=== PATIENT | male | born 1955 | race Caucasian/White ===

== ENCOUNTER 2017-09-19 22:15 | Inpatient (IN) | payer OTHER, MEDICARE ==
[~2017-09-19] VITALS: Ht 170.2 cm; Wt 76.4 kg
[2017-09-19 23:45] LABS: Source, Urine Clean Catch
[2017-09-19 23:50] LABS: Bilirubin, Urine Neg (Neg); Blood, Urine 1+ (Neg); Glucose Qualitative, Urine Neg (Neg); Ketones, Urine Neg (Neg); Leukocyte Esterase, Urine 3+ (Neg); Nitrite, Urine Neg (Neg); Protein, Urine 3+ (Neg); Specific Gravity, Urine 1.015 (1.003-1.022); Urobilinogen, Urine NORM (Normal)
[2017-09-19 23:58] LABS: Appearance, Urine Cloudy (Clear); Color, Urine Yellow (P-Yellow)
[2017-09-20 00:05] LABS: International Normalized Ratio 1.01; Prothrombin Time Results 10.5 Sec (9.7-11.5)
[2017-09-20 00:11] LABS: BASOPHILS ABSOLUTE AUTO 0.02 K/mm3 (0.00-0.23); BASOPHILS PERCENT AUTO 0 % (0-2); EOSINOPHILS ABSOLUTE AUTO 0.19 K/mm3 (0.00-0.68); EOSINOPHILS PERCENT AUTO 3 % (0-6); Hematocrit 29.4 % (37.0-53.0); Hemoglobin 9.8 g/dL (13.5-17.5); IMMATURE GRAN ABSOLUTE AUTO 0.02 K/mm3 (0.00-0.10); IMMATURE GRAN PERCENT AUTO 0 % (0-1); LYMPHOCYTES ABSOLUTE AUTO 1.79 K/mm3 (0.84-5.20); LYMPHOCYTES PERCENT AUTO 30 % (21-46); MONOCYTES ABSOLUTE AUTO 0.52 K/mm3 (0.16-1.47); MONOCYTES PERCENT AUTO 9 % (4-13); Mean Corpuscular HGB 30.1 pg (26.0-34.0); Mean Corpuscular HGB Conc 33.3 g/dL (31.5-36.5); Mean Corpuscular Volume 90 fL (80-100); Mean Platelet Volume 9.3 fL (9.1-12.4); NEUTROPHILS ABSOLUTE AUTO 3.48 K/mm3 (1.96-9.15); NEUTROPHILS PERCENT AUTO 58 % (41-73); Platelet Count 136 K/mm3 (150-400); RDW Coefficient Variation 14.3 % (11.7-14.2); RDW Standard Deviation 47.5 fL (35.1-46.3); Red Blood Cell Count 3.26 M/mm3 (4.30-5.90); White Blood Cell Count 6.02 K/mm3 (4.00-11.30)
[2017-09-20 00:12] LABS: Bacteria Many /hpf; Red Blood Cells, Urine 0-2 /hpf (0-2); Squamous Epithelial Cells Not Seen /hpf (Few); White Blood Cells, Urine 25-50 /hpf (0-5)
[2017-09-20 00:19] LABS: Alanine Aminotransfer (ALT/SGP 52 U/L (12-78); Albumin, Blood 3.4 g/dL (3.4-5.0); Alk Phos 76 U/L (50-136); Anion Gap 7 mmol/L (6-16); Aspartate Aminotrans (AST/SGOT 29 U/L (12-37); Bilirubin, Total 0.2 mg/dL (0.1-1.0); Blood Urea Nitrogen 33 mg/dL (8-24); CO2, Blood 25 mmol/L (21-32); Calcium, Blood 8.4 mg/dL (8.5-10.1); Chloride, Blood 108 mmol/L (98-108); Creatinine, Blood 2.06 mg/dL (0.60-1.20); Globulin, Blood 3.5 g/dL (2.2-4.0); Glomerular Filtration Rate 35 (60-); Glucose, Blood 155 mg/dL (70-99); Potassium, Blood 4.1 mmol/L (3.5-5.5); Sodium, Blood 140 mmol/L (136-145); Total Protein, Blood 6.9 g/dL (6.4-8.2)
[2017-09-20 01:06] LABS: CPK Creatine Kinase 45 U/L (39-308)
[2017-09-20] MEDS ORDERED: AMLO10 PO (01:32)
[2017-09-20] MEDS ORDERED: ELIQUIS5 MG PO (01:32)
[2017-09-20] MEDS ORDERED: ALBU90OI INH (01:32)
[2017-09-20] MEDS ORDERED: ATOR40TA PO (01:33)
[2017-09-20] MEDS ORDERED: CLOP75 PO (01:33)
[2017-09-20] MEDS ORDERED: CARV25 PO (01:33)
[2017-09-20] MEDS ORDERED: LEVE500 PO (01:34)
[2017-09-20] MEDS ORDERED: Lisinopril2.5 MG PO (01:34)
[2017-09-20] MEDS ORDERED: Novolog100 UNIT/1 SQ (01:34)
[2017-09-20] MEDS ORDERED: ISOD40ER PO (01:34)
[2017-09-20] MEDS ORDERED: RANO500T PO (01:35)
[2017-09-20] MEDS ORDERED: PANT40 PO (01:35)
[2017-09-20] MEDS ORDERED: SERT100 PO (01:35)
[2017-09-20] MEDS ORDERED: TAMS.4ER PO (01:35)
[2017-09-20 01:36] LABS: Creatine Kinase MB 0.7 ng/mL (0.0-3.6); Troponin I <0.015 ng/mL (0.000-0.040)
[2017-09-20 01:37] LABS: Creatine Kinase MB Index 1.6 (0.0-4.0)
[2017-09-20 02:40] LABS: U Amphetamine Screen Not Detected; U Barbituate Screen Not Detected; U Benzodiazapine Screen Not Detected; U Buprenorphine Screen Not Detected; U Cannabinoids Screen Not Detected; U Cocaine Screen Not Detected; U Methadone Screen Not Detected; U Methamphetamine Screen Not Detected; U Opiates Screen Not Detected; U Oxycodone Screen Not Detected; U Phencyclidine Screen Not Detected; U Propoxyphene Screen Not Detected
[2017-09-20 07:04] LABS: BASOPHILS ABSOLUTE AUTO 0.01 K/mm3 (0.00-0.23); BASOPHILS PERCENT AUTO 0 % (0-2); EOSINOPHILS ABSOLUTE AUTO 0.24 K/mm3 (0.00-0.68); EOSINOPHILS PERCENT AUTO 4 % (0-6); Hemoglobin 9.9 g/dL (13.5-17.5); IMMATURE GRAN ABSOLUTE AUTO 0.01 K/mm3 (0.00-0.10); IMMATURE GRAN PERCENT AUTO 0 % (0-1); LYMPHOCYTES ABSOLUTE AUTO 1.72 K/mm3 (0.84-5.20); LYMPHOCYTES PERCENT AUTO 30 % (21-46); MONOCYTES ABSOLUTE AUTO 0.63 K/mm3 (0.16-1.47); MONOCYTES PERCENT AUTO 11 % (4-13); Mean Corpuscular Volume 91 fL (80-100); NEUTROPHILS ABSOLUTE AUTO 3.04 K/mm3 (1.96-9.15); NEUTROPHILS PERCENT AUTO 54 % (41-73); Platelet Count 133 K/mm3 (150-400); RDW Coefficient Variation 14.2 % (11.7-14.2); RDW Standard Deviation 47.4 fL (35.1-46.3); White Blood Cell Count 5.65 K/mm3 (4.00-11.30)
[2017-09-20 07:06] LABS: International Normalized Ratio 1.01; Prothrombin Time Results 10.5 Sec (9.7-11.5)
[2017-09-20 07:39] LABS: CPK Creatine Kinase 43 U/L (39-308); Creatine Kinase MB 0.7 ng/mL (0.0-3.6); Creatine Kinase MB Index 1.6 (0.0-4.0); Troponin I <0.015 ng/mL (0.000-0.040)
[2017-09-20 08:07] LABS: CHOL/HDL RATIO 3.4; Cholesterol 94 mg/dL (50-200); HDL Cholesterol 28 mg/dL (>39); Low Density Lipoprotein Chol 27 mg/dL (0-110); Triglycerides 194 mg/dL (30-160); Very Low Density Lipoprot Chol 38 mg/dL (6-32)
[2017-09-20 08:45] LABS: Albumin, Blood 3.3 g/dL (3.4-5.0); Bilirubin, Total 0.3 mg/dL (0.1-1.0); Bun/Creatinine Ratio 15.3 (12.0-20.0); Calcium, Blood 8.5 mg/dL (8.5-10.1); Creatinine, Blood 1.89 mg/dL (0.60-1.20); Globulin, Blood 3.2 g/dL (2.2-4.0); Potassium, Blood 4.3 mmol/L (3.5-5.5); Total Protein, Blood 6.5 g/dL (6.4-8.2)
[2017-09-21 05:32] LABS: BASOPHILS ABSOLUTE AUTO 0.01 K/mm3 (0.00-0.23); BASOPHILS PERCENT AUTO 0 % (0-2); EOSINOPHILS PERCENT AUTO 3 % (0-6); Hematocrit 31.7 % (37.0-53.0); Hemoglobin 10.5 g/dL (13.5-17.5); IMMATURE GRAN ABSOLUTE AUTO 0.01 K/mm3 (0.00-0.10); IMMATURE GRAN PERCENT AUTO 0 % (0-1); LYMPHOCYTES ABSOLUTE AUTO 1.04 K/mm3 (0.84-5.20); LYMPHOCYTES PERCENT AUTO 10 % (21-46); MONOCYTES ABSOLUTE AUTO 0.86 K/mm3 (0.16-1.47); MONOCYTES PERCENT AUTO 8 % (4-13); Mean Corpuscular HGB 29.7 pg (26.0-34.0); Mean Corpuscular HGB Conc 33.1 g/dL (31.5-36.5); Mean Corpuscular Volume 90 fL (80-100); Mean Platelet Volume 9.3 fL (9.1-12.4); NEUTROPHILS ABSOLUTE AUTO 8.47 K/mm3 (1.96-9.15); NEUTROPHILS PERCENT AUTO 79 % (41-73); Platelet Count 153 K/mm3 (150-400); RDW Coefficient Variation 13.9 % (11.7-14.2); RDW Standard Deviation 45.8 fL (35.1-46.3); Red Blood Cell Count 3.53 M/mm3 (4.30-5.90); White Blood Cell Count 10.69 K/mm3 (4.00-11.30)
[2017-09-21 05:59] LABS: Albumin, Blood 3.4 g/dL (3.4-5.0); Anion Gap 9 mmol/L (6-16); Blood Urea Nitrogen 29 mg/dL (8-24); Bun/Creatinine Ratio 16.9 (12.0-20.0); CO2, Blood 23 mmol/L (21-32); Calcium, Blood 8.7 mg/dL (8.5-10.1); Chloride, Blood 105 mmol/L (98-108); Creatinine, Blood 1.72 mg/dL (0.60-1.20); Glomerular Filtration Rate 43 (60-); Glucose, Blood 146 mg/dL (70-99); Phosphorus, Blood 3.9 mg/dL (2.5-4.9); Potassium, Blood 4.5 mmol/L (3.5-5.5); Sodium, Blood 137 mmol/L (136-145)
[2017-09-22 05:27] LABS: BASOPHILS ABSOLUTE AUTO 0.01 K/mm3 (0.00-0.23); BASOPHILS PERCENT AUTO 0 % (0-2); EOSINOPHILS ABSOLUTE AUTO 0.37 K/mm3 (0.00-0.68); EOSINOPHILS PERCENT AUTO 4 % (0-6); Hematocrit 30.1 % (37.0-53.0); Hemoglobin 9.9 g/dL (13.5-17.5); IMMATURE GRAN ABSOLUTE AUTO 0.01 K/mm3 (0.00-0.10); IMMATURE GRAN PERCENT AUTO 0 % (0-1); LYMPHOCYTES ABSOLUTE AUTO 1.21 K/mm3 (0.84-5.20); LYMPHOCYTES PERCENT AUTO 15 % (21-46); MONOCYTES ABSOLUTE AUTO 0.76 K/mm3 (0.16-1.47); MONOCYTES PERCENT AUTO 9 % (4-13); Mean Corpuscular HGB 29.7 pg (26.0-34.0); Mean Corpuscular HGB Conc 32.9 g/dL (31.5-36.5); Mean Corpuscular Volume 90 fL (80-100); Mean Platelet Volume 9.6 fL (9.1-12.4); NEUTROPHILS PERCENT AUTO 72 % (41-73); Platelet Count 136 K/mm3 (150-400); RDW Coefficient Variation 13.8 % (11.7-14.2); RDW Standard Deviation 45.4 fL (35.1-46.3); Red Blood Cell Count 3.33 M/mm3 (4.30-5.90); White Blood Cell Count 8.36 K/mm3 (4.00-11.30)
[2017-09-22 05:47] LABS: Albumin, Blood 3.1 g/dL (3.4-5.0); Anion Gap 6 mmol/L (6-16); Blood Urea Nitrogen 28 mg/dL (8-24); Bun/Creatinine Ratio 16.8 (12.0-20.0); CO2, Blood 25 mmol/L (21-32); Calcium, Blood 8.4 mg/dL (8.5-10.1); Chloride, Blood 107 mmol/L (98-108); Creatinine, Blood 1.67 mg/dL (0.60-1.20); Glomerular Filtration Rate 44 (60-); Glucose, Blood 89 mg/dL (70-99); Phosphorus, Blood 4.7 mg/dL (2.5-4.9); Potassium, Blood 4.5 mmol/L (3.5-5.5); Sodium, Blood 138 mmol/L (136-145)
[2017-09-23 04:39] LABS: BASOPHILS ABSOLUTE AUTO 0.01 K/mm3 (0.00-0.23); BASOPHILS PERCENT AUTO 0 % (0-2); EOSINOPHILS ABSOLUTE AUTO 0.41 K/mm3 (0.00-0.68); EOSINOPHILS PERCENT AUTO 7 % (0-6); Hematocrit 29.7 % (37.0-53.0); Hemoglobin 9.8 g/dL (13.5-17.5); IMMATURE GRAN ABSOLUTE AUTO 0.01 K/mm3 (0.00-0.10); IMMATURE GRAN PERCENT AUTO 0 % (0-1); LYMPHOCYTES ABSOLUTE AUTO 1.45 K/mm3 (0.84-5.20); LYMPHOCYTES PERCENT AUTO 23 % (21-46); MONOCYTES ABSOLUTE AUTO 0.51 K/mm3 (0.16-1.47); MONOCYTES PERCENT AUTO 8 % (4-13); Mean Corpuscular HGB 30.2 pg (26.0-34.0); Mean Corpuscular Volume 91 fL (80-100); Mean Platelet Volume 8.9 fL (9.1-12.4); NEUTROPHILS PERCENT AUTO 61 % (41-73); Platelet Count 138 K/mm3 (150-400); RDW Coefficient Variation 13.8 % (11.7-14.2); RDW Standard Deviation 46.4 fL (35.1-46.3); Red Blood Cell Count 3.25 M/mm3 (4.30-5.90); White Blood Cell Count 6.19 K/mm3 (4.00-11.30)
[2017-09-23 04:54] LABS: Albumin, Blood 3.2 g/dL (3.4-5.0); Anion Gap 7 mmol/L (6-16); Blood Urea Nitrogen 28 mg/dL (8-24); CO2, Blood 24 mmol/L (21-32); Calcium, Blood 8.5 mg/dL (8.5-10.1); Chloride, Blood 106 mmol/L (98-108); Creatinine, Blood 1.87 mg/dL (0.60-1.20); Glomerular Filtration Rate 39 (60-); Glucose, Blood 145 mg/dL (70-99); Phosphorus, Blood 3.9 mg/dL (2.5-4.9); Potassium, Blood 4.5 mmol/L (3.5-5.5); Sodium, Blood 137 mmol/L (136-145)
[2017-09-26 19:14] LABS: Albumin, Blood 3.2 g/dL (3.4-5.0); Albumin/Globulin Ratio 0.8 (0.8-1.8); Bilirubin, Total 0.3 mg/dL (0.1-1.0); Bun/Creatinine Ratio 20.9 (12.0-20.0); Calcium, Blood 8.4 mg/dL (8.5-10.1); Creatinine, Blood 2.06 mg/dL (0.60-1.20); Globulin, Blood 4.1 g/dL (2.2-4.0); Potassium, Blood 4.9 mmol/L (3.5-5.5); Total Protein, Blood 7.3 g/dL (6.4-8.2)
[2017-09-26 19:18] LABS: BASOPHILS ABSOLUTE AUTO 0.01 K/mm3 (0.00-0.23); BASOPHILS PERCENT AUTO 0 % (0-2); EOSINOPHILS ABSOLUTE AUTO 0.11 K/mm3 (0.00-0.68); EOSINOPHILS PERCENT AUTO 1 % (0-6); Hematocrit 30.1 % (37.0-53.0); IMMATURE GRAN ABSOLUTE AUTO 0.01 K/mm3 (0.00-0.10); IMMATURE GRAN PERCENT AUTO 0 % (0-1); LYMPHOCYTES PERCENT AUTO 9 % (21-46); MONOCYTES ABSOLUTE AUTO 0.53 K/mm3 (0.16-1.47); MONOCYTES PERCENT AUTO 7 % (4-13); Mean Corpuscular HGB 29.7 pg (26.0-34.0); Mean Corpuscular HGB Conc 33.2 g/dL (31.5-36.5); Mean Corpuscular Volume 89 fL (80-100); Mean Platelet Volume 9.3 fL (9.1-12.4); NEUTROPHILS ABSOLUTE AUTO 6.57 K/mm3 (1.96-9.15); NEUTROPHILS PERCENT AUTO 83 % (41-73); Platelet Count 157 K/mm3 (150-400); RDW Coefficient Variation 13.5 % (11.7-14.2); RDW Standard Deviation 44.4 fL (35.1-46.3); Red Blood Cell Count 3.37 M/mm3 (4.30-5.90); White Blood Cell Count 7.93 K/mm3 (4.00-11.30)
[2017-09-26 19:18] LABS: Source, Urine Clean Catch
[2017-09-26 19:21] LABS: Percent Saturation 5.8 % (20.0-50.0)
[2017-09-26 19:36] LABS: Appearance, Urine Clear (Clear); Bilirubin, Urine Neg (Neg); Blood, Urine Neg (Neg); Color, Urine Yellow (P-Yellow); Glucose Qualitative, Urine Neg (Neg); Ketones, Urine Neg (Neg); Leukocyte Esterase, Urine 1+ (Neg); Nitrite, Urine Neg (Neg); Protein, Urine 3+ (Neg); Urobilinogen, Urine NORM (Normal)
[2017-09-26 20:06] LABS: Bacteria Few /hpf; Squamous Epithelial Cells Not Seen /hpf (Few)
[2017-09-27 04:36] LABS: BASOPHILS ABSOLUTE AUTO 0.01 K/mm3 (0.00-0.23); BASOPHILS PERCENT AUTO 0 % (0-2); EOSINOPHILS ABSOLUTE AUTO 0.13 K/mm3 (0.00-0.68); EOSINOPHILS PERCENT AUTO 2 % (0-6); Hematocrit 29.1 % (37.0-53.0); Hemoglobin 9.6 g/dL (13.5-17.5); IMMATURE GRAN ABSOLUTE AUTO 0.02 K/mm3 (0.00-0.10); IMMATURE GRAN PERCENT AUTO 0 % (0-1); LYMPHOCYTES ABSOLUTE AUTO 0.87 K/mm3 (0.84-5.20); LYMPHOCYTES PERCENT AUTO 11 % (21-46); MONOCYTES ABSOLUTE AUTO 0.69 K/mm3 (0.16-1.47); MONOCYTES PERCENT AUTO 9 % (4-13); Mean Corpuscular Volume 91 fL (80-100); Mean Platelet Volume 9.1 fL (9.1-12.4); NEUTROPHILS ABSOLUTE AUTO 5.93 K/mm3 (1.96-9.15); NEUTROPHILS PERCENT AUTO 78 % (41-73); Platelet Count 170 K/mm3 (150-400); RDW Coefficient Variation 13.5 % (11.7-14.2); RDW Standard Deviation 44.9 fL (35.1-46.3); White Blood Cell Count 7.65 K/mm3 (4.00-11.30)
[2017-09-27 04:58] LABS: Albumin, Blood 3.2 g/dL (3.4-5.0); Albumin/Globulin Ratio 0.8 (0.8-1.8); Bilirubin, Total 0.2 mg/dL (0.1-1.0); Bun/Creatinine Ratio 21.7 (12.0-20.0); Calcium, Blood 8.6 mg/dL (8.5-10.1); Creatinine, Blood 2.03 mg/dL (0.60-1.20); Globulin, Blood 3.8 g/dL (2.2-4.0); Potassium, Blood 4.3 mmol/L (3.5-5.5)
[2017-09-27 05:02] LABS: Thyroid Stimulating Hormone 0.347 uIU/mL (0.360-4.800)
[2018-01-01] MEDS ORDERED: Vitamin D2000 UNIT PO (16:10)
[2018-01-01] MEDS ORDERED: ACET500 PO (16:11)
[2018-02-15] MEDS ORDERED: MELA3 PO (00:15)
[2018-02-15] MEDS ORDERED: MIRT15 PO (00:15)
[2018-02-15] MEDS ORDERED: DULO60 PO (05:04)
[2018-02-15] MEDS ORDERED: HUMULIN 70100 UNIT/2 SC (05:06)
[2018-02-15] MEDS ORDERED: SALONPAS PATCH1 EACH TOP (05:16)
[2018-07-14] MEDS ORDERED: LOSA25 PO (19:10)
[2018-07-17] MEDS ORDERED: HYDR1TAB94 PO (11:00)
[2018-07-28] MEDS ORDERED: ELIQUIS2.5 MG PO (16:44)
[2018-07-28] MEDS ORDERED: ATOR80 PO (16:45)
[2018-07-28] MEDS ORDERED: CLOP75 PO (16:45)
[2018-07-28] MEDS ORDERED: DULO60 PO (16:46)
[2018-07-28] MEDS ORDERED: HYDR1TAB94 PO (16:46)
[2018-07-28] MEDS ORDERED: HUMULIN 70100 UNIT/2 SC (16:47)
[2018-07-28] MEDS ORDERED: Novolin R100 UNIT/M (16:47)
[2018-07-28] MEDS ORDERED: LEVE500 PO (16:48)
[2018-07-28] MEDS ORDERED: METO50ER PO (16:49)
[2018-07-28] MEDS ORDERED: MIRT15 PO (16:50)
[2018-07-28] MEDS ORDERED: PANT40 PO (16:50)
[2018-07-28] MEDS ORDERED: RANO500T PO (16:50)
[2018-07-28] MEDS ORDERED: TAMS.4ER PO (16:51)
[2018-07-29] MEDS ORDERED: Isosorbide Mono30 MG PO (01:03)
[2018-07-29] MEDS ORDERED: CHOL10002 PO (01:04)
[2018-07-29] MEDS ORDERED: LIDO5TO TOP (01:06)
[2018-07-29] MEDS ORDERED: MELA3 PO (01:12)
[2018-07-29] MEDS ORDERED: SALONPAS PATCH1 EACH TP (06:25)
[2018-07-29] MEDS ORDERED: LIDO700A20 TOP (06:33)
== END 2017-09-27 17:19 | disposition home health service (06) | DRG 65 ==
LOC: ER 22:15 → MEDS 22:16
PROVIDERS: Emergency Medicine; Family Medicine; Internal Medicine
DX: I63.9 Cerebral infarction, unspecified (principal); G81.94 Hemiplegia, unspecified affecting left nondominant side; N17.9 Acute kidney failure, unspecified; E11.22 Type 2 diabetes mellitus with diabetic chronic kidney disease; N39.0 Urinary tract infection, site not specified; D64.9 Anemia, unspecified; G89.29 Other chronic pain; I12.9 Hypertensive chronic kidney disease with stage 1 through stage 4 chronic kidney disease, or unspecified chronic kidney disease; I25.10 Atherosclerotic heart disease of native coronary artery without angina pectoris; R07.9 Chest pain, unspecified; K21.9 Gastro-esophageal reflux disease without esophagitis; R53.81 Other malaise; N18.9 Chronic kidney disease, unspecified; Z79.01 Long term (current) use of anticoagulants; Z79.02 Long term (current) use of antithrombotics/antiplatelets; Z95.0 Presence of cardiac pacemaker; Z87.891 Personal history of nicotine dependence; Z79.899 Other long term (current) drug therapy; Z95.5 Presence of coronary angioplasty implant and graft; Z88.8 Allergy status to other drugs, medicaments and biological substances; I25.2 Old myocardial infarction
CPT/HCPCS: 36415; 70450; 71020; 71046; 80053; 80061; 80069; 81001; 82550; 82553; 82728; 82947; 83036; 83540; 83550; 84443; 84484; 85025; 85610; 85651; 85730; 86038; 86147; 87040; 87077; 87086; 87186; 92610; 93005; 93010; 93880; 97110; 97116; 97161; 97166; 97530; 97535; 99285; G8978; G8979; G8987; G8988; G8996; G8997; G8998; J0696; J1170; J1815; J2270; J2405; J3010; J7030

== ENCOUNTER 2017-12-13 13:22 | Emergency (ER) | payer OTHER, MEDICARE ==
[~2017-12-13] VITALS: Ht 170.2 cm; Wt 77.1 kg
[~2017-12-13 13:22] MED LIST: ALBU90OI INH; AMLO10 PO; ATOR40TA PO; CARV25 PO; CLOP75 PO; ELIQUIS5 MG PO; ISOD40ER PO; LEVE500 PO; Lisinopril2.5 MG PO; Novolog100 UNIT/1 SQ; PANT40 PO; RANO500T PO; SERT100 PO; TAMS.4ER PO
[2017-12-13 13:59] LABS: BASOPHILS ABSOLUTE AUTO 0.03 K/mm3 (0.00-0.23); BASOPHILS PERCENT AUTO 1 % (0-2); EOSINOPHILS ABSOLUTE AUTO 0.25 K/mm3 (0.00-0.68); EOSINOPHILS PERCENT AUTO 4 % (0-6); Hematocrit 31.8 % (37.0-53.0); Hemoglobin 10.3 g/dL (13.5-17.5); IMMATURE GRAN ABSOLUTE AUTO 0.04 K/mm3 (0.00-0.10); IMMATURE GRAN PERCENT AUTO 1 % (0-1); LYMPHOCYTES ABSOLUTE AUTO 1.28 K/mm3 (0.84-5.20); LYMPHOCYTES PERCENT AUTO 20 % (21-46); MONOCYTES ABSOLUTE AUTO 0.55 K/mm3 (0.16-1.47); MONOCYTES PERCENT AUTO 9 % (4-13); Mean Corpuscular HGB 29.3 pg (26.0-34.0); Mean Corpuscular HGB Conc 32.4 g/dL (31.5-36.5); Mean Corpuscular Volume 91 fL (80-100); Mean Platelet Volume 9.4 fL (9.1-12.4); NEUTROPHILS ABSOLUTE AUTO 4.24 K/mm3 (1.96-9.15); NEUTROPHILS PERCENT AUTO 66 % (41-73); Platelet Count 164 K/mm3 (150-400); RDW Coefficient Variation 13.5 % (11.7-14.2); RDW Standard Deviation 44.9 fL (35.1-46.3); Red Blood Cell Count 3.51 M/mm3 (4.30-5.90); White Blood Cell Count 6.39 K/mm3 (4.00-11.30)
[2017-12-13 14:25] LABS: Alanine Aminotransfer (ALT/SGP 40 U/L (12-78); Albumin/Globulin Ratio 0.8 (0.8-1.8); Alk Phos 77 U/L (50-136); Anion Gap 5 mmol/L (6-16); Aspartate Aminotrans (AST/SGOT 24 U/L (12-37); Bilirubin, Total 0.2 mg/dL (0.1-1.0); Blood Urea Nitrogen 24 mg/dL (8-24); Bun/Creatinine Ratio 14.2 (12.0-20.0); CO2, Blood 24 mmol/L (21-32); Calcium, Blood 8.2 mg/dL (8.5-10.1); Chloride, Blood 109 mmol/L (98-108); Creatinine, Blood 1.69 mg/dL (0.60-1.20); Glomerular Filtration Rate 44 (60-); Glucose, Blood 163 mg/dL (70-99); Potassium, Blood 4.5 mmol/L (3.5-5.5); Sodium, Blood 138 mmol/L (136-145); Troponin I <0.015 ng/mL (0.000-0.040)
[2018-01-01] MEDS ORDERED: Vitamin D2000 UNIT PO (16:10)
[2018-01-01] MEDS ORDERED: ACET500 PO (16:11)
[2018-02-15] MEDS ORDERED: MELA3 PO (00:15)
[2018-02-15] MEDS ORDERED: MIRT15 PO (00:15)
[2018-02-15] MEDS ORDERED: DULO60 PO (05:04)
[2018-02-15] MEDS ORDERED: HUMULIN 70100 UNIT/2 SC (05:06)
[2018-02-15] MEDS ORDERED: SALONPAS PATCH1 EACH TOP (05:16)
[2018-07-14] MEDS ORDERED: LOSA25 PO (19:10)
[2018-07-17] MEDS ORDERED: HYDR1TAB94 PO (11:00)
[2018-07-28] MEDS ORDERED: ELIQUIS2.5 MG PO (16:44)
[2018-07-28] MEDS ORDERED: ATOR80 PO (16:45)
[2018-07-28] MEDS ORDERED: CLOP75 PO (16:45)
[2018-07-28] MEDS ORDERED: HYDR1TAB94 PO (16:46)
[2018-07-28] MEDS ORDERED: DULO60 PO (16:46)
[2018-07-28] MEDS ORDERED: Novolin R100 UNIT/M (16:47)
[2018-07-28] MEDS ORDERED: HUMULIN 70100 UNIT/2 SC (16:47)
[2018-07-28] MEDS ORDERED: LEVE500 PO (16:48)
[2018-07-28] MEDS ORDERED: METO50ER PO (16:49)
[2018-07-28] MEDS ORDERED: MIRT15 PO (16:50)
[2018-07-28] MEDS ORDERED: PANT40 PO (16:50)
[2018-07-28] MEDS ORDERED: RANO500T PO (16:50)
[2018-07-28] MEDS ORDERED: TAMS.4ER PO (16:51)
[2018-07-29] MEDS ORDERED: Isosorbide Mono30 MG PO (01:03)
[2018-07-29] MEDS ORDERED: CHOL10002 PO (01:04)
[2018-07-29] MEDS ORDERED: LIDO5TO TOP (01:06)
[2018-07-29] MEDS ORDERED: MELA3 PO (01:12)
[2018-07-29] MEDS ORDERED: SALONPAS PATCH1 EACH TP (06:25)
[2018-07-29] MEDS ORDERED: LIDO700A20 TOP (06:33)
== END 2017-12-13 15:50 | disposition home or self-care (01) ==
LOC: ER 13:22
PROVIDERS: Emergency Medicine
DX: R07.81 Pleurodynia (principal); I25.2 Old myocardial infarction; I25.10 Atherosclerotic heart disease of native coronary artery without angina pectoris; I48.0 Paroxysmal atrial fibrillation; E78.5 Hyperlipidemia, unspecified; J44.9 Chronic obstructive pulmonary disease, unspecified; G40.909 Epilepsy, unspecified, not intractable, without status epilepticus; I11.9 Hypertensive heart disease without heart failure; Z79.4 Long term (current) use of insulin; Z79.899 Other long term (current) drug therapy; Z86.73 Personal history of transient ischemic attack (TIA), and cerebral infarction without residual deficits; Z95.0 Presence of cardiac pacemaker; Z95.5 Presence of coronary angioplasty implant and graft; Z87.891 Personal history of nicotine dependence
CPT/HCPCS: 36415; 71046; 80053; 83690; 84484; 85025; 93005; 93010; 99283

== ENCOUNTER 2018-01-02 05:29 | Day surgery (SDC) | payer OTHER ==
[~2018-01-02] VITALS: Ht 172.7 cm; Wt 79.0 kg
[~2018-01-02 05:29] MED LIST changes: +ACET500 PO; +Vitamin D2000 UNIT PO
[2018-01-02] MEDS ORDERED: Isosorbide Mono60 MG PO (08:00)
== END 2018-01-02 11:00 | disposition home or self-care (01) ==
LOC: MHTC 05:29
PROC: 4A023N7 Measurement of Cardiac Sampling and Pressure, Left Heart, Percutaneous Approach (ICD-10-PCS; principal; 2018-01-02)
PROC: B211YZZ Fluoroscopy of Multiple Coronary Arteries using Other Contrast (ICD-10-PCS; principal; 2018-01-02)
DX: I25.118 Atherosclerotic heart disease of native coronary artery with other forms of angina pectoris (principal); I25.5 Ischemic cardiomyopathy; Z87.891 Personal history of nicotine dependence; E78.00 Pure hypercholesterolemia, unspecified; I10 Essential (primary) hypertension; E11.9 Type 2 diabetes mellitus without complications; Z79.4 Long term (current) use of insulin; E78.5 Hyperlipidemia, unspecified; Z95.5 Presence of coronary angioplasty implant and graft; Z95.0 Presence of cardiac pacemaker; I48.0 Paroxysmal atrial fibrillation
CPT/HCPCS: 93458; 99152; C1769; C1894; J1644; J2250; J3010; J7030; Q9967

== ENCOUNTER 2018-03-14 15:47 | Observation (INO) | payer MEDICARE ==
[~2018-03-14] VITALS: Ht 172.7 cm; Wt 77.2 kg
[~2018-03-14 15:47] MED LIST changes: +DULO60 PO; +HUMULIN 70100 UNIT/2 SC; +Isosorbide Mono60 MG PO; +MELA3 PO; +MIRT15 PO; +SALONPAS PATCH1 EACH TOP
[2018-03-14 16:31] LABS: BASOPHILS ABSOLUTE AUTO 0.02 K/mm3 (0.00-0.23); BASOPHILS PERCENT AUTO 0 % (0-2); EOSINOPHILS ABSOLUTE AUTO 0.24 K/mm3 (0.00-0.68); EOSINOPHILS PERCENT AUTO 4 % (0-6); Hematocrit 30.4 % (37.0-53.0); Hemoglobin 9.9 g/dL (13.5-17.5); IMMATURE GRAN ABSOLUTE AUTO 0.07 K/mm3 (0.00-0.10); IMMATURE GRAN PERCENT AUTO 1 % (0-1); LYMPHOCYTES ABSOLUTE AUTO 1.48 K/mm3 (0.84-5.20); LYMPHOCYTES PERCENT AUTO 25 % (21-46); MONOCYTES ABSOLUTE AUTO 0.57 K/mm3 (0.16-1.47); MONOCYTES PERCENT AUTO 10 % (4-13); Mean Corpuscular HGB 28.6 pg (26.0-34.0); Mean Corpuscular HGB Conc 32.6 g/dL (31.5-36.5); Mean Corpuscular Volume 88 fL (80-100); Mean Platelet Volume 9.6 fL (9.1-12.4); NEUTROPHILS ABSOLUTE AUTO 3.64 K/mm3 (1.96-9.15); NEUTROPHILS PERCENT AUTO 60 % (41-73); Platelet Count 188 K/mm3 (150-400); RDW Coefficient Variation 13.4 % (11.7-14.2); RDW Standard Deviation 42.7 fL (35.1-46.3); Red Blood Cell Count 3.46 M/mm3 (4.30-5.90); White Blood Cell Count 6.02 K/mm3 (4.00-11.30)
[2018-03-14 16:45] LABS: Alanine Aminotransfer (ALT/SGP 27 U/L (12-78); Albumin, Blood 2.7 g/dL (3.4-5.0); Albumin/Globulin Ratio 0.7 (0.8-1.8); Alk Phos 77 U/L (50-136); Anion Gap 8 mmol/L (6-16); Aspartate Aminotrans (AST/SGOT 13 U/L (12-37); Bilirubin, Total 0.2 mg/dL (0.1-1.0); Blood Urea Nitrogen 33 mg/dL (8-24); Bun/Creatinine Ratio 16.7 (12.0-20.0); CO2, Blood 20 mmol/L (21-32); Calcium, Blood 8.2 mg/dL (8.5-10.1); Chloride, Blood 108 mmol/L (98-108); Creatinine, Blood 1.98 mg/dL (0.60-1.20); Globulin, Blood 3.7 g/dL (2.2-4.0); Glomerular Filtration Rate 36 (60-); Glucose, Blood 329 mg/dL (70-99); Potassium, Blood 4.8 mmol/L (3.5-5.5); Sodium, Blood 136 mmol/L (136-145); Total Protein, Blood 6.4 g/dL (6.4-8.2); Troponin I <0.015 ng/mL (0.000-0.040)
[2018-03-15 05:22] LABS: Hematocrit 30.8 % (37.0-53.0); Hemoglobin 9.9 g/dL (13.5-17.5); Mean Corpuscular HGB Conc 32.1 g/dL (31.5-36.5); Mean Corpuscular Volume 87 fL (80-100); Platelet Count 181 K/mm3 (150-400); RDW Coefficient Variation 13.6 % (11.7-14.2); RDW Standard Deviation 42.8 fL (35.1-46.3); Red Blood Cell Count 3.53 M/mm3 (4.30-5.90); White Blood Cell Count 6.03 K/mm3 (4.00-11.30)
[2018-03-15 05:52] LABS: Bun/Creatinine Ratio 17.5 (12.0-20.0); Calcium, Blood 8.1 mg/dL (8.5-10.1); Creatinine, Blood 1.77 mg/dL (0.60-1.20); Potassium, Blood 4.4 mmol/L (3.5-5.5)
== END 2018-03-15 16:47 | disposition home or self-care (01) ==
LOC: ER 15:47 → PCU 15:48
PROVIDERS: Emergency Medicine; Nurse Practitioner Acute Care
DX: R07.9 Chest pain, unspecified (principal); E11.22 Type 2 diabetes mellitus with diabetic chronic kidney disease; I12.9 Hypertensive chronic kidney disease with stage 1 through stage 4 chronic kidney disease, or unspecified chronic kidney disease; N18.3 Chronic kidney disease, stage 3 (moderate); D63.1 Anemia in chronic kidney disease; G40.909 Epilepsy, unspecified, not intractable, without status epilepticus; I25.2 Old myocardial infarction; E78.5 Hyperlipidemia, unspecified; N40.0 Benign prostatic hyperplasia without lower urinary tract symptoms; I25.10 Atherosclerotic heart disease of native coronary artery without angina pectoris; I48.91 Unspecified atrial fibrillation; Z95.5 Presence of coronary angioplasty implant and graft; Z79.899 Other long term (current) drug therapy; Z87.891 Personal history of nicotine dependence; Z88.8 Allergy status to other drugs, medicaments and biological substances; Z79.01 Long term (current) use of anticoagulants; Z86.73 Personal history of transient ischemic attack (TIA), and cerebral infarction without residual deficits; Z95.810 Presence of automatic (implantable) cardiac defibrillator; Z79.4 Long term (current) use of insulin
CPT/HCPCS: 36415; 71046; 80048; 80053; 82947; 83540; 83550; 83880; 84484; 85025; 85027; 93005; 93010; 96360; 96361; 96374; 96376; 99285; G0378; J3010; J7030

== ENCOUNTER 2018-04-19 19:26 | Inpatient (IN) | payer MEDICARE ==
[~2018-04-19] VITALS: Ht 170.2 cm; Wt 83.1 kg
[2018-04-19 20:07] LABS: BASOPHILS ABSOLUTE AUTO 0.02 K/mm3 (0.00-0.23); BASOPHILS PERCENT AUTO 0 % (0-2); EOSINOPHILS ABSOLUTE AUTO 0.24 K/mm3 (0.00-0.68); EOSINOPHILS PERCENT AUTO 3 % (0-6); Hematocrit 33.3 % (37.0-53.0); Hemoglobin 10.7 g/dL (13.5-17.5); IMMATURE GRAN ABSOLUTE AUTO 0.03 K/mm3 (0.00-0.10); IMMATURE GRAN PERCENT AUTO 0 % (0-1); LYMPHOCYTES ABSOLUTE AUTO 1.83 K/mm3 (0.84-5.20); LYMPHOCYTES PERCENT AUTO 26 % (21-46); MONOCYTES ABSOLUTE AUTO 0.55 K/mm3 (0.16-1.47); MONOCYTES PERCENT AUTO 8 % (4-13); Mean Corpuscular HGB 27.7 pg (26.0-34.0); Mean Corpuscular HGB Conc 32.1 g/dL (31.5-36.5); Mean Corpuscular Volume 86 fL (80-100); Mean Platelet Volume 9.6 fL (9.1-12.4); NEUTROPHILS ABSOLUTE AUTO 4.37 K/mm3 (1.96-9.15); NEUTROPHILS PERCENT AUTO 62 % (41-73); Platelet Count 198 K/mm3 (150-400); RDW Coefficient Variation 13.3 % (11.7-14.2); RDW Standard Deviation 41.6 fL (35.1-46.3); Red Blood Cell Count 3.86 M/mm3 (4.30-5.90); White Blood Cell Count 7.04 K/mm3 (4.00-11.30)
[2018-04-19 20:25] LABS: Albumin, Blood 3.2 g/dL (3.4-5.0); Albumin/Globulin Ratio 0.8 (0.8-1.8); Bilirubin, Total 0.3 mg/dL (0.1-1.0); Bun/Creatinine Ratio 12.5 (12.0-20.0); Calcium, Blood 8.2 mg/dL (8.5-10.1); Creatinine, Blood 2.32 mg/dL (0.60-1.20); Total Protein, Blood 7.2 g/dL (6.4-8.2)
[2018-04-19] MEDS ORDERED: HYDR1TAB94 PO (22:21)
[2018-04-20 00:06] LABS: Source, Urine Clean Catch
[2018-04-20 00:14] LABS: Appearance, Urine Clear (Clear); Bilirubin, Urine Neg (Neg); Blood, Urine Neg (Neg); Color, Urine Yellow (P-Yellow); Glucose Qualitative, Urine 4+ (Neg); Ketones, Urine Neg (Neg); Leukocyte Esterase, Urine Neg (Neg); Nitrite, Urine Neg (Neg); Protein, Urine 4+ (Neg); Specific Gravity, Urine 1.015 (1.003-1.022); Urobilinogen, Urine NORM (Normal)
[2018-04-20 01:18] LABS: Bacteria Rare /hpf; Hyaline Casts 0-2 /lpf (0-2); Red Blood Cells, Urine 0-2 /hpf (0-2); Squamous Epithelial Cells Rare /hpf (Few); White Blood Cells, Urine 0-2 /hpf (0-5)
[2018-04-20 05:16] LABS: Hematocrit 31.3 % (37.0-53.0); Hemoglobin 9.9 g/dL (13.5-17.5); Mean Corpuscular HGB 27.4 pg (26.0-34.0); Mean Corpuscular HGB Conc 31.6 g/dL (31.5-36.5); Mean Corpuscular Volume 87 fL (80-100); Mean Platelet Volume 10.3 fL (9.1-12.4); Platelet Count 186 K/mm3 (150-400); RDW Coefficient Variation 13.2 % (11.7-14.2); RDW Standard Deviation 41.4 fL (35.1-46.3); Red Blood Cell Count 3.61 M/mm3 (4.30-5.90); White Blood Cell Count 5.77 K/mm3 (4.00-11.30)
[2018-04-20 05:56] LABS: Albumin, Blood 2.9 g/dL (3.4-5.0); Albumin/Globulin Ratio 0.8 (0.8-1.8); Bilirubin, Total 0.4 mg/dL (0.1-1.0); Bun/Creatinine Ratio 12.6 (12.0-20.0); Calcium, Blood 7.9 mg/dL (8.5-10.1); Creatinine, Blood 2.06 mg/dL (0.60-1.20); Globulin, Blood 3.6 g/dL (2.2-4.0); Potassium, Blood 4.2 mmol/L (3.5-5.5); Total Protein, Blood 6.5 g/dL (6.4-8.2)
[2018-04-21 08:25] LABS: BASOPHILS ABSOLUTE AUTO 0.03 K/mm3 (0.00-0.23); BASOPHILS PERCENT AUTO 1 % (0-2); EOSINOPHILS ABSOLUTE AUTO 0.26 K/mm3 (0.00-0.68); EOSINOPHILS PERCENT AUTO 5 % (0-6); Hematocrit 33.9 % (37.0-53.0); Hemoglobin 10.7 g/dL (13.5-17.5); IMMATURE GRAN ABSOLUTE AUTO 0.02 K/mm3 (0.00-0.10); IMMATURE GRAN PERCENT AUTO 0 % (0-1); LYMPHOCYTES ABSOLUTE AUTO 1.44 K/mm3 (0.84-5.20); LYMPHOCYTES PERCENT AUTO 25 % (21-46); MONOCYTES ABSOLUTE AUTO 0.44 K/mm3 (0.16-1.47); MONOCYTES PERCENT AUTO 8 % (4-13); Mean Corpuscular HGB 27.3 pg (26.0-34.0); Mean Corpuscular HGB Conc 31.6 g/dL (31.5-36.5); Mean Corpuscular Volume 87 fL (80-100); Mean Platelet Volume 9.9 fL (9.1-12.4); NEUTROPHILS ABSOLUTE AUTO 3.49 K/mm3 (1.96-9.15); NEUTROPHILS PERCENT AUTO 61 % (41-73); Platelet Count 180 K/mm3 (150-400); RDW Coefficient Variation 13.1 % (11.7-14.2); Red Blood Cell Count 3.92 M/mm3 (4.30-5.90); White Blood Cell Count 5.68 K/mm3 (4.00-11.30)
[2018-04-21 08:37] LABS: Albumin/Globulin Ratio 0.8 (0.8-1.8); Bilirubin, Total 0.3 mg/dL (0.1-1.0); Bun/Creatinine Ratio 12.9 (12.0-20.0); Calcium, Blood 8.3 mg/dL (8.5-10.1); Creatinine, Blood 2.1 mg/dL (0.60-1.20); Globulin, Blood 3.8 g/dL (2.2-4.0); Potassium, Blood 4.7 mmol/L (3.5-5.5); Total Protein, Blood 6.8 g/dL (6.4-8.2)
[2018-04-22 18:33] LABS: PCO2 Arterial 41.6 mmHg (35-45); PO2 Arterial 157 mmHg (80-100); pH Blood Arterial 7.32 (7.35-7.45)
[2018-04-22 19:19] LABS: Anion Gap 10 mmol/L (6-16); Blood Urea Nitrogen 32 mg/dL (8-24); Bun/Creatinine Ratio 13.7 (12.0-20.0); CO2, Blood 23 mmol/L (21-32); CPK Creatine Kinase 151 U/L (39-308); Calcium, Blood 9.2 mg/dL (8.5-10.1); Chloride, Blood 102 mmol/L (98-108); Creatinine, Blood 2.33 mg/dL (0.60-1.20); Glomerular Filtration Rate 30 (60-); Glucose, Blood 161 mg/dL (70-99); Magnesium, Blood 2.2 mg/dL (1.6-2.4); Potassium, Blood 4.9 mmol/L (3.5-5.5); Sodium, Blood 135 mmol/L (136-145); Troponin I <0.015 ng/mL (0.000-0.040)
[2018-04-23 03:48] LABS: BASOPHILS ABSOLUTE AUTO 0.02 K/mm3 (0.00-0.23); BASOPHILS PERCENT AUTO 0 % (0-2); EOSINOPHILS ABSOLUTE AUTO 0.24 K/mm3 (0.00-0.68); EOSINOPHILS PERCENT AUTO 4 % (0-6); Hematocrit 33.7 % (37.0-53.0); Hemoglobin 10.5 g/dL (13.5-17.5); IMMATURE GRAN ABSOLUTE AUTO 0.01 K/mm3 (0.00-0.10); IMMATURE GRAN PERCENT AUTO 0 % (0-1); LYMPHOCYTES ABSOLUTE AUTO 1.31 K/mm3 (0.84-5.20); LYMPHOCYTES PERCENT AUTO 23 % (21-46); MONOCYTES ABSOLUTE AUTO 0.59 K/mm3 (0.16-1.47); MONOCYTES PERCENT AUTO 11 % (4-13); Mean Corpuscular HGB 27.1 pg (26.0-34.0); Mean Corpuscular HGB Conc 31.2 g/dL (31.5-36.5); Mean Corpuscular Volume 87 fL (80-100); Mean Platelet Volume 9.3 fL (9.1-12.4); NEUTROPHILS ABSOLUTE AUTO 3.42 K/mm3 (1.96-9.15); NEUTROPHILS PERCENT AUTO 61 % (41-73); Platelet Count 168 K/mm3 (150-400); RDW Coefficient Variation 13.1 % (11.7-14.2); RDW Standard Deviation 41.3 fL (35.1-46.3); Red Blood Cell Count 3.87 M/mm3 (4.30-5.90); White Blood Cell Count 5.59 K/mm3 (4.00-11.30)
[2018-04-23 04:06] LABS: Albumin, Blood 3.1 g/dL (3.4-5.0); Albumin/Globulin Ratio 0.8 (0.8-1.8); Bilirubin, Total 0.2 mg/dL (0.1-1.0); Bun/Creatinine Ratio 14.5 (12.0-20.0); Calcium, Blood 8.2 mg/dL (8.5-10.1); Creatinine, Blood 2.28 mg/dL (0.60-1.20); Globulin, Blood 3.9 g/dL (2.2-4.0)
[2018-04-24] MEDS ORDERED: Stool Softener100 MG PO (09:38)
[2018-04-24] MEDS ORDERED: LIDOCAINE1 EACH TOP (09:42)
== END 2018-04-24 10:25 | disposition home health service (06) | DRG 65 ==
LOC: ER 19:26 → ICUE 21:06 → MEDS 21:06 → ICUE 04-22 19:38
PROVIDERS: Emergency Medicine; Hospitalist; Internal Medicine
DX: I63.9 Cerebral infarction, unspecified (principal); G81.94 Hemiplegia, unspecified affecting left nondominant side; I69.354 Hemiplegia and hemiparesis following cerebral infarction affecting left non-dominant side; I12.9 Hypertensive chronic kidney disease with stage 1 through stage 4 chronic kidney disease, or unspecified chronic kidney disease; E11.22 Type 2 diabetes mellitus with diabetic chronic kidney disease; N18.3 Chronic kidney disease, stage 3 (moderate); I48.91 Unspecified atrial fibrillation; I25.10 Atherosclerotic heart disease of native coronary artery without angina pectoris; M62.838 Other muscle spasm; E78.5 Hyperlipidemia, unspecified; R40.2362 Coma scale, best motor response, obeys commands, at arrival to emergency department; R40.2142 Coma scale, eyes open, spontaneous, at arrival to emergency department; R40.2252 Coma scale, best verbal response, oriented, at arrival to emergency department; R40.2412 Glasgow coma scale score 13-15, at arrival to emergency department; Z46.89 Encounter for fitting and adjustment of other specified devices; Z95.810 Presence of automatic (implantable) cardiac defibrillator; Z95.5 Presence of coronary angioplasty implant and graft; Z79.01 Long term (current) use of anticoagulants; Z79.02 Long term (current) use of antithrombotics/antiplatelets; Z79.4 Long term (current) use of insulin; Z79.899 Other long term (current) drug therapy
CPT/HCPCS: 36415; 36600; 70450; 71045; 80048; 80053; 81001; 82550; 82803; 82947; 83605; 83735; 84484; 85025; 85027; 93005; 93010; 93880; 94640; 97110; 97162; 97166; 97530; 99285-25; G8978; G8979; G8987; G8988; J1650; J1815; J2060; J2310; J2405; J3010; J7030

== ENCOUNTER 2018-06-09 18:50 | Inpatient (IN) | payer OTHER, MEDICARE ==
[~2018-06-09] VITALS: Ht 172.7 cm; Wt 88.2 kg
[~2018-06-09 18:50] MED LIST changes: +HYDR1TAB94 PO; +LIDOCAINE1 EACH TOP; +Stool Softener100 MG PO
[2018-06-09] MEDS ORDERED: [UNRECOGNIZED DRUG - CODE] PO (20:06)
[2018-06-09] MEDS ORDERED: [UNRECOGNIZED DRUG - CODE] PO (20:08)
[2018-06-09] MEDS ORDERED: [UNRECOGNIZED DRUG - CODE] PO (20:10)
[2018-06-09] MEDS ORDERED: [UNRECOGNIZED DRUG - CODE] SC (20:12)
[2018-06-09] MEDS ORDERED: [UNRECOGNIZED DRUG - CODE] PO (20:16)
[2018-06-09] MEDS ORDERED: RANO500T PO (20:32)
[2018-06-09 22:08] LABS: CPK Creatine Kinase 94 U/L (39-308); Creatine Kinase MB 1.8 ng/mL (0.0-3.6); Creatine Kinase MB Index 1.9 (0.0-4.0); Troponin I <0.015 ng/mL (0.000-0.040)
[2018-06-09] MEDS ORDERED: KAPSPARGO SPRIN50 MG PO (22:32)
[2018-06-10 04:26] LABS: BASOPHILS ABSOLUTE AUTO 0.01 K/mm3 (0.00-0.23); BASOPHILS PERCENT AUTO 0 % (0-2); EOSINOPHILS ABSOLUTE AUTO 0.17 K/mm3 (0.00-0.68); EOSINOPHILS PERCENT AUTO 3 % (0-6); Hematocrit 34.2 % (37.0-53.0); Hemoglobin 10.6 g/dL (13.5-17.5); IMMATURE GRAN ABSOLUTE AUTO 0.02 K/mm3 (0.00-0.10); IMMATURE GRAN PERCENT AUTO 0 % (0-1); LYMPHOCYTES ABSOLUTE AUTO 0.99 K/mm3 (0.84-5.20); LYMPHOCYTES PERCENT AUTO 17 % (21-46); MONOCYTES ABSOLUTE AUTO 0.54 K/mm3 (0.16-1.47); MONOCYTES PERCENT AUTO 9 % (4-13); Mean Corpuscular HGB 26.1 pg (26.0-34.0); Mean Corpuscular Volume 84 fL (80-100); Mean Platelet Volume 10.2 fL (9.1-12.4); NEUTROPHILS ABSOLUTE AUTO 4.06 K/mm3 (1.96-9.15); NEUTROPHILS PERCENT AUTO 70 % (41-73); Platelet Count 175 K/mm3 (150-400); RDW Coefficient Variation 13.5 % (11.7-14.2); RDW Standard Deviation 41.3 fL (35.1-46.3); Red Blood Cell Count 4.06 M/mm3 (4.30-5.90); White Blood Cell Count 5.79 K/mm3 (4.00-11.30)
[2018-06-10 04:44] LABS: Creatine Kinase MB 2.3 ng/mL (0.0-3.6); Creatine Kinase MB Index 1.1 (0.0-4.0); Troponin I 0.015 ng/mL (0.000-0.040)
[2018-06-10 04:51] LABS: Alanine Aminotransfer (ALT/SGP 25 U/L (12-78); Albumin, Blood 2.8 g/dL (3.4-5.0); Albumin/Globulin Ratio 0.7 (0.8-1.8); Alk Phos 79 U/L (50-136); Anion Gap 7 mmol/L (6-16); Aspartate Aminotrans (AST/SGOT 23 U/L (12-37); Bilirubin, Total 0.4 mg/dL (0.1-1.0); Blood Urea Nitrogen 27 mg/dL (8-24); Bun/Creatinine Ratio 11.6 (12.0-20.0); CO2, Blood 26 mmol/L (21-32); Calcium, Blood 7.8 mg/dL (8.5-10.1); Chloride, Blood 103 mmol/L (98-108); Cholesterol 120 mg/dL (50-200); Creatinine, Blood 2.33 mg/dL (0.60-1.20); Globulin, Blood 4.1 g/dL (2.2-4.0); Glomerular Filtration Rate 30 (60-); Glucose, Blood 103 mg/dL (70-99); Potassium, Blood 4.3 mmol/L (3.5-5.5); Sodium, Blood 136 mmol/L (136-145); Total Protein, Blood 6.9 g/dL (6.4-8.2); Triglycerides 304 mg/dL (30-160)
[2018-06-10 10:00] LABS: PCO2 Arterial 37.8 mmHg (35-45); PO2 Arterial 106 mmHg (80-100); pH Blood Arterial 7.36 (7.35-7.45)
[2018-06-11 05:48] LABS: Creatinine, Blood 2.67 mg/dL (0.60-1.20); Potassium, Blood 4.6 mmol/L (3.5-5.5)
[2018-06-12 05:14] LABS: Bun/Creatinine Ratio 18.9 (12.0-20.0); Calcium, Blood 8.2 mg/dL (8.5-10.1); Creatinine, Blood 2.65 mg/dL (0.60-1.20); Potassium, Blood 5.1 mmol/L (3.5-5.5)
[2018-06-12] MEDS ORDERED: LIDO5TO TOP (10:24)
[2018-06-12] MEDS ORDERED: Lopressor 50 mg50 MG PO (10:27)
[2018-06-12] MEDS ORDERED: LOSA25 PO (10:31)
[2018-06-12] MEDS ORDERED: ELIQUIS2.5 MG PO (10:33)
[2018-06-12] MEDS ORDERED: CEPACOL SORE T1 EACH MM (10:34)
[2018-06-12] MEDS ORDERED: ACET325 PO (10:35)
[2018-06-12] MEDS ORDERED: Q-Tussin100 MG/5 M PO (10:37)
[2018-06-12] MEDS ORDERED: DELTASONE20 MG PO (10:38)
[2018-06-12] MEDS ORDERED: ALBU90OI6 INH (10:40)
[2018-06-12] MEDS ORDERED: AZIT500 PO (10:41)
[2018-06-12] MEDS ORDERED: DULERA 100 MCG/13 GM INH (10:41)
== END 2018-06-12 11:18 | disposition home or self-care (01) | DRG 293 ==
LOC: ER 18:50 → PCU 18:51 → MEDS 18:51 → PCU 18:51 → MEDS 06-11 23:15 → ENPENDDIS 06-12 09:47 → MEDS 06-12 11:18
PROVIDERS: Family Medicine; Internal Medicine
DX: I13.0 Hypertensive heart and chronic kidney disease with heart failure and stage 1 through stage 4 chronic kidney disease, or unspecified chronic kidney disease (principal); I25.2 Old myocardial infarction; I25.10 Atherosclerotic heart disease of native coronary artery without angina pectoris; E78.5 Hyperlipidemia, unspecified; I50.9 Heart failure, unspecified; N40.0 Benign prostatic hyperplasia without lower urinary tract symptoms; F32.9 Major depressive disorder, single episode, unspecified; Z86.711 Personal history of pulmonary embolism; Z87.891 Personal history of nicotine dependence; N18.3 Chronic kidney disease, stage 3 (moderate); I25.5 Ischemic cardiomyopathy; Z79.4 Long term (current) use of insulin; E11.22 Type 2 diabetes mellitus with diabetic chronic kidney disease; Z79.01 Long term (current) use of anticoagulants; Z95.5 Presence of coronary angioplasty implant and graft; G89.29 Other chronic pain; Z99.81 Dependence on supplemental oxygen; R06.03 Acute respiratory distress
CPT/HCPCS: 36415; 36600; 71045; 71046; 80048; 80053; 82465; 82550; 82553; 82565; 82803; 82947; 83036; 83880; 84443; 84478; 84484; 85025; 93005; 93010; 94640; 94760; 94762; 96361; 96365; 96366; 96374; 96375; 96376; 99285-25; G0378; J0456; J1815; J2405; J2930; J3010; J7030; J7050

== ENCOUNTER 2018-10-17 08:50 | Inpatient (IN) | payer MEDICARE ==
[~2018-10-17] VITALS: Ht 172.7 cm; Wt 81.7 kg
[~2018-10-17 08:50] MED LIST changes: +ACET325 PO; +ALBU90OI6 INH; +ATOR20 PO; +AZIT500 PO; +CEPACOL SORE T1 EACH MM; +DELTASONE20 MG PO; +DULERA 100 MCG/13 GM INH; +ELIQUIS2.5 MG PO; +KAPSPARGO SPRIN50 MG PO; +LIDO5TO TOP; +LIDO700A20 TOP; +LOSA25 PO; +Lopressor 50 mg50 MG PO; +Novolin R100 UNIT/M; +Q-Tussin100 MG/5 M PO; +SALONPAS PATCH1 EACH TP; +TOPROL XL200 MG PO; +VITAMIN D32000 UNIT PO; +[UNRECOGNIZED DRUG - CODE] PO; +[UNRECOGNIZED DRUG - CODE] PO; +[UNRECOGNIZED DRUG - CODE] PO; +[UNRECOGNIZED DRUG - CODE] PO; +[UNRECOGNIZED DRUG - CODE] SC
[2018-10-17 09:22] LABS: BASOPHILS ABSOLUTE AUTO 0.03 K/mm3 (0.00-0.23); BASOPHILS PERCENT AUTO 0 % (0-2); EOSINOPHILS ABSOLUTE AUTO 0.23 K/mm3 (0.00-0.68); EOSINOPHILS PERCENT AUTO 3 % (0-6); Hematocrit 35.7 % (37.0-53.0); Hemoglobin 11.7 g/dL (13.5-17.5); IMMATURE GRAN ABSOLUTE AUTO 0.02 K/mm3 (0.00-0.10); IMMATURE GRAN PERCENT AUTO 0 % (0-1); LYMPHOCYTES PERCENT AUTO 24 % (21-46); MONOCYTES ABSOLUTE AUTO 0.62 K/mm3 (0.16-1.47); MONOCYTES PERCENT AUTO 8 % (4-13); Mean Corpuscular HGB 29.8 pg (26.0-34.0); Mean Corpuscular HGB Conc 32.8 g/dL (31.5-36.5); Mean Corpuscular Volume 91 fL (80-100); Mean Platelet Volume 9.8 fL (9.1-12.4); NEUTROPHILS ABSOLUTE AUTO 4.79 K/mm3 (1.96-9.15); NEUTROPHILS PERCENT AUTO 64 % (41-73); Platelet Count 201 K/mm3 (150-400); RDW Coefficient Variation 13.8 % (11.7-14.2); RDW Standard Deviation 46.7 fL (35.1-46.3); Red Blood Cell Count 3.92 M/mm3 (4.30-5.90); White Blood Cell Count 7.49 K/mm3 (4.00-11.30)
[2018-10-17 09:41] LABS: Albumin, Blood 3.2 g/dL (3.4-5.0); Albumin/Globulin Ratio 0.9 (0.8-1.8); Bilirubin, Total 0.3 mg/dL (0.1-1.0); Bun/Creatinine Ratio 20.7 (12.0-20.0); Calcium, Blood 8.2 mg/dL (8.5-10.1); Creatinine, Blood 2.41 mg/dL (0.60-1.20); Globulin, Blood 3.7 g/dL (2.2-4.0); Potassium, Blood 4.4 mmol/L (3.5-5.5); Total Protein, Blood 6.9 g/dL (6.4-8.2)
[2018-10-17 09:42] LABS: International Normalized Ratio 0.93; Prothrombin Time Results 9.9 Sec (9.7-11.5)
[2018-10-17 10:12] LABS: Influenza A Negative (NEGATIVE); Influenza B Negative (NEGATIVE)
[2018-10-17 14:41] LABS: Source, Urine Clean Catch
[2018-10-17 14:50] LABS: Bilirubin, Urine Neg (Neg); Blood, Urine 1+ (Neg); Glucose Qualitative, Urine 1+ (Neg); Ketones, Urine Neg (Neg); Leukocyte Esterase, Urine Neg (Neg); Nitrite, Urine Neg (Neg); Protein, Urine 4+ (Neg); Specific Gravity, Urine 1.015 (1.003-1.022); Urobilinogen, Urine NORM (Normal)
[2018-10-17 15:01] LABS: Appearance, Urine Clear (Clear); Color, Urine Yellow (P-Yellow)
[2018-10-17 15:03] LABS: Bacteria Not Seen /hpf; Red Blood Cells, Urine 0-2 /hpf (0-2); Squamous Epithelial Cells Not Seen /hpf (Few); White Blood Cells, Urine Rare /hpf (0-5)
[2018-10-17 15:15] LABS: U Amphetamine Screen Not Detected; U Barbituate Screen Not Detected; U Benzodiazapine Screen Not Detected; U Buprenorphine Screen Not Detected; U Cannabinoids Screen Not Detected; U Cocaine Screen Not Detected; U Methadone Screen Not Detected; U Methamphetamine Screen Not Detected; U Opiates Screen Not Detected; U Oxycodone Screen DETECTED; U Phencyclidine Screen Not Detected; U Propoxyphene Screen Not Detected
--- NOTE | 2018-10-17 16:53 | NUR ---
SHIFT SUMMARY PT WAS NEW ER ADMIT THIS SHIFT, MEDICATED 1X FOR PAIN, NO OTHER COMPLAINTS OF ANY KIND. PT APPEARS TO BE SLEEPING AT THIS TIME, WILL CONT TO MONITOR UNTIL REPORT GIVEN TO FOUZIA GOMEZ.
[2018-10-17] MEDS ORDERED: BENMENLOZ PO (18:24)
[2018-10-17] MEDS ORDERED: Calcitonin-Sal3.7 ML (18:26)
[2018-10-17] MEDS ORDERED: DOCU100 PO (18:27)
[2018-10-17] MEDS ORDERED: ADULT TUSS100 MG/5 M PO (18:28)
[2018-10-17] MEDS ORDERED: [UNRECOGNIZED DRUG - OTHER] IM (18:30)
[2018-10-17] MEDS ORDERED: Hair, Skin & N1 EACH PO (18:31)
[2018-10-17] MEDS ORDERED: Lisinopril2.5 MG PO (18:31)
[2018-10-17] MEDS ORDERED: NITR.4SL SL (18:32)
[2018-10-17] MEDS ORDERED: OXYC5 PO (18:33)
[2018-10-17] MEDS ORDERED: GAVILAX17 GM PO (18:34)
[2018-10-17] MEDS ORDERED: SENN187 PO (18:36)
[2018-10-17] MEDS ORDERED: SERT25 PO (18:36)
[2018-10-17] MEDS ORDERED: Saline Nose Spr45 ML (18:38)
[2018-10-17 19:46] LABS: Adenovirus Not Detected (NOT DETECT); Bordetella pertussis Not Detected (NOT DETECT); Chlamydophila pneumoniae Not Detected (NOT DETECT); Coronavirus 229E Not Detected (NOT DETECT); Coronavirus HKU1 Not Detected (NOT DETECT); Coronavirus NL63 Not Detected (NOT DETECT); Coronavirus OC43 Not Detected (NOT DETECT); Human Metapneumovirus Not Detected (NOT DETECT); Human Rhinovirus/Enterovirus Not Detected (NOT DETECT); Influenza A Not Detected (NOT DETECT); Influenza A/2009-H1 Not Detected (NOT DETECT); Influenza A/H1 Not Detected (NOT DETECT); Influenza A/H3 Not Detected (NOT DETECT); Influenza B Not Detected (NOT DETECT); Mycoplasma pneumoniae Not Detected (NOT DETECT); Parainfluenza Virus 1 Not Detected (NOT DETECT); Parainfluenza Virus 2 Not Detected (NOT DETECT); Parainfluenza Virus 3 Not Detected (NOT DETECT); Parainfluenza Virus 4 Not Detected (NOT DETECT); Respiratory Syncytial Virus Not Detected (NOT DETECT)
--- NOTE | 2018-10-18 04:42 | NUR ---
SHIFT SUMMARY PT PLEASANT. PAINFUL. REPORTS CHRONIC BACK PAIN AND INCREASED PAIN SINCE ALL OF HIS NEW SYMPTOMS CAUSING HIS ADMISSION. PT REPORTING MUSCLE SPASMS AND CRAMPING AND PAINFUL JOINTS. NEW ORDER TO INCREASE ROXICODONE 5 MG TO Q 4 HRS INSTEAD OF Q 6 HOURS. MEDICATED X 2 THIS SHIFT. PT SLEPT WELL THROUGH THE MAJORITY OF THE NIGHT. NEARLY FLACCID ON L SIDE OF BODY, ONLY ABLE TO LIGHTLY SQUEEZE HAND. PT ALSO REPORTS SOME N/T TO LEFT FACE, CHRONICALLY TO BILATERAL UPPER EXTREMETIES AND LEFT LOWER LEG. USED URINAL INDEPENDENTLY WHILE IN THE BED. VSS. OTHERWISE NO ACUTE CHANGES. WILL CONTINUE TO MONITOR AND REPORT TO DAY RN.
[2018-10-18 05:29] LABS: CHOL/HDL RATIO 4.2; Cholesterol 109 mg/dL (50-200); HDL Cholesterol 26 mg/dL (>39); LDL/HDL RATIO 1.5; Low Density Lipoprotein Chol 39 mg/dL (0-110); Triglycerides 222 mg/dL (30-160); Very Low Density Lipoprot Chol 44 mg/dL (6-32)
--- NOTE | 2018-10-18 18:26 | NUR ---
SHIFT SUMMARY PT HAS AHD NO ACUTE CHANGES THIS SHIFT, CONTINUES TO COMPLAIN OF PAIN 10/10, SPOKE TO DR ALICEA 2X THIS SHIFT, NEW ORDERS REC 2X, PT CONTINUES TO REPORT PAIN IS 10/10. PT APPEARS TO BE RESTING COMFORTABLY AT THIS TIME, WILL CONT TO MONITOR UNTIL REPORT GIVEN TO NOC RN.
[2018-10-19 05:37] LABS: BASOPHILS ABSOLUTE AUTO 0.04 K/mm3 (0.00-0.23); BASOPHILS PERCENT AUTO 1 % (0-2); EOSINOPHILS ABSOLUTE AUTO 0.25 K/mm3 (0.00-0.68); EOSINOPHILS PERCENT AUTO 4 % (0-6); Hematocrit 32.3 % (37.0-53.0); Hemoglobin 10.3 g/dL (13.5-17.5); IMMATURE GRAN ABSOLUTE AUTO 0.01 K/mm3 (0.00-0.10); IMMATURE GRAN PERCENT AUTO 0 % (0-1); LYMPHOCYTES ABSOLUTE AUTO 1.83 K/mm3 (0.84-5.20); LYMPHOCYTES PERCENT AUTO 32 % (21-46); MONOCYTES ABSOLUTE AUTO 0.54 K/mm3 (0.16-1.47); MONOCYTES PERCENT AUTO 10 % (4-13); Mean Corpuscular HGB 29.1 pg (26.0-34.0); Mean Corpuscular HGB Conc 31.9 g/dL (31.5-36.5); Mean Corpuscular Volume 91 fL (80-100); Mean Platelet Volume 10.1 fL (9.1-12.4); NEUTROPHILS ABSOLUTE AUTO 3.03 K/mm3 (1.96-9.15); NEUTROPHILS PERCENT AUTO 53 % (41-73); Platelet Count 170 K/mm3 (150-400); RDW Coefficient Variation 13.8 % (11.7-14.2); RDW Standard Deviation 46.4 fL (35.1-46.3); Red Blood Cell Count 3.54 M/mm3 (4.30-5.90)
[2018-10-19 06:07] LABS: Albumin, Blood 2.8 g/dL (3.4-5.0); Anion Gap 8 mmol/L (6-16); Blood Urea Nitrogen 40 mg/dL (8-24); Bun/Creatinine Ratio 18.7 (12.0-20.0); CO2, Blood 21 mmol/L (21-32); Calcium, Blood 7.9 mg/dL (8.5-10.1); Chloride, Blood 112 mmol/L (98-108); Creatinine, Blood 2.14 mg/dL (0.60-1.20); Glomerular Filtration Rate 33 (60-); Glucose, Blood 92 mg/dL (70-99); Phosphorus, Blood 3.7 mg/dL (2.5-4.9); Potassium, Blood 4.6 mmol/L (3.5-5.5); Sodium, Blood 141 mmol/L (136-145)
--- NOTE | 2018-10-19 07:42 | NUR ---
SHIFT SUMMARY NO ACUTE CHANGES TO PRESENT THIS SHIFT. PT PLEASANT AND TALKATIVE. RESTED QUIETLY IN BED WATCHING TV OFF AND ON THRU OUT THE NIGHT. MEDICATED FOR C/O PAIN TO BACK AND NECK PER EMAR. PT REPORTED L SIDED WEAKNESS R/T "TIA'S OR VASCULAR DEMENTIA". PT REPORTED USING FWW NOW "LEGS DON'T WORK TOO WELL". UP FOR BM YESTERDAY. USED URINAL AT BS THRU THE NIGHT. IVF'S INFUSING PER EMAR. NONCOMPLIANT DIABETIC. LUNGS T/O COARSE/CRACKLES X4. CALL LT IN REACH. ABLE TO MAKE NEEDS KNOWN.
[2018-10-19] MEDS ORDERED: CLOP75 PO (13:52)
--- NOTE | 2018-10-19 14:35 | NUR ---
DISCHARGE NOTE PT DISCHARGED WITH VIA WHEELCHAIR. DC PAPERWORK GONE OVER AND CHF EDUCATIONA ND STROKE EDUCATION GIVEN TO HIM. HE DECLINED TO HAVE THE RX FOR PLAVIX SENT ANYWHERE, HIS [facility] TOLD HIM NOT TO TAKE IT. [facility] WITH [facility] ON SUNDAY. HE ALSO DECLINED SNF WHICH WAS PT'S RECOMMENDATION. IS CARING FOR HIM AT HOME WITH HH.PT COMPLAINED OF SOME BACK AND NECK PAIN, RECIEVED ONE DOSE OXY, NOT CONTINUED AT DISCHARGE. L SIDE OF BODY WEAKER AND TINGLING, BUT HE SAYS IT IS BETTER THAN YESTERDAY.
[2018-10-21 14:07] LABS: ANTITHROMBIN ACTIVITY 111 % (75-135); FACTOR V ACTIVITY 125 % (70-150); PROTEIN C-FUNCTIONAL 125 % (73-180); PROTEIN S-FUNCTIONAL 58 % (63-140)
[2018-10-22 03:10] LABS: DRVVT 50.4 sec (0.0-47.0); DRVVT MIX 43.9 sec (0.0-47.0); LUPUS REFLEX INTERPRETATION Comment: (.); PT 10.5 sec (9.6-11.5); PT 1:1NP 10.4 sec (9.6-11.5); PTT-LA 30.4 sec (0.0-51.9)
== END 2018-10-19 14:31 | disposition home health service (06) | DRG 57 ==
LOC: ER 08:50 → MEDS 12:19
PROVIDERS: Emergency Medicine; ADMIT Family Medicine
DX: I69.354 Hemiplegia and hemiparesis following cerebral infarction affecting left non-dominant side (principal); I48.2 Chronic atrial fibrillation; E11.22 Type 2 diabetes mellitus with diabetic chronic kidney disease; N18.3 Chronic kidney disease, stage 3 (moderate); G43.909 Migraine, unspecified, not intractable, without status migrainosus; B34.9 Viral infection, unspecified; I12.9 Hypertensive chronic kidney disease with stage 1 through stage 4 chronic kidney disease, or unspecified chronic kidney disease; G89.29 Other chronic pain; D63.1 Anemia in chronic kidney disease; N40.0 Benign prostatic hyperplasia without lower urinary tract symptoms; G47.00 Insomnia, unspecified; F32.9 Major depressive disorder, single episode, unspecified; F41.9 Anxiety disorder, unspecified; I16.0 Hypertensive urgency; R04.0 Epistaxis; G40.909 Epilepsy, unspecified, not intractable, without status epilepticus; E78.5 Hyperlipidemia, unspecified; I25.10 Atherosclerotic heart disease of native coronary artery without angina pectoris; Z79.4 Long term (current) use of insulin; Z79.899 Other long term (current) drug therapy; Z79.01 Long term (current) use of anticoagulants; Z79.82 Long term (current) use of aspirin; Z79.02 Long term (current) use of antithrombotics/antiplatelets; I25.2 Old myocardial infarction; Z95.0 Presence of cardiac pacemaker; Z86.19 Personal history of other infectious and parasitic diseases; Z95.5 Presence of coronary angioplasty implant and graft; Z87.891 Personal history of nicotine dependence; Z88.8 Allergy status to other drugs, medicaments and biological substances
CPT/HCPCS: 36415; 70450; 71046; 80053; 80061; 80069; 81001; 81240; 82947; 83090; 84145; 84443; 85025; 85220; 85300; 85303; 85306; 85379; 85610; 85611; 85613; 85651; 85670; 85730; 85732; 86038; 86147; 87486; 87581; 87633; 87798; 87804; 92610; 93005; 93010; 93306; 93880; 96360; 96361; 97116; 97162; 97530; 99285-25; J1815; J2550; J7030

== ENCOUNTER 2018-11-02 20:53 | Observation (INO) | payer MEDICARE ==
[~2018-11-02] VITALS: Ht 175.3 cm; Wt 80.1 kg
[~2018-11-02 20:53] MED LIST changes: +ADULT TUSS100 MG/5 M PO; +BENMENLOZ PO; +Calcitonin-Sal3.7 ML; +DOCU100 PO; +GAVILAX17 GM PO; +Hair, Skin & N1 EACH PO; +NITR.4SL SL; +OXYC5 PO; +SENN187 PO; +SERT25 PO; +Saline Nose Spr45 ML; +[UNRECOGNIZED DRUG - OTHER] IM
[2018-11-02 21:11] LABS: BASOPHILS ABSOLUTE AUTO 0.03 K/mm3 (0.00-0.23); BASOPHILS PERCENT AUTO 1 % (0-2); EOSINOPHILS ABSOLUTE AUTO 0.21 K/mm3 (0.00-0.68); EOSINOPHILS PERCENT AUTO 3 % (0-6); Hemoglobin 12.8 g/dL (13.5-17.5); IMMATURE GRAN ABSOLUTE AUTO 0.02 K/mm3 (0.00-0.10); IMMATURE GRAN PERCENT AUTO 0 % (0-1); LYMPHOCYTES ABSOLUTE AUTO 2.15 K/mm3 (0.84-5.20); LYMPHOCYTES PERCENT AUTO 34 % (21-46); MONOCYTES ABSOLUTE AUTO 0.58 K/mm3 (0.16-1.47); MONOCYTES PERCENT AUTO 9 % (4-13); Mean Corpuscular HGB Conc 32.8 g/dL (31.5-36.5); Mean Corpuscular Volume 91 fL (80-100); Mean Platelet Volume 9.5 fL (9.1-12.4); NEUTROPHILS ABSOLUTE AUTO 3.33 K/mm3 (1.96-9.15); NEUTROPHILS PERCENT AUTO 53 % (41-73); Platelet Count 186 K/mm3 (150-400); RDW Coefficient Variation 13.6 % (11.7-14.2); RDW Standard Deviation 46.1 fL (35.1-46.3); Red Blood Cell Count 4.27 M/mm3 (4.30-5.90); White Blood Cell Count 6.32 K/mm3 (4.00-11.30)
[2018-11-02 21:32] LABS: Alanine Aminotransfer (ALT/SGP 29 U/L (12-78); Albumin, Blood 3.1 g/dL (3.4-5.0); Albumin/Globulin Ratio 0.8 (0.8-1.8); Alk Phos 78 U/L (50-136); Anion Gap 8 mmol/L (6-16); Aspartate Aminotrans (AST/SGOT 18 U/L (12-37); Bilirubin, Total 0.2 mg/dL (0.1-1.0); Blood Urea Nitrogen 39 mg/dL (8-24); Bun/Creatinine Ratio 16.2 (12.0-20.0); CO2, Blood 23 mmol/L (21-32); Calcium, Blood 8.3 mg/dL (8.5-10.1); Chloride, Blood 110 mmol/L (98-108); Creatinine, Blood 2.41 mg/dL (0.60-1.20); Globulin, Blood 3.9 g/dL (2.2-4.0); Glomerular Filtration Rate 29 (60-); Glucose, Blood 73 mg/dL (70-99); Potassium, Blood 4.4 mmol/L (3.5-5.5); Sodium, Blood 141 mmol/L (136-145); Troponin I <0.015 ng/mL (0.000-0.040)
--- NOTE | 2018-11-03 01:15 | NUR ---
PATIENT IS A NEW ADMIT FROM THE ED. THREE PERSON TRANSFER FROM [facility] TO BED. PATIENT AXO X 4. BEDFAST PER ORDERS. DENIES CHEST PAIN, SOB, AND N/V. NPO. ROOM AIR. REPORTS HEADACHE AND TYLENOL GIVEN PER EMAR. ORIENTED TO ROOM AND CALL LIGHT SYSTEM. ASSESSMENT COMLETE. CALL LIGHT IN REACH. BED IN LOWEST POSITION. WILL CONTINUE TO MONITOR.
--- NOTE | 2018-11-03 05:04 | NUR ---
PATIENT REPORTS N/V. HOSPITALIST DR DENNEY NOTIFIED AND ORDERED ZOFRAN 4 MG PO TIMES ONE. ZOFRAN GIVEN PER EMAR. CALL LIGHT IN REACH.
--- NOTE | 2018-11-03 05:13 | NUR ---
SHIFT SUMMARY PATIENT REPORTS N/V AND HOSPITALIST DR DENNEY NOTIFIED AND ORDERED ZOFRAN 4 MG PO X ONE. PATIENT HAD SHORT SPELL OF COUGHING AND REPORTED STERNUM PAIN. PAIN RESOLVED WHEN COUGHING STOPPED. BOTH TROPONIN LABS NEGATIVE. AC/HS START IN MORNING. PIV REMAINS INTACT. PACER/DEFIB RU CHEST PLACED 2016. PATIENT NPO AND BEDREST ORDERED. HEADACHE X ONE AND TYLENOL GIVEN PER EMAR. VSS/AFEBRILE. LS WEAKNESS REPORTED FROM HX CVA. TAKES MED WHOLE WITH WATER. USES URINAL AT BEDSIDE. SBA TO BSC. NO PAIN OR N/V MEDICATION IN EMAR. CALL LIGHT IN REACH. BED IN LOWEST POSITION. WILL CONTINUE TO MONITOR UNTIL DAY SHIFT NURSE ASSUMES CARE.
--- NOTE | 2018-11-03 16:58 | NUR ---
PATIENT DISCHARGE: PATIENT DISCHARGED TO HOME THIS SHIFT. MEDICATION RECONCILIATION COMPLETED; NO NEW MEDS TO REPORT; MED LIST FAXED TO [facility]. DISCHARGE EDUCATION COMPLETED WITH PATIENT AND FAMILY. PATIENT TRANSPORTED TO EXIT BY [facility] STAFF WITH WHEELCHAIR AT 1650. PATIENT DEPARTED [facility] VIA PRIVATE AUTO.
== END 2018-11-03 16:49 | disposition home or self-care (01) ==
LOC: ER 20:53 → MEDS 20:54
PROVIDERS: Emergency Medicine; ADMIT Hospitalist
DX: R07.89 Other chest pain (principal); I12.9 Hypertensive chronic kidney disease with stage 1 through stage 4 chronic kidney disease, or unspecified chronic kidney disease; E11.22 Type 2 diabetes mellitus with diabetic chronic kidney disease; N18.3 Chronic kidney disease, stage 3 (moderate); I48.91 Unspecified atrial fibrillation; F41.8 Other specified anxiety disorders; I25.10 Atherosclerotic heart disease of native coronary artery without angina pectoris; G40.909 Epilepsy, unspecified, not intractable, without status epilepticus; E78.5 Hyperlipidemia, unspecified; D63.1 Anemia in chronic kidney disease; Z86.73 Personal history of transient ischemic attack (TIA), and cerebral infarction without residual deficits; Z88.8 Allergy status to other drugs, medicaments and biological substances; Z79.4 Long term (current) use of insulin; Z79.02 Long term (current) use of antithrombotics/antiplatelets; Z79.899 Other long term (current) drug therapy; Z87.891 Personal history of nicotine dependence
CPT/HCPCS: 36415; 71045; 80053; 82947; 84484; 85025; 93005; 93010; 94644; 96374; 99285-25; G0378; J1815; J2930

== ENCOUNTER 2018-12-02 06:09 | Observation (INO) | payer MEDICARE ==
[~2018-12-02] VITALS: Ht 172.7 cm; Wt 81.7 kg
[2018-12-02 06:22] LABS: BASOPHILS ABSOLUTE AUTO 0.03 K/mm3 (0.00-0.23); BASOPHILS PERCENT AUTO 0 % (0-2); EOSINOPHILS ABSOLUTE AUTO 0.26 K/mm3 (0.00-0.68); EOSINOPHILS PERCENT AUTO 4 % (0-6); Hematocrit 39.5 % (37.0-53.0); Hemoglobin 13.2 g/dL (13.5-17.5); IMMATURE GRAN ABSOLUTE AUTO 0.03 K/mm3 (0.00-0.10); IMMATURE GRAN PERCENT AUTO 0 % (0-1); LYMPHOCYTES ABSOLUTE AUTO 1.72 K/mm3 (0.84-5.20); LYMPHOCYTES PERCENT AUTO 25 % (21-46); MONOCYTES ABSOLUTE AUTO 0.65 K/mm3 (0.16-1.47); MONOCYTES PERCENT AUTO 9 % (4-13); Mean Corpuscular HGB 30.1 pg (26.0-34.0); Mean Corpuscular HGB Conc 33.4 g/dL (31.5-36.5); Mean Corpuscular Volume 90 fL (80-100); Mean Platelet Volume 9.9 fL (9.1-12.4); NEUTROPHILS ABSOLUTE AUTO 4.26 K/mm3 (1.96-9.15); NEUTROPHILS PERCENT AUTO 61 % (41-73); Platelet Count 159 K/mm3 (150-400); RDW Coefficient Variation 12.6 % (11.7-14.2); RDW Standard Deviation 41.9 fL (35.1-46.3); Red Blood Cell Count 4.39 M/mm3 (4.30-5.90); White Blood Cell Count 6.95 K/mm3 (4.00-11.30)
[2018-12-02 06:36] LABS: International Normalized Ratio 0.95; Prothrombin Time Results 10.1 Sec (9.7-11.5)
[2018-12-02 06:42] LABS: Albumin, Blood 3.1 g/dL (3.4-5.0); Albumin/Globulin Ratio 0.8 (0.8-1.8); Bilirubin, Total 0.6 mg/dL (0.1-1.0); Bun/Creatinine Ratio 12.4 (12.0-20.0); Calcium, Blood 8.4 mg/dL (8.5-10.1); Creatinine, Blood 2.18 mg/dL (0.60-1.20); Globulin, Blood 3.8 g/dL (2.2-4.0); Potassium, Blood 4.7 mmol/L (3.5-5.5); Total Protein, Blood 6.9 g/dL (6.4-8.2)
[2018-12-02] MEDS ORDERED: LAMO25 PO (13:23)
--- NOTE | 2018-12-02 19:30 | NUR ---
Assumed care of pt after recieving report from off going nurse.
--- NOTE | 2018-12-02 20:05 | NUR ---
ADMITTED TO ROOM 355 FROM ED 1645- SLIDE FROM STRETCHER TO BED, PT UNABLE TO AMBULATE. L SIDED WEAKNESS. ORIENTED TO ROOM SET UP AND CALL LIGHT. PERFORMED PT ADMIT ASSESSMENT. ONCOMING RN TO COMPLETE ADMIT.
--- NOTE | 2018-12-03 02:28 | NUR ---
Pt c/o severe headache and lower back pain. Percocet given early did not provide much relief. Dr Persaud called. Pt given an aditional dose of percocet per .
--- NOTE | 2018-12-03 06:02 | NUR ---
Shift summary. Pt got some relief from headache with second dose of percocet. Left side remains flaccid and pt states his left side of face is numb and tingling. Pt did not sleep well last pm. Back and head pain kept him awake. Md called x 2 for pain meds during the night.
--- NOTE | 2018-12-03 15:30 | NUR ---
CHEST PAIN PT STARTED COMPLAINING OF CHEST PAIN AROUND 1340 WHILE THIS RN WAS ON LUNCH. NITRO WAS GIVEN AT 1343 BY SHELVING SUPERVISOR AND THIS RN WAS CALLED ABOUT PT. PT WAS HAVING DIFFICULTY BREATHING AND C/O CHEST PAIN ON RIGHT SIDE. OXYGEN WAS PLACED AND PT'S SATS 100% ON 2L. PT'S VITALS WNL. EKG WAS DONE SEVERAL TIMES, TRYING TO GET A GOOD READING DUE TO PT UNABLE TO HOLD STILL DUE TO PAIN. DR. GREEN WAS CONSULTED AND SAW PT AFTER ANOTHER NITRO WAS GIVEN AT 1422. AFTER READING EKG AND TALKING WITH PT AND READING ABOUT LAMICTAL, WHICH PT WAS JUST STARTED ON TODAY, AND THAT TROPONIN WAS WNL, DR. ORLANDO STACK CAME THE CONCLUSION THAT THE PT WAS NOT HAVING A CARDIAC EVENT AND THAT THE PAIN WAS FROM THE LAMICTAL. PT RECEIVED ZOFRAN FOR NAUSEA AT 1523 AND CHEST PAIN HAS RESOLVED. PT REPORTS FEELING SORE ALL OVER. NO DISTRESS AT THIS TIME. CALL LIGHT IN REACH. WILL CONTINUE TO MONITOR. PATRICE
--- NOTE | 2018-12-03 19:30 | NUR ---
Assumed care of pt at 1930 after recieving report from off-going nurse.
--- NOTE | 2018-12-03 20:06 | NUR ---
SHIFT SUMMARY PT HAD AN EPISODE OF CHEST PAIN THIS AFTERNOON, WHICH DR. GREEN DID NOT THINK WAS CARDIAC RELATED. PT RECEIVED NITRO AND ZOFRAN AND HAS HAD NO COMPLAINTS OF CHEST PAIN OR NAUSEA SINCE. MEDICATED FOR HEADACH AND BACK PAIN X2 THIS SHIFT. PT ABLE TO LIFT LEFT ARM SLIGHTLY NOW AND IS ABLE TO HOLD THINGS WITH LEFT HAND. PT ABLE TO MOVE TOES ON LEFT FOOT. NO OTHER CHANGES THIS SHIFT. REPORT GIVEN TO FOUZIA GOMEZ.
--- NOTE | 2018-12-04 00:36 | NUR ---
Pt c/o feeling shaky and sweaty. Blood sugar was checked and it was 63. Pt given sandwich, juice and popsicle. blood sugar checked in one hour and it was 62. Pt given more food. Will continue to monitor and check in one hour. Pt states he's feeling better.
--- NOTE | 2018-12-04 03:38 | NUR ---
Shift summary: pt woke up x 3 times during the night with symptoms of low blood sugar. Blood sugar the first time was 72- pt given food and blood sugar was rechecked 1n an hour and it was still sitting at 73. Pt given orange juice and sandwich. Pt rechecked in an hour and it was 85. two hours later pt wakes up saying he's shaky and diahoretic. Blood sugar back down to 75. Pt given ensure and applesauce. Pt states he's feeling better now and appears to be resting comfortably. No c/o chest pain during the night.
--- NOTE | 2018-12-04 15:29 | NUR ---
Mr. Aguilar is a delightfully personale man. He appeared to enjoy telling me jokes and talking about his rather wild life. He admits that his body "has been through hell" but he remains optimistic he will be alright, "I always am." He is not church but reponded well to conversation and companionship. He is being discharged this afternoon.
--- NOTE | 2018-12-04 15:38 | NUR ---
DISCHARGE SUMMARY: PT IS A&OX4. REPORTS HEADACHE HAS RESOLVED AND ONLY DISCOMFORT IS HIS CHRONIC BACK PAIN. NO NEW MEDICATIONS FOR DISCHARGE HOME. PT IS AWARE HE NEEDS TO CALL NEURO AT THE [facility] ABOUT HIS RECENT MEDICATION CHANGE FOR LAMICTAL. LAMICTAL WAS HELD THIS MORNING. HE IS EATING, DRINKING AND VOIDING WELL. HE AMBULATES SLOWLY WITH FWW/GB. HE AND HIS VERBILIZED UNDERSTANING OF D/C INSTRUCTIONS. PT WAS ESCORTED TO FACILITY ENTRANCE WITH WALLCOVERING TEXTURER VIA W/C.
== END 2018-12-04 15:28 | disposition home or self-care (01) ==
LOC: ER 06:09 → ERHOLD 06:10 → MEDS 06:10 → ERHOLD 06:10 → MEDS 17:41 → ENPENDDIS 12-04 13:21 → MEDS 12-04 15:28
PROVIDERS: Emergency Medicine; ADMIT Hospitalist
DX: G43.409 Hemiplegic migraine, not intractable, without status migrainosus (principal); E11.9 Type 2 diabetes mellitus without complications; I25.10 Atherosclerotic heart disease of native coronary artery without angina pectoris; G40.909 Epilepsy, unspecified, not intractable, without status epilepticus; F32.9 Major depressive disorder, single episode, unspecified; I48.91 Unspecified atrial fibrillation; F41.9 Anxiety disorder, unspecified; Z79.02 Long term (current) use of antithrombotics/antiplatelets; Z79.899 Other long term (current) drug therapy; Z88.8 Allergy status to other drugs, medicaments and biological substances; Z79.4 Long term (current) use of insulin
CPT/HCPCS: 36415; 70450; 80053; 82947; 84484; 85025; 85610; 85730; 93005; 93010; 94640; 94760; 96374-59; 96375-59; 96376; 97116; 97162; 97530; 99285-25; G0378; J1815; J2405; J2765

== ENCOUNTER 2019-02-12 20:20 | Inpatient (IN) | payer MEDICARE ==
[~2019-02-12] VITALS: Ht 172.7 cm; Wt 84.8 kg
[~2019-02-12 20:20] MED LIST changes: +LAMO25 PO
[2019-02-12] MEDS ORDERED: ASPI81CH PO (20:38)
[2019-02-12] MEDS ORDERED: Norco 5-325 Ta1 EACH PO (20:39)
[2019-02-12] MEDS ORDERED: Isosorbide Mono30 MG PO (20:40)
[2019-02-12] MEDS ORDERED: THERA1 EACH PO (20:41)
[2019-02-12] MEDS ORDERED: ROSU10TA PO (20:42)
[2019-02-12] MEDS ORDERED: Percocet 5-3251 EACH PO (23:33)
[2019-02-12 23:57] LABS: Albumin, Blood 3.2 g/dL (3.4-5.0); Albumin/Globulin Ratio 0.8 (0.8-1.8); Bilirubin, Total 0.4 mg/dL (0.1-1.0); Bun/Creatinine Ratio 16.3 (12.0-20.0); Calcium, Blood 8.7 mg/dL (8.5-10.1); Creatinine, Blood 2.39 mg/dL (0.60-1.20); Globulin, Blood 3.9 g/dL (2.2-4.0); Magnesium, Blood 2.1 mg/dL (1.6-2.4); Potassium, Blood 4.8 mmol/L (3.5-5.5); Total Protein, Blood 7.1 g/dL (6.4-8.2)
[2019-02-13 00:02] LABS: Thyroid Stimulating Hormone 3.43 uIU/mL (0.360-4.800)
[2019-02-13 05:19] LABS: BASOPHILS ABSOLUTE AUTO 0.03 K/mm3 (0.00-0.23); BASOPHILS PERCENT AUTO 1 % (0-2); EOSINOPHILS ABSOLUTE AUTO 0.34 K/mm3 (0.00-0.68); EOSINOPHILS PERCENT AUTO 5 % (0-6); Hematocrit 34.9 % (37.0-53.0); Hemoglobin 12.1 g/dL (13.5-17.5); IMMATURE GRAN ABSOLUTE AUTO 0.03 K/mm3 (0.00-0.10); IMMATURE GRAN PERCENT AUTO 1 % (0-1); LYMPHOCYTES ABSOLUTE AUTO 1.71 K/mm3 (0.84-5.20); LYMPHOCYTES PERCENT AUTO 27 % (21-46); MONOCYTES ABSOLUTE AUTO 0.65 K/mm3 (0.16-1.47); MONOCYTES PERCENT AUTO 10 % (4-13); Mean Corpuscular HGB 31.6 pg (26.0-34.0); Mean Corpuscular HGB Conc 34.7 g/dL (31.5-36.5); Mean Corpuscular Volume 91 fL (80-100); Mean Platelet Volume 9.2 fL (9.1-12.4); NEUTROPHILS ABSOLUTE AUTO 3.66 K/mm3 (1.96-9.15); NEUTROPHILS PERCENT AUTO 57 % (41-73); Platelet Count 156 K/mm3 (150-400); RDW Coefficient Variation 12.2 % (11.7-14.2); RDW Standard Deviation 40.4 fL (35.1-46.3); Red Blood Cell Count 3.83 M/mm3 (4.30-5.90); White Blood Cell Count 6.42 K/mm3 (4.00-11.30)
[2019-02-13 05:52] LABS: Bun/Creatinine Ratio 16.7 (12.0-20.0); Calcium, Blood 8.5 mg/dL (8.5-10.1); Creatinine, Blood 2.4 mg/dL (0.60-1.20); Potassium, Blood 4.7 mmol/L (3.5-5.5)
--- NOTE | 2019-02-13 06:37 | NUR ---
SHIFT SUMMARY PT ARRIVED TO ROOM APPROX 0030. C/O PAIN IN HEAD, BACK AND L LEG AND MEDICATED PER EMAR. SAID HE DID STILL HAVE SOME TIGHTNESS/PRESSURE IN HIS CHEST LIKE 6/10 BUT TOLERABLE AND NOT BAD IT WAS BEFORE. HE SAID HIS HEAD WAS HURTING MORE. GOT BLOODY NOSE SO HE STUFFED TISSUE UP HIS NARES TO PLUG IT. HE SAID HE GOT ABOUT 30 MIN T/O NIGHT. TELE SHOWED NSR @ 66 C PACER SPIKES C HR <60. SBA TO BA C CANE BUT WILL USE URINAL WELL. CALL LIGHT IN REACH.
--- NOTE | 2019-02-13 08:08 | NUR ---
ASSUMED CARE OF PT- BEDSIDE REPORT COMPLETE WITH NIGHT PATRICIA POLANCO. PT HAS A LONG LIST OF CARDIAC Hx PER REPORT, CVA'S, MO'S, DVT'S, BYPASS, STENTS, AND PACER. PT STATED 2/10 PAIN AT THE TIME OF ASSESSMENT, CHEST PRESSURE, NO PAIN MEDICATION NEEDED AT THIS TIME (PER PT). PT ALERT AND ORIENTED AND USES THE URIANL INDEPENDENTLY AT THE BEDSIDE. ONLY GROSS MOTOR MOVEMENT OF THE LLE (SINCE CVA PER PT). PT HAS A BRACE IN THE LEFT SHOE FOR THIS. CALL LIGHT IN REACH WILL CTM.
--- NOTE | 2019-02-13 08:16 | NUR ---
PAGED DR CHIANG TO DO PROVIDER CONSULT.
--- NOTE | 2019-02-13 10:33 | NUR ---
CALLED DR GLEASON- PT C/O EXTREME NAUSEA AND RIGHT ARM PAIN, NEW ORDER FOR IV ZOFRAN AND TYLENOL.
--- NOTE | 2019-02-13 10:59 | NUR ---
PT CHEST PAIN- PT CALLED WITH ACTIVE CHEST PAIN, 06/03. TOOK FRESH VITALS, PT SITTING AT EOB, BECAME DIAPHORETIC AND WAS C/O SEVERE NAUSEA. MEDICATED WITH ZOFRAN. CALLED DR DIEHL, NEW ORDER FOR STAT EKG, HEPRIN DRIP, CARDIOLOGY CALLBACK, AND NITRO. WILL START BOTH WHEN MEDS ARE VERIFIED. PARA MACHINE OPERATOR PRESENT NOW, PAGED SKIN FORMER WAITING FOR CALL BACK.
[2019-02-13 12:34] LABS: International Normalized Ratio 0.93; Prothrombin Time Results 9.6 Sec (9.7-11.5)
--- NOTE | 2019-02-13 15:55 | NUR ---
ALVARADO NOTE- CALLED NIMA IN ICU TO GIVE TELEPHONE REPORT FOR PT, FULL REPORT GIVEN NO FURTHER QUESTIONS AT THE TIME OF REPORT. PT STILL IN THE PROPOSAL WRITER, SHE CAN CALL WITH QUESTIONS. PT TRANSFER TO ICU2 POST CARDIAC CATH.
--- NOTE | 2019-02-13 16:18 | NUR ---
PT ARRIVED TO ICU 2 PCU STATUS VIA BED. PT ALERT AND FULLY ORIENTED, TR BAND TO R WRIST. R WRIST SITE IS C/D/I, SOFT, NO HEMATOMA. PT RATES CP 3/10 CURRENTLY. LUNGS ARE CLEAR. ON RA PT DESATURATED TO 86% WHEN HE STARTED TO DOZE OFF SO 2L/NC PLACED ON PT AND SPO2 UP TO 97%. SR, BP STABLE. PT EDUCATED ON ACTIVITY RESTRICTIONS REGARDING TR BAND ARM AND PT VERBALIZES BACK INSTRUCTIONS. DR. CHIANG CAME BY AND GAVE OK FOR PT TO BE PCU STATUS FOR TR BAND RECOVERY THEN OKAY FOR PT TO GO BACK TO MED TELE. ALSO GAVE ORDER TO STOP PLAVIX.
--- NOTE | 2019-02-13 17:34 | NUR ---
ATTEMPTED TO TAKE AIR OUT OF TR BAND BUT WITH JUST 2ML OUT SITE STARTED TO BLEED SO AIR REPLACED, SITE STABLE. WILL CONTINUE TO MONITOR.
--- NOTE | 2019-02-14 00:15 | NUR ---
TR BAND REMOVED TEGADERM DRESSING APPLIED. NO S/SXO F BLEEDING NOTED. ARM BOARD IN PLACE - PATIENT EDUCATED.
--- NOTE | 2019-02-14 01:02 | NUR ---
PCU TRANSFER TO MEDICAL STATUS W/ TELE PATIENT ALERT AND ORIENTED X4. RESP E/U ON 3 LPM NC. PATIENT RIGHT RADIAL HAS PCI SITE THAT IS RECOVERED WITH TEGADERM AND ARM BOARD IN PLACE - NO S/SX OF BLEEDING NOTED. PATIENT HAS HISTORY OF [address] AND HAS CHRONIC ANGINA. PATIENT ALSO HAS CHRONIC BACK PAIN AND BLE NEUROPATHY - PATIENT MEDICATED PER EMAR. PATIENT IS TYPE 2 DM - MEDICATED PER EMAR AND CBG. REPORTED OFF TO SENIOR QUALITY MANAGER ZAHRA. PATIENT DENIES ANY NEEDS, IN NO ACUTE DISTRESS. LEAVING UNIT.
--- NOTE | 2019-02-14 05:18 | NUR ---
SHIFT SUMMARY LYING IN SEMI FOWLERS WITH EYES CLOSED. DENIES PAIN, DISCOMFORT, OR FURTHER NEEDS AT THIS TIME. NO FURTHER CHANGES SINCE TRANSFER TO UNIT. SAFETY MEASURES IN PLACE. WILL GIVE HAND OFF TO ONCOMING SHIFT USING SBAR.
--- NOTE | 2019-02-14 17:23 | NUR ---
SHIFT SUMMARY NO ACUTE CHANGES THIS SHIFT. PT HAS DENIED CP/PRESSURE. VSS. PT HAS BEEN INTERMITTENTLY NAUSEATED. ZOFRAN EFFECTIVE. R RADIAL SITE WNL AND CDI. INDEP IN ROOM. IV IS SL. WEST PO INTAKE. USING URINAL TO VOID. POSSIBLE DC HOME TOMORROW. USES CALL LIGHT APPROPRIATELY.
--- NOTE | 2019-02-15 05:01 | NUR ---
SHIFT SUMMARY: PT A&OX4 T/O SHIFT. VS WNL. USING O2 PER NC PRN WHICH IS BASELINE FOR THIS PT. REPORTS FEELING MILD CHEST PAIN AND SOB UPON EXERTION. DENIES AT REST. NSR RYTHM ON TELE. DENIES N/V. PUNCTURE SITE TO RIGHT RADIAL WNL; NO SIGNS OF BLEEDING. PT C/O BACK AND LEFT LEG PAIN. GIVEN PERCOCET 10MG. PT SBA TO BATHROOM. USING CANE AND LEG BRACE FOR LEFT SIDED WEAKNESS. USING URINAL. VOIDING WELL. REDNESS/ITCHINESS TO RIGHT EYE HAS IMPROVED WITH SCHED EYEDROPS. PLAN FOR POSSIBLE DISCHARGE TODAY.
[2019-02-15 05:25] LABS: BASOPHILS ABSOLUTE AUTO 0.03 K/mm3 (0.00-0.23); BASOPHILS PERCENT AUTO 1 % (0-2); EOSINOPHILS ABSOLUTE AUTO 0.31 K/mm3 (0.00-0.68); EOSINOPHILS PERCENT AUTO 5 % (0-6); Hematocrit 32.8 % (37.0-53.0); Hemoglobin 10.9 g/dL (13.5-17.5); IMMATURE GRAN ABSOLUTE AUTO 0.02 K/mm3 (0.00-0.10); IMMATURE GRAN PERCENT AUTO 0 % (0-1); LYMPHOCYTES ABSOLUTE AUTO 1.52 K/mm3 (0.84-5.20); LYMPHOCYTES PERCENT AUTO 26 % (21-46); MONOCYTES ABSOLUTE AUTO 0.69 K/mm3 (0.16-1.47); MONOCYTES PERCENT AUTO 12 % (4-13); Mean Corpuscular HGB 30.9 pg (26.0-34.0); Mean Corpuscular HGB Conc 33.2 g/dL (31.5-36.5); Mean Corpuscular Volume 93 fL (80-100); Mean Platelet Volume 9.6 fL (9.1-12.4); NEUTROPHILS PERCENT AUTO 56 % (41-73); Platelet Count 167 K/mm3 (150-400); RDW Coefficient Variation 11.9 % (11.7-14.2); Red Blood Cell Count 3.53 M/mm3 (4.30-5.90); White Blood Cell Count 5.87 K/mm3 (4.00-11.30)
[2019-02-15 05:56] LABS: Albumin, Blood 2.8 g/dL (3.4-5.0); Anion Gap 6 mmol/L (6-16); Blood Urea Nitrogen 50 mg/dL (8-24); Bun/Creatinine Ratio 16.5 (12.0-20.0); CO2, Blood 24 mmol/L (21-32); Calcium, Blood 8.8 mg/dL (8.5-10.1); Chloride, Blood 108 mmol/L (98-108); Creatinine, Blood 3.03 mg/dL (0.60-1.20); Glomerular Filtration Rate 22 (60-); Glucose, Blood 93 mg/dL (70-99); Potassium, Blood 4.9 mmol/L (3.5-5.5); Sodium, Blood 138 mmol/L (136-145)
--- NOTE | 2019-02-15 18:40 | NUR ---
SHIFT SUMMARY PT A/O. TOLERATING FOOD AND FLUIDS. PT MEDICATED FOR PAIN PRN PER ORDERS TODAY. PT REPORTED NO C/P OR SOB TODAY. PT IS VOIDING. BEEN ASSISTED WITH ADL'S PRN.
--- NOTE | 2019-02-16 05:09 | NUR ---
SHIFT SUMMARY: NO ACUTE CHANGES OVER NIGHT. A&OX4 T/O SHIFT. VSS. SATS ABOVE 90 ON RA. PT DENIES CP AND SOB. RESTING MOST OF SHIFT. PT DID NOT REQUEST ANY PAIN MEDICATION. FLUIDS INFUSING. VOIDING.
[2019-02-16 05:20] LABS: Bun/Creatinine Ratio 16.7 (12.0-20.0); Calcium, Blood 8.8 mg/dL (8.5-10.1); Creatinine, Blood 2.88 mg/dL (0.60-1.20); Potassium, Blood 4.8 mmol/L (3.5-5.5)
--- NOTE | 2019-02-16 08:29 | NUR ---
DR DENNEY HERE TO SEE PT. REPORTS PT TO GO HOME TODAY.
[2019-02-16] MEDS ORDERED: Norvasc10 MG PO (11:36)
--- NOTE | 2019-02-16 13:30 | NUR ---
DISCHARGE: PT/FAMILY REPORTS UNDERSTANDING OF DISCHARGE INSTRUCTIONS. PT UP IND WITH STEADY GAIT WITH BRACE. [facility], DISCUSSED WITH NURSING PATTERN DRAFTER. PT DENIES CP/SOB. PT REPORTS WEARING O2 OFF AND ON AT HOME. PT EATING AND DRINKING, VOIDING. PT/FAMILY REPORTS WILL FOLLOW UP WITH REGARDING LABWORK AND MEDICATIONS. PT/FAMILY INFORMED OF MEDICATIONS GIVEN TODAY.
== END 2019-02-16 13:45 | disposition home or self-care (01) | DRG 287 ==
LOC: ER 20:20 → MEDS 20:21 → ICUE 02-13 15:54 → SURS 02-13 16:12 → ICUE 02-13 17:17 → SURS 02-14 01:17
PROVIDERS: Internal Medicine; Nurse Practitioner Acute Care; ADMIT Hospitalist
PROC: B2111ZZ Fluoroscopy of Multiple Coronary Arteries using Low Osmolar Contrast (ICD-10-PCS; principal; 2019-02-13)
DX: I25.110 Atherosclerotic heart disease of native coronary artery with unstable angina pectoris (principal); N18.4 Chronic kidney disease, stage 4 (severe); Z95.810 Presence of automatic (implantable) cardiac defibrillator; G40.909 Epilepsy, unspecified, not intractable, without status epilepticus; E78.5 Hyperlipidemia, unspecified; N40.0 Benign prostatic hyperplasia without lower urinary tract symptoms; F32.9 Major depressive disorder, single episode, unspecified; F41.0 Panic disorder [episodic paroxysmal anxiety]; I48.2 Chronic atrial fibrillation; Z79.4 Long term (current) use of insulin; E11.22 Type 2 diabetes mellitus with diabetic chronic kidney disease; Z79.82 Long term (current) use of aspirin; I12.9 Hypertensive chronic kidney disease with stage 1 through stage 4 chronic kidney disease, or unspecified chronic kidney disease; R04.0 Epistaxis; J00 Acute nasopharyngitis [common cold]; F41.9 Anxiety disorder, unspecified
CPT/HCPCS: 36415; 71046; 80048; 80053; 80069; 82947; 83735; 83880; 84443; 84484; 85025; 85610; 85730; 93005; 93010; 93454; 96374; 99152; 99153; 99285-25; C1769; C1894; G0378; J1644; J1815; J2250; J2405; J3010; J7030; J7040; Q9967

== ENCOUNTER 2019-05-06 21:39 | Inpatient (IN) | payer MEDICARE ==
[~2019-05-06 21:39] MED LIST changes: +ASPI81CH PO; +Isosorbide Mono30 MG PO; +Norco 5-325 Ta1 EACH PO; +Norvasc10 MG PO; +Percocet 5-3251 EACH PO; +ROSU10TA PO; +THERA1 EACH PO
[2019-05-06 22:26] LABS: BASOPHILS ABSOLUTE AUTO 0.02 K/mm3 (0.00-0.23); BASOPHILS PERCENT AUTO 0 % (0-2); EOSINOPHILS PERCENT AUTO 4 % (0-6); Hematocrit 32.3 % (37.0-53.0); IMMATURE GRAN ABSOLUTE AUTO 0.04 K/mm3 (0.00-0.10); IMMATURE GRAN PERCENT AUTO 1 % (0-1); LYMPHOCYTES ABSOLUTE AUTO 1.66 K/mm3 (0.84-5.20); LYMPHOCYTES PERCENT AUTO 25 % (21-46); MONOCYTES ABSOLUTE AUTO 0.72 K/mm3 (0.16-1.47); MONOCYTES PERCENT AUTO 11 % (4-13); Mean Corpuscular HGB 31.9 pg (26.0-34.0); Mean Corpuscular HGB Conc 34.1 g/dL (31.5-36.5); Mean Corpuscular Volume 94 fL (80-100); Mean Platelet Volume 9.4 fL (9.1-12.4); NEUTROPHILS ABSOLUTE AUTO 4.03 K/mm3 (1.96-9.15); NEUTROPHILS PERCENT AUTO 60 % (41-73); Platelet Count 188 K/mm3 (150-400); RDW Coefficient Variation 11.5 % (11.7-14.2); RDW Standard Deviation 39.3 fL (35.1-46.3); Red Blood Cell Count 3.45 M/mm3 (4.30-5.90); White Blood Cell Count 6.77 K/mm3 (4.00-11.30)
[2019-05-06] MEDS ORDERED: LAMO25 PO (22:27)
[2019-05-06 22:40] LABS: International Normalized Ratio 0.88; Prothrombin Time Results 9.4 Sec (9.7-11.5)
[2019-05-06 22:45] LABS: Alanine Aminotransfer (ALT/SGP 19 U/L (12-78); Albumin/Globulin Ratio 0.8 (0.8-1.8); Alk Phos 75 U/L (50-136); Anion Gap 7 mmol/L (6-16); Aspartate Aminotrans (AST/SGOT 14 U/L (12-37); Bilirubin, Total 0.2 mg/dL (0.1-1.0); Blood Urea Nitrogen 48 mg/dL (8-24); Bun/Creatinine Ratio 14.9 (12.0-20.0); CO2, Blood 22 mmol/L (21-32); Calcium, Blood 7.9 mg/dL (8.5-10.1); Chloride, Blood 110 mmol/L (98-108); Creatinine, Blood 3.23 mg/dL (0.60-1.20); Ethanol (Alcohol), Blood, Med <3 mg/dL; Globulin, Blood 3.7 g/dL (2.2-4.0); Glomerular Filtration Rate 21 (60-); Glucose, Blood 238 mg/dL (70-99); Potassium, Blood 5.3 mmol/L (3.5-5.5); Sodium, Blood 139 mmol/L (136-145); Total Protein, Blood 6.7 g/dL (6.4-8.2)
[2019-05-07 00:44] LABS: Source, Urine Clean Catch
[2019-05-07 00:46] LABS: Bilirubin, Urine Neg (Neg); Blood, Urine 1+ (Neg); Glucose Qualitative, Urine 2+ (Neg); Ketones, Urine Neg (Neg); Leukocyte Esterase, Urine Neg (Neg); Nitrite, Urine Neg (Neg); Protein, Urine 4+ (Neg); Urobilinogen, Urine NORM (Normal)
[2019-05-07 00:48] LABS: Appearance, Urine Clear (Clear); Color, Urine Yellow (P-Yellow)
[2019-05-07 00:52] LABS: Bacteria Not Seen /hpf; Red Blood Cells, Urine 0-2 /hpf (0-2); Squamous Epithelial Cells Rare /hpf (Few); White Blood Cells, Urine Not Seen /hpf (0-5)
[2019-05-07 00:56] LABS: U Amphetamine Screen Not Detected; U Barbituate Screen Not Detected; U Benzodiazapine Screen Not Detected; U Buprenorphine Screen Not Detected; U Cannabinoids Screen Not Detected; U Cocaine Screen Not Detected; U Methadone Screen Not Detected; U Methamphetamine Screen Not Detected; U Opiates Screen Not Detected; U Oxycodone Screen Not Detected; U Phencyclidine Screen Not Detected; U Propoxyphene Screen Not Detected
[2019-05-07] MEDS ORDERED: Oxycodone-Apap1 EAC3 PO (04:04)
--- NOTE | 2019-05-07 04:22 | NUR ---
ASSUMED CARE OF PATIENT AT APPROXIMATELY COMMERCIAL SEWING INSTRUCTOR CHELSI WHO RECIEVED REPORT FROM ESTRELLA Garcia RN. PATIENT ARRIVED TO UNIT AND TRANSFER VIA SLIDE SHEET AND TWO STAFF FROM ED TO PCU STRETCHER. PATIENT REPORTS LEFT SIDE EXTREMITIES ARE NUMB AND ARE PAINFUL; PATIENT REPORTS HIS IS UNABLE TO LIFT OR MOVE HIS LEFT ARM OR LEG. PATIENT DENIES TINGLING. PATIENT REPORTS CHRONIC PAIN IN HIS BACK AND NECK 06/03; NO PAIN MEDICATION ORDERED; PATIENT REPORTS SHOT IN ER HELPED; DR. CLIFTON IN UNIT; VERBAL ORDERS RECIEVED FOR ONE TIME DOSE OF FENTANYL AND RESUME HOME MEDICATION; PATIENT REPORTS TAKING OXYCODONE AT HOME. PATIENT ALERT AND ORINENTED X4; NO FACIAL DROOP; PUPILS EQUAL. NSR ON TELE; OXYGEN SATURATION ABOVE 90% ON ROOM AIR. PILLOWS PLACED FOR COMFORT; NS INFUSING PER ORDER. PATIENT CURRENTLY RESTING IN BED; CALL LIGHT IN REACH; BED IN LOWEST POSISTION; BED ALARM ON; WILL CONTINUE TO MONITOR AND ASSESS UNTIL END OF SHIFT.
--- NOTE | 2019-05-07 05:07 | NUR ---
PATIENT WAS MOVING HIS LEFT ARM UP TO BY HIS FACE AND POINTING TOWARDS IV PUMP AFTER THIS RN GAVE HIM ONE TIME DOSE OF FENTANYL. PATIENT NOW NOT USING LEFT ARM. PATIENT'S PAIR OF SOCKS HAD BEEN REMOVED AND PLACED ON BEDSIDE TABLE.
--- NOTE | 2019-05-07 06:34 | NUR ---
NO OTHER ACUTE CHANGES TO REPORT. PATIENT SLEPT ABOUT TWO HOURS. WILL CONTINUE TO MONITOR AND ASSESS UNTIL END OF SHIFT.
--- NOTE | 2019-05-07 09:56 | NUR ---
Upon assessment this morning, the pt is alert, awake, and cooperative. PERRLA noted. Ocular movements intact. Facial expressions are symmetrical bilaterally. No facial droop, sensation on his face is intact. Denies any loss of vision. States halfway hearing loss. No lateral tongue deviation. Uvula vibrates and soft palate rises symmetrically. He states that he is having numbness of the left and right legs. States that he has no movement of neither the left arm, nor the left leg. Upon assessment, noted that he is lifting his left arm for blood pressure cuff application, but able to hold the arm up independently. Some slight movement of the left arm is detected when the pt is distracted with other activity or conversation. Assessment of the left and right legs show active motion of the right leg, intact sensation; some muscular resistance noted on the left leg and intact sensation. States this morning that he just wants to sleep. He did talk to his on the phone (ring awakened him), and has also seen Dr. Pardo and Yancy, physical therapist this morning as well. He declined his breakfast and for this reason his scheduled insulin was held. States he just does not want to eat yet. Has been taking his pills whole with water, without any difficulty he states, and no observable difficulty noted either.
--- NOTE | 2019-05-07 10:51 | NUR ---
C/O pain in his neck, shooting down to his legs. STates that it suddenly came on when the physical therapist was working with him. When I enter the room, he is laughing and talking about the show he is watching on TV. Throughout the 10 or so minutes I am in the room, he is watching TV and relating to me everything that he is seeing. Declined getting OOB to the recliner for relief of back pain at this time. States he doesn't want to try at this time. Denies feeling hungry at this time, either. Denies feeling like his blood sugar is low at this time, either.
[2019-05-07 11:12] LABS: Hematocrit 33.8 % (37.0-53.0); Hemoglobin 11.6 g/dL (13.5-17.5); Mean Corpuscular HGB 31.2 pg (26.0-34.0); Mean Corpuscular HGB Conc 34.3 g/dL (31.5-36.5); Mean Platelet Volume 8.8 fL (9.1-12.4); Platelet Count 166 K/mm3 (150-400); RDW Coefficient Variation 11.3 % (11.7-14.2); RDW Standard Deviation 37.5 fL (35.1-46.3); Red Blood Cell Count 3.72 M/mm3 (4.30-5.90); White Blood Cell Count 5.74 K/mm3 (4.00-11.30)
[2019-05-07 11:15] LABS: Mean Corpuscular Volume 91 fL (80-100)
[2019-05-07 11:34] LABS: Albumin, Blood 2.9 g/dL (3.4-5.0); Albumin/Globulin Ratio 0.8 (0.8-1.8); Bilirubin, Total 0.2 mg/dL (0.1-1.0); Bun/Creatinine Ratio 13.6 (12.0-20.0); Calcium, Blood 8.5 mg/dL (8.5-10.1); Creatinine, Blood 3.01 mg/dL (0.60-1.20); Globulin, Blood 3.6 g/dL (2.2-4.0); Potassium, Blood 4.7 mmol/L (3.5-5.5); Total Protein, Blood 6.5 g/dL (6.4-8.2)
--- NOTE | 2019-05-07 12:22 | NUR ---
The pt was able to cut his chicken independently, stand easily with 1 person minimal assistance to move from the bed to the chair, and back to the bed again with the LPN RN HOSPICE giving stand by assistance. The pt seems to have difficulty remembering activities which have happened during the morning today. he could not recall if he had received a pain medication given 30 minutes earlier, and could not recall who had helped him from the bed to the chair.
--- NOTE | 2019-05-07 13:23 | NUR ---
The pt appears to be sleeping at this time.
--- NOTE | 2019-05-07 16:08 | NUR ---
The patient is very cheerful, conversant, and I told him that he was going to be moving to room 331 on the medical floor. Telephone report was given to Ирина Oglesby at this time.
--- NOTE | 2019-05-07 16:36 | NUR ---
PT TRANSFERED PT TRANSFERED AT 1630. PT IN STABLE CONDTION WITH VSS. PT ORIENTED TO ROOM. CALL [facility] IN REACH. DENIES NEEDS AT THIS TIME.
--- NOTE | 2019-05-07 17:48 | NUR ---
SHIFT SUMMARY NO CHANGES IN ASSESSMENT PRIOR TO TRANSFER. PT RESTING IN BED COMFORTABLY. VSS. PT CONTINUES TO C/O N/T IN HIS BLE. WORSE IN THE L SIDE. PT STATESHE L ARM IS FLACCID. WILL CONTINUE TO MONITOR UNTIL TURNOVER IS COMPLETE.
--- NOTE | 2019-05-08 03:16 | NUR ---
SHIFT SUMMARY PATIENT HAD NO ACUTE CHANGES OBSERVED THIS SHIFT. AXOX 3 AND ONE ASSIST TO BSC. USES URINAL AT BEDSIDE. PIV REMAINS INTACT. CBG 158. DEPARTMENT CHAIR REPORTS NSR PAC AT 64. REPORTED BACK/LEG PAIN AND PERCOCET GIVEN PER EMAR. N/T BLE. LEFT ARM WEAKNESS PER PATIENT. VSS/FEBRILE. DENIES SOB AND N/V. CALL LIGHT IN REACH. BED IN LOWEST POSITION. WILL CONTINUE TO MONITOR UNTIL DAY SHIFT NURSE ASSUMES CARE.
[2019-05-08 05:18] LABS: BASOPHILS ABSOLUTE AUTO 0.02 K/mm3 (0.00-0.23); BASOPHILS PERCENT AUTO 0 % (0-2); EOSINOPHILS ABSOLUTE AUTO 0.42 K/mm3 (0.00-0.68); EOSINOPHILS PERCENT AUTO 7 % (0-6); Hematocrit 33.1 % (37.0-53.0); Hemoglobin 11.2 g/dL (13.5-17.5); IMMATURE GRAN ABSOLUTE AUTO 0.05 K/mm3 (0.00-0.10); IMMATURE GRAN PERCENT AUTO 1 % (0-1); LYMPHOCYTES PERCENT AUTO 25 % (21-46); MONOCYTES PERCENT AUTO 11 % (4-13); Mean Corpuscular HGB Conc 33.8 g/dL (31.5-36.5); Mean Corpuscular Volume 92 fL (80-100); Mean Platelet Volume 9.2 fL (9.1-12.4); NEUTROPHILS ABSOLUTE AUTO 3.69 K/mm3 (1.96-9.15); NEUTROPHILS PERCENT AUTO 57 % (41-73); Platelet Count 174 K/mm3 (150-400); RDW Coefficient Variation 11.1 % (11.7-14.2); RDW Standard Deviation 37.5 fL (35.1-46.3); Red Blood Cell Count 3.61 M/mm3 (4.30-5.90); White Blood Cell Count 6.48 K/mm3 (4.00-11.30)
[2019-05-08 05:43] LABS: Albumin, Blood 2.7 g/dL (3.4-5.0); Albumin/Globulin Ratio 0.8 (0.8-1.8); Bilirubin, Total 0.2 mg/dL (0.1-1.0); Bun/Creatinine Ratio 14.4 (12.0-20.0); Calcium, Blood 8.3 mg/dL (8.5-10.1); Creatinine, Blood 2.99 mg/dL (0.60-1.20); Globulin, Blood 3.6 g/dL (2.2-4.0); Potassium, Blood 4.9 mmol/L (3.5-5.5); Total Protein, Blood 6.3 g/dL (6.4-8.2)
--- NOTE | 2019-05-08 10:29 | NUR ---
1015 PATIENT HAD COMPLAINED OF CHEST PAIN. VITALS NORMAL, PHOTOGRAPHER'S MODEL CALLED AND READING WNL. DOCTOR CALLED PATIENT STATED HE WAS IN 10/10 CHEST PAIN. NITRO GIVEN AT 1023,1028. NURSE IN ROOM WITH PATIENT . BP AT FIRST DOSE OF NITRO WAS 146/83, PULSE 62.SECOND DOSE GIVEN AND VITALS AT 121/77 ,PULSE 61. PATIENT COMPLAINS OF NAUSEA. THIRD DOSE GIVEN AT 1034 , VITALS AT THIS TIME ARE BP 121/80 , PULSE 60. PT STATED PAIN WAS DOWN TO 8/10.
--- NOTE | 2019-05-08 18:08 | NUR ---
PATIENT HAS HAS NO ISSUES SINCE RESOLVING HIS CHEST PAIN EARLIER THIS SHIFT. HE HAS WORKED WITH PT AND OT . PAIN MED INCREASED PER PATIENT REQUEST. NO ACUTE CHANGES. CALL LIGHT WITHIN REACH.
--- NOTE | 2019-05-09 03:50 | NUR ---
SHIFT SUMMARY PATIENT HAD NO ACUTE CHANGES OBSERVED. DENIES CHEST PAIN, SOB, AND N/V. AXOX 3 AND INDEPENDENT IN ROOM IMPROVED FROM ONE ASSIST LAST NOC SHIFT. USES URINAL AT BS. N/T BLE. VSS/AFEBRILE. REPORTED BACK/LEG PAIN AND RECEIVED PERCOCET X 2 TABS PER EMAR. CALLS APPROPRIATELY. CBG 110. PACEMAKER RU CHEST, NO TELE. CALL LIGHT IN REACH. BED IN LOWEST POSITION. WILL CONTINUE TO MONITOR UNTIL DAY SHIFT NURSE ASSUMES CARE.
[2019-05-09] MEDS ORDERED: ASPI325 PO (13:18)
[2019-05-09] MEDS ORDERED: ATOR40TA PO (13:19)
--- NOTE | 2019-05-09 13:44 | NUR ---
PATIENT D/C'D TO HOME WITH SPOUSE. [facility]. D/C INSTRUCTIONS AND EDUCATION DISCUSSED WITH PATIENT AND COPY PROVIDED. TC OPERATOR DISCUSSED HOME HEALTH WITH PATIENT. DENIES ANY FURTHER QUESTIONS OR CONCERNS. ALREADY ESTABLISHED AN APPT WITH PCP FOR 05/21.
== END 2019-05-09 13:38 | disposition home health service (06) | DRG 57 ==
LOC: ER 21:39 → PCU 21:40 → MEDS 05-07 16:28 → PCU 05-07 16:28 → MEDS 05-08 15:32
PROVIDERS: Emergency Medicine; Internal Medicine; Physician Assistant; ADMIT Internal Medicine
DX: G81.94 Hemiplegia, unspecified affecting left nondominant side (principal); N18.4 Chronic kidney disease, stage 4 (severe); M48.02 Spinal stenosis, cervical region; Z86.73 Personal history of transient ischemic attack (TIA), and cerebral infarction without residual deficits; I12.9 Hypertensive chronic kidney disease with stage 1 through stage 4 chronic kidney disease, or unspecified chronic kidney disease; E11.22 Type 2 diabetes mellitus with diabetic chronic kidney disease; E78.5 Hyperlipidemia, unspecified; G40.909 Epilepsy, unspecified, not intractable, without status epilepticus; Z79.01 Long term (current) use of anticoagulants; Z95.810 Presence of automatic (implantable) cardiac defibrillator; Z95.0 Presence of cardiac pacemaker; I48.2 Chronic atrial fibrillation; F32.9 Major depressive disorder, single episode, unspecified; N40.0 Benign prostatic hyperplasia without lower urinary tract symptoms; E11.65 Type 2 diabetes mellitus with hyperglycemia; Z95.5 Presence of coronary angioplasty implant and graft; Z79.4 Long term (current) use of insulin; G43.909 Migraine, unspecified, not intractable, without status migrainosus
CPT/HCPCS: 36415; 70450; 70496; 72125; 72128; 72131; 80053; 81001; 82947; 83880; 85025; 85027; 85610; 85651; 93005; 93010; 96374; 97110; 97116; 97162; 97166; 97530; 97535; 99285-25; G0480; J1815; J3010; J7030; Q9967

== ENCOUNTER 2019-06-06 13:39 | Inpatient (IN) | payer OTHER, MEDICARE ==
[~2019-06-06] VITALS: Ht 172.7 cm; Wt 80.5 kg
[~2019-06-06 13:39] MED LIST changes: +ASPI325 PO; +Oxycodone-Apap1 EAC3 PO
[2019-06-06 14:47] LABS: BASOPHILS ABSOLUTE AUTO 0.03 K/mm3 (0.00-0.23); BASOPHILS PERCENT AUTO 1 % (0-2); EOSINOPHILS ABSOLUTE AUTO 0.25 K/mm3 (0.00-0.68); EOSINOPHILS PERCENT AUTO 4 % (0-6); Hematocrit 34.5 % (37.0-53.0); Hemoglobin 11.5 g/dL (13.5-17.5); IMMATURE GRAN ABSOLUTE AUTO 0.02 K/mm3 (0.00-0.10); IMMATURE GRAN PERCENT AUTO 0 % (0-1); LYMPHOCYTES ABSOLUTE AUTO 1.34 K/mm3 (0.84-5.20); LYMPHOCYTES PERCENT AUTO 21 % (21-46); MONOCYTES ABSOLUTE AUTO 0.63 K/mm3 (0.16-1.47); MONOCYTES PERCENT AUTO 10 % (4-13); Mean Corpuscular HGB 30.7 pg (26.0-34.0); Mean Corpuscular HGB Conc 33.3 g/dL (31.5-36.5); Mean Corpuscular Volume 92 fL (80-100); Mean Platelet Volume 9.5 fL (9.1-12.4); NEUTROPHILS ABSOLUTE AUTO 4.18 K/mm3 (1.96-9.15); NEUTROPHILS PERCENT AUTO 65 % (41-73); Platelet Count 195 K/mm3 (150-400); RDW Coefficient Variation 11.7 % (11.7-14.2); RDW Standard Deviation 39.2 fL (35.1-46.3); Red Blood Cell Count 3.75 M/mm3 (4.30-5.90); White Blood Cell Count 6.45 K/mm3 (4.00-11.30)
[2019-06-06 15:13] LABS: Troponin I <0.015 ng/mL (0.000-0.040)
[2019-06-06 15:23] LABS: Alanine Aminotransfer (ALT/SGP 14 U/L (12-78); Albumin, Blood 3.1 g/dL (3.4-5.0); Albumin/Globulin Ratio 0.9 (0.8-1.8); Alk Phos 71 U/L (50-136); Anion Gap 5 mmol/L (6-16); Aspartate Aminotrans (AST/SGOT 16 U/L (12-37); Bilirubin, Total 0.3 mg/dL (0.1-1.0); Blood Urea Nitrogen 31 mg/dL (8-24); Bun/Creatinine Ratio 11.1 (12.0-20.0); CO2, Blood 22 mmol/L (21-32); Calcium, Blood 8.4 mg/dL (8.5-10.1); Chloride, Blood 112 mmol/L (98-108); Globulin, Blood 3.6 g/dL (2.2-4.0); Glomerular Filtration Rate 24 (60-); Glucose, Blood 134 mg/dL (70-99); Potassium, Blood 6.3 mmol/L (3.5-5.5); Sodium, Blood 139 mmol/L (136-145); Total Protein, Blood 6.7 g/dL (6.4-8.2)
[2019-06-06] MEDS ORDERED: CYCL10 PO (15:59)
[2019-06-06] MEDS ORDERED: Tussin Dm Clea118 ML PO (16:05)
[2019-06-06] MEDS ORDERED: Isosorbide Mono60 MG PO (16:07)
[2019-06-06] MEDS ORDERED: LIDO700A20 TOP (16:08)
[2019-06-06] MEDS ORDERED: Crestor20 MG PO (16:09)
[2019-06-06 17:20] LABS: Calcium, Ionized (POC) 1.17 mmol/L (1.10-1.46); Chloride (POC) 110 mmol/L (98-108); Creatinine (POC) 3.1 mg/dL (0.8-1.3); Glucose (ISTAT POC) 120 mg/dL (70-99); Hemoglobin (POC) 10.2 g/dL (13.5-17.5); Potassium (POC) 5.3 mmol/L (3.5-5.5); Sodium (POC) 139 mmol/L (135-148); Total CO2 (POC) 23 mmol/L (21-32)
--- NOTE | 2019-06-07 05:18 | NUR ---
SHIFT SUMMARY PT NEW ED ADMIT THIS EVENING. PT REMAINED IN BED THROUGHOUT THE NIGHT. USING THE URINAL WHILE IN BED. PT CAN AMBULATE AT BASELINE BUT REPORTS THAT HE IS UNABLE TO AT THIS TIME AND WHEN ATTEMPTED IN THE ED HE WAS DIZZY AND UNSTEADY ON HIS FEET. PT REPORTS VERY MINIMAL FEELING IN HIS R LEG AND NONE IN HIS L LEG. CAN WIGGLE HIS TOES ON HIS R FOOT BUT CAN DO NO FURTHER MOVEMENT WITH HIS LOWER EXTREMETIES. PT PAINFUL. PT HAS CHRONIC BACK PAIN EXACERBATED BY HIS SYNCOPAL EPISODE AND PT REPORTS THAT HE HIT HIS HEAD AND HIS R RIBS WHEN HE FELL. MEDICATED X 2 WITH 2 TABS PERCOCET. PT ALSO HAD NAUSEA X 1. MEDICATED W/ 4 MG ZOFRAN. PT HAS PACEMAKER. PT PLACED ON TELEMETRY SINUS BERNARDO W/ PAC'S AT 59. BLOOD PRESSURE ELEVATED WITH SYSTOLIC IN THE LOW 100'S. OTHERWISE VITAL SIGNS STABLE. WILL CONTINUE TO MONITOR AND REPORT TO DAY RN.
[2019-06-07 05:37] LABS: Bun/Creatinine Ratio 11.2 (12.0-20.0); Calcium, Blood 8.4 mg/dL (8.5-10.1); Creatinine, Blood 2.68 mg/dL (0.60-1.20); Potassium, Blood 4.8 mmol/L (3.5-5.5)
--- NOTE | 2019-06-07 12:05 | NUR ---
BLOOD SUGAR DROPPED TO 62 BEFORE LUNCH. PATIENT GIVEN A SNACK AND SOME ORANGE JUICE. DR. CONROY NOTIFIED AND NPH CHANGED TO 10 UNITS BID INSTEAD OF 20 UNITS. WILL RECHECK BLOOD SUGAR IN AN HOUR.
--- NOTE | 2019-06-07 16:54 | NUR ---
PATIENT A/OX4 THIS SHIFT. STARTED THE DAY REPORTING NUMBNESS TO BLE AND INABILITY TO MOVE HIS LEGS. WORKED WITH PT AND WAS THEN ABLE TO MOVE LEGS AND AMBULATE WITH ASSIST. VSS, ON RA. BLOOD SUGARS IN THE 60'S, NPH DECREASED TO 10 UNITS BID AND PM DOSE HELD. ZOFRAN GIVEN X1 THIS SHIFT FOR NAUSEA. REPORTS SEVERE PAIN TO BACK AND NECK, PERCOCET AND FLEXERIL GIVEN TO TREAT WITH VERY LITTLE RELIEF. FALL PRECAUTIONS IN PLACE, PATIENT IS CALLING APPROPRIATELY FOR ASSISTANCE.
--- NOTE | 2019-06-08 03:31 | NUR ---
CALLED [facility] AND REQUESTED MEDICATION LIST TO BE FAXED TO VERIFY PT'S MEDICATIONS. MED REC COMPLETED. TWO MEDICATIONS WERE ON MED REC BUT NOT [facility] LIST FROM [facility]. THESE MEDICATIONS WERE PERCOCET AND FLOMAX. WILL PASS ON TO DAY SHIFT RN TO SPEAK WITH DAY HOSPITALIST.
[2019-06-08 04:38] LABS: BASOPHILS ABSOLUTE AUTO 0.03 K/mm3 (0.00-0.23); BASOPHILS PERCENT AUTO 0 % (0-2); EOSINOPHILS ABSOLUTE AUTO 0.35 K/mm3 (0.00-0.68); EOSINOPHILS PERCENT AUTO 5 % (0-6); Hematocrit 33.4 % (37.0-53.0); Hemoglobin 11.1 g/dL (13.5-17.5); IMMATURE GRAN ABSOLUTE AUTO 0.03 K/mm3 (0.00-0.10); IMMATURE GRAN PERCENT AUTO 0 % (0-1); LYMPHOCYTES ABSOLUTE AUTO 1.52 K/mm3 (0.84-5.20); LYMPHOCYTES PERCENT AUTO 22 % (21-46); MONOCYTES ABSOLUTE AUTO 0.74 K/mm3 (0.16-1.47); MONOCYTES PERCENT AUTO 11 % (4-13); Mean Corpuscular HGB 31.4 pg (26.0-34.0); Mean Corpuscular HGB Conc 33.2 g/dL (31.5-36.5); Mean Corpuscular Volume 94 fL (80-100); Mean Platelet Volume 9.3 fL (9.1-12.4); NEUTROPHILS ABSOLUTE AUTO 4.29 K/mm3 (1.96-9.15); NEUTROPHILS PERCENT AUTO 62 % (41-73); Platelet Count 178 K/mm3 (150-400); RDW Coefficient Variation 11.8 % (11.7-14.2); RDW Standard Deviation 41.1 fL (35.1-46.3); Red Blood Cell Count 3.54 M/mm3 (4.30-5.90); White Blood Cell Count 6.96 K/mm3 (4.00-11.30)
[2019-06-08 04:58] LABS: Albumin/Globulin Ratio 0.9 (0.8-1.8); Bilirubin, Total 0.2 mg/dL (0.1-1.0); Bun/Creatinine Ratio 11.3 (12.0-20.0); Calcium, Blood 8.3 mg/dL (8.5-10.1); Creatinine, Blood 3.8 mg/dL (0.60-1.20); Globulin, Blood 3.4 g/dL (2.2-4.0); Potassium, Blood 5.2 mmol/L (3.5-5.5); Total Protein, Blood 6.4 g/dL (6.4-8.2)
--- NOTE | 2019-06-08 05:35 | NUR ---
SHIFT SUMMARY PT CONTINUED TO COMPLAIN OF PAIN IN HIS R RIB AND CLAVICLE AREA ALONG WITH HIS CHRONIC BACK PAIN. PT MEDICATED BEFORE SHIFT CHANGE WITH HIS PERCOCET AND IT WAS NOT AVAILABLE UNTIL 0000. SCHEDULED FLEXERIL GIVEN. PT FELL ASLEEP SHORTLY AFTER AND SLEPT THROUGHOUT THE NIGHT. PT REPORTS THAT HE CAN FEEL AND MOVE HIS LEGS THIS EVENING HOWEVER HE CONTINUES TO FEEL WEAK. DID NOT GET OUT OF BED THIS SHIFT. PT USED HEATING PAD FOR COMFORT AND TO HELP MANAGE HIS PAIN. VSS. MEDICATION LIST RECIEVED FROM ME AND MED REC DONE. OTHERWISE NO ACUTE CHANGES. WILL CONTINUE TO MONITOR AND REPORT TO DAY RN.
--- NOTE | 2019-06-08 17:53 | NUR ---
PATIENT A/OX4, UP TO CHAIR AND RESTROOM TODAY WITH FWW AND SBA. REPORTS N/T TO BLE MAKING IT DIFFICULT FOR HIM TO AMBULATE. REPORTS SEVERE PAIN TO BACK/NECK, PERCOCET AND SCHEUDLED FLEXERIL TO TREAT. SKIN INTACT. VSS, ON RA. 18G IV TO L FA WNL AND SL. BLOOD SUGARS BEFORE MEALS, WELL CONTROLLED WITH NPH BID. PATIENT CONTINUES TO NEED ENCOURAGEMENT TO GET OOB, SLEPT MOST OF THE SHIFT. USES URINAL TO VOID, HAD A BM THIS AM. USES CALL LIGHT APPROPRIATELY FOR ASSISTANCE.
[2019-06-09 04:38] LABS: BASOPHILS ABSOLUTE AUTO 0.04 K/mm3 (0.00-0.23); BASOPHILS PERCENT AUTO 1 % (0-2); EOSINOPHILS PERCENT AUTO 5 % (0-6); Hematocrit 32.2 % (37.0-53.0); Hemoglobin 10.5 g/dL (13.5-17.5); IMMATURE GRAN ABSOLUTE AUTO 0.02 K/mm3 (0.00-0.10); IMMATURE GRAN PERCENT AUTO 0 % (0-1); LYMPHOCYTES ABSOLUTE AUTO 1.68 K/mm3 (0.84-5.20); LYMPHOCYTES PERCENT AUTO 25 % (21-46); MONOCYTES ABSOLUTE AUTO 0.74 K/mm3 (0.16-1.47); MONOCYTES PERCENT AUTO 11 % (4-13); Mean Corpuscular HGB 30.1 pg (26.0-34.0); Mean Corpuscular HGB Conc 32.6 g/dL (31.5-36.5); Mean Corpuscular Volume 92 fL (80-100); NEUTROPHILS ABSOLUTE AUTO 3.95 K/mm3 (1.96-9.15); NEUTROPHILS PERCENT AUTO 59 % (41-73); Platelet Count 162 K/mm3 (150-400); RDW Coefficient Variation 11.7 % (11.7-14.2); RDW Standard Deviation 39.5 fL (35.1-46.3); Red Blood Cell Count 3.49 M/mm3 (4.30-5.90); White Blood Cell Count 6.73 K/mm3 (4.00-11.30)
[2019-06-09 05:09] LABS: Albumin, Blood 2.9 g/dL (3.4-5.0); Albumin/Globulin Ratio 0.9 (0.8-1.8); Bilirubin, Total 0.3 mg/dL (0.1-1.0); Bun/Creatinine Ratio 12.6 (12.0-20.0); Calcium, Blood 8.2 mg/dL (8.5-10.1); Creatinine, Blood 3.97 mg/dL (0.60-1.20); Globulin, Blood 3.4 g/dL (2.2-4.0); Potassium, Blood 4.8 mmol/L (3.5-5.5); Total Protein, Blood 6.3 g/dL (6.4-8.2)
--- NOTE | 2019-06-09 05:30 | NUR ---
SHIFT SUMMARY PT SLEPT MUCH OF THE EVENING. CONTINUED TO REPORT PAIN IN R CLAVICLE, R RIBS, AND BACK. MEDICATED NEEDED. PT STILL HAVING N/T TO BLE'S WHICH IS CHRONIC. REPORTS FEELING IN BOTH LEGS. AMBULATING TO THE RESTROOM WITH SBA AND A FWW. NO DIZZINESS OR LIGHT HEADEDNESS WITH STANDING. VITAL SIGNS STABLE. NO ACUTE CHANGES THIS SHIFT. WILL CONTINUE TO MONITOR AND REPORT TO DAY RN.
--- NOTE | 2019-06-09 07:25 | NUR ---
ASSUMED CARE OF PT- BEDSIDE REPORT COMPLETED WITH NIGHT RN KAMRON. PER REPORT PT HAS EXTENSIVE CARDIAC Hx WITH A PACER AND DEFIBRILATOR. PT IS CURRENTLY IN BED SLEEPING CALL LIGHT IS IN REACH. PT IS A SBA WITH ALL TRANSFERS. PAIN MEDS AVAILABLE Q6 1-2 TABS PER REPORT PT IS READY TO REDUCE TO 1 TAB. HE WAS MEDICATED ONCE AT THE START OF THE NIGHT AND SLEPT ALL NIGHT. POSSIBLE DC HOME IN A COUPLE OF DAYS PER REPORT.
[2019-06-09 09:08] LABS: CPK Creatine Kinase 47 U/L (39-308)
--- NOTE | 2019-06-09 10:16 | NUR ---
PT HAD A RENAL US WITH BLADDER AND CALLED AFTER IT WAS COMPLETE. PT BLADDER VOLUME WAS 628ML PT STATES UNABLE TO VOID. BLADDER SCAN 704ML. SPOKE TO DR TAFOYA. NEW ORDER FOR CAZARES PLACEMENT.
--- NOTE | 2019-06-09 10:30 | NUR ---
CAZARES PLACED- PT ALERT AND ORIENTED, BLADDER SCAN SHOWED 704ML IN, PT STATED HE DOES NOT NEED TO URINATE AND WAS UNWILLING TO TRY TO VOID. PLACED CAZARES PER DR MICHELET MACDONALD. PT STATED HE HAD A CAZARES FOR SIX MONTHS AFTER AN ACCIDENT INJURING HIS BACK. PT ALSO STATED HE HAS HAD MULTIPLE TURPS. SLIGHT DIFFICULTY PLACING THE CAZARES SO COUDE TIP WAS USED URINE FLASH WAS VISUALIZED AND CATHETER WAS ADVANCED BEYOND BALOON INFLATED WITH 10ML. CAZARES IN PLACE PATENT AND DRAINING BRIGHT YELLOW URINE. PT TOLLERATED WELL. STERILE TECHNIQUE MAINTAINED, ASSISTED BY YIFAN LUX.
[2019-06-09 11:10] LABS: Source, Urine Catheter
[2019-06-09 11:22] LABS: Appearance, Urine Clear (Clear); Bilirubin, Urine Neg (Neg); Blood, Urine 2+ (Neg); Color, Urine Yellow (P-Yellow); Glucose Qualitative, Urine Neg (Neg); Ketones, Urine Neg (Neg); Leukocyte Esterase, Urine Neg (Neg); Nitrite, Urine Neg (Neg); Protein, Urine 4+ (Neg); Urobilinogen, Urine NORM (Normal)
[2019-06-09 12:06] LABS: Bacteria Not Seen /hpf; Red Blood Cells, Urine 0-2 /hpf (0-2); Squamous Epithelial Cells Not Seen /hpf (Few); White Blood Cells, Urine Not Seen /hpf (0-5)
--- NOTE | 2019-06-09 15:14 | NUR ---
CALLED DR CONROY- PT HAS NO VOIDED SINCE THE CAZARES WAS PLACED PT ATTEMPTED TO URINATE AND WAS NOT ABLE TO; STATES HE DOES NOT HAVE THE URGE EITHER. CALLED DR CONROY PER DR ELIAS ONE HOUR AT 1600 BLADDER SCAN POST VOID (POST VOID ATTEMPT) THEN CALL BACK.
--- NOTE | 2019-06-09 19:46 | NUR ---
SHIFT SUMMARY- BEDSIDE REPORT GIVEN TO NIGHT RN ANNA. PT ALERT AND ORIENTED 1P SBA TO THE BATHROOM, CAZARES IN PLACE PATENT AND DRAINING. PT MEDICATED FOR PAIN JUST PRIOR TO SHIFT CHANGE. DR TAFOYA ORDERED IVF FOR THE PT PRIOR TO SHIFT CHANGE, ORDER PLACED NIGHT RN WILL START THE FLUIDS, PASSED ON IN REPORT.
[2019-06-10 04:41] LABS: Hematocrit 31.1 % (37.0-53.0); Hemoglobin 10.6 g/dL (13.5-17.5)
[2019-06-10 05:02] LABS: Anion Gap 6 mmol/L (6-16); Blood Urea Nitrogen 50 mg/dL (8-24); Bun/Creatinine Ratio 12.8 (12.0-20.0); CO2, Blood 22 mmol/L (21-32); Calcium, Blood 8.5 mg/dL (8.5-10.1); Chloride, Blood 109 mmol/L (98-108); Glomerular Filtration Rate 17 (60-); Glucose, Blood 140 mg/dL (70-99); Phosphorus, Blood 3.2 mg/dL (2.5-4.9); Potassium, Blood 4.7 mmol/L (3.5-5.5); Sodium, Blood 137 mmol/L (136-145)
--- NOTE | 2019-06-10 07:40 | NUR ---
06/10/19 0600 SLEPT ON AND OFF LAST NIGHT. VITALS STABLE.NO BM IN 3 DAYS AND RN GAVE LAXATIVE PER ORDER. MEDICATED TWICE FOR CHRONIC NECK,BACK AND HEAD PAIN. UNEVENTFUL NIGHT.
--- NOTE | 2019-06-10 08:10 | NUR ---
PT PLEASANT COOP A/O. SOME PAIN RT THIGH AND BACK. 03/03. LIKE TO GET TO 5. MED PER EMAR. H/R REG, NO MKURMER NOTED. NO TELE. PACER LUCW. LUNGS CLEAR, RESP EASY, UNLABORED. ON R.A. BT X4 LAST BM TODAY. VERY SMALL. NO GOOD BM 3 DAYS. MED PER EMAR. ALSO "BROWN COW" GIVEN. VOIDS FOLEYCATH. YELLOW FLUID DRAINING. SBA TO BATHROOM. BED IN LOW POSITION, CALL LITE IN REACH, CALLS APPROP.
--- NOTE | 2019-06-10 17:47 | NUR ---
PT QUITE PLEASANT TODAY, PAIN MANAGED WITH AVAIL MEDS TO PT SATISFACTION. IN TODAY. PT ABLE TO AMBULATE SBA TO BATHROOM TWICE AT MY ASSISTANCE. NO SYNCOPY NOTED. NO OTHER CONCERNS AT THIS TIME. BED IN LOW POSITIOIN, CALL LITE IN REACH, CALLS APPROP
--- NOTE | 2019-06-11 02:54 | NUR ---
06/11/19 0250 PT UP WALKING IN HALLS. NO COMPLAINTS JUST BORED AND UNABLE TO SLEEP.
[2019-06-11 06:01] LABS: Albumin, Blood 2.8 g/dL (3.4-5.0); Anion Gap 6 mmol/L (6-16); Blood Urea Nitrogen 48 mg/dL (8-24); CO2, Blood 22 mmol/L (21-32); Calcium, Blood 8.4 mg/dL (8.5-10.1); Chloride, Blood 110 mmol/L (98-108); Creatinine, Blood 3.42 mg/dL (0.60-1.20); Glomerular Filtration Rate 19 (60-); Glucose, Blood 141 mg/dL (70-99); Magnesium, Blood 1.9 mg/dL (1.6-2.4); Phosphorus, Blood 3.3 mg/dL (2.5-4.9); Potassium, Blood 4.7 mmol/L (3.5-5.5); Sodium, Blood 138 mmol/L (136-145)
--- NOTE | 2019-06-11 06:11 | NUR ---
06/11/19 0545 C/O PAIN TO BACK,NECK. SEE MAR FOR MEDS GIVEN. VITALS REMAINS STABLE.CAZARES WITH ONLY 180 ML OF URINE THIS SHIFT.
--- NOTE | 2019-06-11 15:40 | NUR ---
[facility]. provided pt with advance directive information
--- NOTE | 2019-06-11 18:19 | NUR ---
PATIENT A/OX4, UP INDEPENDENTLY IN ROOM. VSS THIS SHIFT, ON RA. 20G IV TO L FA WNL, NS @ 50ML/HR INFUSING. PERCOCET GIVEN Q6 HOURS TO TREAT CHRONIC BACK PAIN, AND FLEXERIL SCHEDULED. CAZARES TO GRAVITY, ADEQUATE U/O. ACHS BLOOD SUGARS, NO COVERAGE NEEDED THIS SHIFT. NO ACUTE CHANGES THIS SHIFT. PATIENT CALLS APPROPRIATELY FOR ASSISTANCE.
--- NOTE | 2019-06-12 04:37 | NUR ---
SHIFT SUMMARY: PT IS ALERT AND ORIENTED WITH MINOR, INTERMITTENT CONFUSION. PT IS CALM AND COOPERATIVE WITH CARE. PT IS INDEPENDENT, UP WALKING IN THE MANRIQUE ON SEVERAL OCCASIONS. CALLS APPROPRIATELY. PT REPORTS CHRONIC BACK PAIN, MEDICATING PER EMAR. CAZARES PATENT AND DRAINING YELLOW URINE. FLUIDS DC'D PER DR. TAFOYA. PT DENIES NAUSEA, VOMITING, AND SOB. NO ACUTE CHANGES OR COMPLICATIONS OVERNIGHT. WILL CONTINUE TO MONITOR.
[2019-06-12 04:39] LABS: Hematocrit 31.9 % (37.0-53.0); Hemoglobin 10.6 g/dL (13.5-17.5)
[2019-06-12 04:59] LABS: Albumin, Blood 3.1 g/dL (3.4-5.0); Anion Gap 6 mmol/L (6-16); Blood Urea Nitrogen 45 mg/dL (8-24); Bun/Creatinine Ratio 12.9 (12.0-20.0); CO2, Blood 23 mmol/L (21-32); Calcium, Blood 8.6 mg/dL (8.5-10.1); Chloride, Blood 109 mmol/L (98-108); Creatinine, Blood 3.48 mg/dL (0.60-1.20); Glomerular Filtration Rate 19 (60-); Glucose, Blood 144 mg/dL (70-99); Phosphorus, Blood 3.8 mg/dL (2.5-4.9); Potassium, Blood 4.4 mmol/L (3.5-5.5); Sodium, Blood 138 mmol/L (136-145)
--- NOTE | 2019-06-13 04:50 | NUR ---
SHIFT SUMMARY: PT IS ALERT AND ORIENTED WITH INTERMITTENT CONFUSION, WAS LOOKING FOR AN ANIMAL IN HIS ROOM EARLY IN THE NIGHT. PT IS CALM AND COOPERATIVE WITH CARE. PT IS INDEPENDENT IN THE ROOM. CAZARES REMOVED DURING THE DAY YESTERDAY, PT WAS ABLE TO VOID SINCE REMOVAL. PT DENIES PAIN, NAUSEA, VOMITING, AND SOB. POSSIBLE DISCHARGE TODAY. BED IN LOW POSITION, CALL LIGHT WITHIN REACH. WILL REPORT TO DAY NURSE.
[2019-06-13 05:03] LABS: Hematocrit 30.2 % (37.0-53.0); Hemoglobin 10.1 g/dL (13.5-17.5)
[2019-06-13 05:25] LABS: Albumin, Blood 2.9 g/dL (3.4-5.0); Anion Gap 7 mmol/L (6-16); Blood Urea Nitrogen 51 mg/dL (8-24); Bun/Creatinine Ratio 14.8 (12.0-20.0); CO2, Blood 20 mmol/L (21-32); Calcium, Blood 8.4 mg/dL (8.5-10.1); Chloride, Blood 110 mmol/L (98-108); Creatinine, Blood 3.45 mg/dL (0.60-1.20); Glomerular Filtration Rate 19 (60-); Glucose, Blood 142 mg/dL (70-99); Magnesium, Blood 1.8 mg/dL (1.6-2.4); Phosphorus, Blood 3.8 mg/dL (2.5-4.9); Potassium, Blood 4.3 mmol/L (3.5-5.5); Sodium, Blood 137 mmol/L (136-145)
[2019-06-13] MEDS ORDERED: TAMS.4ER PO (10:22)
[2019-06-13] MEDS ORDERED: OXYC5 (10:24)
--- NOTE | 2019-06-13 11:54 | NUR ---
PT DCD HOME WITH AND HOME HEALTH. ALL MEDS AND INSTRUCTIONS REVIEWED WITH PT WELL FOLLOW UP APPTS. PT VERBALIZED AN UNDERSTANDING. RX FAXED TO [facility] PER PT REQUEST. PT IS TRANSPORTING HIM HOME. IV REMOVED WITH NO ISSUES. ALL PERSONAL BELONGINGS SENT WITH PT.
== END 2019-06-13 11:58 | disposition home health service (06) | DRG 684 ==
LOC: ER 13:39 → MEDS 13:40 → ENPENDDIS 06-13 10:35 → MEDS 06-13 11:58
PROVIDERS: Emergency Medicine; Internal Medicine; Internal Medicine Nephrology; ADMIT Hospitalist
DX: N17.9 Acute kidney failure, unspecified (principal); I48.91 Unspecified atrial fibrillation; I12.9 Hypertensive chronic kidney disease with stage 1 through stage 4 chronic kidney disease, or unspecified chronic kidney disease; E11.22 Type 2 diabetes mellitus with diabetic chronic kidney disease; N18.4 Chronic kidney disease, stage 4 (severe); G40.909 Epilepsy, unspecified, not intractable, without status epilepticus; Z79.4 Long term (current) use of insulin; I25.10 Atherosclerotic heart disease of native coronary artery without angina pectoris; E87.5 Hyperkalemia; F32.9 Major depressive disorder, single episode, unspecified; R26.89 Other abnormalities of gait and mobility; Z95.5 Presence of coronary angioplasty implant and graft; D63.1 Anemia in chronic kidney disease; E78.5 Hyperlipidemia, unspecified; N25.81 Secondary hyperparathyroidism of renal origin; Z95.810 Presence of automatic (implantable) cardiac defibrillator; E86.9 Volume depletion, unspecified; Z87.891 Personal history of nicotine dependence; F41.8 Other specified anxiety disorders
CPT/HCPCS: 36415; 51702; 70450; 71046; 72125; 76770; 80047; 80048; 80053; 80069; 81001; 82550; 82652; 82947; 83735; 83880; 84484; 85014; 85018; 85025; 93005; 93010; 96361; 96374; 96376; 97110; 97116; 97162; 97530; 99285-25; G0103; G0378; J1815; J2405; J7030

== ENCOUNTER 2019-07-12 19:21 | Inpatient (IN) | payer OTHER ==
[~2019-07-12] VITALS: Ht 172.7 cm; Wt 81.1 kg
[~2019-07-12 19:21] MED LIST changes: +CYCL10 PO; +Crestor20 MG PO; +OXYC5; +Tussin Dm Clea118 ML PO
[2019-07-12 19:57] LABS: BASOPHILS ABSOLUTE AUTO 0.03 K/mm3 (0.00-0.23); BASOPHILS PERCENT AUTO 1 % (0-2); EOSINOPHILS ABSOLUTE AUTO 0.29 K/mm3 (0.00-0.68); EOSINOPHILS PERCENT AUTO 5 % (0-6); Hematocrit 35.6 % (37.0-53.0); Hemoglobin 11.9 g/dL (13.5-17.5); IMMATURE GRAN ABSOLUTE AUTO 0.02 K/mm3 (0.00-0.10); IMMATURE GRAN PERCENT AUTO 0 % (0-1); LYMPHOCYTES ABSOLUTE AUTO 1.24 K/mm3 (0.84-5.20); LYMPHOCYTES PERCENT AUTO 22 % (21-46); MONOCYTES ABSOLUTE AUTO 0.46 K/mm3 (0.16-1.47); MONOCYTES PERCENT AUTO 8 % (4-13); Mean Corpuscular HGB 30.4 pg (26.0-34.0); Mean Corpuscular HGB Conc 33.4 g/dL (31.5-36.5); Mean Corpuscular Volume 91 fL (80-100); Mean Platelet Volume 9.4 fL (9.1-12.4); NEUTROPHILS PERCENT AUTO 65 % (41-73); Platelet Count 200 K/mm3 (150-400); RDW Coefficient Variation 11.8 % (11.7-14.2); RDW Standard Deviation 39.1 fL (35.1-46.3); Red Blood Cell Count 3.91 M/mm3 (4.30-5.90); White Blood Cell Count 5.74 K/mm3 (4.00-11.30)
[2019-07-12 20:20] LABS: Alanine Aminotransfer (ALT/SGP 14 U/L (12-78); Albumin, Blood 3.2 g/dL (3.4-5.0); Albumin/Globulin Ratio 0.8 (0.8-1.8); Alk Phos 77 U/L (50-136); Anion Gap 7 mmol/L (6-16); Aspartate Aminotrans (AST/SGOT 13 U/L (12-37); Bilirubin, Total 0.2 mg/dL (0.1-1.0); Blood Urea Nitrogen 47 mg/dL (8-24); Bun/Creatinine Ratio 15.8 (12.0-20.0); CO2, Blood 20 mmol/L (21-32); Calcium, Blood 8.4 mg/dL (8.5-10.1); Chloride, Blood 114 mmol/L (98-108); Creatinine, Blood 2.97 mg/dL (0.60-1.20); Globulin, Blood 3.8 g/dL (2.2-4.0); Glomerular Filtration Rate 23 (60-); Glucose, Blood 137 mg/dL (70-99); Potassium, Blood 4.9 mmol/L (3.5-5.5); Sodium, Blood 141 mmol/L (136-145); Troponin I <0.015 ng/mL (0.000-0.040)
[2019-07-13 03:23] LABS: Source, Urine Clean Catch
[2019-07-13 03:29] LABS: Bilirubin, Urine Neg (Neg); Blood, Urine 2+ (Neg); Glucose Qualitative, Urine 1+ (Neg); Ketones, Urine Neg (Neg); Leukocyte Esterase, Urine Neg (Neg); Nitrite, Urine Neg (Neg); Protein, Urine 4+ (Neg); Urobilinogen, Urine NORM (Normal)
[2019-07-13 03:39] LABS: Appearance, Urine Clear (Clear); Color, Urine Yellow (P-Yellow)
[2019-07-13 03:40] LABS: Bacteria Not Seen /hpf; Squamous Epithelial Cells Not Seen /hpf (Few); White Blood Cells, Urine Not Seen /hpf (0-5)
[2019-07-13 04:23] LABS: Hemoglobin 11.4 g/dL (13.5-17.5); Mean Corpuscular HGB 30.3 pg (26.0-34.0); Mean Corpuscular HGB Conc 33.5 g/dL (31.5-36.5); Mean Corpuscular Volume 90 fL (80-100); Mean Platelet Volume 9.4 fL (9.1-12.4); Platelet Count 178 K/mm3 (150-400); RDW Coefficient Variation 11.9 % (11.7-14.2); RDW Standard Deviation 38.8 fL (35.1-46.3); Red Blood Cell Count 3.76 M/mm3 (4.30-5.90); White Blood Cell Count 7.22 K/mm3 (4.00-11.30)
[2019-07-13 04:51] LABS: CPK Creatine Kinase 54 U/L (39-308); Troponin I <0.015 ng/mL (0.000-0.040)
[2019-07-13 04:55] LABS: Albumin, Blood 3.1 g/dL (3.4-5.0); Albumin/Globulin Ratio 0.8 (0.8-1.8); Bilirubin, Total 0.4 mg/dL (0.1-1.0); Bun/Creatinine Ratio 15.6 (12.0-20.0); Calcium, Blood 8.3 mg/dL (8.5-10.1); Creatinine, Blood 2.82 mg/dL (0.60-1.20); Globulin, Blood 3.7 g/dL (2.2-4.0); Total Protein, Blood 6.8 g/dL (6.4-8.2)
--- NOTE | 2019-07-13 05:26 | NUR ---
SHIFT SUMMARY PT RESTING IN ROOM AT THIS TIME W/ KPAD IN PLACE FOR BACK PAIN. PT SLEPT IN SHORT PERIODS SINCE ARRIVAL. PT REPORTS HAS CHRONIC BACK PAINTHAT HAS WORSENED OVER LAST 2 DAYS. PT WAS MEDCIATED FOR PAIN PER EMAR, REPOSITIONED AND PROVIDED W/ K PAD. PT WAS NOTED TO HAVE L SIDE WEAKNESS ON ARM AND L, W/ L FACIAL DROOP. PT REPORTS FACIAL DROOP IS NEW WITH THIS VISIT AND HAS HAPPENED BEFORE WITH PREVIOUS TIA'S. RESP EVEN UNLABORED ON RA W/ SATS >95%. PT ABLE TO USE URINAL IN BED W/O ASSIST. DENIED CP OR SOB. NS INFUSING IN PIV. CALL LIGHT IN REACH.
[2019-07-13 10:15] LABS: U Amphetamine Screen Not Detected; U Barbituate Screen Not Detected; U Benzodiazapine Screen Not Detected; U Buprenorphine Screen Not Detected; U Cannabinoids Screen Not Detected; U Cocaine Screen Not Detected; U Methadone Screen Not Detected; U Methamphetamine Screen Not Detected; U Opiates Screen DETECTED; U Oxycodone Screen Not Detected; U Phencyclidine Screen Not Detected; U Propoxyphene Screen Not Detected
--- NOTE | 2019-07-13 11:35 | NUR ---
CARE ASSUMED, ASSESSMENT COMPLETED. PT A&OX4, SPEAKING CLEARLY AND APPROPRIATELY, LEFT SIDED WEAKNESS AND LEFT FACIAL DROOP NOTED, JENNIFER, PT STATES HE IS UNABLE TO MOVE HIS LEFT ARM/HAND AND LEFT LEG/FOOT AT AM ASSESSMENT, ALSO REPORTS HE IS UNABLE TO SWALLOW. PO MEDICATIONS HELD. C/O NAUSEA AND NECK/BACK PAIN AND CHEST PAIN WITH DEEP INSPIRATION THAT HE BELIEVES IS MUSCULAR IN NATURE, WILL MEDICATE PER ORDERS. HRR, 60'S - 70'S SINUS, VSS. PT HAS A DRY, INTERMITTENT COUGH, LS CLEAR, RT CONSULT ORDERED PER DR. ALICEA. ABD DISTENDED AND MODERATELY FIRM, BT HYPOACTIVE, ABD NONTENDER TO PALPATION. PT VOIDING IN URINAL WITHOUT DIFFICULTY. 1100: PT REPORTS FEELING THAT HE IS ABLE TO SWALLOW BETTER, WILL PERFORM BEDSIDE SWALLOW EVAL ABLE. P/T AT BEDSIDE FOR THERAPY, PT OOB WITH 2 PERSON ASSIST AND PIVOT TRANSFER WITH WEIGHT ON RLE, PT STILL UNABLE TO MOVE RLE AND RUE, LEFT FACIAL DROOP REMAINS.
[2019-07-13 13:00] LABS: CPK Creatine Kinase 54 U/L (39-308); Troponin I <0.015 ng/mL (0.000-0.040)
--- NOTE | 2019-07-13 13:38 | NUR ---
DR. DA SILVATRATE IN TO SEE PT, PT NOW MEDICAL STATUS, NO TELE. TELE DC'D. PT ASSISTED TO REPOSITION IN BED, LEFT EXTREMS REMAIN STIFF AND UNABLE TO MOVE. SPEECH CLEAR, PT TOLERATING LIQUIDS WITHOUT DIFFICULTY, DENIES NEEDS AT THIS TIME. ALERT AND ORIENTED X4, FACIAL DROOP REMAINS.
--- NOTE | 2019-07-13 14:53 | NUR ---
ECHOCARDIOGRAM COMPLETE
--- NOTE | 2019-07-13 15:23 | NUR ---
PT SITTING UP IN BED, TOLERATED CLEAR LIQUID DIET WELL. FRIEND IN TO VISIT. LEFT SIDED WEAKNESS/FACIAL DROOP REMAINS, LLE AND LUE REMAIN STIFF, PPP, CAP REFILL WNL. REPORT TO PATRICIA ARMENTA ON MEDICAL FLOOR AT 1510.
--- NOTE | 2019-07-13 15:28 | NUR ---
PT ARRIVED FROM PCU 3 TO ROOM 341 VIA GURNEY, ACCOMPANIED BY SPOUSE. BOTH ORIENTED TO ROOM AND CALL SYSTEM. WILL CONTINUE TO MONITOR AND REPORT TO ONCOMING RN.
--- NOTE | 2019-07-13 15:29 | NUR ---
PATIENT TRANSPORTED TO MEDICAL FLOOR ROOM 341 BY [facility]. PATIENT MEDICATED WITH 1MG IV DILAUDID PRIOR TO TRANSFER PER PATIENTS REQUEST. AT TIME OF TRANSFER PATIENT WAS ALERT AND ORIENTS, NO DISTRESS NOTED. REPORT CALLED BY LUPE GOMEZ.
--- NOTE | 2019-07-13 18:59 | NUR ---
NO ACUTE CHANGES NOTED SINCE PT ARRIVAL TO ROOM 341. PT WAS MEDICATED WITH 1 MG IV DILAUDID BEFORE TRANSPORT AND CONTINUED TO DENY PAIN ON ARRIVAL TO ROOM 341. RESTING QUIETLY AT THIS TIME, WILL CONTINUE TO MONITOR AND REPORT TO ONCOMING RN
[2019-07-14 05:12] LABS: BASOPHILS ABSOLUTE AUTO 0.03 K/mm3 (0.00-0.23); BASOPHILS PERCENT AUTO 0 % (0-2); EOSINOPHILS ABSOLUTE AUTO 0.37 K/mm3 (0.00-0.68); EOSINOPHILS PERCENT AUTO 5 % (0-6); Hematocrit 32.9 % (37.0-53.0); Hemoglobin 10.8 g/dL (13.5-17.5); IMMATURE GRAN ABSOLUTE AUTO 0.03 K/mm3 (0.00-0.10); IMMATURE GRAN PERCENT AUTO 0 % (0-1); LYMPHOCYTES ABSOLUTE AUTO 1.11 K/mm3 (0.84-5.20); LYMPHOCYTES PERCENT AUTO 16 % (21-46); MONOCYTES ABSOLUTE AUTO 0.58 K/mm3 (0.16-1.47); MONOCYTES PERCENT AUTO 8 % (4-13); Mean Corpuscular HGB 30.1 pg (26.0-34.0); Mean Corpuscular HGB Conc 32.8 g/dL (31.5-36.5); Mean Corpuscular Volume 92 fL (80-100); Mean Platelet Volume 9.4 fL (9.1-12.4); NEUTROPHILS ABSOLUTE AUTO 5.01 K/mm3 (1.96-9.15); NEUTROPHILS PERCENT AUTO 70 % (41-73); Platelet Count 163 K/mm3 (150-400); RDW Coefficient Variation 11.9 % (11.7-14.2); RDW Standard Deviation 39.8 fL (35.1-46.3); Red Blood Cell Count 3.59 M/mm3 (4.30-5.90); White Blood Cell Count 7.13 K/mm3 (4.00-11.30)
[2019-07-14 05:40] LABS: Bun/Creatinine Ratio 12.7 (12.0-20.0); Calcium, Blood 8.1 mg/dL (8.5-10.1); Creatinine, Blood 3.06 mg/dL (0.60-1.20); Potassium, Blood 5.1 mmol/L (3.5-5.5)
--- NOTE | 2019-07-14 07:24 | NUR ---
patient rested well this noc shift, no acute changes to report. Right before shift change patient felt like his spine had moved, or adjusted somehoow. pt had just received pain med so i passed this info to the day nurse Maxim to monitor and followup on. patient neuro checks indicated that he had no use of his left arm or leg. but his extremities are stiff rather than flaccid. education focused on how to manuever himself in the bed using his good arm and leg.
--- NOTE | 2019-07-14 11:31 | NUR ---
PERMISSION FOR CARE PATIENT GAVE STUDENT PERMISSION TO PROVIDE CARE ON 07/14/19.
--- NOTE | 2019-07-14 18:16 | NUR ---
SHIFT SUMMARY. A&OX4, AWARE OF LIMITATIONS. PT IS PLEASANT AND COOPERATIVE. PT/OT WORKED WITH PT AND PT TOLERATED WELL. PT DENIES SOB. PT WITH NAUSEA WITH ONE EPISODE OF CLEAR EMESIS, NAUSEA MANAGED WELL CURRENT ORDERS. PT REPORTS POOR APPETITE. PT WITH CHRONIC BACK PAIN REQUIRING DILAUDID 1MG Q4P. NO NEW CHANGES OR CONCERNS.
--- NOTE | 2019-07-15 05:04 | NUR ---
SHIFT SUMMARY AOX4, FOLLOWS DIRECTIONS, ANSWERS QUESTIONS APPROPRIATELY. DENIES N/V OR SOB. REPORTS CHRONIC BACK & NECK PAIN & WAS MEDICATED 1X W/DILAUDID PER ORDERS. L ARM IS WEAK & REPORTS HE IS "UNABLE TO FEEL ANYTHING W/IT," PT ABLE TO MOVE L ARM. LLE IS STILL FLACCID & PT IS UNABLE TO MOVE AT ALL. CALL LIGHT IN REACH & I WILL CONTINUE TO MONITOR.
[2019-07-15 05:14] LABS: BASOPHILS ABSOLUTE AUTO 0.02 K/mm3 (0.00-0.23); BASOPHILS PERCENT AUTO 0 % (0-2); EOSINOPHILS ABSOLUTE AUTO 0.35 K/mm3 (0.00-0.68); EOSINOPHILS PERCENT AUTO 7 % (0-6); Hematocrit 30.7 % (37.0-53.0); Hemoglobin 10.3 g/dL (13.5-17.5); IMMATURE GRAN ABSOLUTE AUTO 0.02 K/mm3 (0.00-0.10); IMMATURE GRAN PERCENT AUTO 0 % (0-1); LYMPHOCYTES ABSOLUTE AUTO 1.18 K/mm3 (0.84-5.20); LYMPHOCYTES PERCENT AUTO 23 % (21-46); MONOCYTES PERCENT AUTO 10 % (4-13); Mean Corpuscular HGB 30.7 pg (26.0-34.0); Mean Corpuscular HGB Conc 33.6 g/dL (31.5-36.5); Mean Corpuscular Volume 91 fL (80-100); Mean Platelet Volume 9.1 fL (9.1-12.4); NEUTROPHILS ABSOLUTE AUTO 2.97 K/mm3 (1.96-9.15); NEUTROPHILS PERCENT AUTO 59 % (41-73); Platelet Count 158 K/mm3 (150-400); RDW Coefficient Variation 11.8 % (11.7-14.2); RDW Standard Deviation 39.8 fL (35.1-46.3); Red Blood Cell Count 3.36 M/mm3 (4.30-5.90); White Blood Cell Count 5.04 K/mm3 (4.00-11.30)
[2019-07-15 05:35] LABS: Albumin, Blood 2.7 g/dL (3.4-5.0); Albumin/Globulin Ratio 0.8 (0.8-1.8); Bilirubin, Total 0.3 mg/dL (0.1-1.0); Bun/Creatinine Ratio 11.1 (12.0-20.0); Calcium, Blood 8.2 mg/dL (8.5-10.1); Creatinine, Blood 3.16 mg/dL (0.60-1.20); Globulin, Blood 3.3 g/dL (2.2-4.0); Potassium, Blood 4.5 mmol/L (3.5-5.5)
--- NOTE | 2019-07-15 16:54 | NUR ---
SHIFT SUMMARY PT HAS WORKED WITH PT/OT AND SPEECH THERAPY TODAY. SEEN DR. PENALOZA WELL. PT HAS BEEN TOLERATING NEW DIET AND VOIDING. HAS BEEN UP TO CHAIR WITH GAIT BELT AND 1-2 ASSIST. TAKES MEDS WHOLE WITH WATER AND SWALLOWS WITHOUT DIFFICULTY. LINENS CHANGED BY PATTERN HANGER TODAY. PAIN MANAGED WITH PO PAIN MEDS PER ORDERS. ASSISTED WITH ADL'S PRN. PLAN IS TO CONTINUE THERAPIES AND POSSIBLE DC TO SNF.
--- NOTE | 2019-07-15 21:48 | NUR ---
ASSESSMENT OF L SIDE DURING MY ASSESSMENT OF PT I ASKED HIM TO SQUEEZE MY FINGERS W/BOTH HANDS & HE WAS UNABLE TO MOVE L ARM AT ALL STATING HE COULD ONLY MOVE L THUMB & COULD ONLY [employer] W/RIGHT HAND. HOWEVER, WHEN I WAS ADMINISTERING EVENING MEDS PT STARTED TALKING ABOUT LIVING IN [place] & WAS MOVING L ARM & HAND FREELY WITH GREAT ROM. HE MOVED ARM UP, DOWN, SIDE TO SIDE & CLASPED HANDS TOGETHER. I WILL CONTINUE TO MONTOR PTS PROGRESS W/LEFT SIDE.
--- NOTE | 2019-07-16 05:25 | NUR ---
SHIFT SUMMARY AOX3, VS STABLE, DENIES SOB OR N/V. REPORTS 8/10 PAIN IN BACK & GENERALIZED ALLOVER BODY, MEDICATED W/DILAUDID PER ORDERS & REPORTS VERY LITTLE RELIEF FROM PAIN MEDICATION, STATES PAIN IS STILL A 8/10 WHEN REASSESSED. CBG 120 @HS. REPORTS HE IS STILL UNABLE TO MOVE EXTREMITIES ON L SIDE, YET IS FOUND MOVING L ARM DURING CONVERSATION, READ PREVIOUS NOTE. CALL LIGHT IS IN REACH & I WILL CONTINUE TO MONITOR UNTIL NEXT RN ASSUMES CARE.
[2019-07-16 05:36] LABS: Albumin, Blood 2.8 g/dL (3.4-5.0); Anion Gap 5 mmol/L (6-16); Blood Urea Nitrogen 38 mg/dL (8-24); Bun/Creatinine Ratio 11.3 (12.0-20.0); CHOL/HDL RATIO 5.9; CO2, Blood 22 mmol/L (21-32); Calcium, Blood 8.2 mg/dL (8.5-10.1); Chloride, Blood 110 mmol/L (98-108); Cholesterol 153 mg/dL (50-200); Creatinine, Blood 3.36 mg/dL (0.60-1.20); Glomerular Filtration Rate 20 (60-); Glucose, Blood 141 mg/dL (70-99); HDL Cholesterol 26 mg/dL (>39); LDL/HDL RATIO 1.9; Low Density Lipoprotein Chol 50 mg/dL (0-110); Phosphorus, Blood 4.3 mg/dL (2.5-4.9); Potassium, Blood 4.9 mmol/L (3.5-5.5); Sodium, Blood 137 mmol/L (136-145); Triglycerides 383 mg/dL (30-160); Very Low Density Lipoprot Chol 76 mg/dL (6-32)
--- NOTE | 2019-07-16 08:30 | NUR ---
PT PLEASANT TALKATIVE, A/O. STATES SOME PAIN BACK. 8, WANTS DOWN TO 5. WILL REPOSITION TO SEE HOW HELPS. REFUSED BACK PAIN PATCH AND MEDS AT THIS TIME. WILL FOLLOW, STATES NUMBNESS IS DOWN OUTSIDE OF L LEG FROM THIGH TO KNEE. THEN NUMB KNEE TO TOES. STATES LEFT ARM NUMB T/O. PT IS ABLE TO BEND WRIST ON LEFT. MOVE FINGERS SOME. CAN LIFT ARM SOME ONCE IS STARTED UP BY PT LIFTING WITH RT ARM. ALSO CAN SHUFFLE/WALK TO BATHROOM. DID SIDESTEP SOME TO BED ALSO. PRESENTS WEAK ON LEFT SIDE. H/R REG, NO MURMER NOTED. NO TELE. PACER NOTED RUCW. LUNGS CLEAR, RESP EASY, UNLABORED. ON R/A. BT X4 LAST BM YEST. VOIDS URINAL. 1 HEAVY ASST TO 2 ASST TO BATHROOM FWW GAITE BELT. BED IN LOW POSITION, CALL LITE IN REACH, CALLS APPROP
--- NOTE | 2019-07-16 10:00 | NUR ---
PT C/O PAIN. CAME TO SEE ABOUT PAIN MEDS. PT SLEEPING. DID NOT AWAKEN. WAS SNORING.
--- NOTE | 2019-07-16 14:09 | NUR ---
PT HAD C/O PAIN, CHECKED. HE ASLEEP, SNORING LIGHTLY, DID NOT AWAKEN.
--- NOTE | 2019-07-16 19:25 | NUR ---
PT ALLEGRA MITCHELL. DID WATCH PATIENT RUBBING RT HAND WITH LEFT HAND AND LEFT ARM OFF BED. MENTIONED TO HIM. HE STATES IMPROVING. EDUCATED HIM TO KEEP MOVING AND EXERCISING LEFT SIDE. NO OTHER CONCERNS AT THIS TIME. BED IN LOW POSITIOIN ,CALL LITE IN REACH, CALLS AP;PROP
--- NOTE | 2019-07-17 06:09 | NUR ---
SHIFT SUMMARY PT A/O. L SIDE WEAKER THAN R BUT HE IS ABLE TO MOVE HAND/ARM AND LEG AT WILL. WHEN ASKING HIM IN MY ASSESSING HIM HE SHOWS ME HE CAN ONLY MOVE HIS ARM WITH HIS GOOD ARM AND SAME WITH LEG BUT 10 MIN EARLIER HAD MOVED THEM INDEPENDENTLY BEFORE I HAD ASKED HIM ABOUT IT. STILL SAYING HE HAS NUMBNESS OF HIS L SIDE TOO. NO C/O PAIN. WAS ABLE TO SLEEP THROUGH NIGHT. CALL LIGHT IN REACH.
[2019-07-17] MEDS ORDERED: ASPI81CH PO (15:12)
--- NOTE | 2019-07-17 17:59 | NUR ---
PT AOX4 AND COOPERATIVE OF CARE. PT HAD PAPERS REVIEWED AND EDUCATIONAL MATERIAL SENT. PT WAS AN EASY STANDBY ASSIST TO TRANSFER AND WAS DOING WELL. ARRIVED TO TRANSPORT. THIS AIRPORT OPERATIONS SUPERVISOR ESCORTED PT TO S ENTRANCE WITH PERSONAL BELONGINGS. DISCHARGED AT 1630.
== END 2019-07-17 16:31 | disposition home health service (06) | DRG 57 ==
LOC: ER 19:21 → PCU 22:47 → ICUW 22:47 → ER 22:47 → ICUW 22:47 → PCU 22:47 → ICUW 23:39 → PCU 23:39 → MEDS 07-13 15:26 → ENPENDDIS 07-17 15:52 → MEDS 07-17 16:31
PROVIDERS: Family Medicine; Internal Medicine; Physician Assistant; ADMIT Internal Medicine
DX: I69.354 Hemiplegia and hemiparesis following cerebral infarction affecting left non-dominant side (principal); I48.20 Chronic atrial fibrillation, unspecified; N18.4 Chronic kidney disease, stage 4 (severe); I42.9 Cardiomyopathy, unspecified; R53.1 Weakness; I25.10 Atherosclerotic heart disease of native coronary artery without angina pectoris; E11.22 Type 2 diabetes mellitus with diabetic chronic kidney disease; E78.5 Hyperlipidemia, unspecified; G47.00 Insomnia, unspecified; G40.909 Epilepsy, unspecified, not intractable, without status epilepticus; Z95.5 Presence of coronary angioplasty implant and graft; Z95.810 Presence of automatic (implantable) cardiac defibrillator; F32.9 Major depressive disorder, single episode, unspecified; N40.0 Benign prostatic hyperplasia without lower urinary tract symptoms; F41.0 Panic disorder [episodic paroxysmal anxiety]; E66.9 Obesity, unspecified; Z68.27 Body mass index [BMI] 27.0-27.9, adult; I12.9 Hypertensive chronic kidney disease with stage 1 through stage 4 chronic kidney disease, or unspecified chronic kidney disease; Z79.82 Long term (current) use of aspirin; Z79.02 Long term (current) use of antithrombotics/antiplatelets
CPT/HCPCS: 36415; 70450; 70496; 70498; 71045; 80048; 80053; 80061; 80069; 81001; 82550; 82947; 83036; 83880; 84484; 85025; 85027; 92610; 93005; 93010; 93306; 94640; 94760; 96361; 96374-59; 96376; 96376-59; 97110; 97112; 97116; 97162; 97166; 97530; 97535; 99285-25; A9270; G0378; J1170; J1650; J2405; J3010; J7030; Q9967

== ENCOUNTER 2019-08-04 15:06 | Emergency (ER) | payer MEDICARE ==
[~2019-08-04] VITALS: Ht 170.2 cm; Wt 82.5 kg
[2019-08-04 15:42] LABS: BASOPHILS ABSOLUTE AUTO 0.03 K/mm3 (0.00-0.23); BASOPHILS PERCENT AUTO 1 % (0-2); EOSINOPHILS ABSOLUTE AUTO 0.21 K/mm3 (0.00-0.68); EOSINOPHILS PERCENT AUTO 4 % (0-6); Hematocrit 34.1 % (37.0-53.0); Hemoglobin 11.7 g/dL (13.5-17.5); IMMATURE GRAN ABSOLUTE AUTO 0.01 K/mm3 (0.00-0.10); IMMATURE GRAN PERCENT AUTO 0 % (0-1); LYMPHOCYTES ABSOLUTE AUTO 1.31 K/mm3 (0.84-5.20); LYMPHOCYTES PERCENT AUTO 23 % (21-46); MONOCYTES ABSOLUTE AUTO 0.44 K/mm3 (0.16-1.47); MONOCYTES PERCENT AUTO 8 % (4-13); Mean Corpuscular HGB 31.6 pg (26.0-34.0); Mean Corpuscular HGB Conc 34.3 g/dL (31.5-36.5); Mean Corpuscular Volume 92 fL (80-100); Mean Platelet Volume 9.2 fL (9.1-12.4); NEUTROPHILS ABSOLUTE AUTO 3.76 K/mm3 (1.96-9.15); NEUTROPHILS PERCENT AUTO 65 % (41-73); Platelet Count 203 K/mm3 (150-400); RDW Coefficient Variation 11.9 % (11.7-14.2); RDW Standard Deviation 40.2 fL (35.1-46.3); White Blood Cell Count 5.76 K/mm3 (4.00-11.30)
[2019-08-04 16:08] LABS: Alanine Aminotransfer (ALT/SGP 14 U/L (12-78); Albumin/Globulin Ratio 0.8 (0.8-1.8); Alk Phos 72 U/L (50-136); Anion Gap 5 mmol/L (6-16); Aspartate Aminotrans (AST/SGOT 12 U/L (12-37); Bilirubin, Total 0.3 mg/dL (0.1-1.0); Blood Urea Nitrogen 46 mg/dL (8-24); Bun/Creatinine Ratio 13.4 (12.0-20.0); CO2, Blood 21 mmol/L (21-32); Calcium, Blood 8.7 mg/dL (8.5-10.1); Chloride, Blood 114 mmol/L (98-108); Creatinine, Blood 3.43 mg/dL (0.60-1.20); Globulin, Blood 3.7 g/dL (2.2-4.0); Glomerular Filtration Rate 19 (60-); Glucose, Blood 84 mg/dL (70-99); Potassium, Blood 4.8 mmol/L (3.5-5.5); Sodium, Blood 140 mmol/L (136-145); Total Protein, Blood 6.7 g/dL (6.4-8.2); Troponin I <0.015 ng/mL (0.000-0.040)
[2019-08-04] MEDS ORDERED: Percocet 10-321 EACH PO (18:23)
[2019-08-04] MEDS ORDERED: Crestor20 MG PO (18:28)
[2019-08-04] MEDS ORDERED: FURO20 (18:52)
== END 2019-08-04 19:35 | disposition home or self-care (01) ==
LOC: ER 15:06
PROVIDERS: Physician Assistant
DX: I13.0 Hypertensive heart and chronic kidney disease with heart failure and stage 1 through stage 4 chronic kidney disease, or unspecified chronic kidney disease (principal); I50.9 Heart failure, unspecified; E11.22 Type 2 diabetes mellitus with diabetic chronic kidney disease; N18.9 Chronic kidney disease, unspecified; M79.662 Pain in left lower leg; I25.10 Atherosclerotic heart disease of native coronary artery without angina pectoris; I48.91 Unspecified atrial fibrillation; E78.5 Hyperlipidemia, unspecified; G40.909 Epilepsy, unspecified, not intractable, without status epilepticus; F41.0 Panic disorder [episodic paroxysmal anxiety]; Z86.73 Personal history of transient ischemic attack (TIA), and cerebral infarction without residual deficits; Z86.718 Personal history of other venous thrombosis and embolism; Z86.711 Personal history of pulmonary embolism; Z79.899 Other long term (current) drug therapy; Z79.01 Long term (current) use of anticoagulants; Z79.82 Long term (current) use of aspirin
CPT/HCPCS: 36415; 71046; 80053; 83880; 84484; 85025; 93005; 93010; 93971; 96374; 99285-25; J1940

== ENCOUNTER 2019-08-14 13:38 | Emergency (ER) | payer OTHER, MEDICARE ==
[~2019-08-14] VITALS: Ht 170.2 cm; Wt 75.8 kg
[~2019-08-14 13:38] MED LIST changes: +FURO20; +Percocet 10-321 EACH PO; -THERA1 EACH PO
[2019-08-14 14:40] LABS: BASOPHILS ABSOLUTE AUTO 0.03 K/mm3 (0.00-0.23); BASOPHILS PERCENT AUTO 0 % (0-2); EOSINOPHILS ABSOLUTE AUTO 0.29 K/mm3 (0.00-0.68); EOSINOPHILS PERCENT AUTO 3 % (0-6); Hematocrit 37.9 % (37.0-53.0); Hemoglobin 12.8 g/dL (13.5-17.5); IMMATURE GRAN ABSOLUTE AUTO 0.06 K/mm3 (0.00-0.10); IMMATURE GRAN PERCENT AUTO 1 % (0-1); LYMPHOCYTES ABSOLUTE AUTO 1.77 K/mm3 (0.84-5.20); LYMPHOCYTES PERCENT AUTO 18 % (21-46); MONOCYTES ABSOLUTE AUTO 0.66 K/mm3 (0.16-1.47); MONOCYTES PERCENT AUTO 7 % (4-13); Mean Corpuscular HGB 30.6 pg (26.0-34.0); Mean Corpuscular HGB Conc 33.8 g/dL (31.5-36.5); Mean Corpuscular Volume 91 fL (80-100); Mean Platelet Volume 9.2 fL (9.1-12.4); NEUTROPHILS PERCENT AUTO 71 % (41-73); Platelet Count 237 K/mm3 (150-400); RDW Coefficient Variation 11.8 % (11.7-14.2); RDW Standard Deviation 38.8 fL (35.1-46.3); Red Blood Cell Count 4.18 M/mm3 (4.30-5.90); White Blood Cell Count 9.81 K/mm3 (4.00-11.30)
[2019-08-14 15:04] LABS: Alanine Aminotransfer (ALT/SGP 13 U/L (12-78); Albumin, Blood 3.5 g/dL (3.4-5.0); Albumin/Globulin Ratio 0.8 (0.8-1.8); Alk Phos 80 U/L (50-136); Anion Gap 6 mmol/L (6-16); Aspartate Aminotrans (AST/SGOT 14 U/L (12-37); Bilirubin, Total 0.3 mg/dL (0.1-1.0); Blood Urea Nitrogen 34 mg/dL (8-24); Bun/Creatinine Ratio 10.2 (12.0-20.0); CO2, Blood 23 mmol/L (21-32); Calcium, Blood 8.9 mg/dL (8.5-10.1); Chloride, Blood 109 mmol/L (98-108); Creatinine, Blood 3.32 mg/dL (0.60-1.20); Globulin, Blood 4.2 g/dL (2.2-4.0); Glomerular Filtration Rate 20 (60-); Glucose, Blood 62 mg/dL (70-99); Potassium, Blood 4.6 mmol/L (3.5-5.5); Sodium, Blood 138 mmol/L (136-145); Total Protein, Blood 7.7 g/dL (6.4-8.2); Troponin I <0.015 ng/mL (0.000-0.040)
[2019-08-29] MEDS ORDERED: Isosorbide Mono30 MG PO (20:34)
[2019-08-29] MEDS ORDERED: Sodium Bicarbo325 MG PO (20:39)
[2019-08-29] MEDS ORDERED: PANT40 PO (20:40)
[2019-08-29] MEDS ORDERED: Lisinopril2.5 MG PO (20:41)
[2019-08-29] MEDS ORDERED: HUMULIN 70100 UNIT/2 SC (20:41)
[2019-08-30] MEDS ORDERED: Isosorbide Mono30 MG PO (12:50)
== END 2019-08-14 17:45 | disposition home or self-care (01) ==
LOC: ER 13:38
PROVIDERS: Physician Assistant
DX: E11.649 Type 2 diabetes mellitus with hypoglycemia without coma (principal); E11.22 Type 2 diabetes mellitus with diabetic chronic kidney disease; I12.9 Hypertensive chronic kidney disease with stage 1 through stage 4 chronic kidney disease, or unspecified chronic kidney disease; N18.9 Chronic kidney disease, unspecified; I48.91 Unspecified atrial fibrillation; F41.0 Panic disorder [episodic paroxysmal anxiety]; Z86.73 Personal history of transient ischemic attack (TIA), and cerebral infarction without residual deficits; Z86.711 Personal history of pulmonary embolism; Z86.718 Personal history of other venous thrombosis and embolism; Z88.8 Allergy status to other drugs, medicaments and biological substances; Z79.899 Other long term (current) drug therapy; Z79.01 Long term (current) use of anticoagulants; Z79.02 Long term (current) use of antithrombotics/antiplatelets; Z79.82 Long term (current) use of aspirin
CPT/HCPCS: 36415; 71046; 80053; 82947; 84484; 85025; 93005; 93010; 99284-25

== ENCOUNTER 2019-09-23 18:24 | Emergency (ER) | payer OTHER, MEDICARE ==
[~2019-09-23] VITALS: Ht 177.8 cm; Wt 85.7 kg
[~2019-09-23 18:24] MED LIST changes: +Sodium Bicarbo325 MG PO
[2019-09-23 20:56] LABS: BASOPHILS ABSOLUTE AUTO 0.02 K/mm3 (0.00-0.23); BASOPHILS PERCENT AUTO 0 % (0-2); EOSINOPHILS ABSOLUTE AUTO 0.02 K/mm3 (0.00-0.68); EOSINOPHILS PERCENT AUTO 0 % (0-6); Hematocrit 35.6 % (37.0-53.0); Hemoglobin 12.2 g/dL (13.5-17.5); IMMATURE GRAN ABSOLUTE AUTO 0.03 K/mm3 (0.00-0.10); IMMATURE GRAN PERCENT AUTO 0 % (0-1); LYMPHOCYTES ABSOLUTE AUTO 0.68 K/mm3 (0.84-5.20); LYMPHOCYTES PERCENT AUTO 10 % (21-46); MONOCYTES ABSOLUTE AUTO 0.07 K/mm3 (0.16-1.47); MONOCYTES PERCENT AUTO 1 % (4-13); Mean Corpuscular HGB 30.6 pg (26.0-34.0); Mean Corpuscular HGB Conc 34.3 g/dL (31.5-36.5); Mean Corpuscular Volume 89 fL (80-100); Mean Platelet Volume 9.6 fL (9.1-12.4); NEUTROPHILS ABSOLUTE AUTO 6.32 K/mm3 (1.96-9.15); NEUTROPHILS PERCENT AUTO 89 % (41-73); Platelet Count 190 K/mm3 (150-400); RDW Coefficient Variation 11.7 % (11.7-14.2); RDW Standard Deviation 37.8 fL (35.1-46.3); Red Blood Cell Count 3.99 M/mm3 (4.30-5.90); White Blood Cell Count 7.14 K/mm3 (4.00-11.30)
[2019-09-23 21:17] LABS: Albumin, Blood 3.4 g/dL (3.4-5.0); Albumin/Globulin Ratio 0.8 (0.8-1.8); Bilirubin, Total 0.4 mg/dL (0.1-1.0); Bun/Creatinine Ratio 11.1 (12.0-20.0); Calcium, Blood 8.8 mg/dL (8.5-10.1); Creatinine, Blood 4.06 mg/dL (0.60-1.20); Globulin, Blood 4.1 g/dL (2.2-4.0); Potassium, Blood 4.9 mmol/L (3.5-5.5); Total Protein, Blood 7.5 g/dL (6.4-8.2)
[2019-09-23 21:37] LABS: Influenza A Negative (NEGATIVE); Influenza B Negative (NEGATIVE)
[2019-09-23] MEDS ORDERED: Zithromax250 MG PO (21:51)
[2019-09-23] MEDS ORDERED: CODEINE-GUAIFE120 ML PO (21:51)
[2019-09-23] MEDS ORDERED: Prednisone50 MG PO (21:51)
== END 2019-09-23 22:47 | disposition home or self-care (01) ==
LOC: ER 18:24
PROVIDERS: Emergency Medicine
DX: J18.9 Pneumonia, unspecified organism (principal); I12.9 Hypertensive chronic kidney disease with stage 1 through stage 4 chronic kidney disease, or unspecified chronic kidney disease; E11.22 Type 2 diabetes mellitus with diabetic chronic kidney disease; N18.4 Chronic kidney disease, stage 4 (severe); D63.1 Anemia in chronic kidney disease; I25.10 Atherosclerotic heart disease of native coronary artery without angina pectoris; I25.2 Old myocardial infarction; I48.91 Unspecified atrial fibrillation; E78.5 Hyperlipidemia, unspecified; Z88.8 Allergy status to other drugs, medicaments and biological substances; Z91.018 Allergy to other foods; Z79.899 Other long term (current) drug therapy; Z79.4 Long term (current) use of insulin; Z79.01 Long term (current) use of anticoagulants; Z87.891 Personal history of nicotine dependence
CPT/HCPCS: 71046; 80053; 85025; 87804; 94640; 99284-25

== ENCOUNTER 2019-09-27 00:49 | Emergency (ER) | payer OTHER ==
[~2019-09-27] VITALS: Ht 170.2 cm; Wt 70.3 kg
[~2019-09-27 00:49] MED LIST changes: +CODEINE-GUAIFE120 ML PO; +Prednisone50 MG PO; +Zithromax250 MG PO
== END 2019-09-27 04:19 | disposition home or self-care (01) ==
LOC: ER 00:49
DX: T38.3X1A Poisoning by insulin and oral hypoglycemic [antidiabetic] drugs, accidental (unintentional), initial encounter (principal); Z88.8 Allergy status to other drugs, medicaments and biological substances; Z79.899 Other long term (current) drug therapy; Z79.4 Long term (current) use of insulin; Z79.52 Long term (current) use of systemic steroids; I25.2 Old myocardial infarction; Z86.73 Personal history of transient ischemic attack (TIA), and cerebral infarction without residual deficits; E11.22 Type 2 diabetes mellitus with diabetic chronic kidney disease; I12.9 Hypertensive chronic kidney disease with stage 1 through stage 4 chronic kidney disease, or unspecified chronic kidney disease; N18.4 Chronic kidney disease, stage 4 (severe); D64.9 Anemia, unspecified; I25.10 Atherosclerotic heart disease of native coronary artery without angina pectoris; I48.91 Unspecified atrial fibrillation; G40.909 Epilepsy, unspecified, not intractable, without status epilepticus; E78.5 Hyperlipidemia, unspecified; Z87.891 Personal history of nicotine dependence
CPT/HCPCS: 82947; 99283

== ENCOUNTER 2019-09-30 22:38 | Emergency (ER) | payer OTHER ==
[~2019-09-30] VITALS: Ht 172.7 cm; Wt 83.9 kg
[2019-10-01 00:20] LABS: BASOPHILS ABSOLUTE AUTO 0.03 K/mm3 (0.00-0.23); BASOPHILS PERCENT AUTO 0 % (0-2); EOSINOPHILS ABSOLUTE AUTO 0.28 K/mm3 (0.00-0.68); EOSINOPHILS PERCENT AUTO 4 % (0-6); Hematocrit 31.4 % (37.0-53.0); Hemoglobin 10.9 g/dL (13.5-17.5); IMMATURE GRAN ABSOLUTE AUTO 0.03 K/mm3 (0.00-0.10); IMMATURE GRAN PERCENT AUTO 0 % (0-1); LYMPHOCYTES ABSOLUTE AUTO 1.41 K/mm3 (0.84-5.20); LYMPHOCYTES PERCENT AUTO 21 % (21-46); MONOCYTES ABSOLUTE AUTO 0.57 K/mm3 (0.16-1.47); MONOCYTES PERCENT AUTO 8 % (4-13); Mean Corpuscular HGB 31.7 pg (26.0-34.0); Mean Corpuscular HGB Conc 34.7 g/dL (31.5-36.5); Mean Corpuscular Volume 91 fL (80-100); Mean Platelet Volume 9.5 fL (9.1-12.4); NEUTROPHILS ABSOLUTE AUTO 4.53 K/mm3 (1.96-9.15); NEUTROPHILS PERCENT AUTO 66 % (41-73); Platelet Count 236 K/mm3 (150-400); RDW Coefficient Variation 11.9 % (11.7-14.2); RDW Standard Deviation 39.7 fL (35.1-46.3); Red Blood Cell Count 3.44 M/mm3 (4.30-5.90); White Blood Cell Count 6.85 K/mm3 (4.00-11.30)
[2019-10-01 00:42] LABS: Troponin I <0.015 ng/mL (0.000-0.040)
[2019-10-01 00:54] LABS: Albumin, Blood 2.8 g/dL (3.4-5.0); Albumin/Globulin Ratio 0.8 (0.8-1.8); Alk Phos 75 U/L (50-136); Anion Gap 5 mmol/L (6-16); Aspartate Aminotrans (AST/SGOT 15 U/L (12-37); Bilirubin, Total 0.2 mg/dL (0.1-1.0); Blood Urea Nitrogen 36 mg/dL (8-24); Bun/Creatinine Ratio 10.1 (12.0-20.0); CO2, Blood 22 mmol/L (21-32); Calcium, Blood 8.1 mg/dL (8.5-10.1); Chloride, Blood 112 mmol/L (98-108); Creatinine, Blood 3.56 mg/dL (0.60-1.20); Globulin, Blood 3.7 g/dL (2.2-4.0); Glomerular Filtration Rate 18 (60-); Glucose, Blood 224 mg/dL (70-99); Potassium, Blood 5.3 mmol/L (3.5-5.5); Sodium, Blood 139 mmol/L (136-145); Total Protein, Blood 6.5 g/dL (6.4-8.2)
[2019-10-01 01:32] LABS: Alanine Aminotransfer (ALT/SGP 16 U/L (12-78)
[2019-10-01 01:41] LABS: Source, Urine Clean Catch
[2019-10-01 01:44] LABS: Appearance, Urine Clear (Clear); Bilirubin, Urine Neg (Neg); Blood, Urine 2+ (Neg); Color, Urine Yellow (P-Yellow); Glucose Qualitative, Urine 4+ (Neg); Ketones, Urine Neg (Neg); Leukocyte Esterase, Urine Neg (Neg); Nitrite, Urine Neg (Neg); Protein, Urine 4+ (Neg); Specific Gravity, Urine 1.015 (1.003-1.022); Urobilinogen, Urine NORM (Normal)
[2019-10-01 01:50] LABS: Bacteria Few /hpf; Squamous Epithelial Cells Not Seen /hpf (Few); White Blood Cells, Urine 0-2 /hpf (0-5)
== END 2019-10-01 03:01 | disposition home or self-care (01) ==
LOC: ER 22:38
PROVIDERS: Emergency Medicine
DX: G81.94 Hemiplegia, unspecified affecting left nondominant side (principal); R06.02 Shortness of breath; I25.2 Old myocardial infarction; Z86.73 Personal history of transient ischemic attack (TIA), and cerebral infarction without residual deficits; D64.9 Anemia, unspecified; I51.0 Cardiac septal defect, acquired; N18.4 Chronic kidney disease, stage 4 (severe); Z87.891 Personal history of nicotine dependence; Z79.899 Other long term (current) drug therapy; Z79.01 Long term (current) use of anticoagulants; Z79.82 Long term (current) use of aspirin
CPT/HCPCS: 36415; 70450; 70496; 70498; 71046; 80053; 81001; 84484; 85025; 93005; 93010; 96374; 96375; 99285-25; J1170; J2405; Q9967

== ENCOUNTER 2019-10-25 11:29 | Inpatient (IN) | payer OTHER, MEDICARE ==
[~2019-10-25] VITALS: Ht 177.8 cm; Wt 78.6 kg
[~2019-10-25 11:29] MED LIST changes: -CYCL10 PO; -SERT25 PO; -TOPROL XL200 MG PO
[2019-10-25 12:12] LABS: BASOPHILS ABSOLUTE AUTO 0.02 K/mm3 (0.00-0.23); BASOPHILS PERCENT AUTO 0 % (0-2); EOSINOPHILS ABSOLUTE AUTO 0.31 K/mm3 (0.00-0.68); EOSINOPHILS PERCENT AUTO 5 % (0-6); Hematocrit 30.2 % (37.0-53.0); Hemoglobin 10.1 g/dL (13.5-17.5); IMMATURE GRAN ABSOLUTE AUTO 0.02 K/mm3 (0.00-0.10); IMMATURE GRAN PERCENT AUTO 0 % (0-1); LYMPHOCYTES PERCENT AUTO 21 % (21-46); MONOCYTES ABSOLUTE AUTO 0.42 K/mm3 (0.16-1.47); MONOCYTES PERCENT AUTO 6 % (4-13); Mean Corpuscular HGB Conc 33.4 g/dL (31.5-36.5); Mean Corpuscular Volume 93 fL (80-100); Mean Platelet Volume 9.9 fL (9.1-12.4); NEUTROPHILS ABSOLUTE AUTO 4.48 K/mm3 (1.96-9.15); NEUTROPHILS PERCENT AUTO 67 % (41-73); Platelet Count 250 K/mm3 (150-400); RDW Coefficient Variation 11.6 % (11.7-14.2); RDW Standard Deviation 39.6 fL (35.1-46.3); Red Blood Cell Count 3.26 M/mm3 (4.30-5.90); White Blood Cell Count 6.65 K/mm3 (4.00-11.30)
[2019-10-25 12:38] LABS: Alanine Aminotransfer (ALT/SGP 14 U/L (12-78); Albumin/Globulin Ratio 0.7 (0.8-1.8); Alk Phos 77 U/L (50-136); Anion Gap 5 mmol/L (6-16); Aspartate Aminotrans (AST/SGOT 30 U/L (12-37); Bilirubin, Total 0.4 mg/dL (0.1-1.0); Blood Urea Nitrogen 53 mg/dL (8-24); Bun/Creatinine Ratio 12.6 (12.0-20.0); CO2, Blood 21 mmol/L (21-32); Calcium, Blood 8.7 mg/dL (8.5-10.1); Chloride, Blood 110 mmol/L (98-108); Creatinine, Blood 4.21 mg/dL (0.60-1.20); Globulin, Blood 4.2 g/dL (2.2-4.0); Glomerular Filtration Rate 15 (60-); Glucose, Blood 160 mg/dL (70-99); Potassium, Blood 5.4 mmol/L (3.5-5.5); Sodium, Blood 136 mmol/L (136-145); Total Protein, Blood 7.2 g/dL (6.4-8.2); Troponin I <0.015 ng/mL (0.000-0.040)
[2019-10-25] MEDS ORDERED: ELIQUIS2.5 MG PO (14:23)
[2019-10-25] MEDS ORDERED: RANOLAZINE ER1000 MG PO (14:23)
[2019-10-25] MEDS ORDERED: TOPROL XL200 MG PO (14:23)
[2019-10-25] MEDS ORDERED: CYCL10 PO (14:24)
[2019-10-25] MEDS ORDERED: Hair, Skin & N1 EACH PO (14:24)
[2019-10-25] MEDS ORDERED: CLOP75 PO (14:24)
[2019-10-25] MEDS ORDERED: SERT25 PO (14:24)
[2019-10-25] MEDS ORDERED: TAMS.4ER PO (14:25)
[2019-10-25] MEDS ORDERED: LIDO700A20 TOP (14:25)
[2019-10-25] MEDS ORDERED: ROSU10TA PO (14:25)
[2019-10-25] MEDS ORDERED: HUMULIN 70100 UNIT/2 SC (14:26)
[2019-10-25] MEDS ORDERED: FAMO20 PO (14:26)
[2019-10-25] MEDS ORDERED: AMLO10 PO (14:27)
[2019-10-25] MEDS ORDERED: LEVE500 PO (14:27)
[2019-10-25] MEDS ORDERED: CALC.25 PO (14:28)
[2019-10-25] MEDS ORDERED: MELA3 PO (14:30)
[2019-10-25] MEDS ORDERED: ALBU2.5V5 NEB (14:30)
[2019-10-25] MEDS ORDERED: Glucose4 GM PO (14:31)
--- NOTE | 2019-10-25 18:43 | NUR ---
Echocardiogram completed.
[2019-10-26 05:36] LABS: BASOPHILS ABSOLUTE AUTO 0.03 K/mm3 (0.00-0.23); BASOPHILS PERCENT AUTO 0 % (0-2); EOSINOPHILS ABSOLUTE AUTO 0.26 K/mm3 (0.00-0.68); EOSINOPHILS PERCENT AUTO 3 % (0-6); Hematocrit 30.7 % (37.0-53.0); Hemoglobin 10.3 g/dL (13.5-17.5); IMMATURE GRAN ABSOLUTE AUTO 0.03 K/mm3 (0.00-0.10); IMMATURE GRAN PERCENT AUTO 0 % (0-1); LYMPHOCYTES ABSOLUTE AUTO 1.29 K/mm3 (0.84-5.20); LYMPHOCYTES PERCENT AUTO 17 % (21-46); MONOCYTES ABSOLUTE AUTO 0.59 K/mm3 (0.16-1.47); MONOCYTES PERCENT AUTO 8 % (4-13); Mean Corpuscular HGB 30.4 pg (26.0-34.0); Mean Corpuscular HGB Conc 33.6 g/dL (31.5-36.5); Mean Corpuscular Volume 91 fL (80-100); Mean Platelet Volume 9.9 fL (9.1-12.4); NEUTROPHILS ABSOLUTE AUTO 5.59 K/mm3 (1.96-9.15); NEUTROPHILS PERCENT AUTO 72 % (41-73); Platelet Count 197 K/mm3 (150-400); RDW Coefficient Variation 11.8 % (11.7-14.2); RDW Standard Deviation 38.5 fL (35.1-46.3); Red Blood Cell Count 3.39 M/mm3 (4.30-5.90); White Blood Cell Count 7.79 K/mm3 (4.00-11.30)
--- NOTE | 2019-10-26 05:55 | NUR ---
SHIFT SUMMARY PT IS A 64 Y/O MALE, ADMITTED FOR UNSTABLE ANGINA. HE IS A&O X 4, AND INDEPENDENT IN THE ROOM. THE PT DID REPORT TWO INSTANCES OF MOMENTARY "SHARP, SHOOTING PAIN" IN HIS L CHEST THAT WENT AWAY QUICKLY WITHOUT ADDITIONAL INTERVENTION. HE ALSO REPORTED A HEADACHE, THAT WAS NOT RELIEVED WITH TYLENOL AND WAS MILDLY RELIEVED WITH PRN ULTRAM AFTER CONSULTING WITH DR WALKER. PT ALSO REPORTED AN EPISODE OF NAUSEA, WHICH WAS RELIEVED WITH PRN ZOFRAN. NO COMPLAINTS OF ACUTE SOB. VITAL SIGNS STABLE. PER ROD WELDER, PT REMAINED NSR IN THE 70S. PT STATES HE DID NOT SLEEP WELL DURING THE NIGHT. HE HAS BEEN NPO SINCE MIDNIGHT IN CASE OF POSSIBLE CARDIAC PROCEDURE TODAY. NO OTHER ACUTE CHANGES IN PT CONDITION NOTED. WILL CONTINUE TO MONITOR AND TREAT PER EMAR UNTIL HAND OFF TO DAY SHIFT RN.
[2019-10-26 06:13] LABS: Albumin, Blood 2.6 g/dL (3.4-5.0); Albumin/Globulin Ratio 0.7 (0.8-1.8); Bilirubin, Total 0.2 mg/dL (0.1-1.0); Bun/Creatinine Ratio 12.3 (12.0-20.0); Calcium, Blood 8.3 mg/dL (8.5-10.1); Creatinine, Blood 4.14 mg/dL (0.60-1.20); Globulin, Blood 3.6 g/dL (2.2-4.0); Potassium, Blood 4.4 mmol/L (3.5-5.5); Total Protein, Blood 6.2 g/dL (6.4-8.2)
--- NOTE | 2019-10-26 12:58 | NUR ---
PATIENT WENT FOR A WALK IN HALLS PER MD ORDER AND CHEST PAIN INCREASED FROM A 5/10 TO A 7/10. PATIENT BECAME NAUSEOUS AND LIGHT HEADED. REMAINS SR ON TELE AT 89. TERMITE INSPECTOR TO PUT IN ORDERS FOR A NITRO PATCH. WILL UPDATE DR. HEWITT.
[2019-10-26 16:47] LABS: International Normalized Ratio 0.95; Prothrombin Time Results 10.2 Sec (9.7-11.5)
--- NOTE | 2019-10-26 18:37 | NUR ---
PATIENT CONITNUES TO HAVE HEAVINESS IN HIS CHEST AND INTERMITTENT SHARP PAIN BETWEEN SHOULDER BLADES. SR ON TELE. PATIENT IS A/OX4, UP WITH SBA. BECAME VERY DIZZY AND NAUSEOUS AFTER WALKING IN THE HALLS THIS AFTEROON. NITRO PASTE ORDERED Q6 HOURS WITH MINIMAL RELIEF. VSS, ON RA. DENIES ANY SOB. ACHS BLOOD SUGARS, [id number] ADA/CARDIAC DIET. SKIN INTACT. SWITCHED FROM ELIQUIS TO COUMADIN TODAY DUE TO POOR KIDNEY FUNCTION. DR. TAFOYA NOW CONSULTING.
--- NOTE | 2019-10-27 04:51 | NUR ---
SHIFT SUMMARY- PT. A&OX4, PLEASANT AND COOPERTIVE WITH CARE. PT. C/O CHEST PRESSURE DURING THE NIGHT AND HEADACHE. PAIN MEDS GIVEN PER EMAR. PT. STATES MINIMAL RELIEF. SLEPT ON/OFF T/O THE NIGHT. DENIED ANY OTHER NEEDS T/O THE SHIFT. DR. TAFOYA TO EVAL AND CLEAR FOR POSS ANGIOGRAM. NITRO PATCH IN PLACE PER EMAR. CALL LIGHT WITHIN REACH AND SIDE RAILS UP X2. WILL CONT TO MONITOR.
[2019-10-27 05:25] LABS: Hematocrit 31.2 % (37.0-53.0); Hemoglobin 10.5 g/dL (13.5-17.5)
[2019-10-27 05:40] LABS: International Normalized Ratio 0.91; Prothrombin Time Results 9.8 Sec (9.7-11.5)
[2019-10-27 05:47] LABS: Magnesium, Blood 2.1 mg/dL (1.6-2.4)
[2019-10-27 06:11] LABS: Albumin, Blood 2.6 g/dL (3.4-5.0); Anion Gap 7 mmol/L (6-16); Blood Urea Nitrogen 53 mg/dL (8-24); Bun/Creatinine Ratio 11.8 (12.0-20.0); CO2, Blood 21 mmol/L (21-32); Calcium, Blood 8.7 mg/dL (8.5-10.1); Chloride, Blood 111 mmol/L (98-108); Glomerular Filtration Rate 14 (60-); Phosphorus, Blood 5.1 mg/dL (2.5-4.9); Potassium, Blood 4.6 mmol/L (3.5-5.5); Sodium, Blood 139 mmol/L (136-145)
[2019-10-27 06:15] LABS: Glucose, Blood 39 mg/dL (70-99)
--- NOTE | 2019-10-27 13:21 | NUR ---
CALLED TO BEDSIDE, PT WAS C/O FEELING SHAKY. CBG DONE AND SHOWED 56, AFTER COMPLETING LUNCH. DR HEWITT NOTIFIED. ORDERS RECEIVED FOR D50 AND INSULIN DOSING CHANGES.
--- NOTE | 2019-10-27 18:49 | NUR ---
SHIFT SUMMARY PT IS ALERT AND ORIENTED, REPORTED SOME CHEST PRESSURE THIS MORNING WITH LITTLE IMPROVEMENT TODAY. PT HAS HAD LOW BLOOD SUGARS OFF AND ON DURING DAY. ENCOURAGED PT TO EAT PROTEIN. PT DID RECEIVE AM DOSE OF LONG ACTING INSULIN. ORDERS RECEIVE TO D/C LONG ACTING AND MONITOR CBG'S. THIS EVENING PT HAD LOW CBG. PT GIVEN DINNER AND RECEIVED 1/2 AMP D50 TO BRING UP CBG TO 96. VITALS HAVE REMAINED STABLE, TELEMETRY SHOW'S PT TO BE IN NSR. DR JACOBSEN REPORTED THIS MORNING THAT HE IS PLANNING TO CATH PT ON SUNDAY AND TO HOLD COUMADIN.
--- NOTE | 2019-10-28 04:20 | NUR ---
10/28/19 0415 PT SNORING AND SLEEPING WITHOUT DISTRESS. VOIDING IN URINAL. TAKING ORAL FLUIDS WELL. IV FLUIDS AT 50ML/HOUR. VITALS STABLE. HEART MONITOR STABLE AT SINUS RHYTHM IN THE 70'S. PT AWARE OF POSSIBLE CARDIAC CATH. EITHER LATE TODAY OR EARLY AM ON SUNDAY.
[2019-10-28 05:35] LABS: International Normalized Ratio 1.07; Prothrombin Time Results 11.4 Sec (9.7-11.5)
[2019-10-28 06:47] LABS: Albumin, Blood 2.5 g/dL (3.4-5.0); Anion Gap 8 mmol/L (6-16); Blood Urea Nitrogen 54 mg/dL (8-24); Bun/Creatinine Ratio 11.6 (12.0-20.0); CO2, Blood 17 mmol/L (21-32); Calcium, Blood 8.3 mg/dL (8.5-10.1); Chloride, Blood 112 mmol/L (98-108); Creatinine, Blood 4.67 mg/dL (0.60-1.20); Glomerular Filtration Rate 13 (60-); Glucose, Blood 112 mg/dL (70-99); Magnesium, Blood 1.7 mg/dL (1.6-2.4); Phosphorus, Blood 4.9 mg/dL (2.5-4.9); Potassium, Blood 5.2 mmol/L (3.5-5.5); Sodium, Blood 137 mmol/L (136-145)
--- NOTE | 2019-10-28 16:28 | NUR ---
SHIFT SUMMARY PATIENT HAS HAD A POOR APPETITE, FEELING NAUSEATED. MEDICATED PER EMAR WITH ZOFRAN. HE IS ABLE TO MAKE HIS NEEDS KNOWN. NO ACUTE EVENTS REGARDING TELE. CURRENTLY SLEEPING. VITAL SIGNS WNL.
--- NOTE | 2019-10-28 16:32 | NUR ---
PATIENT OUT FOR PERMA CATH PLACEMENT.
--- NOTE | 2019-10-28 18:10 | NUR ---
[facility] PERMA CATH IN PLACE. SLEEPING. VITAL SIGNS ORDERED BY DR. REED. PATIENT SLEEPY. ABLE TO MAKE HIS NEEDS KNOWN.
--- NOTE | 2019-10-29 02:06 | NUR ---
10/28/192124 PERMA-CATH SITE TO LEFT UPPER CHEST WITH MODERATE BLEEDING. RN REINFORCED IT AT 1939 AND AGAIN AT 2054. PRESSURE HELD TO SITE BY COMMUNICATIONS ASSISTANT,LISA FOR 25 MINUTES AFTER REINFORCED AGAIN. 1 LB WEIGHT LAID OVER SITE. VITALS REMAIN STABLE THIS SHIFT. MEDICATED PER NOV FOR SITE DISCOMFORT. HERE AND UPDATED ON STATUS AND BLEEDING. RN WILL CONTINUE TO MONITOR.
--- NOTE | 2019-10-29 02:11 | NUR ---
10/29/19 0055 BLEEDING IS LESS BUT STILL PRESENT TO LEFT UPPER CHEST DRESSING. PERMA-CATH INTACT. RN REINFORCED SITE AGAIN AFTER REMOVING OLD DRESSINGS SHE APPLIED. PT CHEERFUL. PT HAS BEEN NPO SINCE MIDNIGHT FOR CARDIAC PROCEDURE THIS AM.
--- NOTE | 2019-10-29 02:14 | NUR ---
10/29/19 0140 MEDICATED PER NOV FOR LEFT UPPER CHEST SITE PAIN. WATCHING TV. NO OTHER S/S.
--- NOTE | 2019-10-29 02:50 | NUR ---
I have been in and out of this room many times tonight. I am unable to recall each time, as it has been a very busy/hectic night; but the RN"s have also been in this room many times tonight. Pt has had vitals taken, been given a snack and drinks, and had CBG taken.
[2019-10-29 04:43] LABS: Hematocrit 29.1 % (37.0-53.0); Hemoglobin 9.8 g/dL (13.5-17.5)
[2019-10-29 04:59] LABS: Albumin, Blood 2.6 g/dL (3.4-5.0); Anion Gap 7 mmol/L (6-16); Blood Urea Nitrogen 56 mg/dL (8-24); Bun/Creatinine Ratio 11.5 (12.0-20.0); CO2, Blood 19 mmol/L (21-32); Calcium, Blood 8.4 mg/dL (8.5-10.1); Chloride, Blood 112 mmol/L (98-108); Creatinine, Blood 4.85 mg/dL (0.60-1.20); Glomerular Filtration Rate 13 (60-); Glucose, Blood 134 mg/dL (70-99); Magnesium, Blood 1.8 mg/dL (1.6-2.4); Phosphorus, Blood 4.5 mg/dL (2.5-4.9); Potassium, Blood 5.1 mmol/L (3.5-5.5); Sodium, Blood 138 mmol/L (136-145)
[2019-10-29 05:00] LABS: International Normalized Ratio 1.07; Prothrombin Time Results 11.4 Sec (9.7-11.5)
--- NOTE | 2019-10-29 07:05 | NUR ---
10/29/[address] TAFOYA HERE TO SEE PT. INFORMED MD OF FREQUENT PERMACATH DRESSING CHANGES. VITALS STABLE. SLEPT ON AND OFF.
--- NOTE | 2019-10-29 10:30 | NUR ---
REPORT GIVEN TO NADYA SUÁREZ RN IN PCU. PATIENT LEFT FOR PROFESSIONAL SHOPPER AT 0800. NOTED TO HAVE A DRESSING ON PERMA CATH SITE DUE TO BLEEDING. NIGHT RN STATED EVENING CHARGE NURSE WAS INVOLVED IN DRESSING AND HOLDING PRESSURE AT THE SITE. AT SHIFT CHANGE DRESSING WAS DRY AND INTACT. NOTIFIED TANG OF DRESSING AND INCREASED BLEEDING. TANG HAD NO ADDITIONAL QUESTIONS AFTER REPORT.
--- NOTE | 2019-10-29 13:23 | NUR ---
LATE ENTRY 1110 - PT IN DIALYSIS, INCISION SITE ABOVE PERMACATH CONTINUES TO SEEP BLOOD. PRESSURE DRESSING APPLIED BY DIALYSIS; LEFT MESSAGE FOR DR REED 1235 - SPOKE WITH DR REED APPLIED MANUAL PRESSURE TO VEIN BEHIND CLAVICAL. 1300 - PRESSURE HELD TO SITE FOR APPROX 15 MINUTES, INCISION CONTINUES TO SEEP BLOOD WITH NEPTURE DRESSING OVER INCISION; NOTIIFED DR REED WILL SEE PATIENT AFTER PROCEDURE; NEW ORDER FOR LIDOCAINE AND PRESSURE DRESSING. 1315 - RECHECK RT BACK, NEW BLOOD AROUND SITE, REPLACE 2CC OF AIR BACK INTO BAND, WILL CONTINUE TO MONITOR.
--- NOTE | 2019-10-29 15:35 | NUR ---
THIS RN TO ROOM TO ASSESS RIGHT RADIAL SITE AND CONTINUE RELEASING AIR; PT HAD ARM BOARD OFF AND TR BAND OFF AND IN HAND. WHEN INQUIRED, PT STATES " LOOK WHO WAS SLEEPING". SITE IS DRY; NO BLEEDING OR HEMATOMA NOTED; BRUISING APPROX THE SIZE OF A QUARTER NOTED, SCAB PRESENT; SMALL PEA SIZE, SOFT BALL UNDER SCAB. SITE CLEANED OF DRIED BLOOD AND TEGADERM APPIED. 3cc AIR REMAINED IN THE TR BAND. ARM BOARD REPLACED AND PT EDUCATED ON NOT USING RIGHT ARM AND LEAVING ARM BOARD IN PLACE. WILL CONTINUE TO MONITOR.
--- NOTE | 2019-10-29 15:52 | NUR ---
DR REED TO BEDSIDE; REMOVED PRESSURE DRESSING; LEFT CHEST PERMACATH SITES NO LONGER BLEEDING; 3 STERI STRIPES PLACED TO SITE. WILL CONTINUE TO MONITOR.
--- NOTE | 2019-10-29 18:35 | NUR ---
TRANSFER NOTE/SHIFT SUMMARY RECEIVED BEDSIDE REPORT FROM [facility] AND TELEPHONE REPORT FROM LOUIS Concepcion RN ON MEDICAL FLOOR. PT TO ROOM AT APPROX 0855 AFTER ANGIOGRAM WITH NO INTERVENTIONS. RIGHT RADIAL SITE WITH TR BAND IN PLACE ON ADMISSION, DURING REMOVAL PROCESS PT STARTED BLEEDING WITH REMOVAL, 2cc REPLACED AND RESTARTED PROCESS AT 30 MINUTES LATER; TR BAND DOWN TO 3cc PT REMOVED BY SELF; SITE CLEANED AND TEGADERM APPLIED. LEFT CHEST PERMACATH IN PLACE, INCISION AND PORT SITE SEEPING BLOOD; APPLIED PRESSURE DRESSING; HEDY DRESSING AND DR REED TO BEDSIDE; STERISTRIPS IN PLACE; NO BLEEDING NOTED SINCE APPROX 1545. NOTIFIED DR HEWITT OF SEEPING; NEW ORDERS TO HOLD COUMADIN TONIGHT. PT EDUCATED ON RESTRICTIONS AND NEED TO CALL FOR ASSISTANCE BEFORE GETTING UP; PT NONCOMPLIANT. PT UP TO BATHROOM BY SELF THIS AFTERNOON; PT REPORTS DIZZINESS AND NAUSEA; 1 EPISODE OF EMESIS, PT BACK TO BED VSS AND DENIES DIZZINESS AND NAUSEA. PT A&Ox4. PT REPORTS BACK AND UPPER LEFT CHEST PAIN AT PERMACATH SITE; MEDICATED x1 WITH TRAMODOL AND FENTANYL WITH POSTIIVE RESULTS FROM THE FENTANYL. PT DENIES SOB, SPO2 >90% ON RA. PT TO DIALYSIS THIS AM AFTER ANGIOGRAM. ELEVATED BP NOTED; OTHER VSS. NO OTHER ACUTE CHANGES NOTED DURING SHIFT. REPORT GIVEN TO ONCOMING RN.
[2019-10-30 04:24] LABS: International Normalized Ratio 1.06; Prothrombin Time Results 11.3 Sec (9.7-11.5)
--- NOTE | 2019-10-30 04:33 | NUR ---
SHIFT SUMMARY: PATIENT X2 EPISODES OF NAUSEA AND VOMITING, PATIENT REFUSING ANTINAUSEA MEDICATION. BED LOW AND LOCKED WITH EXIT ALARM ON: PATIENT CVONTINUES TO TURN ALARM OFF AND GET OOB BEFORE STAFF CAN MAKE IT INTO ROOM TO DO AN ASSIST. PATIENT EDUCATED SEVERAL TIMES ON FALL RISK AND RISK TO RADIAL AND PERMACATH SITES. PATIENT REFUSES TO COMPLY. WILL TRY TO MOVE PATIENT TO A CLOSERE ROOM, NURSING ROUNDS INCREASED. ALL OTHER VSS. RADIAL SITE REMAINS THE SAME BEGINNING OF SHIFT WITH NO SIGN OF HEMATOMA OR BLEEDING, ALL SENSATION INTACT, CAPILLARY REFILL <3 SECOUNDS. ARM STABALIZER IN PLACE AND PATIENT LEAVING IT ON AT THIS TIME. PERMACATH SITE REMAINS FREE OF ANY SIGN OF INCREASE IN HEMATOMA, NO DRAINAGE NOTED.
--- NOTE | 2019-10-30 14:07 | NUR ---
HE HAS MOSTLY EATEN AND SLEPT SO FAR TODAY. RT RADIAL ARTERIAL SITE WNL WITH TEGADERM COVER AND THE WRIST BOARD IN PLACE. HIS LCW PERMACATH SITE HAS A LITTLE OLD BLLOD UNDERNEATH TEGADERM DRESSING. MILD ECCHYMOSIS. ABOVE DRESSING TOWARD NECK HE HAS A RED RASH. THE AREA IS SORE. U.O. IS BROWN/DELANO. HE CAN AMBULATE IN ROOM WITH SBA. HEPARIN DRIP JUST INITIATED AT 1400. HIS COUMADIN WILL START LATER TODAY. PTT WILL BE AT 2000.
--- NOTE | 2019-10-30 15:23 | NUR ---
TO ROOM 359 ON MEDICAL FLOOR BY W/C AFTER GIVING REPORT TO KALA GOMEZ. HE HAS BELONGINGS AND CHART. HEPARIN DRIP INFUSING. NO CHANGES IN CONDITION. HE IS CHEERFUL.
--- NOTE | 2019-10-30 15:39 | NUR ---
PT ARRIVED TO THE MEDICAL FLOOR FROM THE PCU VIA WHEELCHAIR A/OX3, PLEASANT AND COOPERATIVE, HEPRIN GTT RUNNING, REPORT TAKEN FROM ANNA RN, I AGREE WITH HER AM ASSESSMENT, THE PT WAS ORIENTED TO THE ROOM LAYOUT AND CALL SYSTEM, CALL LIGHT IN REACH, THE PT FELT THAT HE MIGHT BE HYPOGLYCEMIA, BS CHECKED PER PTS REQUEST WAS 157, WILL CONTINUE TO MONITOR AND ASSESS FOR CHANGES
[2019-10-30 20:09] LABS: Mean Platelet Volume 9.3 fL (9.1-12.4); Platelet Count 159 K/mm3 (150-400)
--- NOTE | 2019-10-31 04:42 | NUR ---
SHIFT SUMMARY ASSUMED CARE OF PT AT 1900. PT IS A/O X3, HAS NUMBESS DUE TO HX OF DM. HEART SOUNDS REGULAR, IMPLANTED PACE/DEFIB, DENIES CP AT THIS TIME. FINE CRACKLES IN BASES OF LUNGS, DENIES SOB AT THIS TIME. PT HAS PERMACATH IN L SHOULDER, DIALYSIS SCHEDULED FOR TODAY, 10/31/19. HEPRIN DRIP INFUSING DUE TO POST ANGIOGRAM, ADJUSTED PER PHARMACY, BOARD INPLACE UNTIL 1700 TODAY. PT IS FRIENDLY AND COOPERATIVE WITH CARE, CALL LIGHT IN REACH, BED IN LOWEST POSTION, WILL CONTINUE TO MONITOR UNTIL DAYSHIFT NURSE ARRIVES.
[2019-10-31 04:48] LABS: BASOPHILS ABSOLUTE AUTO 0.02 K/mm3 (0.00-0.23); BASOPHILS PERCENT AUTO 0 % (0-2); EOSINOPHILS ABSOLUTE AUTO 0.28 K/mm3 (0.00-0.68); EOSINOPHILS PERCENT AUTO 4 % (0-6); Hematocrit 26.8 % (37.0-53.0); Hemoglobin 9.2 g/dL (13.5-17.5); IMMATURE GRAN ABSOLUTE AUTO 0.03 K/mm3 (0.00-0.10); IMMATURE GRAN PERCENT AUTO 1 % (0-1); LYMPHOCYTES ABSOLUTE AUTO 1.64 K/mm3 (0.84-5.20); LYMPHOCYTES PERCENT AUTO 25 % (21-46); MONOCYTES ABSOLUTE AUTO 0.69 K/mm3 (0.16-1.47); MONOCYTES PERCENT AUTO 11 % (4-13); Mean Corpuscular HGB 30.9 pg (26.0-34.0); Mean Corpuscular HGB Conc 34.3 g/dL (31.5-36.5); Mean Corpuscular Volume 90 fL (80-100); Mean Platelet Volume 9.7 fL (9.1-12.4); NEUTROPHILS ABSOLUTE AUTO 3.88 K/mm3 (1.96-9.15); NEUTROPHILS PERCENT AUTO 59 % (41-73); Platelet Count 167 K/mm3 (150-400); RDW Coefficient Variation 11.9 % (11.7-14.2); RDW Standard Deviation 38.6 fL (35.1-46.3); Red Blood Cell Count 2.98 M/mm3 (4.30-5.90); White Blood Cell Count 6.54 K/mm3 (4.00-11.30)
[2019-10-31 05:04] LABS: International Normalized Ratio 1.09; Prothrombin Time Results 11.6 Sec (9.7-11.5)
[2019-10-31 05:10] LABS: Albumin, Blood 2.7 g/dL (3.4-5.0); Anion Gap 7 mmol/L (6-16); Blood Urea Nitrogen 41 mg/dL (8-24); Bun/Creatinine Ratio 8.1 (12.0-20.0); CO2, Blood 25 mmol/L (21-32); Calcium, Blood 8.8 mg/dL (8.5-10.1); Chloride, Blood 103 mmol/L (98-108); Creatinine, Blood 5.06 mg/dL (0.60-1.20); Glomerular Filtration Rate 12 (60-); Glucose, Blood 118 mg/dL (70-99); Magnesium, Blood 1.9 mg/dL (1.6-2.4); Phosphorus, Blood 4.2 mg/dL (2.5-4.9); Potassium, Blood 4.2 mmol/L (3.5-5.5); Sodium, Blood 135 mmol/L (136-145)
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
--- NOTE | 2019-10-31 09:15 | NUR ---
PT UP WALKING HALLS. STATES JUST BACK FROM [place] WALK. GOT DIZZY, FELT LIKE MIGHT PASS OUT. DID NOT. STATES SOB. PASSED. NO OTHER SYMPTOMS NOW. VSS TAKEN AND STABLE/ TELE REPORTS NO EVENTS. NSR AT 90S BACK TO 8O.S. CALLED DR HEWITT. REPORTED NO ORDERS.
[2019-10-31] MEDS ORDERED: ALBU2.5V5 INH (11:38)
[2019-10-31] MEDS ORDERED: ISOSORBIDE PO (11:42)
[2019-10-31] MEDS ORDERED: Pantoprazole So20 MG PO (11:46)
[2019-10-31] MEDS ORDERED: WARF10 PO (11:48)
[2019-10-31] MEDS ORDERED: REQUIP (11:50)
[2019-10-31] MEDS ORDERED: LAMO100 PO (11:51)
--- NOTE | 2019-10-31 12:03 | NUR ---
PT REPORTS OCCATIONAL SHAKINESS, LIKE TREMORS HANDS. LAST 2 DAYS. REPORTED TO
--- NOTE | 2019-10-31 12:13 | NUR ---
DR MARY JO VILA TO [facility] MOREL , ORDERS GIVEN.
--- NOTE | 2019-10-31 18:41 | NUR ---
PT PLEASANT TODAY. TRIED TO D.C THIS AM. NUMEROUS ROADBLOCKS ATTEMPTING TO GET ON DIALYSIS. PT STAYING UNTIL BLOOD RESULTS EXPECT SUNDAY. HIGH ANX, BUT PLAN NOW WORKED OUT. NO BLEEDING AT DIALYSIS PORT. MED FOR PAIN THIS AM. HE HAS BEEN UP WALKING TODAY. NO OTHER CONCERNS AT THIS TIME. BED IN LOW POSITION, CALL LITE IN [facility], CALLS APPROP
--- NOTE | 2019-11-01 02:36 | NUR ---
PT IS PLEASANT AND COOPERATIVE WITH CARE. NO COMPLAINTS OF PAIN OR DISCOMFORT THUS FAR THIS SHIFT. NO BLEEDING NOTED FROM PERMACATH SITE. PT PRESENTLY SLEEPING, RESP E/U. APPEARS IN NO ACUTE DISTRESS. WILL CONTINUE TO MONITOR.
--- NOTE | 2019-11-01 06:22 | NUR ---
NOC SHIFT SUMMARY PT PLEASANT AND COOPERATIVE WITH CARE. HAS LARGELY SLEPT THIS NIGHT. NO COMPLAINTS OF PAIN OR DISCOMFORT. VSS. ON TELE. AT THIS TIME SR RATE 77 PER WHALE TRAINER. NO ACUTE CHANGES NOTED THIS NIGHT. AAOX4. WILL CONTINUE TO MONITOR.
--- NOTE | 2019-11-01 15:40 | NUR ---
SHIFT SUMMARY PT AWAKE AT START OF SHIFT, DURING SHIFT REPORT. NO C/O. NEW DIALYSIS PT; PERMA CATH TO LCW. PT ASSISTED DOWN TO DIALYSIS THIS AM VIA W/C. PT THEN HAD A SUDDEN ON SET OF DRY HEAVES. ZOFRAN OBTAINED AND GIVEN PER EMAR. NO FURTHER C/O NAUSEA. PT ASSISTED BACK TO FOR LUNCH, AFTER DIALYSIS. PT REPORTED THAT HE DIDN'T FEEL LIKE EATING MUCH. C/O PAIN TO BACK; ULTRAM GIVEN PER EMAR AND PT REQUEST. P/T ORDERED, BUT PT REPORTED THAT HE WAS TOO DIZZY WHEN P/T WAS AVAILABLE. PT IS WEAK AND HAS TREMORS IN ALL EXTREMITIES WHEN ATTEMPTING TO GET UP, MAKING HIM VERY UNSTEADY. DR TAFOYA IN THIS AM. PT TO GO TO [facility] FOR DIALYSIS WHEN D/C'D. CALL LT IN REACH.
[2019-11-02 04:06] LABS: HBSAG SCREEN Negative (Negative); HEP B CORE AB, TOT Positive (Negative); HEP BE AG Negative (Negative)
[2019-11-02 05:32] LABS: Hematocrit 29.1 % (37.0-53.0); Hemoglobin 9.7 g/dL (13.5-17.5)
--- NOTE | 2019-11-02 05:46 | NUR ---
SHIFT SUMMARY A/O, ABLE TO MAKE NEEDS KNOWN. COOPERATIVE WITH CARE. CALLS AND ANSWERS QUESTIONS APPROPRIATELY. C/O PAIN TO NECK AND LOWER BACK THIS AM; MEDICATED PER EMAR. STATED VERY MILD CHEST TIGHTNESS THIS AM, BUT NO LONGER SYMPTOMATIC. STATED DID NOT SLEEP WELL OVERNIGHT; OFF AND ON. NO ACUTE CHANGES OVERNIGHT. VSS/AFEBRILE. BED IN LOWEST POSITION; ALARM ON. CALL LIGHT AND BELONGINGS WITHIN REACH. WCTM. REPORT TO ONCOMING RN.
[2019-11-02 05:59] LABS: Albumin, Blood 2.9 g/dL (3.4-5.0); Anion Gap 7 mmol/L (6-16); Blood Urea Nitrogen 32 mg/dL (8-24); Bun/Creatinine Ratio 7.6 (12.0-20.0); CO2, Blood 29 mmol/L (21-32); Calcium, Blood 8.7 mg/dL (8.5-10.1); Chloride, Blood 101 mmol/L (98-108); Creatinine, Blood 4.22 mg/dL (0.60-1.20); Glomerular Filtration Rate 15 (60-); Glucose, Blood 144 mg/dL (70-99); Magnesium, Blood 1.8 mg/dL (1.6-2.4); Phosphorus, Blood 3.3 mg/dL (2.5-4.9); Potassium, Blood 3.7 mmol/L (3.5-5.5); Sodium, Blood 137 mmol/L (136-145)
--- NOTE | 2019-11-02 19:42 | NUR ---
SHIFT SUMMARY: PATIENT REPORTED MINIMAL NAUSEA THIS MORNING. DENIED NAUSEA THE REST OF THE SHIFT. PATIENT DENIED CHEST PAIN THROUGHOUT THE SHIFT. PATIENT REPORTED MINIMAL CHEST DISCOMFORT EARLY THIS MORNING. PATIENT ALERT AND ORIENTED THROUGHOUT THE SHIFT. NO CHANGES TO TELEMETRY (NSR IN THE 70S). PATIENT CONTINUES TO HAVE SOME TREMORS IN HANDS AND FEET WHEN PERFORMING A SPECIFIC ACTIVITY (EX: REACHING FOR A PHONE). PATIENT UP IN ROOM AND IN [place] WITH A FWW. UTILIZED APPROPRIATELY. PATIENT IS CALM AND COOPERATIVE. PATIENT REPORTS THAT HE WILL HAVE DIALYSIS TOMORROW.
--- NOTE | 2019-11-03 04:03 | NUR ---
SHIFT SUMMARY A/O, ABLE TO MAKE NEEDS KNOWN. COOPERATIVE WITH CARE. CALLS AND ANSWERS QUESTIONS APPROPRIATELY. NO C/O PAIN/DISCOMFORT. STATED WAS TOLD THAT HE WILL HAVE HEMODIALYSIS TODAY 11/03/19. SBA WITH FWW; STEADY GAIT NOTED. NO ACUTE CHANGES NOTED OVERNIGHT. APPEARED TO REST. TELE RUNNING SR WITH BBB @ 82 PER PCU WAREHOUSE PACKAGING SUPERVISOR. VSS/AFEBRILE. BED REMAINS IN LOWEST POSITION. CALL LIGHT AND BELONGINGS WITHIN REACH. WCTM. REPORT TO ONCOMING RN.
[2019-11-03 05:06] LABS: Hematocrit 30.2 % (37.0-53.0); Hemoglobin 10.1 g/dL (13.5-17.5)
[2019-11-03 05:27] LABS: Albumin, Blood 2.8 g/dL (3.4-5.0); Anion Gap 6 mmol/L (6-16); Blood Urea Nitrogen 40 mg/dL (8-24); Bun/Creatinine Ratio 8.7 (12.0-20.0); CO2, Blood 25 mmol/L (21-32); Calcium, Blood 8.7 mg/dL (8.5-10.1); Chloride, Blood 104 mmol/L (98-108); Creatinine, Blood 4.62 mg/dL (0.60-1.20); Glomerular Filtration Rate 14 (60-); Glucose, Blood 142 mg/dL (70-99); Magnesium, Blood 1.9 mg/dL (1.6-2.4); Sodium, Blood 135 mmol/L (136-145)
[2019-11-03] MEDS ORDERED: LAMO100 PO (15:34)
[2019-11-03] MEDS ORDERED: Imdur-ER60 MG PO (15:34)
[2019-11-03] MEDS ORDERED: Isosorbide Mono60 MG PO (15:35)
[2019-11-03] MEDS ORDERED: ONDA4ODT MM (15:37)
[2019-11-03] MEDS ORDERED: Ropinirole HCl0.5 MG PO (15:38)
[2019-11-03] MEDS ORDERED: ELIQUIS2.5 MG PO (15:41)
--- NOTE | 2019-11-03 16:46 | NUR ---
PT DISCHARGED FROM THE UNIT. IV REMOVED. DISCHARGE INSTRUCTIONS REVIEWED. INSTRUCTIONG GIVEN ON SHOWERING WITH PERMACATH. FOLLOW UP APPOINTMENTS MADE.
[2019-11-04 12:07] LABS: HEP BE AB Negative (Negative)
== END 2019-11-03 16:26 | disposition home or self-care (01) | DRG 286 ==
LOC: ER 11:29 → MEDS 14:39 → PCU 10-29 08:39 → MEDS 10-30 15:38
PROVIDERS: Emergency Medicine; Internal Medicine; Internal Medicine Nephrology; Nurse Practitioner Acute Care; Pharmacist; ADMIT Internal Medicine
PROC: 0JHF3XZ Insertion of Tunneled Vascular Access Device into Left Upper Arm Subcutaneous Tissue and Fascia, Percutaneous Approach (ICD-10-PCS; 2019-10-28)
PROC: 05HM33Z Insertion of Infusion Device into Right Internal Jugular Vein, Percutaneous Approach (ICD-10-PCS; 2019-10-28)
PROC: 4A023N7 Measurement of Cardiac Sampling and Pressure, Left Heart, Percutaneous Approach (ICD-10-PCS; principal; 2019-10-29)
PROC: B211YZZ Fluoroscopy of Multiple Coronary Arteries using Other Contrast (ICD-10-PCS; 2019-10-29)
DX: I25.10 Atherosclerotic heart disease of native coronary artery without angina pectoris (principal); N18.6 End stage renal disease; N17.0 Acute kidney failure with tubular necrosis; I25.810 Atherosclerosis of coronary artery bypass graft(s) without angina pectoris; I13.2 Hypertensive heart and chronic kidney disease with heart failure and with stage 5 chronic kidney disease, or end stage renal disease; I50.22 Chronic systolic (congestive) heart failure; I13.0 Hypertensive heart and chronic kidney disease with heart failure and stage 1 through stage 4 chronic kidney disease, or unspecified chronic kidney disease; N18.4 Chronic kidney disease, stage 4 (severe); E11.22 Type 2 diabetes mellitus with diabetic chronic kidney disease; Z79.4 Long term (current) use of insulin; E78.5 Hyperlipidemia, unspecified; I48.0 Paroxysmal atrial fibrillation; Z79.01 Long term (current) use of anticoagulants; D63.1 Anemia in chronic kidney disease; E11.649 Type 2 diabetes mellitus with hypoglycemia without coma; I25.2 Old myocardial infarction; Z95.810 Presence of automatic (implantable) cardiac defibrillator; D50.9 Iron deficiency anemia, unspecified; Z86.73 Personal history of transient ischemic attack (TIA), and cerebral infarction without residual deficits; F43.10 Post-traumatic stress disorder, unspecified
CPT/HCPCS: 36415; 36558; 71046; 76770; 76937; 80053; 80069; 82947; 83036; 83735; 83880; 84100; 84443; 84484; 85014; 85018; 85025; 85049; 85347; 85610; 85730; 86317; 86704; 86707; 86709; 87340; 87350; 93005; 93010; 93308; 93321; 93458; 93571; 94761; 96374; 96376; 97116; 97162; 99152; 99153; 99285-25; A9270; A9270-GY; C1750; C1769; C1887; C1894; G0378; J0881; J1644; J1815; J2250; J2405; J3010; J7030; J7040; J7070; Q9967

== ENCOUNTER 2019-11-12 18:04 | Observation (INO) | payer OTHER, MEDICARE ==
[~2019-11-12] VITALS: Ht 172.7 cm; Wt 78.5 kg
[~2019-11-12 18:04] MED LIST changes: +ALBU2.5V5 INH; +ALBU2.5V5 NEB; +CALC.25 PO; +CYCL10 PO; +FAMO20 PO; +Glucose4 GM PO; +ISOSORBIDE PO; +Imdur-ER60 MG PO; +LAMO100 PO; +ONDA4ODT MM; +Pantoprazole So20 MG PO; +RANOLAZINE ER1000 MG PO; +REQUIP; +Ropinirole HCl0.5 MG PO; +SERT25 PO; +TOPROL XL200 MG PO; +WARF10 PO
[2019-11-12 18:44] LABS: BASOPHILS ABSOLUTE AUTO 0.03 K/mm3 (0.00-0.23); BASOPHILS PERCENT AUTO 0 % (0-2); EOSINOPHILS ABSOLUTE AUTO 0.27 K/mm3 (0.00-0.68); EOSINOPHILS PERCENT AUTO 3 % (0-6); Hematocrit 34.6 % (37.0-53.0); Hemoglobin 11.9 g/dL (13.5-17.5); IMMATURE GRAN ABSOLUTE AUTO 0.07 K/mm3 (0.00-0.10); IMMATURE GRAN PERCENT AUTO 1 % (0-1); LYMPHOCYTES ABSOLUTE AUTO 1.08 K/mm3 (0.84-5.20); LYMPHOCYTES PERCENT AUTO 14 % (21-46); MONOCYTES ABSOLUTE AUTO 0.49 K/mm3 (0.16-1.47); MONOCYTES PERCENT AUTO 6 % (4-13); Mean Corpuscular HGB 31.4 pg (26.0-34.0); Mean Corpuscular HGB Conc 34.4 g/dL (31.5-36.5); Mean Corpuscular Volume 91 fL (80-100); Mean Platelet Volume 10.1 fL (9.1-12.4); NEUTROPHILS ABSOLUTE AUTO 6.01 K/mm3 (1.96-9.15); NEUTROPHILS PERCENT AUTO 76 % (41-73); Platelet Count 115 K/mm3 (150-400); RDW Coefficient Variation 12.4 % (11.7-14.2); RDW Standard Deviation 40.9 fL (35.1-46.3); Red Blood Cell Count 3.79 M/mm3 (4.30-5.90); White Blood Cell Count 7.95 K/mm3 (4.00-11.30)
[2019-11-12 19:08] LABS: Alanine Aminotransfer (ALT/SGP 15 U/L (12-78); Albumin, Blood 3.2 g/dL (3.4-5.0); Albumin/Globulin Ratio 0.8 (0.8-1.8); Alk Phos 67 U/L (50-136); Anion Gap 5 mmol/L (6-16); Aspartate Aminotrans (AST/SGOT 25 U/L (12-37); Bilirubin, Total 0.4 mg/dL (0.1-1.0); Blood Urea Nitrogen 30 mg/dL (8-24); Bun/Creatinine Ratio 11.2 (12.0-20.0); CO2, Blood 30 mmol/L (21-32); Calcium, Blood 8.9 mg/dL (8.5-10.1); Chloride, Blood 99 mmol/L (98-108); Creatinine, Blood 2.67 mg/dL (0.60-1.20); Globulin, Blood 4.1 g/dL (2.2-4.0); Glomerular Filtration Rate 26 (60-); Glucose, Blood 154 mg/dL (70-99); Potassium, Blood 3.9 mmol/L (3.5-5.5); Sodium, Blood 134 mmol/L (136-145); Total Protein, Blood 7.3 g/dL (6.4-8.2); Troponin I <0.015 ng/mL (0.000-0.040)
--- NOTE | 2019-11-13 06:33 | NUR ---
SHIFT SUMMARY PT WAS A NEW ADMIT DURING THE NIGHT, ARRIVING ON THE FLOOR AT 0029. HE IS A 64 Y/O MALE, ADMITTED FOR UNSTABLE ANGINA AFTER HAVING CHEST PAIN DURING HIS OUTPATIENT DIALYSIS. PT IS A&O X 3, OCCASIONALLY FORGETFUL, AND A SBA IN THE ROOM. PERMACATH IN PLACE IN L CHEST WALL. THE PT DID REPORT PAIN ON ADMIT AT A 5/10, THOUGH HE STATED IT WAS "ALL OVER". NO COMPLAINTS OF NAUSEA OR SOB. VITAL SIGNS STABLE. TELE MONITOR SHOWED NSR IN THE 70S. VITAL SIGNS STABLE. NO OTHER ACUTE CHANGES IN PT CONDITION NOTED. WILL CONTINUE TO MONITOR AND TREAT PER EMAR UNTIL HAND OFF TO DAY SHIFT RN.
--- NOTE | 2019-11-13 11:55 | NUR ---
DISCHARGED HOME WITH BELONGINGS AND INSTRUCTIONS. HE HAD NO CP OR OTHER COMPLAINTS. THIS MORNING'S TROPONIN ALSO NEGATIVE. HE SAYS SINCE HE STARTED DIALYSIS, HE SLEEPS A LOT. HE SLEPT ALOT THIS MORNING BUT ATE BREAKFAST WELL AND DENIES ANY DIFFICULTY VOIDING. NO COMPLAINTS.
== END 2019-11-13 11:50 | disposition home or self-care (01) ==
LOC: ER 18:04 → ICUW 18:05 → ICUE 18:05 → MEDS 22:20 → ICUE 22:39 → MEDS 11-13 00:29
PROVIDERS: Emergency Medicine; ADMIT Hospitalist
DX: R07.89 Other chest pain (principal); I12.0 Hypertensive chronic kidney disease with stage 5 chronic kidney disease or end stage renal disease; E11.22 Type 2 diabetes mellitus with diabetic chronic kidney disease; N18.6 End stage renal disease; I25.110 Atherosclerotic heart disease of native coronary artery with unstable angina pectoris; G40.909 Epilepsy, unspecified, not intractable, without status epilepticus; I25.5 Ischemic cardiomyopathy; I25.2 Old myocardial infarction; E78.5 Hyperlipidemia, unspecified; J44.9 Chronic obstructive pulmonary disease, unspecified; I48.0 Paroxysmal atrial fibrillation; Z99.2 Dependence on renal dialysis; Z79.01 Long term (current) use of anticoagulants; Z79.02 Long term (current) use of antithrombotics/antiplatelets; Z79.899 Other long term (current) drug therapy; Z95.5 Presence of coronary angioplasty implant and graft; Z86.73 Personal history of transient ischemic attack (TIA), and cerebral infarction without residual deficits; Z87.891 Personal history of nicotine dependence; N25.81 Secondary hyperparathyroidism of renal origin; D63.1 Anemia in chronic kidney disease
CPT/HCPCS: 36415; 71045; 80053; 82947; 83880; 84484; 85025; 93005; 93010; 96374; 99285-25; A9270-GY; C9113; G0378; J3010

== ENCOUNTER 2019-12-24 13:22 | Emergency (ER) | payer OTHER, MEDICARE ==
[~2019-12-24] VITALS: Ht 172.7 cm; Wt 79.4 kg
[2019-12-24 14:04] LABS: BASOPHILS ABSOLUTE AUTO 0.04 K/mm3 (0.00-0.23); BASOPHILS PERCENT AUTO 1 % (0-2); EOSINOPHILS ABSOLUTE AUTO 0.26 K/mm3 (0.00-0.68); EOSINOPHILS PERCENT AUTO 4 % (0-6); Hematocrit 34.7 % (37.0-53.0); IMMATURE GRAN ABSOLUTE AUTO 0.03 K/mm3 (0.00-0.10); IMMATURE GRAN PERCENT AUTO 0 % (0-1); LYMPHOCYTES PERCENT AUTO 20 % (21-46); MONOCYTES ABSOLUTE AUTO 0.55 K/mm3 (0.16-1.47); MONOCYTES PERCENT AUTO 8 % (4-13); Mean Corpuscular HGB 31.4 pg (26.0-34.0); Mean Corpuscular HGB Conc 34.6 g/dL (31.5-36.5); Mean Corpuscular Volume 91 fL (80-100); Mean Platelet Volume 10.7 fL (9.1-12.4); NEUTROPHILS ABSOLUTE AUTO 4.57 K/mm3 (1.96-9.15); NEUTROPHILS PERCENT AUTO 67 % (41-73); Platelet Count 105 K/mm3 (150-400); RDW Coefficient Variation 11.4 % (11.7-14.2); RDW Standard Deviation 38.3 fL (35.1-46.3); Red Blood Cell Count 3.82 M/mm3 (4.30-5.90); White Blood Cell Count 6.85 K/mm3 (4.00-11.30)
[2019-12-24 14:22] LABS: Alanine Aminotransfer (ALT/SGP 19 U/L (12-78); Albumin/Globulin Ratio 0.8 (0.8-1.8); Alk Phos 86 U/L (50-136); Anion Gap 6 mmol/L (6-16); Aspartate Aminotrans (AST/SGOT 21 U/L (12-37); Bilirubin, Total 0.2 mg/dL (0.1-1.0); Blood Urea Nitrogen 24 mg/dL (8-24); Bun/Creatinine Ratio 8.5 (12.0-20.0); CO2, Blood 32 mmol/L (21-32); Calcium, Blood 8.5 mg/dL (8.5-10.1); Chloride, Blood 100 mmol/L (98-108); Creatinine, Blood 2.81 mg/dL (0.60-1.20); Globulin, Blood 3.8 g/dL (2.2-4.0); Glomerular Filtration Rate 24 (60-); Glucose, Blood 190 mg/dL (70-99); Potassium, Blood 3.9 mmol/L (3.5-5.5); Sodium, Blood 138 mmol/L (136-145); Total Protein, Blood 6.8 g/dL (6.4-8.2); Troponin I <0.015 ng/mL (0.000-0.040)
== END 2019-12-24 17:13 | disposition home or self-care (01) ==
LOC: ER 13:22
PROVIDERS: Physician Assistant
DX: R07.9 Chest pain, unspecified (principal); E11.22 Type 2 diabetes mellitus with diabetic chronic kidney disease; N18.6 End stage renal disease; I50.9 Heart failure, unspecified; I25.10 Atherosclerotic heart disease of native coronary artery without angina pectoris; I25.2 Old myocardial infarction; Z88.8 Allergy status to other drugs, medicaments and biological substances; Z79.899 Other long term (current) drug therapy; Z79.51 Long term (current) use of inhaled steroids; Z79.01 Long term (current) use of anticoagulants; Z86.73 Personal history of transient ischemic attack (TIA), and cerebral infarction without residual deficits; Z86.711 Personal history of pulmonary embolism; Z99.2 Dependence on renal dialysis
CPT/HCPCS: 36415; 71046; 80053; 83880; 84484; 85025; 93005; 93010; J2270

== ENCOUNTER 2020-01-12 13:47 | Emergency (ER) | payer OTHER, MEDICARE ==
[~2020-01-12] VITALS: Ht 172.7 cm; Wt 79.4 kg
[2020-01-12 14:22] LABS: BASOPHILS ABSOLUTE AUTO 0.03 K/mm3 (0.00-0.23); BASOPHILS PERCENT AUTO 0 % (0-2); EOSINOPHILS PERCENT AUTO 4 % (0-6); Hemoglobin 12.6 g/dL (13.5-17.5); IMMATURE GRAN ABSOLUTE AUTO 0.05 K/mm3 (0.00-0.10); IMMATURE GRAN PERCENT AUTO 1 % (0-1); LYMPHOCYTES PERCENT AUTO 19 % (21-46); MONOCYTES ABSOLUTE AUTO 0.63 K/mm3 (0.16-1.47); MONOCYTES PERCENT AUTO 9 % (4-13); Mean Corpuscular HGB 30.4 pg (26.0-34.0); Mean Corpuscular HGB Conc 33.2 g/dL (31.5-36.5); Mean Corpuscular Volume 92 fL (80-100); Mean Platelet Volume 10.2 fL (9.1-12.4); NEUTROPHILS ABSOLUTE AUTO 4.96 K/mm3 (1.96-9.15); NEUTROPHILS PERCENT AUTO 67 % (41-73); Platelet Count 146 K/mm3 (150-400); RDW Coefficient Variation 13.1 % (11.7-14.2); RDW Standard Deviation 42.8 fL (35.1-46.3); Red Blood Cell Count 4.15 M/mm3 (4.30-5.90); White Blood Cell Count 7.37 K/mm3 (4.00-11.30)
[2020-01-12 14:31] LABS: Alanine Aminotransfer (ALT/SGP 16 U/L (12-78); Albumin, Blood 3.1 g/dL (3.4-5.0); Albumin/Globulin Ratio 0.8 (0.8-1.8); Alk Phos 80 U/L (50-136); Anion Gap 6 mmol/L (6-16); Aspartate Aminotrans (AST/SGOT 16 U/L (12-37); Bilirubin, Total 0.4 mg/dL (0.1-1.0); Blood Urea Nitrogen 25 mg/dL (8-24); Bun/Creatinine Ratio 8.1 (12.0-20.0); CO2, Blood 28 mmol/L (21-32); Calcium, Blood 8.5 mg/dL (8.5-10.1); Chloride, Blood 104 mmol/L (98-108); Creatinine, Blood 3.08 mg/dL (0.60-1.20); Globulin, Blood 3.9 g/dL (2.2-4.0); Glomerular Filtration Rate 22 (60-); Glucose, Blood 163 mg/dL (70-99); Potassium, Blood 3.9 mmol/L (3.5-5.5); Sodium, Blood 138 mmol/L (136-145); Troponin I <0.015 ng/mL (0.000-0.040)
[2020-01-12 15:12] LABS: Magnesium, Blood 2.2 mg/dL (1.6-2.4); Phosphorus, Blood 3.7 mg/dL (2.5-4.9)
[2020-01-12] MEDS ORDERED: Baclofen10 MG PO (16:01)
== END 2020-01-12 16:26 | disposition home or self-care (01) ==
LOC: ER 13:47
PROVIDERS: Emergency Medicine
DX: R25.2 Cramp and spasm (principal); E11.22 Type 2 diabetes mellitus with diabetic chronic kidney disease; N18.4 Chronic kidney disease, stage 4 (severe); I25.2 Old myocardial infarction; I25.10 Atherosclerotic heart disease of native coronary artery without angina pectoris; Z88.8 Allergy status to other drugs, medicaments and biological substances; Z91.048 Other nonmedicinal substance allergy status; Z79.899 Other long term (current) drug therapy; Z79.02 Long term (current) use of antithrombotics/antiplatelets; Z79.51 Long term (current) use of inhaled steroids; Z86.73 Personal history of transient ischemic attack (TIA), and cerebral infarction without residual deficits; Z86.711 Personal history of pulmonary embolism; Z87.891 Personal history of nicotine dependence; Z99.2 Dependence on renal dialysis; Z79.01 Long term (current) use of anticoagulants
CPT/HCPCS: 71046; 80053; 83735; 84100; 84484; 85025; 93005; 93010; 96374; 96375; 99285-25; J1170; J2405

== ENCOUNTER 2020-01-26 14:33 | Emergency (ER) | payer OTHER, MEDICARE ==
[~2020-01-26] VITALS: Ht 172.7 cm; Wt 78.0 kg
[~2020-01-26 14:33] MED LIST changes: +Baclofen10 MG PO
[2020-01-26 15:04] LABS: BASOPHILS ABSOLUTE AUTO 0.05 K/mm3 (0.00-0.23); BASOPHILS PERCENT AUTO 1 % (0-2); EOSINOPHILS ABSOLUTE AUTO 0.24 K/mm3 (0.00-0.68); EOSINOPHILS PERCENT AUTO 3 % (0-6); Hematocrit 38.1 % (37.0-53.0); IMMATURE GRAN ABSOLUTE AUTO 0.02 K/mm3 (0.00-0.10); IMMATURE GRAN PERCENT AUTO 0 % (0-1); LYMPHOCYTES ABSOLUTE AUTO 1.23 K/mm3 (0.84-5.20); LYMPHOCYTES PERCENT AUTO 15 % (21-46); MONOCYTES ABSOLUTE AUTO 0.45 K/mm3 (0.16-1.47); MONOCYTES PERCENT AUTO 6 % (4-13); Mean Corpuscular HGB Conc 34.1 g/dL (31.5-36.5); Mean Corpuscular Volume 91 fL (80-100); NEUTROPHILS ABSOLUTE AUTO 6.01 K/mm3 (1.96-9.15); NEUTROPHILS PERCENT AUTO 75 % (41-73); Platelet Count 186 K/mm3 (150-400); RDW Coefficient Variation 11.9 % (11.7-14.2); RDW Standard Deviation 38.9 fL (35.1-46.3)
[2020-01-26 15:25] LABS: Alanine Aminotransfer (ALT/SGP 15 U/L (12-78); Albumin, Blood 3.4 g/dL (3.4-5.0); Albumin/Globulin Ratio 0.8 (0.8-1.8); Alk Phos 83 U/L (50-136); Anion Gap 6 mmol/L (6-16); Aspartate Aminotrans (AST/SGOT 13 U/L (12-37); Bilirubin, Total 0.3 mg/dL (0.1-1.0); Blood Urea Nitrogen 49 mg/dL (8-24); CO2, Blood 23 mmol/L (21-32); Calcium, Blood 8.9 mg/dL (8.5-10.1); Chloride, Blood 102 mmol/L (98-108); Creatinine, Blood 5.47 mg/dL (0.60-1.20); Globulin, Blood 4.2 g/dL (2.2-4.0); Glomerular Filtration Rate 11 (60-); Glucose, Blood 433 mg/dL (70-99); Potassium, Blood 5.4 mmol/L (3.5-5.5); Sodium, Blood 131 mmol/L (136-145); Total Protein, Blood 7.6 g/dL (6.4-8.2); Troponin I <0.015 ng/mL (0.000-0.040)
[2020-01-26] MEDS ORDERED: Norco 5-325 Ta1 EACH PO (17:38)
== END 2020-01-26 18:12 | disposition home or self-care (01) ==
LOC: ER 14:33
PROVIDERS: Physician Assistant
DX: I25.118 Atherosclerotic heart disease of native coronary artery with other forms of angina pectoris (principal); E11.22 Type 2 diabetes mellitus with diabetic chronic kidney disease; N18.4 Chronic kidney disease, stage 4 (severe); I25.2 Old myocardial infarction; I25.10 Atherosclerotic heart disease of native coronary artery without angina pectoris; Z91.041 Radiographic dye allergy status; Z88.8 Allergy status to other drugs, medicaments and biological substances; Z79.899 Other long term (current) drug therapy; Z79.51 Long term (current) use of inhaled steroids; Z79.01 Long term (current) use of anticoagulants; Z86.73 Personal history of transient ischemic attack (TIA), and cerebral infarction without residual deficits; Z99.2 Dependence on renal dialysis; Z87.891 Personal history of nicotine dependence
CPT/HCPCS: 36415; 71045; 80053; 84484; 85025; 93005; 93010; 96374; 99285-25; J3010

== ENCOUNTER 2020-06-13 16:31 | Observation (INO) | payer OTHER, MEDICARE ==
[~2020-06-13] VITALS: Ht 172.7 cm; Wt 73.5 kg
[~2020-06-13 16:31] MED LIST changes: +AMLO5 PO; +Colace100 MG PO; +ELIQUIS5 M2 PO; +GLUCOSE4 GM PO; +HUMALOG KW100 UNIT/1; +HUMULIN 70100 UNIT/3 SC; +ISOSORBIDE MONO60 MG PO; +L-ARGININE500 MG PO; +MIRALAX17 GM PO; +ONDA4ODT; +Pacerone400 MG PO; +SERT50 PO; +VITAMIN D325 MC3 PO
[2020-06-13 17:10] LABS: Calcium, Ionized (POC) 0.84 mmol/L (1.10-1.46); Chloride (POC) 100 mmol/L (98-108); Creatinine (POC) 7.2 mg/dL (0.8-1.3); Glucose (ISTAT POC) 225 mg/dL (70-99); Hemoglobin (POC) 13.6 g/dL (13.5-17.5); Potassium (POC) 3.8 mmol/L (3.5-5.5); Sodium (POC) 138 mmol/L (135-148); Total CO2 (POC) 25 mmol/L (21-32)
[2020-06-13 17:14] LABS: BASOPHILS ABSOLUTE AUTO 0.05 K/mm3 (0.00-0.23); BASOPHILS PERCENT AUTO 1 % (0-2); EOSINOPHILS ABSOLUTE AUTO 0.18 K/mm3 (0.00-0.68); EOSINOPHILS PERCENT AUTO 3 % (0-6); Hematocrit 39.3 % (37.0-53.0); Hemoglobin 12.7 g/dL (13.5-17.5); IMMATURE GRAN ABSOLUTE AUTO 0.03 K/mm3 (0.00-0.10); IMMATURE GRAN PERCENT AUTO 1 % (0-1); LYMPHOCYTES ABSOLUTE AUTO 1.33 K/mm3 (0.84-5.20); LYMPHOCYTES PERCENT AUTO 21 % (21-46); MONOCYTES ABSOLUTE AUTO 0.63 K/mm3 (0.16-1.47); MONOCYTES PERCENT AUTO 10 % (4-13); Mean Corpuscular HGB 31.1 pg (26.0-34.0); Mean Corpuscular HGB Conc 32.3 g/dL (31.5-36.5); Mean Corpuscular Volume 96 fL (80-100); Mean Platelet Volume 9.8 fL (9.1-12.4); NEUTROPHILS ABSOLUTE AUTO 4.25 K/mm3 (1.96-9.15); NEUTROPHILS PERCENT AUTO 66 % (41-73); Platelet Count 154 K/mm3 (150-400); RDW Coefficient Variation 13.8 % (11.7-14.2); RDW Standard Deviation 49.2 fL (35.1-46.3); Red Blood Cell Count 4.08 M/mm3 (4.30-5.90); White Blood Cell Count 6.47 K/mm3 (4.00-11.30)
[2020-06-13 17:30] LABS: Alanine Aminotransfer (ALT/SGP 41 U/L (12-78); Albumin, Blood 3.6 g/dL (3.4-5.0); Albumin/Globulin Ratio 0.9 (0.8-1.8); Alk Phos 113 U/L (50-136); Anion Gap 10 mmol/L (6-16); Aspartate Aminotrans (AST/SGOT 23 U/L (12-37); Bilirubin, Total 0.4 mg/dL (0.1-1.0); Blood Urea Nitrogen 37 mg/dL (8-24); Bun/Creatinine Ratio 5.8 (12.0-20.0); CO2, Blood 26 mmol/L (21-32); Calcium, Blood 7.2 mg/dL (8.5-10.1); Chloride, Blood 103 mmol/L (98-108); Creatinine, Blood 6.34 mg/dL (0.60-1.20); Glomerular Filtration Rate 9 (60-); Glucose, Blood 226 mg/dL (70-99); Potassium, Blood 3.9 mmol/L (3.5-5.5); Sodium, Blood 139 mmol/L (136-145); Total Protein, Blood 7.6 g/dL (6.4-8.2); Troponin I <0.015 ng/mL (0.000-0.040)
[2020-06-13 17:38] LABS: Source, Urine Catheter
[2020-06-13 17:41] LABS: Appearance, Urine Clear (Clear); Bilirubin, Urine Neg (Neg); Blood, Urine 2+ (Neg); Color, Urine Yellow (P-Yellow); Glucose Qualitative, Urine 4+ (Neg); Ketones, Urine Neg (Neg); Leukocyte Esterase, Urine Neg (Neg); Nitrite, Urine Neg (Neg); Protein, Urine 4+ (Neg); Urobilinogen, Urine NORM (Normal)
[2020-06-13 17:57] LABS: Red Blood Cells, Urine 0-2 /hpf (0-2); Squamous Epithelial Cells Rare /hpf (Few); White Blood Cells, Urine 0-2 /hpf (0-5)
[2020-06-13 17:58] LABS: Bacteria Rare /hpf
[2020-06-13] MEDS ORDERED: Isosorbide Mono30 MG PO (18:10)
[2020-06-13] MEDS ORDERED: AMLO5 PO (18:10)
[2020-06-13] MEDS ORDERED: LEVE500 PO (18:11)
[2020-06-13] MEDS ORDERED: ROSU10TA PO (18:11)
[2020-06-13] MEDS ORDERED: L-ARGININE500 MG PO (19:25)
[2020-06-13] MEDS ORDERED: DOCU100 PO (19:26)
[2020-06-13] MEDS ORDERED: HUMALOG KW100 UNIT/1 SC (19:27)
--- NOTE | 2020-06-13 22:30 | NUR ---
RECEIVED REPORT FROM DAYOED RN. PT TRANSPORTED TO MEDICAL FLOOR VIA GURNEY, TRANSFERRED TO HOSPITAL BED. PT AROUSES TO VERBAL STIMULI, MOANS AND GRIMACES SPONTANEOUSLY. FOLLOWS SIMPLE COMMANDS, ANSWERS SIMPLE YES/NO QUESTIONS. RESPS EVEN AND UNLABORED, NO S/S APPARENT DISTRESS NOTED AT THIS TIME. SETTLED INTO ROOM. CALL LIGHT, POSSESSIONS IN REACH, BED IN LOWEST POSITION WITH ALARMS ON. WILL CONTINUE TO ONITOR AND PROVIDE CARE NEEDED.
--- NOTE | 2020-06-13 22:55 | NUR ---
SPOKE TO DR. ORTEGA REGARDING PT'S C/O CP. ORDERS RECEIVED. CONTINUE TO MONITOR.
[2020-06-14 07:05] LABS: U Amphetamine Screen Not Detected; U Barbituate Screen Not Detected; U Benzodiazapine Screen Not Detected; U Buprenorphine Screen Not Detected; U Cannabinoids Screen Not Detected; U Cocaine Screen Not Detected; U Methadone Screen Not Detected; U Methamphetamine Screen Not Detected; U Opiates Screen Not Detected; U Oxycodone Screen Not Detected; U Phencyclidine Screen Not Detected; U Propoxyphene Screen Not Detected
--- NOTE | 2020-06-14 07:21 | NUR ---
SHIFT SUMMARY PT RESTING COMFORTABLY AT THIS TIME, NO ACUTE CHANGES NOTED TO 12 LEAD EKG, TROPONINS NOTED TO BE WNL. VSS. PT INCREASINGLY ALERT, SPEAKING IN FULL SENTENCES ON OCCASION. UPDATED ON PT CONDITION, ADDRESSED CONCERNS. PT DENIES NEEDS AT THIS TIME. CALL LIGHT, POSSESSIONS IN REACH BED IN LOWEST POSITION WITH ALARMS ON. REPORT GIVEN TO PATRICIA CASTILLO.
--- NOTE | 2020-06-14 13:39 | NUR ---
ICD CHECK PER V/O FROM DR KRISHNAMURTHY
--- NOTE | 2020-06-14 14:36 | NUR ---
HE HAS HAD DIALYSIS. AND BOTH ROUNDED ON HIM. HIS PACEMAKER INTERROGATION WAS DONE AND NOW PT IS EVALUATING HIM.
[2020-06-14] MEDS ORDERED: ACET325 PO (16:29)
[2020-06-14] MEDS ORDERED: AMLO5 PO (16:30)
[2020-06-14] MEDS ORDERED: ISOSORBIDE MONO60 MG PO (16:35)
--- NOTE | 2020-06-14 19:06 | NUR ---
He is resting after eating about 1/2 his dinner. HE IS MORE AWAKE AND TALKATIVE NOW THAN HE WAS ALL DAY. HE VOIDS PER URINAL. HE SAYS HIS LAST BM WAS 2 DAYS AGO. I RECEIVED A CALL THIS EVENING THAT HE WENT FROM NSR TO AFIB 130/MIN. BY THE TIME I WAS FREE TO CALL THE DOCTOR, HE HAD RETURNED TO NSR. HE IS NSR IN THE 80'S RIGHT NOW. HE HAS NOT FELT WELL LATELY AT HOME. HIS PACEMAKER WAS INTERROGATED TODAY AFTER CONSULTED. HE RECEIVED DIALYSIS THIS AM WITHOUT PROBLEM. HIS MED REC WAS DONE. IVF'S FINISHED THIS AM. HE C/O PAIN AND ORDER RECEIVED FOR FENTANYL.
--- NOTE | 2020-06-15 04:26 | NUR ---
SHIFT SUMMARY ASSUMED CARE OF PT AT 1900. PT IS A/OX4, STAES HE ALWAYS HAS N/T IN EXTERMITES. HEART SOUNDS REGULAR, LUNG SOUNDS DIMINISHED, DENIES SOB/CP. PT USES URINAL AT BEDSIDE, URINE DARK. PT HAS BRUSING T/O SKIN. PT C/O NOT BEING ABLE TO MOVE HIS L ARM VERY WELL, ARM IS SWOLLEN AND HAS 2+ PITTING EDEMA. FISTULA IN L ARM IS POSITIVE FOR BRUT AND THRILL. PERMACATH IN L CHEST FREE OF S/SX OF INFECTION. PT C/O PAIN T/O THE NIGHT, MEDICATED PER EMAR. CALL LIGHT IN REACH, BED IN LOWEST POSITION.
[2020-06-15 05:53] LABS: Hematocrit 39.1 % (37.0-53.0); Hemoglobin 12.4 g/dL (13.5-17.5)
[2020-06-15 06:12] LABS: Albumin, Blood 3.3 g/dL (3.4-5.0); Anion Gap 8 mmol/L (6-16); Blood Urea Nitrogen 31 mg/dL (8-24); Bun/Creatinine Ratio 5.4 (12.0-20.0); CO2, Blood 28 mmol/L (21-32); Chloride, Blood 99 mmol/L (98-108); Creatinine, Blood 5.79 mg/dL (0.60-1.20); Glomerular Filtration Rate 10 (60-); Glucose, Blood 171 mg/dL (70-99); Magnesium, Blood 2.3 mg/dL (1.6-2.4); Phosphorus, Blood 4.6 mg/dL (2.5-4.9); Sodium, Blood 135 mmol/L (136-145)
--- NOTE | 2020-06-15 10:59 | NUR ---
PT GOING FOR CT W3ITH CONTRAST TODAY. SPOKE WITH DIALYSIS NURSE, PT WILL BE DIALYSIZED TOMORROW MORNING.
--- NOTE | 2020-06-15 11:21 | NUR ---
MEDICAL RECORDS REQUESTED FROM [facility] FROM IMAGING PER DR HEWITT. PT REPORTED HE HAD IMAGING STUDIES COMPLETED THERE. PER [facility] PT DOES NOT HAVE ANY IMAGING RECORDS AT THERE HOSPITAL. PT REPORTS MAYBE IT WAS THE [facility], [facility], AWATING FAX BACK.
--- NOTE | 2020-06-15 16:23 | NUR ---
IV'S REMOVED, SITES ARE WNL. NO SIGNS OF INFECTION. PT CALLED TO INFORM HER THAT HE IS READY FOR PICKUP. DISCHARGE PACKET WILL BE GONE OVER WITH PT AND AGAIN WITH ONCE SHE ARRIVES. WAITING CURRENTLY FOR .
--- NOTE | 2020-06-15 16:44 | NUR ---
PT BEING WHEELED DOWN TO @ 6970 BY YIFAN OCHOA.
--- NOTE | 2020-06-15 16:48 | NUR ---
KENNY WAS CONTACTED AND CONFIRMED WITH CORPORATION LAWYER THAT PT HAS DIALYSIS SCHEDULED FOR 06/16/20 @ 1500.
== END 2020-06-15 16:48 | disposition home health service (06) ==
LOC: ER 16:31 → MEDS 16:52 → ER 19:45 → MEDS 19:45
PROVIDERS: Emergency Medicine; Internal Medicine Nephrology; Physician Assistant; ADMIT Internal Medicine
DX: G92 Toxic encephalopathy (principal); I13.2 Hypertensive heart and chronic kidney disease with heart failure and with stage 5 chronic kidney disease, or end stage renal disease; E11.22 Type 2 diabetes mellitus with diabetic chronic kidney disease; N18.6 End stage renal disease; Z79.4 Long term (current) use of insulin; I48.0 Paroxysmal atrial fibrillation; G40.909 Epilepsy, unspecified, not intractable, without status epilepticus; Z86.73 Personal history of transient ischemic attack (TIA), and cerebral infarction without residual deficits; Z91.041 Radiographic dye allergy status; Z88.8 Allergy status to other drugs, medicaments and biological substances; Z91.018 Allergy to other foods; Z79.01 Long term (current) use of anticoagulants; Z79.899 Other long term (current) drug therapy; Z99.2 Dependence on renal dialysis; E78.5 Hyperlipidemia, unspecified; I50.42 Chronic combined systolic (congestive) and diastolic (congestive) heart failure; Z87.891 Personal history of nicotine dependence; J44.9 Chronic obstructive pulmonary disease, unspecified; I25.5 Ischemic cardiomyopathy
CPT/HCPCS: 36415; 51701; 70450; 70496; 70498; 71045; 80047; 80053; 80069; 81001; 82140; 82947; 83036; 83735; 84443; 84484; 85014; 85018; 85025; 93005; 93010; 93283; 93971; 96365-59; 96372; 96375; 96376; 97110; 97112; 97116; 97162; 97166; 97535; 99285-25; A9270; G0257; G0378; J1644; J1815; J1953; J2405; J3010; J7120; Q9967

== ENCOUNTER 2020-07-12 12:46 | Emergency (ER) | payer OTHER, MEDICARE ==
[~2020-07-12] VITALS: Ht 170.2 cm; Wt 77.1 kg
[~2020-07-12 12:46] MED LIST changes: +AMIODARONE HCL400 MG PO; +HUMALOG KW100 UNIT/1 SC
[2020-07-12 13:20] LABS: BASOPHILS ABSOLUTE AUTO 0.05 K/mm3 (0.00-0.23); BASOPHILS PERCENT AUTO 1 % (0-2); EOSINOPHILS ABSOLUTE AUTO 0.24 K/mm3 (0.00-0.68); EOSINOPHILS PERCENT AUTO 3 % (0-6); Hematocrit 37.2 % (37.0-53.0); Hemoglobin 12.3 g/dL (13.5-17.5); IMMATURE GRAN ABSOLUTE AUTO 0.02 K/mm3 (0.00-0.10); IMMATURE GRAN PERCENT AUTO 0 % (0-1); LYMPHOCYTES ABSOLUTE AUTO 1.37 K/mm3 (0.84-5.20); LYMPHOCYTES PERCENT AUTO 18 % (21-46); MONOCYTES ABSOLUTE AUTO 0.59 K/mm3 (0.16-1.47); MONOCYTES PERCENT AUTO 8 % (4-13); Mean Corpuscular HGB 31.5 pg (26.0-34.0); Mean Corpuscular HGB Conc 33.1 g/dL (31.5-36.5); Mean Corpuscular Volume 95 fL (80-100); NEUTROPHILS ABSOLUTE AUTO 5.25 K/mm3 (1.96-9.15); NEUTROPHILS PERCENT AUTO 70 % (41-73); Platelet Count 131 K/mm3 (150-400); RDW Coefficient Variation 13.2 % (11.7-14.2); RDW Standard Deviation 46.5 fL (35.1-46.3); White Blood Cell Count 7.52 K/mm3 (4.00-11.30)
[2020-07-12 13:49] LABS: Albumin, Blood 3.5 g/dL (3.4-5.0); Albumin/Globulin Ratio 0.9 (0.8-1.8); Bilirubin, Total 0.5 mg/dL (0.1-1.0); Bun/Creatinine Ratio 7.6 (12.0-20.0); Calcium, Blood 7.5 mg/dL (8.5-10.1); Creatinine, Blood 6.81 mg/dL (0.60-1.20); Globulin, Blood 3.7 g/dL (2.2-4.0); Potassium, Blood 4.3 mmol/L (3.5-5.5); Total Protein, Blood 7.2 g/dL (6.4-8.2); Troponin I 0.03 ng/mL (0.000-0.040)
== END 2020-07-12 16:07 | disposition home or self-care (01) ==
LOC: ER 12:46
PROVIDERS: Physician Assistant
DX: R07.9 Chest pain, unspecified (principal); I25.10 Atherosclerotic heart disease of native coronary artery without angina pectoris; I13.2 Hypertensive heart and chronic kidney disease with heart failure and with stage 5 chronic kidney disease, or end stage renal disease; I50.9 Heart failure, unspecified; E11.22 Type 2 diabetes mellitus with diabetic chronic kidney disease; N18.6 End stage renal disease; I48.91 Unspecified atrial fibrillation; E78.5 Hyperlipidemia, unspecified; Z91.018 Allergy to other foods; Z79.899 Other long term (current) drug therapy; Z79.4 Long term (current) use of insulin; Z95.810 Presence of automatic (implantable) cardiac defibrillator; Z91.041 Radiographic dye allergy status; Z88.8 Allergy status to other drugs, medicaments and biological substances; Z79.01 Long term (current) use of anticoagulants; Z86.73 Personal history of transient ischemic attack (TIA), and cerebral infarction without residual deficits
CPT/HCPCS: 71046; 80053; 83880; 84484; 85025; 93005; 93010; 96374; 99285-25; A9270; J2405

== ENCOUNTER 2020-07-26 18:10 | Emergency (ER) | payer OTHER, MEDICARE ==
[~2020-07-26] VITALS: Ht 172.7 cm; Wt 77.1 kg
[2020-07-26 18:36] LABS: BASOPHILS ABSOLUTE AUTO 0.04 K/mm3 (0.00-0.23); BASOPHILS PERCENT AUTO 1 % (0-2); EOSINOPHILS ABSOLUTE AUTO 0.14 K/mm3 (0.00-0.68); EOSINOPHILS PERCENT AUTO 2 % (0-6); Hematocrit 41.6 % (37.0-53.0); Hemoglobin 13.9 g/dL (13.5-17.5); IMMATURE GRAN ABSOLUTE AUTO 0.03 K/mm3 (0.00-0.10); IMMATURE GRAN PERCENT AUTO 0 % (0-1); LYMPHOCYTES ABSOLUTE AUTO 1.37 K/mm3 (0.84-5.20); LYMPHOCYTES PERCENT AUTO 20 % (21-46); MONOCYTES ABSOLUTE AUTO 0.54 K/mm3 (0.16-1.47); MONOCYTES PERCENT AUTO 8 % (4-13); Mean Corpuscular HGB 30.5 pg (26.0-34.0); Mean Corpuscular HGB Conc 33.4 g/dL (31.5-36.5); Mean Corpuscular Volume 91 fL (80-100); NEUTROPHILS PERCENT AUTO 69 % (41-73); Platelet Count 136 K/mm3 (150-400); RDW Coefficient Variation 12.7 % (11.7-14.2); RDW Standard Deviation 42.5 fL (35.1-46.3); Red Blood Cell Count 4.55 M/mm3 (4.30-5.90); White Blood Cell Count 6.72 K/mm3 (4.00-11.30)
[2020-07-26 18:45] LABS: International Normalized Ratio 1.02; Prothrombin Time Results 10.9 Sec (9.7-11.5)
[2020-07-26 19:09] LABS: Alanine Aminotransfer (ALT/SGP 100 U/L (12-78); Albumin, Blood 4.1 g/dL (3.4-5.0); Alk Phos 104 U/L (50-136); Anion Gap 11 mmol/L (6-16); Aspartate Aminotrans (AST/SGOT 59 U/L (12-37); Bilirubin, Total 0.5 mg/dL (0.1-1.0); Blood Urea Nitrogen 33 mg/dL (8-24); Bun/Creatinine Ratio 7.8 (12.0-20.0); CO2, Blood 31 mmol/L (21-32); Calcium, Blood 8.6 mg/dL (8.5-10.1); Chloride, Blood 96 mmol/L (98-108); Creatinine, Blood 4.23 mg/dL (0.60-1.20); Globulin, Blood 4.1 g/dL (2.2-4.0); Glomerular Filtration Rate 15 (60-); Glucose, Blood 169 mg/dL (70-99); Potassium, Blood 3.5 mmol/L (3.5-5.5); Sodium, Blood 138 mmol/L (136-145); Total Protein, Blood 8.2 g/dL (6.4-8.2); Troponin I <0.015 ng/mL (0.000-0.040)
[2020-07-26] MEDS ORDERED: Roxicodone5 MG PO (21:21)
== END 2020-07-26 21:30 | disposition home or self-care (01) ==
LOC: ER 18:10
PROVIDERS: Emergency Medicine
DX: R07.9 Chest pain, unspecified (principal); R06.02 Shortness of breath; R11.2 Nausea with vomiting, unspecified; I25.10 Atherosclerotic heart disease of native coronary artery without angina pectoris; I48.91 Unspecified atrial fibrillation; I50.9 Heart failure, unspecified; N18.6 End stage renal disease; Z86.73 Personal history of transient ischemic attack (TIA), and cerebral infarction without residual deficits; Z95.810 Presence of automatic (implantable) cardiac defibrillator; Z87.891 Personal history of nicotine dependence
CPT/HCPCS: 36415; 71046; 80053; 84484; 85025; 85610; 85730; 93005; 93010; 99285-25; A9270

== ENCOUNTER 2020-08-06 18:36 | Emergency (ER) | payer OTHER, MEDICARE ==
[~2020-08-06] VITALS: Ht 177.8 cm; Wt 77.1 kg
[~2020-08-06 18:36] MED LIST changes: +Roxicodone5 MG PO
[2020-08-06 19:29] LABS: BASOPHILS ABSOLUTE AUTO 0.04 K/mm3 (0.00-0.23); BASOPHILS PERCENT AUTO 0 % (0-2); EOSINOPHILS PERCENT AUTO 1 % (0-6); Hematocrit 41.2 % (37.0-53.0); Hemoglobin 13.9 g/dL (13.5-17.5); IMMATURE GRAN ABSOLUTE AUTO 0.11 K/mm3 (0.00-0.10); IMMATURE GRAN PERCENT AUTO 1 % (0-1); LYMPHOCYTES ABSOLUTE AUTO 1.22 K/mm3 (0.84-5.20); LYMPHOCYTES PERCENT AUTO 11 % (21-46); MONOCYTES ABSOLUTE AUTO 0.97 K/mm3 (0.16-1.47); MONOCYTES PERCENT AUTO 8 % (4-13); Mean Corpuscular HGB 30.7 pg (26.0-34.0); Mean Corpuscular HGB Conc 33.7 g/dL (31.5-36.5); Mean Corpuscular Volume 91 fL (80-100); Mean Platelet Volume 10.7 fL (9.1-12.4); NEUTROPHILS ABSOLUTE AUTO 9.11 K/mm3 (1.96-9.15); NEUTROPHILS PERCENT AUTO 79 % (41-73); Platelet Count 57 K/mm3 (150-400); RDW Coefficient Variation 12.5 % (11.7-14.2); RDW Standard Deviation 41.5 fL (35.1-46.3); Red Blood Cell Count 4.53 M/mm3 (4.30-5.90); White Blood Cell Count 11.55 K/mm3 (4.00-11.30)
[2020-08-06 19:38] LABS: Alanine Aminotransfer (ALT/SGP 224 U/L (12-78); Albumin, Blood 4.1 g/dL (3.4-5.0); Albumin/Globulin Ratio 0.9 (0.8-1.8); Alk Phos 96 U/L (50-136); Anion Gap 11 mmol/L (6-16); Aspartate Aminotrans (AST/SGOT 152 U/L (12-37); Bilirubin, Total 0.5 mg/dL (0.1-1.0); Blood Urea Nitrogen 28 mg/dL (8-24); Bun/Creatinine Ratio 6.7 (12.0-20.0); CO2, Blood 33 mmol/L (21-32); Calcium, Blood 8.3 mg/dL (8.5-10.1); Chloride, Blood 92 mmol/L (98-108); Creatinine, Blood 4.15 mg/dL (0.60-1.20); Globulin, Blood 4.4 g/dL (2.2-4.0); Glomerular Filtration Rate 15 (60-); Glucose, Blood 121 mg/dL (70-99); Potassium, Blood 3.1 mmol/L (3.5-5.5); Sodium, Blood 136 mmol/L (136-145); Total Protein, Blood 8.5 g/dL (6.4-8.2); Troponin I <0.015 ng/mL (0.000-0.040)
[2020-08-06 20:42] LABS: International Normalized Ratio 1.07; Prothrombin Time Results 11.4 Sec (9.7-11.5)
[2020-08-06] MEDS ORDERED: ONDA4ODT MM (22:36)
== END 2020-08-06 23:00 | disposition home or self-care (01) ==
LOC: ER 18:36
PROVIDERS: Emergency Medicine
DX: M54.9 Dorsalgia, unspecified (principal); R11.2 Nausea with vomiting, unspecified; I25.10 Atherosclerotic heart disease of native coronary artery without angina pectoris; I13.2 Hypertensive heart and chronic kidney disease with heart failure and with stage 5 chronic kidney disease, or end stage renal disease; N18.6 End stage renal disease; E11.22 Type 2 diabetes mellitus with diabetic chronic kidney disease; I48.91 Unspecified atrial fibrillation; G40.909 Epilepsy, unspecified, not intractable, without status epilepticus; E78.5 Hyperlipidemia, unspecified; Z79.4 Long term (current) use of insulin; Z86.73 Personal history of transient ischemic attack (TIA), and cerebral infarction without residual deficits; Z79.01 Long term (current) use of anticoagulants; Z88.8 Allergy status to other drugs, medicaments and biological substances; Z79.899 Other long term (current) drug therapy
CPT/HCPCS: 71045; 71275; 74174; 80053; 83690; 83880; 84484; 85025; 85610; 85730; 93005; 93010; 96374-59; 96375; 96376; 99285-25; A9270; J1170; J2405; Q9967

== ENCOUNTER 2020-08-18 11:09 | Inpatient (IN) | payer OTHER, MEDICARE ==
[~2020-08-18] VITALS: Ht 172.7 cm; Wt 69.1 kg
[~2020-08-18 11:09] MED LIST changes: -AMIODARONE HCL400 MG PO; +Amiodarone HCl200 MG PO
[2020-08-18] MEDS ORDERED: METO100ER PO (11:27)
[2020-08-18 12:02] LABS: BASOPHILS ABSOLUTE AUTO 0.04 K/mm3 (0.00-0.23); BASOPHILS PERCENT AUTO 1 % (0-2); EOSINOPHILS ABSOLUTE AUTO 0.11 K/mm3 (0.00-0.68); EOSINOPHILS PERCENT AUTO 2 % (0-6); Hemoglobin 13.2 g/dL (13.5-17.5); IMMATURE GRAN ABSOLUTE AUTO 0.02 K/mm3 (0.00-0.10); IMMATURE GRAN PERCENT AUTO 0 % (0-1); LYMPHOCYTES ABSOLUTE AUTO 1.78 K/mm3 (0.84-5.20); LYMPHOCYTES PERCENT AUTO 28 % (21-46); MONOCYTES ABSOLUTE AUTO 0.93 K/mm3 (0.16-1.47); MONOCYTES PERCENT AUTO 15 % (4-13); Mean Corpuscular HGB 30.6 pg (26.0-34.0); Mean Corpuscular HGB Conc 32.2 g/dL (31.5-36.5); Mean Corpuscular Volume 95 fL (80-100); NEUTROPHILS ABSOLUTE AUTO 3.44 K/mm3 (1.96-9.15); NEUTROPHILS PERCENT AUTO 55 % (41-73); Platelet Count 136 K/mm3 (150-400); RDW Coefficient Variation 12.8 % (11.7-14.2); RDW Standard Deviation 44.5 fL (35.1-46.3); Red Blood Cell Count 4.32 M/mm3 (4.30-5.90); White Blood Cell Count 6.32 K/mm3 (4.00-11.30)
[2020-08-18 12:21] LABS: International Normalized Ratio 1.04; Prothrombin Time Results 11.1 Sec (9.7-11.5)
[2020-08-18 12:24] LABS: Albumin, Blood 3.7 g/dL (3.4-5.0); Albumin/Globulin Ratio 0.9 (0.8-1.8); Bilirubin, Total 0.6 mg/dL (0.1-1.0); Bun/Creatinine Ratio 5.8 (12.0-20.0); Calcium, Blood 7.7 mg/dL (8.5-10.1); Creatinine, Blood 6.37 mg/dL (0.60-1.20); Globulin, Blood 4.2 g/dL (2.2-4.0); Total Protein, Blood 7.9 g/dL (6.4-8.2)
[2020-08-18] MEDS ORDERED: CINA30 PO (13:45)
[2020-08-18] MEDS ORDERED: OMEP20ER PO (13:48)
--- NOTE | 2020-08-18 17:21 | NUR ---
TALKED TO ABOUT PATIENTS PAIN. SPEECH THERAPY SAYS CAN HAVE P.O. MEDS CRUSHED IN APPLESAUCE. FENTANYL NOT WORKING. ORDER HYDROCODONE 7.5/325 Q6 PRN
--- NOTE | 2020-08-18 17:24 | NUR ---
ARRIVES TO FLOOR ABOUT 1600. ALERT. ORIENTED. PLEASANT. JOKING. NO SLURRED SPEECH NOTED. TONGUE DEVIATES TO THE RIGHT. LEFT HAND WEAKER THAN RT. UNABLE TO LIFT LEFT LEG FROM BED. SPEECH EVAL DONE AND NPO, BUT CAN HAVE MEDS CRUSHED IN APPLESAUCE. UNLABORED RESPIRATIONS. TELE ORDERED, BUT NOT HERE YET. BACK PAIN WITH FENTANYL NOT WORKING WELL. TRATE AWARE AND MEDS ORDERED. DIALYSIS PATIENT WITH FISTULA LEFT ARM. BRUISING TO THAT AREA, GOOD BRUIT AND +THRILL. HAD DIALYSIS YESTERDAY. HAD PERMACATH LEFT C.W THAT WAS REMOVED FEW WEEKS AGO WITH BRUISING TO THAT AREA. [facility]
--- NOTE | 2020-08-18 18:38 | NUR ---
THIS RN TALKED TO MARLEN, HELP DESK OPERATOR, MULTIPLE TIMES. PATIENT TO HAVE DIALYSIS TONIGHT.
--- NOTE | 2020-08-18 21:26 | NUR ---
PATIENT CURRENTLY IN DIALYSIS. WILL ADMISTER NENORA WHEN COMPLETE.
[2020-08-18] MEDS ORDERED: AMLO10 PO (22:51)
[2020-08-18] MEDS ORDERED: ROSU10TA PO (22:56)
[2020-08-18 23:50] LABS: Source, Urine Voided
[2020-08-19 00:02] LABS: Bilirubin, Urine Neg (Neg); Blood, Urine Neg (Neg); Glucose Qualitative, Urine 1+ (Neg); Ketones, Urine Neg (Neg); Leukocyte Esterase, Urine Neg (Neg); Nitrite, Urine Neg (Neg); Protein, Urine 4+ (Neg); Urobilinogen, Urine NORM (Normal)
[2020-08-19 00:13] LABS: Appearance, Urine Clear (Clear); Color, Urine Yellow (P-Yellow)
[2020-08-19 00:14] LABS: Bacteria Not Seen /hpf; Red Blood Cells, Urine Not Seen /hpf (0-2); Squamous Epithelial Cells Not Seen /hpf (Few); White Blood Cells, Urine 0-2 /hpf (0-5)
[2020-08-19] MEDS ORDERED: ARGININE PO (04:39)
[2020-08-19 04:47] LABS: BASOPHILS ABSOLUTE AUTO 0.04 K/mm3 (0.00-0.23); BASOPHILS PERCENT AUTO 1 % (0-2); EOSINOPHILS ABSOLUTE AUTO 0.16 K/mm3 (0.00-0.68); EOSINOPHILS PERCENT AUTO 3 % (0-6); Hematocrit 39.5 % (37.0-53.0); Hemoglobin 12.8 g/dL (13.5-17.5); IMMATURE GRAN ABSOLUTE AUTO 0.02 K/mm3 (0.00-0.10); IMMATURE GRAN PERCENT AUTO 0 % (0-1); LYMPHOCYTES ABSOLUTE AUTO 1.47 K/mm3 (0.84-5.20); LYMPHOCYTES PERCENT AUTO 31 % (21-46); MONOCYTES ABSOLUTE AUTO 0.57 K/mm3 (0.16-1.47); MONOCYTES PERCENT AUTO 12 % (4-13); Mean Corpuscular HGB 30.5 pg (26.0-34.0); Mean Corpuscular HGB Conc 32.4 g/dL (31.5-36.5); Mean Corpuscular Volume 94 fL (80-100); Mean Platelet Volume 9.6 fL (9.1-12.4); NEUTROPHILS ABSOLUTE AUTO 2.47 K/mm3 (1.96-9.15); NEUTROPHILS PERCENT AUTO 52 % (41-73); Platelet Count 125 K/mm3 (150-400); RDW Coefficient Variation 12.9 % (11.7-14.2); RDW Standard Deviation 44.5 fL (35.1-46.3); White Blood Cell Count 4.73 K/mm3 (4.00-11.30)
[2020-08-19 05:12] LABS: Alanine Aminotransfer (ALT/SGP 190 U/L (12-78); Albumin, Blood 3.5 g/dL (3.4-5.0); Albumin/Globulin Ratio 0.9 (0.8-1.8); Alk Phos 77 U/L (50-136); Anion Gap 4 mmol/L (6-16); Aspartate Aminotrans (AST/SGOT 104 U/L (12-37); Bilirubin, Total 0.5 mg/dL (0.1-1.0); Blood Urea Nitrogen 26 mg/dL (8-24); Bun/Creatinine Ratio 4.9 (12.0-20.0); CO2, Blood 37 mmol/L (21-32); Chloride, Blood 94 mmol/L (98-108); Creatinine, Blood 5.35 mg/dL (0.60-1.20); Globulin, Blood 3.8 g/dL (2.2-4.0); Glomerular Filtration Rate 11 (60-); Glucose, Blood 156 mg/dL (70-99); Magnesium, Blood 2.4 mg/dL (1.6-2.4); Phosphorus, Blood 4.6 mg/dL (2.5-4.9); Potassium, Blood 3.8 mmol/L (3.5-5.5); Sodium, Blood 135 mmol/L (136-145); Total Protein, Blood 7.3 g/dL (6.4-8.2)
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
--- NOTE | 2020-08-19 08:22 | NUR ---
LEFT ARM FLACCID. ELEVATED ON PILLOW. ABLE TO FLEX LEFT FOOT AND WIGGLES TOES. LT LOWER EXT WEAKER THAN RT. P.T. TO EVAL AND SPEECH TO COME IN AGAIN.
--- NOTE | 2020-08-19 08:30 | NUR ---
aware of patient wanting different pain meds.
--- NOTE | 2020-08-19 10:40 | NUR ---
ASKED FOR DIFFERENT PAIN MED. PATIENT NOW MECHANICAL SOFT AND MEDS WHOLE W/APPLESAUCE. AWAITING FURTHER ORDERS.
--- NOTE | 2020-08-19 16:40 | NUR ---
THIS RN FAXED MED LIST RQUEST YESTERDAY TO [facility] AND MEDICAL RECORDS. HAVE NOT RECEIVED ANY LIST OF THIS TIME. CALLED ABOUT PAIN MEDS. AWAITING ORDERS
--- NOTE | 2020-08-19 18:28 | NUR ---
ALERT. ORIENTED. NO SLURRED SPEECH. LEFT SIDED DEFICIT. ABLE TO PUSH/PULL BOTH FEET. NO MOVEMENT TO LEFT ARM. ARM ELEVATED ON PILLOW. TAKES MEDS WHOLE IN APPLESAUCE. MECH SOFT DIET TOLERATING WELL. USES URINAL.HAS CHRONIC PAIN BACK AND NECK. TELE ON RATE 60 WITH INTERMITTENT PACER SPIKES. UNABLE TO HAVE MRI DUE TO PACEMAKER/DEFIB. FISTULA LEFT ARM. TM
[2020-08-20 05:00] LABS: BASOPHILS ABSOLUTE AUTO 0.04 K/mm3 (0.00-0.23); BASOPHILS PERCENT AUTO 1 % (0-2); EOSINOPHILS ABSOLUTE AUTO 0.18 K/mm3 (0.00-0.68); EOSINOPHILS PERCENT AUTO 4 % (0-6); Hemoglobin 12.7 g/dL (13.5-17.5); IMMATURE GRAN ABSOLUTE AUTO 0.01 K/mm3 (0.00-0.10); IMMATURE GRAN PERCENT AUTO 0 % (0-1); LYMPHOCYTES ABSOLUTE AUTO 1.23 K/mm3 (0.84-5.20); LYMPHOCYTES PERCENT AUTO 24 % (21-46); MONOCYTES ABSOLUTE AUTO 0.54 K/mm3 (0.16-1.47); MONOCYTES PERCENT AUTO 11 % (4-13); Mean Corpuscular HGB 30.9 pg (26.0-34.0); Mean Corpuscular HGB Conc 31.8 g/dL (31.5-36.5); Mean Corpuscular Volume 97 fL (80-100); Mean Platelet Volume 9.4 fL (9.1-12.4); NEUTROPHILS ABSOLUTE AUTO 3.09 K/mm3 (1.96-9.15); NEUTROPHILS PERCENT AUTO 61 % (41-73); Platelet Count 142 K/mm3 (150-400); RDW Coefficient Variation 12.8 % (11.7-14.2); RDW Standard Deviation 45.9 fL (35.1-46.3); Red Blood Cell Count 4.11 M/mm3 (4.30-5.90); White Blood Cell Count 5.09 K/mm3 (4.00-11.30)
[2020-08-20 05:29] LABS: Albumin, Blood 3.7 g/dL (3.4-5.0); Anion Gap 10 mmol/L (6-16); Blood Urea Nitrogen 38 mg/dL (8-24); Bun/Creatinine Ratio 5.1 (12.0-20.0); CO2, Blood 33 mmol/L (21-32); Chloride, Blood 92 mmol/L (98-108); Creatinine, Blood 7.39 mg/dL (0.60-1.20); Glomerular Filtration Rate 8 (60-); Glucose, Blood 134 mg/dL (70-99); Magnesium, Blood 2.6 mg/dL (1.6-2.4); Potassium, Blood 3.8 mmol/L (3.5-5.5); Sodium, Blood 135 mmol/L (136-145)
[2020-08-20 05:43] LABS: Phosphorus, Blood 8.5 mg/dL (2.5-4.9)
--- NOTE | 2020-08-20 05:54 | NUR ---
DIGITAL PERFORMANCE ANALYST SUMMARY Patient slept well through most of night waking to take HS meds whole with applesauce without difficulty swallowing. Oxycodone taken at 2400 and 0600 for his chronic pain in neck to mid back area. limbs still flaccid with only movement of toes on affected foot.
--- NOTE | 2020-08-20 08:08 | NUR ---
TRANSITIONAL KINDERGARTEN TEACHER SUMMARY Patient slept well with minimal change in ability to move left upper or lower extremities. Patient can move toes on command. He did call at 6 hour intervals for pain relief stating that his current regimen is not going to work if he is to be at his best for physical therapy. Flexaril given with oxycodone in AM, however upon meeting therapist, he stated that the muscle relaxer may be counter productive to therapy
[2020-08-20] MEDS ORDERED: LAMO100 PO (14:15)
[2020-08-20] MEDS ORDERED: CINA30 PO (14:16)
[2020-08-20] MEDS ORDERED: ONDA4ODT MM (14:17)
[2020-08-20] MEDS ORDERED: MIRALAX17 GM PO (14:18)
[2020-08-20] MEDS ORDERED: Crestor20 MG PO (14:19)
--- NOTE | 2020-08-20 14:35 | NUR ---
MEDICATION LIST SENT OVER FROM THE [place]. MED REC COMPLETED.
--- NOTE | 2020-08-20 17:30 | NUR ---
SHIFT SUMMARY PT A/O X4; PLEASANT AND COOPERATIVE WITH CARE. PT HAS SOME MOVEMENT IN LEFT HAND AND IS ABLE TO MOVE LEFT TOES ON COMMAND. PT HAD DIALYSIS AND HEAD CT TODAY. VSS; PT IS CURRENTLY RESTING IN BED COMFORTABLY WITH CALL LIGHT IN REACH.
--- NOTE | 2020-08-21 01:27 | NUR ---
PT C/O PAIN AND NO MEDS ARE ORDERED; DR CLIFTON NOTIFIED WITH ORDERS FOR FENTANYL 25-50MG, IV, Q6P, PRN, PAIN.
--- NOTE | 2020-08-21 03:48 | NUR ---
SHIFT SUMMARY: 65 Y/O MALE RESTED COMFORTABLY ALL SHIFT; PT HAD ONE EPISODE PAIN WITH FENTANYL 50MG IVP GIVEN WITH RELIEF FELT (PAIN BACK/NECK RATED 8/10); LEFT SIDE BODY FLACCID; ABLE TO SWALLOW FLUIDS WITHOUT ISSUE; ALERT AND ORIENTED X 4; BED LOW POSITION WITH BED ALARM APPLIED, CALL LIGHT AT SIDE.
[2020-08-21 05:14] LABS: Hematocrit 38.1 % (37.0-53.0); Hemoglobin 12.4 g/dL (13.5-17.5)
[2020-08-21 05:37] LABS: Albumin, Blood 3.3 g/dL (3.4-5.0); Anion Gap 7 mmol/L (6-16); Blood Urea Nitrogen 35 mg/dL (8-24); Bun/Creatinine Ratio 5.6 (12.0-20.0); CO2, Blood 33 mmol/L (21-32); Calcium, Blood 7.7 mg/dL (8.5-10.1); Chloride, Blood 93 mmol/L (98-108); Glomerular Filtration Rate 9 (60-); Glucose, Blood 163 mg/dL (70-99); Magnesium, Blood 2.3 mg/dL (1.6-2.4); Phosphorus, Blood 5.6 mg/dL (2.5-4.9); Potassium, Blood 4.7 mmol/L (3.5-5.5); Sodium, Blood 133 mmol/L (136-145)
--- NOTE | 2020-08-21 18:42 | NUR ---
SHIFT SUMMARY GRICELDA COMPLAINED OF PAIN THIS SHIFT. GOT TYLENOL AND TRAMADOL TO SOME RELIEF, DR DENNEY AWARE. HEAT PACK IN PLACE. TOOK PILLS WITH APPLESAUCE. WORKED WITH PT. VISITED. BLADDER SCAN SHOWED 386, PER DR DENNEY WE WILL STRAIGHT CATH FOR OVER 500ML. UP WITH AO1 TO CHAIR FOR MEALS. CALL LIGHT IN REACH, [facility]
--- NOTE | 2020-08-21 22:19 | NUR ---
2000 65 Y/O MALE RESTING COMFORTABLY IN BED; PT HAS GROSS MOTOR MOVEMENT LEFT ARM AND ABLE TO MOVE LEFT FOOT TOES ONLY; PT HAS FULL ROM ON RIGHT SIDE OF BODY; ABLE SWALLOW LIQUIDS WITHOUT ISSUE. 2029 PT TOOK ALL H.S. MEDS WHOLE IN APPLESAUCE WITH ASSISTANCE FROM THIS NURSE; ALERT AND ORIENTED X 4.
--- NOTE | 2020-08-22 03:32 | NUR ---
SHIFT SUMMARY: 65 Y/O MALE RESTED COMFORTABLY ALL SHIFT; PT HAS FULL MOVEMENT RIGHT SIDED; LEFT UPPER ARM HAS GROSS MOTOR MOVEMENT NOTED; PT LLE HAS SLIGHT TOE MOVEMENT ONLY; ALERT AND ORIENTED X 4; ABLE SWALLOW FOODS AND TOOK ALL PILLS WHOLE IN APPLESAUSE ASSISTED BY THIS NURSE; DENIES PAIN THIS SHIFT; PT SCHEDULED FOR DIALYSIS TODAY; BED ALARM APPLIED, BED LOW POSITION WITH CALL LIGHT AT SIDE.
[2020-08-22 04:55] LABS: Hematocrit 35.7 % (37.0-53.0); Hemoglobin 11.8 g/dL (13.5-17.5)
[2020-08-22 05:22] LABS: Albumin, Blood 3.3 g/dL (3.4-5.0); Anion Gap 9 mmol/L (6-16); Blood Urea Nitrogen 46 mg/dL (8-24); Bun/Creatinine Ratio 6.1 (12.0-20.0); CO2, Blood 30 mmol/L (21-32); Chloride, Blood 93 mmol/L (98-108); Creatinine, Blood 7.56 mg/dL (0.60-1.20); Glomerular Filtration Rate 8 (60-); Glucose, Blood 140 mg/dL (70-99); Magnesium, Blood 2.2 mg/dL (1.6-2.4); Phosphorus, Blood 6.4 mg/dL (2.5-4.9); Potassium, Blood 4.1 mmol/L (3.5-5.5); Sodium, Blood 132 mmol/L (136-145)
--- NOTE | 2020-08-22 18:41 | NUR ---
SHIFT SUMMARY GRICELDA WENT TO DIALYSIS THIS SHIFT. WAS PAINFUL IN NECK, BACK OF LEGS, AND LUE. HE RECEIVED TYLENOL AND FLEXERIL AND HAS A HEAT PACK FOR PAIN. TOOK MEDS IN APPLESAUCE. USES URINAL IN BED. HAD BM ON BSC. UP TO CHAIRS FOR MEALS WITH AO1 AND GAIT BELT. CALL LIGHT IN REACH, [facility]
--- NOTE | 2020-08-22 21:04 | NUR ---
65 Y/O MALE RESTING COMFORTABLY IN BED; PT ABLE MOVE LEFT FOOT TOES ONLY; PT HAS GROSS MOTOR MOVEMENT LEFT ARM; RIGHT SIDE BODY INTACT; ABLE SWALLOW FOOD/WATER; TOOK ALL H.S. MEDS WHOLE IN APPLESAUCE WITH ASSIST FROM THIS NURSE; ALERT AND ORIENTED X 4; DENIES PAIN OR NAUSEA.
--- NOTE | 2020-08-23 03:04 | NUR ---
SHIFT SUMMARY: 65 Y/O MALE RESTED COMFORTABLY ALL SHIFT; PT ALERT AND ORIENTED X 4; PT LEFT ARM HAS GROSS MOTOR MOVEMENT WHILE LLE HAS SLIGHT TOE MOVEMENT AT TIMES; GOOD GAG REFLEX; HAPPY AND COOPERATIVE; PT C/O CHRONIC BACK/NECK PAIN AND FEELS THAT FLEXERIL 10MG AND TYLENOL 650MG PO CURRENTLY ORDERED AND GIVEN BY THIS NURSE ARE INADEQUATE; THIS NURSE CALLED HOSPITALIST AND OBTAINED ONE ORDER FOR OXYCODONE 5MG WITH RELIEF FELT; PT HAS DIALYSIS TODAY; PT WAITING PLACEMENT INTO SNF FOR REHAB; BED ALARM APPLIED FOR SAFETY, BED LOW POSITION WITH CALL LIGHT AT SIDE; DENIES NAUSEA.
[2020-08-23 05:20] LABS: Hematocrit 37.4 % (37.0-53.0); Hemoglobin 11.9 g/dL (13.5-17.5)
[2020-08-23 05:29] LABS: Albumin, Blood 3.2 g/dL (3.4-5.0); Anion Gap 5 mmol/L (6-16); Blood Urea Nitrogen 43 mg/dL (8-24); Bun/Creatinine Ratio 7.3 (12.0-20.0); CO2, Blood 33 mmol/L (21-32); Chloride, Blood 97 mmol/L (98-108); Creatinine, Blood 5.86 mg/dL (0.60-1.20); Glomerular Filtration Rate 10 (60-); Glucose, Blood 169 mg/dL (70-99); Magnesium, Blood 2.2 mg/dL (1.6-2.4); Phosphorus, Blood 4.4 mg/dL (2.5-4.9); Potassium, Blood 4.6 mmol/L (3.5-5.5); Sodium, Blood 135 mmol/L (136-145)
[2020-08-23] MEDS ORDERED: ATOR80 PO (13:22)
[2020-08-23 13:58] LABS: Influenza A, PCR Negative (NEGATIVE); Influenza B, PCR Negative (NEGATIVE); Resp Syncytial Virus, PCR Negative (NEGATIVE); SARS-Cov-2 (COVID-19) PCR, MMC Negative (NEGATIVE)
--- NOTE | 2020-08-23 15:33 | NUR ---
SUMMARY/DISCHARGE PT DISCHARGED TO [facility], REPORT CALLED TO [facility], PT TAKEN VIA WHEELCHAIR
== END 2020-08-23 15:21 | DRG 64 ==
LOC: ER 11:09 → MEDS 15:34 → ENPENDDIS 08-23 13:36 → MEDS 08-23 15:21
PROVIDERS: Emergency Medicine; Hospitalist; Internal Medicine Nephrology; Nurse Practitioner Acute Care; ADMIT Family Medicine
DX: I63.9 Cerebral infarction, unspecified (principal); N18.6 End stage renal disease; I13.2 Hypertensive heart and chronic kidney disease with heart failure and with stage 5 chronic kidney disease, or end stage renal disease; I50.22 Chronic systolic (congestive) heart failure; I48.20 Chronic atrial fibrillation, unspecified; E87.1 Hypo-osmolality and hyponatremia; N17.9 Acute kidney failure, unspecified; G81.94 Hemiplegia, unspecified affecting left nondominant side; E11.22 Type 2 diabetes mellitus with diabetic chronic kidney disease; Z99.2 Dependence on renal dialysis; I25.10 Atherosclerotic heart disease of native coronary artery without angina pectoris; Z79.4 Long term (current) use of insulin; M54.9 Dorsalgia, unspecified; G40.909 Epilepsy, unspecified, not intractable, without status epilepticus; F01.50 Vascular dementia, unspecified severity, without behavioral disturbance, psychotic disturbance, mood disturbance, and anxiety; I25.5 Ischemic cardiomyopathy; Z86.711 Personal history of pulmonary embolism; E78.5 Hyperlipidemia, unspecified; D63.1 Anemia in chronic kidney disease; Z95.810 Presence of automatic (implantable) cardiac defibrillator; Z87.891 Personal history of nicotine dependence; Z98.61 Coronary angioplasty status; G89.29 Other chronic pain; J44.9 Chronic obstructive pulmonary disease, unspecified; E87.70 Fluid overload, unspecified
CPT/HCPCS: 0241U; 36415; 70450; 70496; 70498; 71045; 80053; 80069; 81001; 82140; 82947; 83735; 84100; 84443; 85014; 85018; 85025; 85610; 92526; 92610; 93005; 93010; 96374-59; 96375-59; 97110; 97112; 97116; 97162; 97165; 97530; 97535; 99285-25; A9270; A9270-GY; C9113; J1644; J1953; J2405; J3010; J3475; Q9967

== ENCOUNTER 2020-09-01 10:33 | Emergency (ER) | payer OTHER, MEDICARE ==
[~2020-09-01] VITALS: Ht 170.2 cm; Wt 71.7 kg
[~2020-09-01 10:33] MED LIST changes: +ARGININE PO; +ATOR80 PO; +CINA30 PO; +METO100ER PO; +OMEP20ER PO
[2020-09-01 10:56] LABS: BASOPHILS ABSOLUTE AUTO 0.02 K/mm3 (0.00-0.23); BASOPHILS PERCENT AUTO 0 % (0-2); EOSINOPHILS ABSOLUTE AUTO 0.26 K/mm3 (0.00-0.68); EOSINOPHILS PERCENT AUTO 4 % (0-6); Hematocrit 32.7 % (37.0-53.0); Hemoglobin 10.7 g/dL (13.5-17.5); IMMATURE GRAN ABSOLUTE AUTO 0.02 K/mm3 (0.00-0.10); IMMATURE GRAN PERCENT AUTO 0 % (0-1); LYMPHOCYTES ABSOLUTE AUTO 1.07 K/mm3 (0.84-5.20); LYMPHOCYTES PERCENT AUTO 16 % (21-46); MONOCYTES ABSOLUTE AUTO 0.62 K/mm3 (0.16-1.47); MONOCYTES PERCENT AUTO 9 % (4-13); Mean Corpuscular HGB Conc 32.7 g/dL (31.5-36.5); Mean Corpuscular Volume 95 fL (80-100); Mean Platelet Volume 10.6 fL (9.1-12.4); NEUTROPHILS ABSOLUTE AUTO 4.69 K/mm3 (1.96-9.15); NEUTROPHILS PERCENT AUTO 70 % (41-73); Platelet Count 131 K/mm3 (150-400); RDW Coefficient Variation 12.7 % (11.7-14.2); RDW Standard Deviation 44.2 fL (35.1-46.3); Red Blood Cell Count 3.45 M/mm3 (4.30-5.90); White Blood Cell Count 6.68 K/mm3 (4.00-11.30)
[2020-09-01 11:19] LABS: Albumin, Blood 3.3 g/dL (3.4-5.0); Bilirubin, Total 0.4 mg/dL (0.1-1.0); Bun/Creatinine Ratio 7.1 (12.0-20.0); Globulin, Blood 3.3 g/dL (2.2-4.0); Potassium, Blood 4.7 mmol/L (3.5-5.5); Total Protein, Blood 6.6 g/dL (6.4-8.2)
[2020-09-01 11:21] LABS: Creatinine, Blood 8.57 mg/dL (0.60-1.20)
[2020-09-01 13:56] LABS: Influenza A, PCR Negative (NEGATIVE); Influenza B, PCR Negative (NEGATIVE); Resp Syncytial Virus, PCR Negative (NEGATIVE); SARS-Cov-2 (COVID-19) PCR, MMC Negative (NEGATIVE)
[2020-09-01 14:42] LABS: Source, Urine Clean Catch
[2020-09-01 14:49] LABS: Appearance, Urine Cloudy (Clear); Bilirubin, Urine Neg (Neg); Blood, Urine 2+ (Neg); Color, Urine Yellow (P-Yellow); Glucose Qualitative, Urine 2+ (Neg); Ketones, Urine Neg (Neg); Leukocyte Esterase, Urine 3+ (Neg); Nitrite, Urine Neg (Neg); Protein, Urine 4+ (Neg); Urobilinogen, Urine NORM (Normal)
[2020-09-01 15:20] LABS: Bacteria Many /hpf; Squamous Epithelial Cells Not Seen /hpf (Few); White Blood Cells, Urine 50-100 /hpf (0-5)
== END 2020-09-01 15:28 ==
LOC: ER 10:33
PROVIDERS: Emergency Medicine
DX: E11.22 Type 2 diabetes mellitus with diabetic chronic kidney disease (principal); I13.0 Hypertensive heart and chronic kidney disease with heart failure and stage 1 through stage 4 chronic kidney disease, or unspecified chronic kidney disease; I50.20 Unspecified systolic (congestive) heart failure; N18.6 End stage renal disease; I48.91 Unspecified atrial fibrillation; Z20.828 Contact with and (suspected) exposure to other viral communicable diseases; Z79.899 Other long term (current) drug therapy; Z79.01 Long term (current) use of anticoagulants; Z79.4 Long term (current) use of insulin; Z88.8 Allergy status to other drugs, medicaments and biological substances; Z91.02 Food additives allergy status; Z86.73 Personal history of transient ischemic attack (TIA), and cerebral infarction without residual deficits; Z99.2 Dependence on renal dialysis
CPT/HCPCS: 0241U; 80053; 81001; 83735; 85025; 86850; 86900; 86901; 87077; 87086; 87186; 93005; 93010; 97110; 97162; 97166; 99285-25; G0480; J7030

== ENCOUNTER 2020-09-03 16:05 | Inpatient (IN) | payer OTHER, MEDICARE ==
[~2020-09-03] VITALS: Ht 170.2 cm; Wt 65.4 kg
[2020-09-03 17:03] LABS: BASOPHILS ABSOLUTE AUTO 0.02 K/mm3 (0.00-0.23); BASOPHILS PERCENT AUTO 0 % (0-2); EOSINOPHILS ABSOLUTE AUTO 0.11 K/mm3 (0.00-0.68); EOSINOPHILS PERCENT AUTO 2 % (0-6); Hemoglobin 10.8 g/dL (13.5-17.5); IMMATURE GRAN ABSOLUTE AUTO 0.02 K/mm3 (0.00-0.10); IMMATURE GRAN PERCENT AUTO 0 % (0-1); LYMPHOCYTES ABSOLUTE AUTO 0.64 K/mm3 (0.84-5.20); LYMPHOCYTES PERCENT AUTO 9 % (21-46); MONOCYTES ABSOLUTE AUTO 0.56 K/mm3 (0.16-1.47); MONOCYTES PERCENT AUTO 8 % (4-13); Mean Corpuscular HGB Conc 32.7 g/dL (31.5-36.5); Mean Corpuscular Volume 95 fL (80-100); Mean Platelet Volume 11.2 fL (9.1-12.4); NEUTROPHILS ABSOLUTE AUTO 6.04 K/mm3 (1.96-9.15); NEUTROPHILS PERCENT AUTO 82 % (41-73); Platelet Count 148 K/mm3 (150-400); RDW Coefficient Variation 13.1 % (11.7-14.2); RDW Standard Deviation 45.1 fL (35.1-46.3); Red Blood Cell Count 3.48 M/mm3 (4.30-5.90); White Blood Cell Count 7.39 K/mm3 (4.00-11.30)
[2020-09-03 17:42] LABS: Albumin, Blood 3.4 g/dL (3.4-5.0); Bilirubin, Total 0.6 mg/dL (0.1-1.0); Bun/Creatinine Ratio 8.1 (12.0-20.0); Calcium, Blood 7.4 mg/dL (8.5-10.1); Creatinine, Blood 9.5 mg/dL (0.60-1.20); Globulin, Blood 3.5 g/dL (2.2-4.0); Potassium, Blood 4.7 mmol/L (3.5-5.5); Total Protein, Blood 6.9 g/dL (6.4-8.2)
[2020-09-03 18:41] LABS: International Normalized Ratio 1.11; Prothrombin Time Results 11.8 Sec (9.7-11.5)
[2020-09-03 18:50] LABS: Magnesium, Blood 1.7 mg/dL (1.6-2.4)
[2020-09-03 19:07] LABS: Troponin I 0.016 ng/mL (0.000-0.040)
[2020-09-03 20:34] LABS: Source, Urine Clean Catch
[2020-09-03 20:41] LABS: Bilirubin, Urine Neg (Neg); Blood, Urine 3+ (Neg); Glucose Qualitative, Urine 1+ (Neg); Ketones, Urine 2+ (Neg); Leukocyte Esterase, Urine 3+ (Neg); Nitrite, Urine Neg (Neg); Protein, Urine 4+ (Neg); Urobilinogen, Urine NORM (Normal)
[2020-09-03 20:48] LABS: Appearance, Urine Hazy (Clear); Color, Urine Yellow (P-Yellow)
[2020-09-03 20:49] LABS: Bacteria Many /hpf; Squamous Epithelial Cells Not Seen /hpf (Few); White Blood Cells, Urine 25-50 /hpf (0-5)
--- NOTE | 2020-09-04 00:31 | NUR ---
2330 PT ADMITTED TO ROOM 337 PER CART FROM ER; REPORT RECEIVED FROM PATRICIA DILLARD IN ER; ALERT AND ORIENTED X 4
--- NOTE | 2020-09-04 03:21 | NUR ---
SHIFT SUMMARY: 65 Y/O MALE RESTED COMFORTABLY ALL SHIFT; DENIES PAIN OR NAUSEA; FEELS MUCH AFTER CALCIUM GLUCONATE X 2 GIVEN VIA IVPB; HAPPY AND COOPERATIVE; PT NEEDS DIALYSIS TODAY HE DID NOT GET ON 09/03/20; BED LOW POSITION WITH CALL LIGHT AT SIDE.
[2020-09-04 08:26] LABS: BASOPHILS ABSOLUTE AUTO 0.04 K/mm3 (0.00-0.23); BASOPHILS PERCENT AUTO 0 % (0-2); EOSINOPHILS ABSOLUTE AUTO 0.07 K/mm3 (0.00-0.68); EOSINOPHILS PERCENT AUTO 1 % (0-6); Hematocrit 34.3 % (37.0-53.0); Hemoglobin 11.4 g/dL (13.5-17.5); IMMATURE GRAN ABSOLUTE AUTO 0.08 K/mm3 (0.00-0.10); IMMATURE GRAN PERCENT AUTO 1 % (0-1); LYMPHOCYTES ABSOLUTE AUTO 0.69 K/mm3 (0.84-5.20); LYMPHOCYTES PERCENT AUTO 6 % (21-46); MONOCYTES ABSOLUTE AUTO 0.83 K/mm3 (0.16-1.47); MONOCYTES PERCENT AUTO 8 % (4-13); Mean Corpuscular HGB 31.5 pg (26.0-34.0); Mean Corpuscular HGB Conc 33.2 g/dL (31.5-36.5); Mean Corpuscular Volume 95 fL (80-100); Mean Platelet Volume 10.8 fL (9.1-12.4); NEUTROPHILS ABSOLUTE AUTO 9.23 K/mm3 (1.96-9.15); NEUTROPHILS PERCENT AUTO 84 % (41-73); Platelet Count 158 K/mm3 (150-400); RDW Coefficient Variation 13.1 % (11.7-14.2); RDW Standard Deviation 45.5 fL (35.1-46.3); Red Blood Cell Count 3.62 M/mm3 (4.30-5.90); White Blood Cell Count 10.94 K/mm3 (4.00-11.30)
[2020-09-04 08:55] LABS: Albumin, Blood 3.4 g/dL (3.4-5.0); Anion Gap 19 mmol/L (6-16); Blood Urea Nitrogen 76 mg/dL (8-24); CO2, Blood 15 mmol/L (21-32); Calcium, Blood 7.9 mg/dL (8.5-10.1); Chloride, Blood 101 mmol/L (98-108); Glucose, Blood 167 mg/dL (70-99); Phosphorus, Blood 5.4 mg/dL (2.5-4.9); Potassium, Blood 4.5 mmol/L (3.5-5.5); Sodium, Blood 135 mmol/L (136-145)
[2020-09-04 08:57] LABS: Bun/Creatinine Ratio 7.7 (12.0-20.0); Creatinine, Blood 9.86 mg/dL (0.60-1.20); Glomerular Filtration Rate 6 (60-)
--- NOTE | 2020-09-04 15:00 | NUR ---
CALLED DR ALICEA- PT TOOK TYLENOL STATING 9/10 PAIN. NO IMPROVEMENT AT THIS TIME. ASKED PT WHAT HE TAKES AT HOME HE STATED OXYCODONE 5/325. WHEN ASKED HOW OFTEN HE STATED A "COUPLE TIMES A WEEK." CALLED DR ALICEA AND RECIEVED ORDER FOR PERCOCET 5/325. WILL MEDICATE ONCE MED IS VERIFIED BY PHARMACY.
--- NOTE | 2020-09-04 15:20 | NUR ---
WENT IN TO MEDICATE THE PT FOR PAIN AND HE STATED HE HAD HIS PAIN MEDICATION IN HIS BAG. TOOK PT BOTTLE OF OXYCODONE WITH 4 TABS IN IT TO APRYL GARCIA WHO PROVIDED A RECEIPT FOR PT TO LABORER STEEL HANDLING THE MEDS WHEN HE IS DISCHARGED. RECIEPT ON THE FRONT OF THE CHART. PT IS AWARE.
--- NOTE | 2020-09-04 15:44 | NUR ---
CALLED DR ALICEA- PT HAD A RENAL ULTRASOUND WITH BLADDER. TECH STATED THE PT WAS UNABLE TO VOID PRIOR TO THE TEST AND A VOLUME OF 474 ML WAS IN THE BLADDER AT THE TIME OF THE TEST. ORDER RECIEVED TO PLACE A CAZARES AND REASSESS IN 24 HOURS.
[2020-09-04 16:22] LABS: Source, Urine Catheter
[2020-09-04 16:29] LABS: Appearance, Urine Clear (Clear); Bilirubin, Urine Neg (Neg); Blood, Urine 3+ (Neg); Color, Urine Yellow (P-Yellow); Glucose Qualitative, Urine 2+ (Neg); Ketones, Urine 2+ (Neg); Leukocyte Esterase, Urine 2+ (Neg); Nitrite, Urine Neg (Neg); Protein, Urine 4+ (Neg); Urobilinogen, Urine NORM (Normal)
[2020-09-04 16:38] LABS: Bacteria Many /hpf; Squamous Epithelial Cells Not Seen /hpf (Few)
--- NOTE | 2020-09-04 18:35 | NUR ---
SHIFT SUMMARY- PT HAD DIALYSIS TODAY, HE IS ALERT AND ORIENTED, 2P MAX ASSIST TO THE BSC. PT HAD A VERY LARGE BM TODAY, THE SHAKES ARE SO BAD WHEN HE TRIES TO MOVE HE IS DIFFICULT TO ASSIST. AFTER RENAL ULTRASOUND DR ALICEA WAS CALLED ABOUT THE BLADDER VLOUME, CAZARES CATH WAS ORDERED AND PLACED. 14F COUDE PLACED. URINE SAMPLE COLLECTED UPON PLACEMENT AND SENT TO THE LAB PER UNIT PROTOCOL. PT HAD SOME PAIN CONCERNES EARLIER IN THE SHIFT PERCOCET ORDERED Q8. 1 TAB GIVEN TODAY SEEMED TO WORK WELL. TYLENOL WAS INEFFECTIVE BEFORE THAT. PT HAS HAD NO ACUTE CHANGES T/O THE DAY. WILL CTM. REQUESTED PT BE PLACED IN ISOLATION FOR MRSA. PT NOW ON IV VANCO. IV IS SL CURRENTLY. WILL PASS ALL ON TO NIGHT RN IN BEDSIDE REPORT.
--- NOTE | 2020-09-04 22:08 | NUR ---
2000 65 Y/O MALE RESTING COMFORTABLY IN BED; CHEERFUL; DENIES PAIN OR NAUSEA; FEELS BETTER PRIOR TO ADMISSION.
--- NOTE | 2020-09-05 03:42 | NUR ---
SHIFT SUMMARY: 65 Y/O MALE HAD RESTLESS NIGHT FIRST 2 SHIFT; PT HAD UNWITNESSED FALL IN ROOM THIS SHIFT WITH PT ASSISTED BACK TO BED VIA VIOLETA LIFT; PT VOICED NO OUTWARD PAIN (ALERT AND ORIENTED X 2 AFTER INITIAL FALL); PT DID RECEIVE CAT SCAN OF HEAD THIS SHIFT THAT WAS NORMAL (REPORT ON CHART); PTS AWARE OF FALL AND DR SANZ (HOSPITALIST NOTIFIED); PTS CAZARES CATHETER DRAINING CLEAR YELLOW FLUID, TELEMETRY REFLECTS NSR PER DECEMBER--RESTAURANT SERVICE MANAGER; PT HAD DIALYSIS 09/04 WITH LEFT ARM FISTULA DRESSING DRY AND INTACT; PT IS ALERT AND ORIENTED X 3 WHILE THIS SUMMARY TYPED; BED ALARM APPLIED FOR SAFETY, BED LOW POSITION WITH CALL LIGHT AT SIDE.
[2020-09-05 05:59] LABS: BASOPHILS ABSOLUTE AUTO 0.02 K/mm3 (0.00-0.23); BASOPHILS PERCENT AUTO 0 % (0-2); EOSINOPHILS ABSOLUTE AUTO 0.12 K/mm3 (0.00-0.68); EOSINOPHILS PERCENT AUTO 2 % (0-6); Hematocrit 31.2 % (37.0-53.0); Hemoglobin 10.4 g/dL (13.5-17.5); IMMATURE GRAN ABSOLUTE AUTO 0.03 K/mm3 (0.00-0.10); IMMATURE GRAN PERCENT AUTO 0 % (0-1); LYMPHOCYTES ABSOLUTE AUTO 0.66 K/mm3 (0.84-5.20); LYMPHOCYTES PERCENT AUTO 10 % (21-46); MONOCYTES ABSOLUTE AUTO 0.62 K/mm3 (0.16-1.47); MONOCYTES PERCENT AUTO 9 % (4-13); Mean Corpuscular HGB 31.6 pg (26.0-34.0); Mean Corpuscular HGB Conc 33.3 g/dL (31.5-36.5); Mean Corpuscular Volume 95 fL (80-100); Mean Platelet Volume 10.8 fL (9.1-12.4); NEUTROPHILS ABSOLUTE AUTO 5.25 K/mm3 (1.96-9.15); NEUTROPHILS PERCENT AUTO 78 % (41-73); Platelet Count 138 K/mm3 (150-400); Red Blood Cell Count 3.29 M/mm3 (4.30-5.90)
[2020-09-05 06:22] LABS: Albumin, Blood 2.9 g/dL (3.4-5.0); Anion Gap 10 mmol/L (6-16); Blood Urea Nitrogen 46 mg/dL (8-24); Bun/Creatinine Ratio 7.1 (12.0-20.0); CO2, Blood 29 mmol/L (21-32); Calcium, Blood 7.3 mg/dL (8.5-10.1); Chloride, Blood 96 mmol/L (98-108); Creatinine, Blood 6.49 mg/dL (0.60-1.20); Glomerular Filtration Rate 9 (60-); Glucose, Blood 155 mg/dL (70-99); Phosphorus, Blood 4.2 mg/dL (2.5-4.9); Potassium, Blood 4.1 mmol/L (3.5-5.5); Sodium, Blood 135 mmol/L (136-145)
--- NOTE | 2020-09-05 11:55 | NUR ---
CALLED DR ALICEA- PT IS SWEATY BG 104, ROOM IS WARM, REDUCED THE TEMP. PT C/O NAUSEA AND HAD SOME EMESIS WITH DRY HEAVES. CEREAL TROPONINS SHOWED AN UPWARD TREND WHEN THE LAST WAS COMPLETED 12-12 AT 1500. RECIEVED A NEW ORDER FOR CEREAL TROPONINS FIRST ONE NOW THEN Q8 X4
[2020-09-05 13:03] LABS: Troponin I 0.022 ng/mL (0.000-0.040); Vancomycin, Random 15.4 ug/mL
--- NOTE | 2020-09-05 17:18 | NUR ---
SHIFT SUMMARY- PT ALERT AND ORIENTED, 2P MAX ASSIST WITH TRANSFERS. PT DID NOT GET OUT OF BED TODAY. PT HAS HAD PERSISTENT NAUSEA AND VOMITING WITH SMALL AMOUNT OF EMESIS T/O THE DAY. PT RECIEVED IV ZOFRAN AROUND NOON WHEN THE NAUSEA BEGAN, DENIED ANY BREAKFAST OR LUNCH. TWO HOURS LATER HE WOKE FROM HIS SLEEP DRY HEAVING MEDICATED WITH REGLAN IV 5MG. GAVE THE PT A COOL CLOTH TO WASH HIS FACE USED SHOWER CAPS TO WASH GORDON ABD HAIR. THEN PT WENT TO SLEEP. HE JUST WOKE AGAIN AND STATED HE THINKS THE NAUSEA IS BETTER. WILL CTM. OFFERED NAUSEA MEDS DINNER WILL BE HERE SOON, PT DECLINED STATING HE DOES NOT THINK HE WILL NEED IT. PT BG WAS 100 NO INSULIN GIVEN, DR DING.
[2020-09-06 05:23] LABS: BASOPHILS ABSOLUTE AUTO 0.05 K/mm3 (0.00-0.23); BASOPHILS PERCENT AUTO 1 % (0-2); EOSINOPHILS ABSOLUTE AUTO 0.27 K/mm3 (0.00-0.68); EOSINOPHILS PERCENT AUTO 4 % (0-6); Hematocrit 31.1 % (37.0-53.0); Hemoglobin 10.3 g/dL (13.5-17.5); IMMATURE GRAN ABSOLUTE AUTO 0.02 K/mm3 (0.00-0.10); IMMATURE GRAN PERCENT AUTO 0 % (0-1); LYMPHOCYTES PERCENT AUTO 11 % (21-46); MONOCYTES ABSOLUTE AUTO 0.69 K/mm3 (0.16-1.47); MONOCYTES PERCENT AUTO 11 % (4-13); Mean Corpuscular HGB 31.4 pg (26.0-34.0); Mean Corpuscular HGB Conc 33.1 g/dL (31.5-36.5); Mean Corpuscular Volume 95 fL (80-100); Mean Platelet Volume 10.2 fL (9.1-12.4); NEUTROPHILS ABSOLUTE AUTO 4.49 K/mm3 (1.96-9.15); NEUTROPHILS PERCENT AUTO 72 % (41-73); Platelet Count 161 K/mm3 (150-400); RDW Coefficient Variation 12.8 % (11.7-14.2); RDW Standard Deviation 44.4 fL (35.1-46.3); Red Blood Cell Count 3.28 M/mm3 (4.30-5.90); White Blood Cell Count 6.22 K/mm3 (4.00-11.30)
[2020-09-06 05:51] LABS: Albumin, Blood 2.8 g/dL (3.4-5.0); Anion Gap 9 mmol/L (6-16); Blood Urea Nitrogen 52 mg/dL (8-24); Bun/Creatinine Ratio 6.8 (12.0-20.0); CO2, Blood 28 mmol/L (21-32); Calcium, Blood 7.3 mg/dL (8.5-10.1); Chloride, Blood 99 mmol/L (98-108); Creatinine, Blood 7.69 mg/dL (0.60-1.20); Glomerular Filtration Rate 8 (60-); Glucose, Blood 129 mg/dL (70-99); Potassium, Blood 4.2 mmol/L (3.5-5.5); Sodium, Blood 136 mmol/L (136-145)
--- NOTE | 2020-09-06 07:22 | NUR ---
DONATIONS ATTENDANT SUMMARY PT WAS LETHARGIC MOST OF THE NIGHT UNTIL 0400. AT BEGINNING OF SHIFT PT IS AROUSBILE TO VOICE, HOWEVER TOOK A FEW TIMES TO CALL HIS NAME AND LIGHT TOUCH TO GET PT AWAKE. ONCE PT WAS AWAKE, HE'D FALL RIGHT BACK TO SLEEP. MELATONIN HELD. AROUND 0400 PT REQUESTED PAIN MEDICATION FOR CHRONIC BACK PAIN. ORDER WAS TO HOLD PAIN MEDICATION. PT EDUCATED HE CANNOT HAVE SEDATIVE MEDS RIGHT NOW BECAUSE OF MENTATION CHANGE. PT STATED HE HAS NOT GOTTEN PAIN MEDICATION FOR "3 DAYS". LAST NORCO GIVEN ON 09/05/20 AT 0323 PER EMAR. HE APPEARS MORE ALERT THIS MORNING AND MAKING CONVERSATION. REPOSITIONING AND HEATING PAD OFFERED TO WHICH PT DECLINED BOTH. VSS. REPORT GIVEN TO ONCOMING RN. BED ALARM IN PLACE, CALL LIGHT WITHIN REACH. CAZARES PATENT AND DRAINING.
--- NOTE | 2020-09-06 09:20 | NUR ---
PATIENT TAKEN TO DIALYSIS VIA BED.
--- NOTE | 2020-09-06 18:01 | NUR ---
PATIENT A/OX4 AND COOPERATIVE WITH CARE. WENT DOWN FOR DIALYSIS TODAY. CONTINUES TO HAVE SEVERE INTENTION TREMORS, 2 ASSIST TO TRANSFER FOR SAFETY. DR. HEWITT ORDERED PROPRANOLOL TODAY FOR TREMORS. VSS, ON RA. ACHS BLOOD SUGARS, TOLERATING ADA DIET. CAZARES TO GRAVITY.
--- NOTE | 2020-09-07 05:00 | NUR ---
SHIFT SUMMARY: VSS. AFEB. AAOX3. NO LETHARGY NOTED TONIGHT. NO REPORTS OF PAIN. EXTREMITIES VISIBLY TREMULOUS W/ INTENTIONAL MOVMENT. TREMORING MOST APPARENT WHEN PT DEMONSTRATED PUSHES/PULLS W/ FEET. SINUS RHTYTHM, 72 PER TELE LEARNING AND DEVELOPMENT OFFICER W/NO REPORTED EVENTS. NO ACUTE CHANGES OVERNIGHT. WILL CONT TO MONITOR.
[2020-09-07 06:04] LABS: Hematocrit 31.2 % (37.0-53.0); Hemoglobin 10.1 g/dL (13.5-17.5)
[2020-09-07 06:25] LABS: Albumin, Blood 2.8 g/dL (3.4-5.0); Anion Gap 6 mmol/L (6-16); Blood Urea Nitrogen 35 mg/dL (8-24); Bun/Creatinine Ratio 6.4 (12.0-20.0); CO2, Blood 32 mmol/L (21-32); Calcium, Blood 8.3 mg/dL (8.5-10.1); Chloride, Blood 99 mmol/L (98-108); Creatinine, Blood 5.44 mg/dL (0.60-1.20); Glomerular Filtration Rate 11 (60-); Glucose, Blood 129 mg/dL (70-99); Magnesium, Blood 1.9 mg/dL (1.6-2.4); Phosphorus, Blood 3.3 mg/dL (2.5-4.9); Potassium, Blood 3.9 mmol/L (3.5-5.5); Sodium, Blood 137 mmol/L (136-145)
--- NOTE | 2020-09-07 14:43 | NUR ---
CALLED AND SPOKE WITH DR HEWITT AT 1443 REGARDING PATIENTS ORTHOSTATIC HYPOTENTION. HE STATED HE WOULD DISCONTINUE TWO OF THE PATIENTS BP MEDICATIONS.
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
--- NOTE | 2020-09-07 19:41 | NUR ---
Awakened for shift change. Alert and oriented. Call light in reach
--- NOTE | 2020-09-08 01:57 | NUR ---
AWAKE, C/O HEARING AIR RELEASING FROM MATTRESS. NO NOTED AIR LEAKING FROM MATTRESS - MATTRESS NOT INFLATABLE. LATER PT SEEMED TO SPEAK INCOHERENTLY TO CAN, DRY WALL SPRAYER OBTAINED BLOOD GLUCOSE LEVEL 131, VSS. NURSE ASSESSED PT. PT VERBALIZED ABOVE STATEMENT OF AIR LEAKAGE FROM MATTRESS, DISCUSSED IT WITH NURSE. NURSE POINTED OUT MATTRESS WASNT AN INFLATABLE MATTRESS. SKIN WARM, MOIST. PT TALKED A FEW INUTES THEN SAID, "I GUESS I'LL JUST GO TO SLEEP THEN" HE SMILED. WILL CONTINUE TO MONITOR/ASSESS. CALL LIGHT IN REACH
[2020-09-08 04:25] LABS: PCO2 Arterial 40.2 mmHg (35-45); PO2 Arterial 65.4 mmHg (80-100); pH Blood Arterial 7.42 (7.35-7.45)
[2020-09-08 04:39] LABS: Hematocrit 34.5 % (37.0-53.0); Hemoglobin 11.2 g/dL (13.5-17.5)
[2020-09-08 04:54] LABS: Albumin, Blood 3.2 g/dL (3.4-5.0); Anion Gap 10 mmol/L (6-16); Blood Urea Nitrogen 44 mg/dL (8-24); Bun/Creatinine Ratio 6.7 (12.0-20.0); CO2, Blood 27 mmol/L (21-32); Calcium, Blood 8.2 mg/dL (8.5-10.1); Chloride, Blood 99 mmol/L (98-108); Creatinine, Blood 6.55 mg/dL (0.60-1.20); Glomerular Filtration Rate 9 (60-); Glucose, Blood 172 mg/dL (70-99); Magnesium, Blood 1.9 mg/dL (1.6-2.4); Phosphorus, Blood 4.1 mg/dL (2.5-4.9); Potassium, Blood 4.2 mmol/L (3.5-5.5); Sodium, Blood 136 mmol/L (136-145)
--- NOTE | 2020-09-08 05:12 | NUR ---
DURING ROUNDS, MOLD REPAIR TECHNICIAN NOTES PT VSS, BUT NOT RESPONDING TO QUESTIONS. BLOOD GLUCOSE 168. STERNAL RUB NOT EFFECTIVE. RAPID RESPONSE CALLED. (SEE DOCUMENTATION). O2 PER NC AT 2.5L/MIN SATS DROPPED INTO HIGH 80'S. O2 THEN INCREASED TO 90'S - SEE DOC FLOW SHEETS. CALL PLACED TO MD MAINTENANCE MECHANIC TELEPHONE, ORDERS RECEIVED, CT OF HEAD W/O CONTRAST ORDERED, PT TRANSPORTED TO RADIOLOGY FOR CT. CT DONE, BACK IN ROOM. SLIGHT ANSWERS - I.E. HEAD SLIGHT NODS, SLIGHT HAND VOLTMETER OPERATOR AND EYES SLOW TO RESPOND. CALL LIGHT IN REACH. HOB ELEVATED AND WARM BLANKET APPLIED. SKIN WARM AND MOIST TO TOUCH. WAITING RESULTS OF CT
--- NOTE | 2020-09-08 05:51 | NUR ---
RESULTS OF CT BACK, NOT MUCH DIFFERENCE THAN CT OF 09/05. DISCUSSED RESULTS WITH CHARGE NURSE. AGAIN NURSE SENT TO PT ROOM, PT RESPONDING TO VERBAL CUES. EYE CONTACT OBTAINED. POSITIVE BILAT BABINSKI. DENIES HEARING AIR ESCAPING AT THIS TIME. CALL LIGHT IN REACH. RESPS EVEN. SPEAKING TO NURSE. WILL CONTINUE TO MONITOR/ASSESS.
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
--- NOTE | 2020-09-09 03:56 | NUR ---
FLOUR WORKER SUMMARY PT A&OX3, ABLE TO MAKE NEEDS KNOWN, PLEASANT AND COOPERATIVE TO CARE. NO S/S OF ANY CONFUSION OR HALLUCINATIONS NOTED THIS SHIFT. INTERMITTENT TREMORS NOTED WITH MOVEMENT NOTED. NO C/O PAIN OR ANY DISCOMFORT. DENIES CP, SOB, OR N&V. CALM AND RESTED IN BED T/O SHIFT. BED ALARM ON, BED AT LOWEST POSITION, AND CALL LIGHT WITHIN REACH.
[2020-09-09 05:35] LABS: Hematocrit 31.7 % (37.0-53.0); Hemoglobin 10.2 g/dL (13.5-17.5)
[2020-09-09 06:08] LABS: Albumin, Blood 2.9 g/dL (3.4-5.0); Anion Gap 7 mmol/L (6-16); Blood Urea Nitrogen 31 mg/dL (8-24); Bun/Creatinine Ratio 6.2 (12.0-20.0); CO2, Blood 30 mmol/L (21-32); Calcium, Blood 8.1 mg/dL (8.5-10.1); Chloride, Blood 99 mmol/L (98-108); Creatinine, Blood 5.04 mg/dL (0.60-1.20); Glomerular Filtration Rate 12 (60-); Glucose, Blood 134 mg/dL (70-99); Phosphorus, Blood 3.8 mg/dL (2.5-4.9); Potassium, Blood 3.8 mmol/L (3.5-5.5); Sodium, Blood 136 mmol/L (136-145)
[2020-09-09] MEDS ORDERED: HUMALOG KW100 UNIT/1 (11:43)
[2020-09-09] MEDS ORDERED: PROP10 PO (11:44)
[2020-09-09 13:21] LABS: Influenza A, PCR Negative (NEGATIVE); Influenza B, PCR Negative (NEGATIVE); Resp Syncytial Virus, PCR Negative (NEGATIVE); SARS-Cov-2 (COVID-19) PCR, MMC Negative (NEGATIVE)
--- NOTE | 2020-09-09 16:00 | NUR ---
DISCHARGE SUMMARY PT A/O X4; PLEASANT AND COOPERATIVE WITH CARE. TREMORS NOTED IN THE ARMS AND LEGS. TREMORS MORE APPARENT ON THE LEFT SIDE OF THE BODY. IV, TELE, AND CAZARES DC'D DUE TO THE PT DISCHARGING TO [facility]. PT WENT BY WHEELCHAIR TO [facility]. REPORT CALLED TO RN AT [facility].
== END 2020-09-09 15:40 | DRG 917 ==
LOC: ER 16:05 → MEDS 23:12 → ER 09-04 00:08 → MEDS 09-04 00:08
PROVIDERS: Emergency Medicine; Family Medicine; Internal Medicine; Internal Medicine Nephrology; Nurse Practitioner Acute Care; ADMIT Internal Medicine
DX: T50.991A Poisoning by other drugs, medicaments and biological substances, accidental (unintentional), initial encounter (principal); N18.6 End stage renal disease; G93.41 Metabolic encephalopathy; I13.2 Hypertensive heart and chronic kidney disease with heart failure and with stage 5 chronic kidney disease, or end stage renal disease; I50.22 Chronic systolic (congestive) heart failure; E87.1 Hypo-osmolality and hyponatremia; I48.20 Chronic atrial fibrillation, unspecified; N39.0 Urinary tract infection, site not specified; I69.354 Hemiplegia and hemiparesis following cerebral infarction affecting left non-dominant side; R65.10 Systemic inflammatory response syndrome (SIRS) of non-infectious origin without acute organ dysfunction; Z20.828 Contact with and (suspected) exposure to other viral communicable diseases; E83.51 Hypocalcemia; E11.22 Type 2 diabetes mellitus with diabetic chronic kidney disease; Z99.2 Dependence on renal dialysis; Z79.4 Long term (current) use of insulin; D63.1 Anemia in chronic kidney disease; E78.5 Hyperlipidemia, unspecified; F01.50 Vascular dementia, unspecified severity, without behavioral disturbance, psychotic disturbance, mood disturbance, and anxiety; G25.2 Other specified forms of tremor; F43.10 Post-traumatic stress disorder, unspecified; G40.909 Epilepsy, unspecified, not intractable, without status epilepticus; I25.5 Ischemic cardiomyopathy; J44.9 Chronic obstructive pulmonary disease, unspecified; K21.9 Gastro-esophageal reflux disease without esophagitis; Z86.711 Personal history of pulmonary embolism; Z87.891 Personal history of nicotine dependence; Z95.810 Presence of automatic (implantable) cardiac defibrillator; Z99.3 Dependence on wheelchair; I95.1 Orthostatic hypotension; K59.00 Constipation, unspecified; Z79.01 Long term (current) use of anticoagulants; Z91.81 History of falling; Z86.19 Personal history of other infectious and parasitic diseases; E87.70 Fluid overload, unspecified
CPT/HCPCS: 0241U; 36415; 36600; 51702; 70450; 76770; 80053; 80069; 80202; 81001; 82330; 82550; 82803; 82947; 83690; 83735; 84100; 84484; 85014; 85018; 85025; 85610; 87077; 87086; 87186; 93005; 93010; 94760; 96365; 96367; 96375; 97162; 97166; 97530; 97535; 99284-25; A9270; A9270-GY; G0378; J0610; J0696; J0881; J1815; J2405; J2765; J3370; J7050

== ENCOUNTER 2020-10-04 17:41 | Emergency (ER) | payer OTHER, MEDICARE ==
[~2020-10-04] VITALS: Ht 172.7 cm; Wt 70.3 kg
[~2020-10-04 17:41] MED LIST changes: +BASAGLAR K100 UNIT/1 SC; -HUMULIN 70100 UNIT/3 SC; -METO100ER PO; +METO25ER PO; +PROP10 PO; -SERT50 PO; -VITAMIN D325 MC3 PO
[2020-10-04 18:09] LABS: BASOPHILS ABSOLUTE AUTO 0.03 K/mm3 (0.00-0.23); BASOPHILS PERCENT AUTO 0 % (0-2); EOSINOPHILS ABSOLUTE AUTO 0.16 K/mm3 (0.00-0.68); EOSINOPHILS PERCENT AUTO 2 % (0-6); Hematocrit 33.4 % (37.0-53.0); Hemoglobin 11.5 g/dL (13.5-17.5); IMMATURE GRAN ABSOLUTE AUTO 0.02 K/mm3 (0.00-0.10); IMMATURE GRAN PERCENT AUTO 0 % (0-1); LYMPHOCYTES ABSOLUTE AUTO 0.79 K/mm3 (0.84-5.20); LYMPHOCYTES PERCENT AUTO 11 % (21-46); MONOCYTES PERCENT AUTO 7 % (4-13); Mean Corpuscular HGB 31.7 pg (26.0-34.0); Mean Corpuscular HGB Conc 34.4 g/dL (31.5-36.5); Mean Corpuscular Volume 92 fL (80-100); Mean Platelet Volume 10.6 fL (9.1-12.4); NEUTROPHILS ABSOLUTE AUTO 5.81 K/mm3 (1.96-9.15); NEUTROPHILS PERCENT AUTO 80 % (41-73); Platelet Count 95 K/mm3 (150-400); RDW Coefficient Variation 12.6 % (11.7-14.2); RDW Standard Deviation 42.8 fL (35.1-46.3); Red Blood Cell Count 3.63 M/mm3 (4.30-5.90); White Blood Cell Count 7.31 K/mm3 (4.00-11.30)
[2020-10-04 18:27] LABS: Albumin, Blood 3.6 g/dL (3.4-5.0); Albumin/Globulin Ratio 0.8 (0.8-1.8); Bilirubin, Total 0.6 mg/dL (0.1-1.0); Bun/Creatinine Ratio 11.4 (12.0-20.0); Calcium, Blood 9.2 mg/dL (8.5-10.1); Creatinine, Blood 3.76 mg/dL (0.60-1.20); Globulin, Blood 4.3 g/dL (2.2-4.0); Potassium, Blood 3.4 mmol/L (3.5-5.5); Total Protein, Blood 7.9 g/dL (6.4-8.2); Troponin I 0.023 ng/mL (0.000-0.040)
[2020-11-12] MEDS ORDERED: AZIT250 PO (10:54)
[2020-11-12] MEDS ORDERED: CEFP200 PO (10:54)
[2021-01-03] MEDS ORDERED: Ropinirole HCl0.5 MG PO (20:38)
[2021-01-03] MEDS ORDERED: RENAL VITAMIN0.8 MG PO (20:38)
[2021-01-04] MEDS ORDERED: HYDR1TAB94 PO (16:50)
[2021-01-04] MEDS ORDERED: CYCL10 PO (16:51)
[2021-01-04] MEDS ORDERED: PRED20 PO (16:53)
[2021-01-24] MEDS ORDERED: PRED20 PO (13:11)
[2021-01-24] MEDS ORDERED: CLOP75 PO (13:11)
== END 2020-10-04 21:05 | disposition home or self-care (01) ==
LOC: ER 17:41
PROVIDERS: Emergency Medicine
DX: I48.91 Unspecified atrial fibrillation (principal); I25.10 Atherosclerotic heart disease of native coronary artery without angina pectoris; E11.22 Type 2 diabetes mellitus with diabetic chronic kidney disease; N18.4 Chronic kidney disease, stage 4 (severe); I50.9 Heart failure, unspecified; Z88.8 Allergy status to other drugs, medicaments and biological substances; Z91.02 Food additives allergy status; Z95.810 Presence of automatic (implantable) cardiac defibrillator; Z79.01 Long term (current) use of anticoagulants; Z79.899 Other long term (current) drug therapy; Z79.4 Long term (current) use of insulin; Z86.73 Personal history of transient ischemic attack (TIA), and cerebral infarction without residual deficits; Z87.891 Personal history of nicotine dependence
CPT/HCPCS: 71046; 80053; 83690; 83880; 84484; 85025; 93005; 93010; 96374; 96375; 99285-25; J2270; J2405

== ENCOUNTER 2020-10-27 17:56 | Observation (INO) | payer OTHER, MEDICARE ==
[~2020-10-27] VITALS: Ht 177.8 cm; Wt 71.3 kg
[2020-10-27 18:31] LABS: BASOPHILS ABSOLUTE AUTO 0.03 K/mm3 (0.00-0.23); BASOPHILS PERCENT AUTO 1 % (0-2); EOSINOPHILS ABSOLUTE AUTO 0.09 K/mm3 (0.00-0.68); EOSINOPHILS PERCENT AUTO 2 % (0-6); Hematocrit 32.8 % (37.0-53.0); Hemoglobin 11.4 g/dL (13.5-17.5); IMMATURE GRAN ABSOLUTE AUTO 0.02 K/mm3 (0.00-0.10); IMMATURE GRAN PERCENT AUTO 0 % (0-1); LYMPHOCYTES ABSOLUTE AUTO 0.99 K/mm3 (0.84-5.20); LYMPHOCYTES PERCENT AUTO 17 % (21-46); MONOCYTES ABSOLUTE AUTO 0.55 K/mm3 (0.16-1.47); MONOCYTES PERCENT AUTO 9 % (4-13); Mean Corpuscular HGB 32.2 pg (26.0-34.0); Mean Corpuscular HGB Conc 34.8 g/dL (31.5-36.5); Mean Corpuscular Volume 93 fL (80-100); Mean Platelet Volume 9.8 fL (9.1-12.4); NEUTROPHILS PERCENT AUTO 72 % (41-73); Platelet Count 162 K/mm3 (150-400); RDW Coefficient Variation 11.7 % (11.7-14.2); Red Blood Cell Count 3.54 M/mm3 (4.30-5.90); White Blood Cell Count 5.88 K/mm3 (4.00-11.30)
[2020-10-27 18:59] LABS: Alanine Aminotransfer (ALT/SGP 75 U/L (12-78); Albumin, Blood 3.7 g/dL (3.4-5.0); Albumin/Globulin Ratio 0.9 (0.8-1.8); Alk Phos 94 U/L (50-136); Anion Gap 7 mmol/L (6-16); Aspartate Aminotrans (AST/SGOT 53 U/L (12-37); Bilirubin, Total 0.5 mg/dL (0.1-1.0); Blood Urea Nitrogen 22 mg/dL (8-24); Bun/Creatinine Ratio 7.7 (12.0-20.0); CO2, Blood 33 mmol/L (21-32); Calcium, Blood 9.3 mg/dL (8.5-10.1); Chloride, Blood 96 mmol/L (98-108); Creatinine, Blood 2.84 mg/dL (0.60-1.20); Glomerular Filtration Rate 24 (60-); Glucose, Blood 114 mg/dL (70-99); Magnesium, Blood 2.1 mg/dL (1.6-2.4); Potassium, Blood 3.1 mmol/L (3.5-5.5); Sodium, Blood 136 mmol/L (136-145); Total Protein, Blood 7.7 g/dL (6.4-8.2); Troponin I <0.015 ng/mL (0.000-0.040)
[2020-10-28 02:31] LABS: BASOPHILS ABSOLUTE AUTO 0.02 K/mm3 (0.00-0.23); BASOPHILS PERCENT AUTO 0 % (0-2); EOSINOPHILS ABSOLUTE AUTO 0.12 K/mm3 (0.00-0.68); EOSINOPHILS PERCENT AUTO 3 % (0-6); Hematocrit 28.8 % (37.0-53.0); Hemoglobin 9.4 g/dL (13.5-17.5); IMMATURE GRAN ABSOLUTE AUTO 0.01 K/mm3 (0.00-0.10); IMMATURE GRAN PERCENT AUTO 0 % (0-1); LYMPHOCYTES ABSOLUTE AUTO 1.05 K/mm3 (0.84-5.20); LYMPHOCYTES PERCENT AUTO 22 % (21-46); MONOCYTES ABSOLUTE AUTO 0.56 K/mm3 (0.16-1.47); MONOCYTES PERCENT AUTO 12 % (4-13); Mean Corpuscular HGB 31.3 pg (26.0-34.0); Mean Corpuscular HGB Conc 32.6 g/dL (31.5-36.5); Mean Corpuscular Volume 96 fL (80-100); Mean Platelet Volume 9.7 fL (9.1-12.4); NEUTROPHILS ABSOLUTE AUTO 3.13 K/mm3 (1.96-9.15); NEUTROPHILS PERCENT AUTO 64 % (41-73); Platelet Count 141 K/mm3 (150-400); RDW Coefficient Variation 11.9 % (11.7-14.2); RDW Standard Deviation 41.5 fL (35.1-46.3); White Blood Cell Count 4.89 K/mm3 (4.00-11.30)
[2020-10-28 02:49] LABS: CPK Creatine Kinase 55 U/L (39-308); Troponin I <0.015 ng/mL (0.000-0.040)
[2020-10-28 03:10] LABS: Albumin, Blood 3.2 g/dL (3.4-5.0); Albumin/Globulin Ratio 0.9 (0.8-1.8); Bilirubin, Total 0.4 mg/dL (0.1-1.0); Bun/Creatinine Ratio 5.9 (12.0-20.0); Calcium, Blood 8.7 mg/dL (8.5-10.1); Creatinine, Blood 3.88 mg/dL (0.60-1.20); Globulin, Blood 3.4 g/dL (2.2-4.0); Potassium, Blood 3.3 mmol/L (3.5-5.5); Total Protein, Blood 6.6 g/dL (6.4-8.2)
[2020-10-28 11:02] LABS: Troponin I 0.017 ng/mL (0.000-0.040)
[2020-10-28 14:13] LABS: Albumin, Blood 3.5 g/dL (3.4-5.0); Anion Gap 9 mmol/L (6-16); Blood Urea Nitrogen 25 mg/dL (8-24); Bun/Creatinine Ratio 5.3 (12.0-20.0); CO2, Blood 30 mmol/L (21-32); Calcium, Blood 9.4 mg/dL (8.5-10.1); Chloride, Blood 95 mmol/L (98-108); Creatinine, Blood 4.73 mg/dL (0.60-1.20); Glomerular Filtration Rate 13 (60-); Glucose, Blood 87 mg/dL (70-99); Magnesium, Blood 2.2 mg/dL (1.6-2.4); Phosphorus, Blood 4.7 mg/dL (2.5-4.9); Potassium, Blood 3.8 mmol/L (3.5-5.5); Sodium, Blood 134 mmol/L (136-145)
--- NOTE | 2020-10-28 17:15 | NUR ---
SHIFT SUMMARY PT IS AOX4. PT MEDICATED FOR PAIN X1 ON UNIT, AND X2-3 IN THE ER THIS AM. PT ARRIVED TO UNIT DROWSY. PT C/O HEAD AND NECK PAIN MORE THAN CP AT THIS TIME. PT DENIES N/V, SOB. PT IS INDEPENDENT AT BASELINE USING A CANE, BUT HAS BEEN NON-AMBULATORY SINCE ARRIVAL TO THE UNIT DUE TO WEAKNESS. PT HAD FIRST PART OF STRESS TEST TODAY AND SECOND COMPONENT IS PLANNED FOR TOMORROW. PT HAD AN ECHO AND AORTA CTA IN THE ER TODAY. PT HAS NOT HAD VISITORS THIS JEFF. PT NPO FOR BREAKFAST, BUT ATE AFTER THE STRESS TEST AND AT DINNER. DR. TAFOYA CONSULTED DUE TO PT BEING A DIALYSIS PT. PT TELE RUNNING SINUS RHYTHM IN THE 70S. PT IS IN BED, CALL LIGHT IN REACH, BED IN LOW POSITION.
[2020-10-28 18:03] LABS: Prostate Specific Antigen 0.702 ng/mL (0.000-4.000)
--- NOTE | 2020-10-29 05:05 | NUR ---
SHIFT SUMMARY: VSS. AFEB. 02 WNL ON RA. PT REPORTS CHEST PAIN, BACK PAIN, NECK PAIN, AND HEADACHE AT HS. PRN ANALGESICS GIVEN W/ IMPROVEMENT IN PAIN. DESCRIBES PAIN PRESSURE AND STATES IT DOES NOT FEEL MUSCULOSKELETAL IN NATURE. NO TELE EVENTS. NSR, 70. NO SOB. EMESIS X1 ABOUT 20 MIN AFTER RECEIVING HS MEDS AND IV MORPHINE. PT DENIES NAUSEA BUT REPORTS DIZZINESS WHEN HE TURNED ONTO HIS SIDE WHICH LED TO EMESIS. BP AND CBG NORMAL AT THE TIME. PT HAS SINCE SLEPT WELL. AAOX3. COMMUNICATES NEEDS. FC PATENT AND DRAINING YELLOW URINE TO GRAVITY. PT REMAINS IN BED. AV FISTULA TO L ARM W/ + THRILL AND BRUIT. CURRENTLY NPO IN PREPARATION FOR PART 2 OF STRESS TEST TODAY. WCTM.
[2020-10-29 05:32] LABS: Hematocrit 31.4 % (37.0-53.0); Hemoglobin 10.5 g/dL (13.5-17.5)
[2020-10-29 05:56] LABS: Albumin, Blood 3.1 g/dL (3.4-5.0); Anion Gap 9 mmol/L (6-16); Blood Urea Nitrogen 35 mg/dL (8-24); Bun/Creatinine Ratio 5.8 (12.0-20.0); CO2, Blood 29 mmol/L (21-32); Calcium, Blood 8.1 mg/dL (8.5-10.1); Chloride, Blood 98 mmol/L (98-108); Creatinine, Blood 5.99 mg/dL (0.60-1.20); Glomerular Filtration Rate 10 (60-); Glucose, Blood 109 mg/dL (70-99); Magnesium, Blood 2.2 mg/dL (1.6-2.4); Phosphorus, Blood 5.8 mg/dL (2.5-4.9); Potassium, Blood 4.4 mmol/L (3.5-5.5); Sodium, Blood 136 mmol/L (136-145)
--- NOTE | 2020-10-29 09:16 | NUR ---
CALLED DR TAFOYA- BP 100/49. RECIEVED VERBAL ORDER FOR DC AMLODIPINE. OK FOR PT TO RECIEVE AMIODORONE PER DR TAFOYA. PT GOING TO DIALYSIS NOW, RAND TACKER ELYSSA NOTIFIED.
--- NOTE | 2020-10-29 16:06 | NUR ---
CALLED DR HEWITT FOR PARAMETERS ON PT BP MEDS. DR AWARE OF THE PT BP TODAY. DR WILL REVIEW PT MEDICATIONS FOR BP CONTROL AND SEE IF ANY CAN BE REDUCED. PLANS TO SEND THE PT HOME TODAY WITH HOME HEALTH. ORDER RECIEVED TO DC CAZARES CATH NOW, PT TO DISCHARGE LATER TODAY MOST LIKELY. DR HEWITT AWARE DR TAFOYA DC'D AMLODIPINE THIS MORNING.
--- NOTE | 2020-10-29 18:37 | NUR ---
DISCHARGE NOTE- CALLED DR KASH MARIEEVED A VERBAL ORDER FOR 30 DAY SUPPLY OF THE PT RANEXA AT THE NEW DOSE 1000MG PO BID. CALLED [facility] AND SPOKE TO APRYL SEAMAN, VERBALLY PASSED ON THE ORDER TO HER. PT WAS GIVEN VERBAL AN WRITTEN DISCHARGE INSTRUCTIONS AND ACKNOWLEDGED INDERSTANDING OF THEM. IV AND TELE DC'D PRIOR TO DISCHARGE, CAZARES DC'D PRIOR TO DISCHARGE. PT WAS ESCORTED OUT VIA WC BY THE SHOE MAKER NO S&S OF DISTRESS NOTED AT THE TIME OF DISCAHRGE.
[2020-11-12] MEDS ORDERED: AZIT250 PO (10:54)
[2020-11-12] MEDS ORDERED: CEFP200 PO (10:54)
[2021-01-03] MEDS ORDERED: Ropinirole HCl0.5 MG PO (20:38)
[2021-01-03] MEDS ORDERED: RENAL VITAMIN0.8 MG PO (20:38)
[2021-01-04] MEDS ORDERED: HYDR1TAB94 PO (16:50)
[2021-01-04] MEDS ORDERED: CYCL10 PO (16:51)
[2021-01-04] MEDS ORDERED: PRED20 PO (16:53)
[2021-01-24] MEDS ORDERED: CLOP75 PO (13:11)
[2021-01-24] MEDS ORDERED: PRED20 PO (13:11)
== END 2020-10-29 18:08 | disposition home health service (06) ==
LOC: ER 17:56 → MEDS 20:29 → ERHOLD 20:29 → MEDS 10-28 10:42
PROVIDERS: Emergency Medicine; Internal Medicine Nephrology; ADMIT Internal Medicine
DX: R07.9 Chest pain, unspecified (principal); I48.91 Unspecified atrial fibrillation; E11.22 Type 2 diabetes mellitus with diabetic chronic kidney disease; I13.2 Hypertensive heart and chronic kidney disease with heart failure and with stage 5 chronic kidney disease, or end stage renal disease; I50.22 Chronic systolic (congestive) heart failure; N18.6 End stage renal disease; E78.5 Hyperlipidemia, unspecified; G40.909 Epilepsy, unspecified, not intractable, without status epilepticus; B19.20 Unspecified viral hepatitis C without hepatic coma; F43.10 Post-traumatic stress disorder, unspecified; I26.99 Other pulmonary embolism without acute cor pulmonale; D63.1 Anemia in chronic kidney disease; J44.9 Chronic obstructive pulmonary disease, unspecified; E21.1 Secondary hyperparathyroidism, not elsewhere classified; I42.9 Cardiomyopathy, unspecified; E87.1 Hypo-osmolality and hyponatremia; R33.9 Retention of urine, unspecified; Z79.01 Long term (current) use of anticoagulants; Z79.4 Long term (current) use of insulin; Z88.8 Allergy status to other drugs, medicaments and biological substances; Z91.018 Allergy to other foods; Z91.048 Other nonmedicinal substance allergy status; Z79.82 Long term (current) use of aspirin; Z86.73 Personal history of transient ischemic attack (TIA), and cerebral infarction without residual deficits; Z99.2 Dependence on renal dialysis; Z87.891 Personal history of nicotine dependence
CPT/HCPCS: 36415; 51702; 51798; 71275; 74175; 78452; 80053; 80069; 82550; 82947; 83735; 84484; 85014; 85018; 85025; 93005; 93010; 93017; 96374-59; 96375-59; 96376; 96376-59; 99285-25; A9270; A9500; G0103; G0257; G0378; J0280; J1170; J1815; J2270; J2405; J2785; J3010; Q9967

== ENCOUNTER 2020-11-22 18:29 | Emergency (ER) | payer OTHER, MEDICARE ==
[~2020-11-22] VITALS: Ht 172.7 cm; Wt 69.8 kg
[~2020-11-22 18:29] MED LIST changes: +AZIT250 PO; +CEFP200 PO
[2020-11-22 19:40] LABS: BASOPHILS ABSOLUTE AUTO 0.03 K/mm3 (0.00-0.23); BASOPHILS PERCENT AUTO 1 % (0-2); EOSINOPHILS ABSOLUTE AUTO 0.05 K/mm3 (0.00-0.68); EOSINOPHILS PERCENT AUTO 1 % (0-6); Hemoglobin 10.4 g/dL (13.5-17.5); IMMATURE GRAN ABSOLUTE AUTO 0.02 K/mm3 (0.00-0.10); IMMATURE GRAN PERCENT AUTO 0 % (0-1); LYMPHOCYTES ABSOLUTE AUTO 0.82 K/mm3 (0.84-5.20); LYMPHOCYTES PERCENT AUTO 13 % (21-46); MONOCYTES ABSOLUTE AUTO 0.46 K/mm3 (0.16-1.47); MONOCYTES PERCENT AUTO 8 % (4-13); Mean Corpuscular HGB 32.2 pg (26.0-34.0); Mean Corpuscular HGB Conc 33.5 g/dL (31.5-36.5); Mean Corpuscular Volume 96 fL (80-100); Mean Platelet Volume 10.1 fL (9.1-12.4); NEUTROPHILS ABSOLUTE AUTO 4.73 K/mm3 (1.96-9.15); NEUTROPHILS PERCENT AUTO 78 % (41-73); Platelet Count 162 K/mm3 (150-400); RDW Coefficient Variation 11.8 % (11.7-14.2); RDW Standard Deviation 41.7 fL (35.1-46.3); Red Blood Cell Count 3.23 M/mm3 (4.30-5.90); White Blood Cell Count 6.11 K/mm3 (4.00-11.30)
[2020-11-22 20:01] LABS: Troponin I 0.024 ng/mL (0.000-0.040)
[2020-11-22 20:02] LABS: Albumin, Blood 3.7 g/dL (3.4-5.0); Albumin/Globulin Ratio 0.9 (0.8-1.8); Bilirubin, Total 0.7 mg/dL (0.1-1.0); Bun/Creatinine Ratio 5.6 (12.0-20.0); Calcium, Blood 9.1 mg/dL (8.5-10.1); Creatinine, Blood 3.41 mg/dL (0.60-1.20); Potassium, Blood 3.5 mmol/L (3.5-5.5); Total Protein, Blood 7.7 g/dL (6.4-8.2)
[2020-11-22] MEDS ORDERED: DOXY100 PO (21:36)
[2021-01-03] MEDS ORDERED: RENAL VITAMIN0.8 MG PO (20:38)
[2021-01-03] MEDS ORDERED: Ropinirole HCl0.5 MG PO (20:38)
[2021-01-04] MEDS ORDERED: HYDR1TAB94 PO (16:50)
[2021-01-04] MEDS ORDERED: CYCL10 PO (16:51)
[2021-01-04] MEDS ORDERED: PRED20 PO (16:53)
[2021-01-24] MEDS ORDERED: CLOP75 PO (13:11)
[2021-01-24] MEDS ORDERED: PRED20 PO (13:11)
== END 2020-11-22 21:52 | disposition home or self-care (01) ==
LOC: ER 18:29
PROVIDERS: Physician Assistant
DX: J40 Bronchitis, not specified as acute or chronic (principal)
CPT/HCPCS: 36415; 71046; 80053; 83735; 84484; 85025; 93005; 93010; 99285-25; A9270

== ENCOUNTER 2020-12-06 10:06 | Emergency (ER) | payer OTHER, MEDICARE ==
[~2020-12-06] VITALS: Ht 172.7 cm; Wt 70.3 kg
[~2020-12-06 10:06] MED LIST changes: +DOXY100 PO
[2020-12-06 10:58] LABS: BASOPHILS ABSOLUTE AUTO 0.04 K/mm3 (0.00-0.23); BASOPHILS PERCENT AUTO 0 % (0-2); EOSINOPHILS ABSOLUTE AUTO 0.06 K/mm3 (0.00-0.68); EOSINOPHILS PERCENT AUTO 1 % (0-6); Hematocrit 31.7 % (37.0-53.0); Hemoglobin 10.6 g/dL (13.5-17.5); IMMATURE GRAN ABSOLUTE AUTO 0.04 K/mm3 (0.00-0.10); IMMATURE GRAN PERCENT AUTO 0 % (0-1); LYMPHOCYTES ABSOLUTE AUTO 0.79 K/mm3 (0.84-5.20); LYMPHOCYTES PERCENT AUTO 9 % (21-46); MONOCYTES ABSOLUTE AUTO 0.77 K/mm3 (0.16-1.47); MONOCYTES PERCENT AUTO 9 % (4-13); Mean Corpuscular HGB 32.5 pg (26.0-34.0); Mean Corpuscular HGB Conc 33.4 g/dL (31.5-36.5); Mean Corpuscular Volume 97 fL (80-100); Mean Platelet Volume 10.5 fL (9.1-12.4); NEUTROPHILS PERCENT AUTO 81 % (41-73); Platelet Count 185 K/mm3 (150-400); RDW Standard Deviation 43.2 fL (35.1-46.3); Red Blood Cell Count 3.26 M/mm3 (4.30-5.90)
[2020-12-06 11:13] LABS: Albumin, Blood 3.4 g/dL (3.4-5.0); Albumin/Globulin Ratio 0.9 (0.8-1.8); Bilirubin, Total 0.8 mg/dL (0.1-1.0); Bun/Creatinine Ratio 8.7 (12.0-20.0); Creatinine, Blood 6.64 mg/dL (0.60-1.20); Globulin, Blood 3.7 g/dL (2.2-4.0); Potassium, Blood 4.7 mmol/L (3.5-5.5); Total Protein, Blood 7.1 g/dL (6.4-8.2); Troponin I 0.033 ng/mL (0.000-0.040)
[2021-01-03] MEDS ORDERED: RENAL VITAMIN0.8 MG PO (20:38)
[2021-01-03] MEDS ORDERED: Ropinirole HCl0.5 MG PO (20:38)
[2021-01-04] MEDS ORDERED: HYDR1TAB94 PO (16:50)
[2021-01-04] MEDS ORDERED: CYCL10 PO (16:51)
[2021-01-04] MEDS ORDERED: PRED20 PO (16:53)
[2021-01-24] MEDS ORDERED: PRED20 PO (13:11)
[2021-01-24] MEDS ORDERED: CLOP75 PO (13:11)
== END 2020-12-06 13:22 | disposition home or self-care (01) ==
LOC: ER 10:06
PROVIDERS: Emergency Medicine
DX: I13.2 Hypertensive heart and chronic kidney disease with heart failure and with stage 5 chronic kidney disease, or end stage renal disease (principal); E11.22 Type 2 diabetes mellitus with diabetic chronic kidney disease; N18.6 End stage renal disease; I50.9 Heart failure, unspecified; E78.5 Hyperlipidemia, unspecified; I25.2 Old myocardial infarction; Z88.8 Allergy status to other drugs, medicaments and biological substances; Z79.4 Long term (current) use of insulin; Z79.899 Other long term (current) drug therapy; Z99.2 Dependence on renal dialysis
CPT/HCPCS: 36415; 71045; 80053; 83690; 83880; 84484; 85025; 93005; 93010; 99284-25

== ENCOUNTER 2021-01-28 08:21 | Emergency (ER) | payer OTHER, MEDICARE ==
[~2021-01-28] VITALS: Ht 170.2 cm; Wt 65.8 kg
[~2021-01-28 08:21] MED LIST changes: +PRED20 PO; +RENAL VITAMIN0.8 MG PO
[2021-01-28] MEDS ORDERED: NEURONTIN300 MG PO (10:38)
== END 2021-01-28 10:59 | disposition home or self-care (01) ==
LOC: ER 08:21
DX: E11.42 Type 2 diabetes mellitus with diabetic polyneuropathy (principal); E11.22 Type 2 diabetes mellitus with diabetic chronic kidney disease; I13.2 Hypertensive heart and chronic kidney disease with heart failure and with stage 5 chronic kidney disease, or end stage renal disease; I50.9 Heart failure, unspecified; N18.6 End stage renal disease; I48.91 Unspecified atrial fibrillation; Z79.899 Other long term (current) drug therapy; Z91.02 Food additives allergy status; Z88.8 Allergy status to other drugs, medicaments and biological substances; Z86.73 Personal history of transient ischemic attack (TIA), and cerebral infarction without residual deficits
CPT/HCPCS: 73590; 93971; 99284-25; A9270

== ENCOUNTER 2021-01-30 20:08 | Inpatient (IN) | payer OTHER, MEDICARE ==
[~2021-01-30] VITALS: Ht 170.2 cm; Wt 69.5 kg
[~2021-01-30 20:08] MED LIST changes: +NEURONTIN300 MG PO
[2021-01-30 21:07] LABS: BASOPHILS ABSOLUTE AUTO 0.01 K/mm3 (0.00-0.23); BASOPHILS PERCENT AUTO 0 % (0-2); EOSINOPHILS ABSOLUTE AUTO 0.18 K/mm3 (0.00-0.68); EOSINOPHILS PERCENT AUTO 1 % (0-6); Hemoglobin 10.1 g/dL (13.5-17.5); IMMATURE GRAN ABSOLUTE AUTO 0.06 K/mm3 (0.00-0.10); IMMATURE GRAN PERCENT AUTO 1 % (0-1); LYMPHOCYTES ABSOLUTE AUTO 0.37 K/mm3 (0.84-5.20); LYMPHOCYTES PERCENT AUTO 3 % (21-46); MONOCYTES ABSOLUTE AUTO 0.74 K/mm3 (0.16-1.47); MONOCYTES PERCENT AUTO 6 % (4-13); Mean Corpuscular HGB 32.6 pg (26.0-34.0); Mean Corpuscular HGB Conc 33.7 g/dL (31.5-36.5); Mean Corpuscular Volume 97 fL (80-100); Mean Platelet Volume 12.2 fL (9.1-12.4); NEUTROPHILS ABSOLUTE AUTO 11.12 K/mm3 (1.96-9.15); NEUTROPHILS PERCENT AUTO 89 % (41-73); Platelet Count 105 K/mm3 (150-400); RDW Coefficient Variation 12.7 % (11.7-14.2); White Blood Cell Count 12.48 K/mm3 (4.00-11.30)
[2021-01-30 21:18] LABS: Albumin, Blood 2.5 g/dL (3.4-5.0); Albumin/Globulin Ratio 0.7 (0.8-1.8); Bilirubin, Total 0.7 mg/dL (0.1-1.0); Bun/Creatinine Ratio 8.8 (12.0-20.0); Calcium, Blood 8.2 mg/dL (8.5-10.1); Creatinine, Blood 6.94 mg/dL (0.60-1.20); Globulin, Blood 3.5 g/dL (2.2-4.0); Potassium, Blood 4.4 mmol/L (3.5-5.5); Troponin I 0.066 ng/mL (0.000-0.040)
[2021-01-31 03:03] LABS: BASOPHILS ABSOLUTE AUTO 0.02 K/mm3 (0.00-0.23); BASOPHILS PERCENT AUTO 0 % (0-2); EOSINOPHILS ABSOLUTE AUTO 0.16 K/mm3 (0.00-0.68); EOSINOPHILS PERCENT AUTO 1 % (0-6); Hematocrit 31.6 % (37.0-53.0); Hemoglobin 10.8 g/dL (13.5-17.5); IMMATURE GRAN ABSOLUTE AUTO 0.05 K/mm3 (0.00-0.10); IMMATURE GRAN PERCENT AUTO 0 % (0-1); LYMPHOCYTES ABSOLUTE AUTO 0.38 K/mm3 (0.84-5.20); LYMPHOCYTES PERCENT AUTO 3 % (21-46); MONOCYTES ABSOLUTE AUTO 0.67 K/mm3 (0.16-1.47); MONOCYTES PERCENT AUTO 6 % (4-13); Mean Corpuscular HGB 32.9 pg (26.0-34.0); Mean Corpuscular HGB Conc 34.2 g/dL (31.5-36.5); Mean Corpuscular Volume 96 fL (80-100); Mean Platelet Volume 11.7 fL (9.1-12.4); NEUTROPHILS PERCENT AUTO 89 % (41-73); Platelet Count 117 K/mm3 (150-400); RDW Coefficient Variation 12.6 % (11.7-14.2); RDW Standard Deviation 44.6 fL (35.1-46.3); Red Blood Cell Count 3.28 M/mm3 (4.30-5.90); White Blood Cell Count 11.88 K/mm3 (4.00-11.30)
[2021-01-31 03:21] LABS: Albumin, Blood 2.7 g/dL (3.4-5.0); Albumin/Globulin Ratio 0.7 (0.8-1.8); Bilirubin, Total 0.6 mg/dL (0.1-1.0); Bun/Creatinine Ratio 9.2 (12.0-20.0); Calcium, Blood 8.1 mg/dL (8.5-10.1); Creatinine, Blood 6.98 mg/dL (0.60-1.20); Globulin, Blood 3.8 g/dL (2.2-4.0); Potassium, Blood 4.1 mmol/L (3.5-5.5); Total Protein, Blood 6.5 g/dL (6.4-8.2)
--- NOTE | 2021-01-31 07:09 | NUR ---
SHIFT SUMMARY PT WAS A NEW ADMIT DURING THE NIGHT, ARRIVING ON THE FLOOR AT 0035. HE IS A 65 Y/O MALE, ADMITTED FOR LLE CELLULITIS. HE IS A&O X 4, 2PA TO THE BATHROOM, USES URINAL INDEPENDENTLY IN BED. PT REPORTED SEVERE BACK AND LLE PAIN, AND CHEST PAIN WITH INSPIRATION AT A 9/10 THAT WAS NOT CONTROLLED WITH PRN IV FENTANYL. THE HOSPITALIST DR GREENWOOD WAS NOTIFIED AND PO HYDROCODONE WAS ORDERED, WHICH PT STATES ALSO DID NOT RELIEVE THE PAIN. NO C/O SOB OR NAUSEA. VITAL SIGNS STABLE. DIALYSIS FISTULA NOTED IN LUE, BRUIT AND THRILL NOTED. NO OTHER ACUTE CHANGES IN PT CONDITION NOTED SINCE ADMISSION. REPORT GIVEN TO ONCOMING RN.
--- NOTE | 2021-01-31 18:14 | NUR ---
PT IS AOX3 WITH SOME ON AND OFF HALLUCINATIONS. PT WANTED TO GET UP TO BEDSIDE COMMODE, BUT WITH TWO PEOPLE WAS UNABLE TO DUE TO HIS L FOOT HURTING HIM. PT IS VERY SHAKING AND TREMULOUS AT THIS TIME. PT HAS HAD STEADY BODY PAIN AND IS TREATED PER EMAR. PT IS VERY COOPERATIVE AND TRIES HIS BEST TO HELP MOVE EVEN WITH THE PAIN. PT IS SITTING IN BED WORKING ON DINNER. WILL CONTINUE TO MONITOR.
--- NOTE | 2021-02-01 04:36 | NUR ---
SHIFT SUMMARY ADMITTED FOR CELLULITIS OF LEFT FOOT. FULL CODE. HE RECEIVES SCHEDULED DIALYSIS. DR TAFOYA IS RENAL CONSULT. HE IS ACHS, LOW SS, ADA DIET. FISTULA ON LEFT ARM. PACEMAKER IN PLACE. HE IS ON XARELTO. SPOUSE, BELKIS, REQUESTS A CALL FROM THE HOSPITALIST TODAY FOR AN UPDATE. HE IS CONFUSED, BUT COOPERATIVE. HE DOES HALLUCINATE. ORTHO CONSULT HAS BEEN CALLED TO DR DIETRICH'S ANSWERING SERVICE THIS SHIFT. HE IS ON RA.
[2021-02-01 05:13] LABS: Hematocrit 30.6 % (37.0-53.0); Hemoglobin 10.4 g/dL (13.5-17.5)
[2021-02-01 05:40] LABS: Albumin, Blood 2.4 g/dL (3.4-5.0); Anion Gap 8 mmol/L (6-16); Blood Urea Nitrogen 48 mg/dL (8-24); Bun/Creatinine Ratio 8.5 (12.0-20.0); CO2, Blood 29 mmol/L (21-32); Calcium, Blood 7.9 mg/dL (8.5-10.1); Chloride, Blood 90 mmol/L (98-108); Creatinine, Blood 5.64 mg/dL (0.60-1.20); Glomerular Filtration Rate 11 (60-); Glucose, Blood 299 mg/dL (70-99); Magnesium, Blood 2.2 mg/dL (1.6-2.4); Phosphorus, Blood 4.3 mg/dL (2.5-4.9); Potassium, Blood 4.1 mmol/L (3.5-5.5); Sodium, Blood 127 mmol/L (136-145)
[2021-02-01 15:52] LABS: SARS-Cov-2 (COVID-19) PCR, MMC NEGATIVE (NEGATIVE)
--- NOTE | 2021-02-01 17:59 | NUR ---
PT STARTED SHIFT VERY CONFUSED AND WAS WAS VERY HARD TO UNDERSTAND. PT WAS TAKEN TO DIALYSIS AND SEEMED TO CLEAR UP DOWN THERE. DR DENNEY STOPPED IN AT DIALYSIS PER THIS WRITERS REQUEST. PT WAS NPO WAITING FOR PROCEDURE, BUT IT HAS BEEN MOVED TO TOMORROW PER DR DIETRICH. PT IS TO HAVE ALL BLOOD THINNERS HELD. WILL CONTINUE TO MONITOR. TREATED FOR L FOOT AND BACK PAIN PER EMAR.
--- NOTE | 2021-02-02 06:14 | NUR ---
CTA/INSURANCE SALES ASSISTANT I HAVE ASSESSED THIS PT. I AGREE WITH HER DOCUMENTATION. SHIFT SUMMARY IN INSURANCE SALES ASSISTANT NOTES
[2021-02-02 06:22] LABS: BASOPHILS ABSOLUTE AUTO 0.03 K/mm3 (0.00-0.23); BASOPHILS PERCENT AUTO 0 % (0-2); EOSINOPHILS ABSOLUTE AUTO 0.05 K/mm3 (0.00-0.68); EOSINOPHILS PERCENT AUTO 0 % (0-6); Hematocrit 31.5 % (37.0-53.0); Hemoglobin 10.8 g/dL (13.5-17.5); IMMATURE GRAN ABSOLUTE AUTO 0.09 K/mm3 (0.00-0.10); IMMATURE GRAN PERCENT AUTO 1 % (0-1); LYMPHOCYTES PERCENT AUTO 3 % (21-46); MONOCYTES ABSOLUTE AUTO 1.13 K/mm3 (0.16-1.47); MONOCYTES PERCENT AUTO 9 % (4-13); Mean Corpuscular HGB 32.5 pg (26.0-34.0); Mean Corpuscular HGB Conc 34.3 g/dL (31.5-36.5); Mean Corpuscular Volume 95 fL (80-100); Mean Platelet Volume 11.2 fL (9.1-12.4); NEUTROPHILS PERCENT AUTO 87 % (41-73); Platelet Count 138 K/mm3 (150-400); RDW Coefficient Variation 12.6 % (11.7-14.2); RDW Standard Deviation 44.4 fL (35.1-46.3); Red Blood Cell Count 3.32 M/mm3 (4.30-5.90)
--- NOTE | 2021-02-02 06:38 | NUR ---
SHIFT SUMMARY ADMITTED FOR CELLULITIS OF THE LLE. PT IS A FULL CODE. PLAN IS FOR PT TO HAVE PROCEDURE WITH DR DIETRICH THIS AM TO LLE. PT MEDICATED FOR MUSCLE CRAMPING/TREMORS X1. PT WOKE UP CONFUSED AND HAD SOME HALLUCINATIONS OF A "DOG IN THE CORNER". NPO SINCE MIDNIGHT. PT IS RESTING AT THIS TIME.
[2021-02-02 07:56] LABS: Albumin, Blood 2.3 g/dL (3.4-5.0); Anion Gap 12 mmol/L (6-16); Blood Urea Nitrogen 43 mg/dL (8-24); Bun/Creatinine Ratio 8.3 (12.0-20.0); CO2, Blood 24 mmol/L (21-32); Calcium, Blood 8.4 mg/dL (8.5-10.1); Chloride, Blood 92 mmol/L (98-108); Creatinine, Blood 5.16 mg/dL (0.60-1.20); Glomerular Filtration Rate 12 (60-); Glucose, Blood 144 mg/dL (70-99); Phosphorus, Blood 4.3 mg/dL (2.5-4.9); Potassium, Blood 4.3 mmol/L (3.5-5.5); Sodium, Blood 128 mmol/L (136-145)
--- NOTE | 2021-02-02 18:06 | NUR ---
PATIENT HAD I&D ON LLE THIS AFTERNOON; RETURNED FROM PROCEDURE TO ROOM WITH WOUND VAC TO SURGICAL SITE. THE PATIENT IS VERY CONFUSED AND LETHARGIC AND NOTED TO BE PICKING AT THE DRESSING TO THE WOUND AND WAS ABLE TO REMOVE IT ENOUGH THAT ALL BUT THE FOAM NEEDED TO BE REPLACED. CLEANSED WOUND UP AND REDRESSED IT. WOUND VAC SUCTIONING AT 120. MEDICATED FOR PAIN WITH EFFECTIVENESS NOTED; PATIENT ASLEEP IN ROOM AT THIS TIME. CONTINUES ON IV ABX WITHOUT S/SX OF ADVERSE REACTIONS NOTED OR REPORTED. VITALS MONITORED PER POST-OP PROTOCOL; BP HAS BEEN UP AND DOWN BUT ALL-IN-ALL VITALS HAVE REMAINED STABLE. PATIENT HAS CALL LIGHT IN REACH.
[2021-02-03 04:45] LABS: BASOPHILS ABSOLUTE AUTO 0.03 K/mm3 (0.00-0.23); BASOPHILS PERCENT AUTO 0 % (0-2); EOSINOPHILS PERCENT AUTO 1 % (0-6); Hematocrit 28.3 % (37.0-53.0); Hemoglobin 9.5 g/dL (13.5-17.5); IMMATURE GRAN ABSOLUTE AUTO 0.06 K/mm3 (0.00-0.10); IMMATURE GRAN PERCENT AUTO 1 % (0-1); LYMPHOCYTES ABSOLUTE AUTO 0.42 K/mm3 (0.84-5.20); LYMPHOCYTES PERCENT AUTO 4 % (21-46); MONOCYTES ABSOLUTE AUTO 1.04 K/mm3 (0.16-1.47); MONOCYTES PERCENT AUTO 9 % (4-13); Mean Corpuscular HGB 32.6 pg (26.0-34.0); Mean Corpuscular HGB Conc 33.6 g/dL (31.5-36.5); Mean Corpuscular Volume 97 fL (80-100); Mean Platelet Volume 10.4 fL (9.1-12.4); NEUTROPHILS ABSOLUTE AUTO 9.83 K/mm3 (1.96-9.15); NEUTROPHILS PERCENT AUTO 86 % (41-73); Platelet Count 163 K/mm3 (150-400); RDW Coefficient Variation 12.8 % (11.7-14.2); RDW Standard Deviation 45.4 fL (35.1-46.3); Red Blood Cell Count 2.91 M/mm3 (4.30-5.90); White Blood Cell Count 11.48 K/mm3 (4.00-11.30)
[2021-02-03 05:02] LABS: Albumin, Blood 2.3 g/dL (3.4-5.0); Anion Gap 12 mmol/L (6-16); Blood Urea Nitrogen 60 mg/dL (8-24); Bun/Creatinine Ratio 9.4 (12.0-20.0); CO2, Blood 27 mmol/L (21-32); Chloride, Blood 91 mmol/L (98-108); Creatinine, Blood 6.38 mg/dL (0.60-1.20); Glomerular Filtration Rate 9 (60-); Glucose, Blood 206 mg/dL (70-99); Phosphorus, Blood 5.7 mg/dL (2.5-4.9); Potassium, Blood 4.2 mmol/L (3.5-5.5); Sodium, Blood 130 mmol/L (136-145)
--- NOTE | 2021-02-03 05:21 | NUR ---
SHIFT SUMMARY: VSS. AFEB. LETHARGIC AT START OF THE NIGHT, UPON WAKING PT WAS CONFUSED AND TORE WOUND VAC TAPE WHILE PULLING AT TUBING. RIPPED IV TUBING IN HALF. SOUNDED BED ALARM WHILE ATTEMPTING TO GET UP OOB. UPON TALKING W/ PT AND PROVIDING REORIENTATION, PT STATES HE WAS HAVING A DREAM AND BELIEVED HE NEEDED TO GET UP TO HELP HIS KIDS. VERBALIZED UNDERSTANDING THAT HE IS IN THE HOSPITAL. PROGRESSIVELY MORE CONFUSED DURING THE NIGHT. PT HEARD TALKING TO SELF FREQUENTLY. OBSERVED LOOKING AT, REACHING FOR, AND LAUGHING AT POSSIBLE HALLUCINATIONS. MEDICATED FOR LLE PAIN X2. WOUND VAC IN PLACE AND SUCTIONING MOD AMT OF SANGUINOUS DRAINAGE FROM L ANTERIOR WU. LLE RED AND SWOLLEN. LLE AND LUE ELEVATED ON PILLOWS. CONT W/ LUE SWELLING. THRILL AND BRUIT + TO L ARM AV FISTULA. SLEPT INTERMITTENTLY. MAINTENANCE IV FLUIDS INFUSING. BED LOW, BED ALARM ON.
[2021-02-03 12:58] LABS: Vancomycin, Random 12.7 ug/mL
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
--- NOTE | 2021-02-03 19:24 | NUR ---
SHIFT SUMMARY- PT IS PLESANT AND COOPERATIVE. HE IS RECIEVING IV FLUIDS. HE WAS LETHARGIC THIS MORNING AND WOULD NOT DRINK. I HELD MORNING MEDICATIONS DUE TO ASPERATION RISK. HE WENT FOR DIALYSIS THIS AFTERNOON. AND TOLERATED WELL. HE BECAME MORE ALERT THIS AFTERNOON. I SPOKE TO HIS ON THE PHONE THIS AFTERNOON. HIS BED IS IN THE LOW POSITON AND CALL LIGHT IS WITIN REACH.
--- NOTE | 2021-02-03 22:48 | NUR ---
CALL TO HOSPITALIST / IV FLUIDS / ELIJAH VEST FINE INSPIRATORY CRACKLES AUSCULTATED BILATERALLY. NO COUGH. NO APPARENT SOB. 02 94% ON RA. NS INFUSING. REQUEST TO D/C IV FLUIDS. PT REPEATEDLY ATTEMPTING TO GET UP OOB. WEAK. UNABLE TO AMBULATE. ORDERS FOR BEDREST. AAOX1. REDIRECTS WELL BUT FOR A SHORT PERIOD OF TIME THEN PT RETURNS TO ATTEMPTING TO GET UP. WHEN ASKED PT STATES HE IS LOOKING FOR ITEMS OR LOOKING FOR HIS . HE STATES THAT HE WANTS TO GO TO BED. REMINDED HE IS IN BED. RECEIVED ORDERS TO D/C IV FLUIDS. PLACE ELIJAH VEST.
[2021-02-04 05:02] LABS: Hematocrit 28.2 % (37.0-53.0); Hemoglobin 9.3 g/dL (13.5-17.5)
[2021-02-04 05:22] LABS: Albumin, Blood 2.4 g/dL (3.4-5.0); Anion Gap 8 mmol/L (6-16); Blood Urea Nitrogen 43 mg/dL (8-24); Bun/Creatinine Ratio 7.8 (12.0-20.0); CO2, Blood 31 mmol/L (21-32); Chloride, Blood 95 mmol/L (98-108); Glomerular Filtration Rate 11 (60-); Glucose, Blood 65 mg/dL (70-99); Magnesium, Blood 2.1 mg/dL (1.6-2.4); Potassium, Blood 3.8 mmol/L (3.5-5.5); Sodium, Blood 134 mmol/L (136-145)
--- NOTE | 2021-02-04 06:38 | NUR ---
ELIJAH VEST WAS REMOVED AT MIDNIGHT. PT FELL ASLEEP SHORTLY AFTER VEST APPLIED AND HAS REMAINED ASLEEP THROUGH MOST OF THE NIGHT. WAKES UP TO VERBAL STIMULI AND THEN RETURNS TO SLEEP.
--- NOTE | 2021-02-04 06:40 | NUR ---
SHIFT SUMMARY: VERY ACTIVE AT THE START OF THE NIGHT. PT HAS MADE NO FURTHER ATTEMPTS TO GET UP OOB SINCE ELIJAH REMOVED AT MIDNIGHT. MORE DIFFICULT TO UNDERSTAND TONIGHT. LESS CONVERSATIONAL. MAKES RANDOM STATEMENTS NOT APPLICABLE TO SITUATION. CONFUSED. A/OX1. MED FOR PAIN X 1. HAS SLEPT SINCE. WCTM.
--- NOTE | 2021-02-04 17:54 | NUR ---
SHIFT SUMMARY- PT WAS MORE ALERT THIS SHIFT. HE IS EATING AND DRINKING WELL. HE BECAME A BIT MORE CONFUSED THIS AFTERNOON. HE IS RECIEVING PRN GABIPENTIN FOR LEG PAIN, WHICH WAS CHANGED TO SCHEDULED LYRICA. HIS BED IS IN THE LOW POSITION CALL LIGHT IS WITHIN REACH. BED ALARM IS ON
--- NOTE | 2021-02-05 04:25 | NUR ---
SHIFT SUMMARY PATIENT HAD NO ACUTE CHANGES OBSERVED. AXO X 3 WITH GARBLED SPEECH AND CONFUSION AT TIMES. WOUND VAC CHANGED TO LEFT LEG AND MEDICATED WITH IV FENTANYL 25 MCG PRIOR AND NORCO 5/325 MG AFTER. BEDREST. TAKES MEDICATION WHOLE WITH WATER. PIV REMAINS INTACT. CBG 126. FISTULA LEFT ARM. DENIES SOB AND N/V. VSS/AFEBRILE. CALL LIGHT IN REACH. BED IN LOWEST POSITION. WILL CONTINUE TO MONITOR UNTIL DAY SHIFT NURSE ASSUMES CARE.
[2021-02-05 04:57] LABS: Hematocrit 26.8 % (37.0-53.0); Hemoglobin 8.8 g/dL (13.5-17.5)
[2021-02-05 05:33] LABS: Albumin, Blood 2.4 g/dL (3.4-5.0); Anion Gap 13 mmol/L (6-16); Blood Urea Nitrogen 56 mg/dL (8-24); Bun/Creatinine Ratio 8.3 (12.0-20.0); CO2, Blood 26 mmol/L (21-32); Calcium, Blood 8.1 mg/dL (8.5-10.1); Chloride, Blood 92 mmol/L (98-108); Creatinine, Blood 6.77 mg/dL (0.60-1.20); Glomerular Filtration Rate 9 (60-); Glucose, Blood 171 mg/dL (70-99); Magnesium, Blood 2.1 mg/dL (1.6-2.4); Phosphorus, Blood 5.6 mg/dL (2.5-4.9); Potassium, Blood 4.5 mmol/L (3.5-5.5); Sodium, Blood 131 mmol/L (136-145)
[2021-02-05 13:17] LABS: Vancomycin, Random 16.3 ug/mL
[2021-02-05 16:07] LABS: BASOPHILS ABSOLUTE AUTO 0.03 K/mm3 (0.00-0.23); BASOPHILS PERCENT AUTO 1 % (0-2); EOSINOPHILS ABSOLUTE AUTO 0.13 K/mm3 (0.00-0.68); EOSINOPHILS PERCENT AUTO 2 % (0-6); Hematocrit 28.8 % (37.0-53.0); Hemoglobin 9.6 g/dL (13.5-17.5); IMMATURE GRAN ABSOLUTE AUTO 0.04 K/mm3 (0.00-0.10); IMMATURE GRAN PERCENT AUTO 1 % (0-1); LYMPHOCYTES ABSOLUTE AUTO 0.71 K/mm3 (0.84-5.20); LYMPHOCYTES PERCENT AUTO 12 % (21-46); MONOCYTES ABSOLUTE AUTO 0.69 K/mm3 (0.16-1.47); MONOCYTES PERCENT AUTO 12 % (4-13); Mean Corpuscular HGB 31.8 pg (26.0-34.0); Mean Corpuscular HGB Conc 33.3 g/dL (31.5-36.5); Mean Corpuscular Volume 95 fL (80-100); Mean Platelet Volume 10.4 fL (9.1-12.4); NEUTROPHILS ABSOLUTE AUTO 4.18 K/mm3 (1.96-9.15); NEUTROPHILS PERCENT AUTO 72 % (41-73); Platelet Count 205 K/mm3 (150-400); RDW Coefficient Variation 12.5 % (11.7-14.2); RDW Standard Deviation 43.8 fL (35.1-46.3); Red Blood Cell Count 3.02 M/mm3 (4.30-5.90); White Blood Cell Count 5.78 K/mm3 (4.00-11.30)
[2021-02-05 16:32] LABS: Albumin, Blood 2.5 g/dL (3.4-5.0); Albumin/Globulin Ratio 0.7 (0.8-1.8); Bilirubin, Total 0.7 mg/dL (0.1-1.0); Calcium, Blood 8.1 mg/dL (8.5-10.1); Creatinine, Blood 4.28 mg/dL (0.60-1.20); Globulin, Blood 3.6 g/dL (2.2-4.0); Potassium, Blood 3.5 mmol/L (3.5-5.5); Total Protein, Blood 6.1 g/dL (6.4-8.2)
--- NOTE | 2021-02-05 19:30 | NUR ---
pt not placed in restraints due to availability of other safety measures, vest would not stop pt from pulling on wound vac or IV, discussed order with noc nurse and he will continue to monitor and apply as he feels is best for pt, currently resting in bed, having just used the urinal, call light in reach, rm air and saline locked, bsr shared with noc nurse and pt
--- NOTE | 2021-02-06 00:08 | NUR ---
PATIENT HAVING INCREASED AGITATION T/O SHIFT. FLEXERIL GIVEN FOR MUSCLE SPASMS. MELATONIN 6 MG GIVEN FOR INSOMNIA. PATIENT IN ELIJAH VEST. AUDITORY HALLUCINATIONS AT THIS TIME. CALL LIGHT IN REACH.
--- NOTE | 2021-02-06 04:46 | NUR ---
SHIFT SUMMARY PATIENT INCREASINGLY AGITATED T/O THE SHIFT. AXOX TO SELF WITH GARBLED SPEECH. MULTIPLE OOB ATTEMPTS ACTIVATING BED ALARM. ELIJAH VEST IN PLACE PER ORDERS. PIV REMAINS INTACT. CBG 218. VSS/AFEBRILE. FLEXERIL 5 MG GIVEN FOR MUSCLE SPASMS. MELATONIN 6 MG GIVEN FOR INSOMNIA WITH NO EFFECT. NORCO GIVEN FOR S/SX OF LEFT LEG PAIN. AUDITORY HALLUCINATIONS AFTER MIDNIGHT FOR A FEW HOURS. FISTULA LEFT ARM. DOES NOT USE CALL LIGHT. BED IN LOWEST POSITION AND ALARM ACTIVATED. WILL CONTINUE TO MONITOR UNTIL DAY SHIFT NURSE ASSUMES CARE.
[2021-02-06 04:59] LABS: Hematocrit 27.4 % (37.0-53.0); Hemoglobin 9.2 g/dL (13.5-17.5)
[2021-02-06 05:35] LABS: Albumin, Blood 2.4 g/dL (3.4-5.0); Anion Gap 8 mmol/L (6-16); Blood Urea Nitrogen 37 mg/dL (8-24); Bun/Creatinine Ratio 7.1 (12.0-20.0); CO2, Blood 32 mmol/L (21-32); Calcium, Blood 7.9 mg/dL (8.5-10.1); Chloride, Blood 94 mmol/L (98-108); Creatinine, Blood 5.19 mg/dL (0.60-1.20); Glomerular Filtration Rate 12 (60-); Glucose, Blood 126 mg/dL (70-99); Magnesium, Blood 1.9 mg/dL (1.6-2.4); Phosphorus, Blood 4.2 mg/dL (2.5-4.9); Sodium, Blood 134 mmol/L (136-145)
[2021-02-06 14:36] LABS: Vancomycin, Random 35.4 ug/mL
--- NOTE | 2021-02-06 19:24 | NUR ---
HOPEFULLY HAVE UPDATED LOG FOR RESTRICTION MONITOR, MENT TO CHART START OF NEW ORDERS FOR 1600 AND DISCONTINUE OF OLD AT SAME TIME, PT AND FAMILY INFORMED OF ORDERS AND REASON FOR RESTRAINTS, FAMILY STATED THEY WANT PT SAFE AND CARED FOR, SPENT TIME TALKING WITH DR BUT LEFT BEFORE NURSE COULD RECONNECT, CALL LIGHT IN REACH, VEST IN PLACE, RM AIR, SALINE LOCKED, BSR SHARED WITH NOC NURSE AND PT
--- NOTE | 2021-02-06 22:38 | NUR ---
HOSPITALIST IRISH LACY RENEWED ELIJAH VEST AND ADDED BILATERAL SOFT WRIST RESTRAINTS.
--- NOTE | 2021-02-06 22:39 | NUR ---
DR TAFOYA ([facility]) ORDERED CT OF HEAD FOR THE MORNING 02/07/2021, FOR CHANGE IN MENTAL STATUS.
--- NOTE | 2021-02-07 03:17 | NUR ---
SHIFT SUMMARY DR TAFOYA ORDERED CT OF HEAD THIS MORNING FOR: CHANGE IN MENTAL STATUS. ALERT TO SELF WITH GARBLED SPEECH AND BEDREST. ELIJAH VEST AND BILATERAL SOFT WRIST RESTRAINTS PER ORDERS. INCREASED AGITATION AND OOB EXITS ATTEMPTS. TAKES MEDICATION WHOLE WITH WATER. CBG 317. FISTULA LEFT ARM. PIV REMAINS INTACT. WOUND VAC LEFT LEG INTACT. NORCO GIVEN FOR LEFT LEG PAIN. MELATONIN 6 MG FOR INSOMNIA. VSS/AFEBRILE. NO S/SX OF SOB AND N/V. BED IN LOWEST POSITION AND ALARM ACTIVATED. WILL CONTINUE TO MONITOR UNTIL DAY SHIFT NURSE ASSUMES CARE.
[2021-02-07 05:16] LABS: BASOPHILS ABSOLUTE AUTO 0.04 K/mm3 (0.00-0.23); BASOPHILS PERCENT AUTO 0 % (0-2); EOSINOPHILS ABSOLUTE AUTO 0.09 K/mm3 (0.00-0.68); EOSINOPHILS PERCENT AUTO 1 % (0-6); Hematocrit 28.6 % (37.0-53.0); Hemoglobin 9.6 g/dL (13.5-17.5); IMMATURE GRAN ABSOLUTE AUTO 0.08 K/mm3 (0.00-0.10); IMMATURE GRAN PERCENT AUTO 1 % (0-1); LYMPHOCYTES PERCENT AUTO 7 % (21-46); MONOCYTES ABSOLUTE AUTO 0.75 K/mm3 (0.16-1.47); MONOCYTES PERCENT AUTO 6 % (4-13); Mean Corpuscular HGB 32.3 pg (26.0-34.0); Mean Corpuscular HGB Conc 33.6 g/dL (31.5-36.5); Mean Corpuscular Volume 96 fL (80-100); Mean Platelet Volume 11.2 fL (9.1-12.4); NEUTROPHILS ABSOLUTE AUTO 11.02 K/mm3 (1.96-9.15); NEUTROPHILS PERCENT AUTO 86 % (41-73); Platelet Count 234 K/mm3 (150-400); RDW Coefficient Variation 12.9 % (11.7-14.2); RDW Standard Deviation 45.9 fL (35.1-46.3); Red Blood Cell Count 2.97 M/mm3 (4.30-5.90); White Blood Cell Count 12.88 K/mm3 (4.00-11.30)
[2021-02-07 05:39] LABS: Albumin, Blood 2.4 g/dL (3.4-5.0); Albumin/Globulin Ratio 0.7 (0.8-1.8); Bilirubin, Total 0.7 mg/dL (0.1-1.0); Bun/Creatinine Ratio 7.4 (12.0-20.0); Calcium, Blood 8.2 mg/dL (8.5-10.1); Creatinine, Blood 6.79 mg/dL (0.60-1.20); Globulin, Blood 3.6 g/dL (2.2-4.0); Magnesium, Blood 2.1 mg/dL (1.6-2.4); Phosphorus, Blood 5.3 mg/dL (2.5-4.9); Potassium, Blood 4.3 mmol/L (3.5-5.5)
--- NOTE | 2021-02-07 06:34 | NUR ---
PATIENT OUT OF ROOM FOR CT SCAN OF HEAD.
[2021-02-07 13:09] LABS: Vancomycin, Random 16.6 ug/mL
--- NOTE | 2021-02-07 14:53 | NUR ---
LEFT ARM APPEARS MORE SWOLLEN THAN IT WAS THIS AM. AWARE. RADIAL PULSE PRESENT.
--- NOTE | 2021-02-07 18:18 | NUR ---
ALERT TO SELF AND LOCATION. SLOW TO RESPOND. DIET CHANGED TO ADA/RENAL REG FOOD . WOUND VAC CHANGED TODAY AND TOLERATED. SUCTION AT 120. IV PATENT. MEDICATED FOR PAIN WITH P.O. WORKING BETTER THAN IV. UNLABORED RESPIRATIONS. , AND FIRST SAMPLER AWARE LEFT ARM SWOLLEN. PER FIRST SAMPLER PATIENT HAS HAD MULTIPLE ULTRASOUNDS TO ARM. THRILL PRESENT AND PER FIRST SAMPLER FISTULA IS WORKING FINE. TREMORS ALL 4 EXTREMITIES. MULTIPLE SOLID STOOLS.ELIJAH ON. WCTM.
[2021-02-08 05:07] LABS: BASOPHILS ABSOLUTE AUTO 0.02 K/mm3 (0.00-0.23); BASOPHILS PERCENT AUTO 0 % (0-2); EOSINOPHILS ABSOLUTE AUTO 0.21 K/mm3 (0.00-0.68); EOSINOPHILS PERCENT AUTO 3 % (0-6); Hematocrit 28.1 % (37.0-53.0); Hemoglobin 9.4 g/dL (13.5-17.5); IMMATURE GRAN ABSOLUTE AUTO 0.02 K/mm3 (0.00-0.10); IMMATURE GRAN PERCENT AUTO 0 % (0-1); LYMPHOCYTES ABSOLUTE AUTO 0.71 K/mm3 (0.84-5.20); LYMPHOCYTES PERCENT AUTO 11 % (21-46); MONOCYTES ABSOLUTE AUTO 0.65 K/mm3 (0.16-1.47); MONOCYTES PERCENT AUTO 10 % (4-13); Mean Corpuscular HGB Conc 33.5 g/dL (31.5-36.5); Mean Corpuscular Volume 96 fL (80-100); Mean Platelet Volume 10.6 fL (9.1-12.4); NEUTROPHILS ABSOLUTE AUTO 5.14 K/mm3 (1.96-9.15); NEUTROPHILS PERCENT AUTO 76 % (41-73); Platelet Count 215 K/mm3 (150-400); RDW Coefficient Variation 13.1 % (11.7-14.2); RDW Standard Deviation 45.4 fL (35.1-46.3); Red Blood Cell Count 2.94 M/mm3 (4.30-5.90); White Blood Cell Count 6.75 K/mm3 (4.00-11.30)
[2021-02-08 05:35] LABS: Albumin, Blood 2.1 g/dL (3.4-5.0); Albumin/Globulin Ratio 0.6 (0.8-1.8); Bilirubin, Total 0.7 mg/dL (0.1-1.0); Bun/Creatinine Ratio 5.6 (12.0-20.0); Calcium, Blood 7.7 mg/dL (8.5-10.1); Creatinine, Blood 4.84 mg/dL (0.60-1.20); Globulin, Blood 3.3 g/dL (2.2-4.0); Potassium, Blood 3.7 mmol/L (3.5-5.5); Total Protein, Blood 5.4 g/dL (6.4-8.2)
--- NOTE | 2021-02-08 07:31 | NUR ---
SUMMARY: PT ORIENTED TO SELF, SURROUNDINGS, FAMILY AND YEAR BUT REQUIRES REMINDERS PERTAINING TO EVENT. HE CALLS APPROPRIATELY AT TIMES TO SPECIFY NEEDS. HE REMAINS IN ELIJAH VEST FOR POSSIBLE IMPULSIVITY AND FALL RISK. WOUND VAC INTACT TO LLE W/SUCTION INTACT. PM PRESENT TO R.CW AND THRILLS AND BRUITS INTACT TO L.ARM FISTULA. L.ARM REMAINS SWOLLEN AND ELEVATED ON PILLOWS TOLERATED, AWARE. TURN SCHEDULE MAINTAINED AND ATTENDS CHANGED PRN FOR INCONTINENCE. NO ACUTE CHANGES, VSS/AFEBRILE. WCTM AND REPORT TO DAY RN.
[2021-02-08 08:10] LABS: HBSAG SCREEN Negative (Negative); HEP A AB, IGM Negative (Negative); HEP B CORE AB, IGM Negative (Negative); HEP C VIRUS AB >11.0 (0.0-0.9)
--- NOTE | 2021-02-08 08:38 | NUR ---
PER OK TO WAIT ON MRI HEAD CAN NOT TAKE IV PUMP INTO MRI ROOM.
[2021-02-08 13:33] LABS: Vancomycin, Random 22.8 ug/mL
--- NOTE | 2021-02-08 17:17 | NUR ---
ALERT. ORIENTED. INTERMITTENT CONFUSION, BUT CLEARER THAN YESTERDAY. HAS BEEN SLEEPING MOST OF SHIFT. IV PATENT. P.T. WORKING WITH PATIENT. TM
--- NOTE | 2021-02-08 18:24 | NUR ---
HAD PAIN MEDS AT 6PM. STS HAS NOT "KICKED IN YET". C/O DRY HEAVES AND REFUSES ANY ANTI NAUSEA MEDS AT THIS TIME. WCTM.
[2021-02-09 05:58] LABS: Hematocrit 27.6 % (37.0-53.0); Hemoglobin 9.1 g/dL (13.5-17.5)
--- NOTE | 2021-02-09 06:18 | NUR ---
SUMMARY: PT MOSTLY A&O W/SOME INTERMITTENT CONFUSION AND HAS OCC. TRAILING SPEECH W/OFF TOPIC COMMENTS. PHYS TX WAS UNABLE TO GET PT OOB ON DAY SHIFT D/T TREMORS BUT HE IS MOBILE IN BED AND REPOSITIONS HIMSELF OFTEN. WOUND VAC DX W/SUCTION REMAIN INTACT TO LLE AND WAS REINFORCED THIS SHIFT D/T PT FIGITING, DX TO BE CHANGED PER SCHEDULE TODAY. HE WAS MEDICATED PRN W/2 TABS ROXICODONE FOR TOLERABLE RELIEF OF L.LEG PAIN. ATTENDS CHANGED PRN FOR STOOL INCONTINENCE AND PT USED URINAL TO VOID. PT IS ON DIALYSIS W/DARK, CONCENTRATED URINE OBSERVED. THRILLS/BRUITS PRESENT TO L.ARM FISTULA AND REMAINS AWARE OF PERSISTANT DEPENDENT EDEMA. PROBABLE DIALYSIS TODAY AND WILL HAVE DAY STAFF VERIFY VANCO IS BEING RECIEVED PER PHARM CX AND NOTATION. NO ACUTE CHANGES, VSS/AFEBRILE. WCTM AND REPORT TO DAY RN.
[2021-02-09 06:23] LABS: Albumin, Blood 2.2 g/dL (3.4-5.0); Albumin/Globulin Ratio 0.7 (0.8-1.8); Bilirubin, Total 0.7 mg/dL (0.1-1.0); Bun/Creatinine Ratio 5.9 (12.0-20.0); Calcium, Blood 7.8 mg/dL (8.5-10.1); Creatinine, Blood 6.47 mg/dL (0.60-1.20); Globulin, Blood 3.3 g/dL (2.2-4.0); Magnesium, Blood 2.1 mg/dL (1.6-2.4); Phosphorus, Blood 4.4 mg/dL (2.5-4.9); Potassium, Blood 4.1 mmol/L (3.5-5.5); Total Protein, Blood 5.5 g/dL (6.4-8.2)
--- NOTE | 2021-02-09 08:45 | NUR ---
PATIENT "I NEED AIR." SATS TAKEN AND 99% ON ROOM AIR. SPEAKS IN COMPLETE SENTENCES. TEMP CONTROL IN ROOM WAS TURNED ALL THE WAY UP AND VERY HOT IN ROOM. TEMP TURNED DOWN. TM
--- NOTE | 2021-02-09 09:30 | NUR ---
TO DIALYSIS VIA BED
--- NOTE | 2021-02-09 17:46 | NUR ---
ALERT. INTERMITTENT CONFUSED STILL CAN NOT SAY WHERE HE IS, BUT KNOWS ; THE DATE, THE PRESIDENT AND WHY HE IS HERE. VERY TALKATIVE TODAY. UNLABORED RESPIRATIONS. LEFT ARM SWOLLEN AND ELEVATED ON PILLOW. GOOD THRILL. HAD DIALYSIS TODAY. POOR APPETITE. INSULIN HELD FOR THAT REASON. WOUND VAC CHANGED AND DIMENSIONS LITTLE LESS THAN MONDAYS. WCTM.
--- NOTE | 2021-02-09 18:44 | NUR ---
PATIENT HAS ALL EXTREMITY TREMORS WHEN MOVING. P.T. AWARE AND STS UNABLE TO EVAL BECAUSE OF THIS.
--- NOTE | 2021-02-10 03:35 | NUR ---
UPSET WELDING MACHINE OPERATOR SUMMARY PT A/O X3-4 AT BEGINNING OF SHIFT. AROUND CHIEF PROJECTIONIST ABOUT 0200 PT APPEARS TO BE CONFUSED. PT HAD FEET OVER THE SIDE RAILS AND MENTIONED SOMETHING ABOUT "TRAINS". PT ALSO SAT AT THE EDGE OF THE BED A LITTLE LATER AND WAS TALKING TO SELF IN ROOM . PT WAS MEDICATED FOR L FOOT PAIN OVERNIGHT. WOUND VAC IN PLACE ON L LEG. ROOM AIR. VSS. BED ALARM ON, CALL LIGHT WITHIN REACH. WILL CONTINUE TO MONITOR.
[2021-02-10 05:13] LABS: Hematocrit 29.5 % (37.0-53.0); Hemoglobin 9.7 g/dL (13.5-17.5)
[2021-02-10 05:38] LABS: Albumin, Blood 2.2 g/dL (3.4-5.0); Anion Gap 5 mmol/L (6-16); Blood Urea Nitrogen 27 mg/dL (8-24); CO2, Blood 32 mmol/L (21-32); Calcium, Blood 7.6 mg/dL (8.5-10.1); Chloride, Blood 96 mmol/L (98-108); Glomerular Filtration Rate 14 (60-); Glucose, Blood 231 mg/dL (70-99); Phosphorus, Blood 3.4 mg/dL (2.5-4.9); Potassium, Blood 3.7 mmol/L (3.5-5.5); Sodium, Blood 133 mmol/L (136-145)
[2021-02-10] MEDS ORDERED: Vancomycin500 MG/100 IV (13:49)
[2021-02-10] MEDS ORDERED: VISBIOME 112.51 EACH PO (13:49)
--- NOTE | 2021-02-10 17:58 | NUR ---
SHIFT SUMMARY NO ACUTE CHANGES, A&O x2-3, FORGETFUL AND CONFUSED @ TIMES. EASILY REDIRECTABLE. WOUND VAC SEALED AND DELIVERING THERAPY. NO DRAINAGE NOTED IN CANISTER. BED ALARM ON DUE TO PT SITTING UP IN BED WITHOUT ASSISTANCE, DOES NOT ATTEMPT TO GET UP BUT DANGLES AT BEDSIDE. TREATED FOR PAIN X2 THIS SHIFT. TREATMENT APPEARS TO BE EFFECTIVE. LITTLE TO NO URINE OUTPUT THIS SHIFT, THIS IS NORMAL FOR THIS PT. POSSIBLE DISCHARGE HOME TOMORROW WITH HH. VSS, PT ON RA. NO COMPLAINTS OF ANY DISTRESS. PT CURRENTY RESTING IN BED EATING DINNER. CALL LIGHT WITHIN REACH.
--- NOTE | 2021-02-11 04:40 | NUR ---
SUPERVISOR/PORT DIRECTOR SUMMARY PT A/O X2 TO SELF AND PLACE. MORE SOMNOLENT TONIGHT, AROUSIBLE TO VOICE. PT GIVEN JUICE AND CRACKERS TO MAINTAIN BLOOD SUGAR. HOSPITALIST PADILLA NOTIFIED OF BLOOD SUGAR AND SAID TO GIVE HALF OF NORMAL DOSE. SLEPT ALL NIGHT TONIGHT. DENIED CHEST PAIN, NAUSEA, SOB. CALL LIGHT WITHIN REACH, BED ALARM ON. WOUND VAC INTACT AND SUCTIONING- NO OUTPUT FROM WOUND VAC.
[2021-02-11 09:54] LABS: Hemoglobin 9.7 g/dL (13.5-17.5)
[2021-02-11 12:33] LABS: Vancomycin, Random 15.3 ug/mL
--- NOTE | 2021-02-11 15:28 | NUR ---
PT TO DISCHARGE HOME ON HH. DRESSING TO WOUND VAC CHANGED PRIOR TO DC. PT BELONGINGS PACKED BY STAFF AND . PT TO FOLLOW UP WITH PCP AND HH TO COME SUNDAY. MEDS SENT TO [place]. PT TRANSFERRED TO [facility] BY STAFF. PT TAKEN HOME BY .
== END 2021-02-11 15:20 | disposition home health service (06) | DRG 570 ==
LOC: ER 20:08 → MEDS 21:16 → ERHOLD 21:16 → MEDS 01-31 00:35 → ENPENDDIS 02-11 10:36 → MEDS 02-11 15:20
PROVIDERS: Emergency Medicine; Internal Medicine; Internal Medicine Nephrology; Orthopaedic Surgery; Pharmacist; ADMIT Family Medicine
PROC: 0JBP0ZZ Excision of Left Lower Leg Subcutaneous Tissue and Fascia, Open Approach (ICD-10-PCS; principal; 2021-02-02 14:30)
DX: L03.116 Cellulitis of left lower limb (principal); G92 Toxic encephalopathy; E43 Unspecified severe protein-calorie malnutrition; I50.42 Chronic combined systolic (congestive) and diastolic (congestive) heart failure; E87.1 Hypo-osmolality and hyponatremia; I13.2 Hypertensive heart and chronic kidney disease with heart failure and with stage 5 chronic kidney disease, or end stage renal disease; N25.81 Secondary hyperparathyroidism of renal origin; I69.354 Hemiplegia and hemiparesis following cerebral infarction affecting left non-dominant side; R78.81 Bacteremia; Z68.1 Body mass index [BMI] 19.9 or less, adult; Z20.822 Contact with and (suspected) exposure to COVID-19; L02.416 Cutaneous abscess of left lower limb; T42.6X5A Adverse effect of other antiepileptic and sedative-hypnotic drugs, initial encounter; B95.62 Methicillin resistant Staphylococcus aureus infection as the cause of diseases classified elsewhere; N18.9 Chronic kidney disease, unspecified; I48.0 Paroxysmal atrial fibrillation; R07.89 Other chest pain; I25.10 Atherosclerotic heart disease of native coronary artery without angina pectoris; Z95.5 Presence of coronary angioplasty implant and graft; D63.1 Anemia in chronic kidney disease; Z86.711 Personal history of pulmonary embolism; E11.22 Type 2 diabetes mellitus with diabetic chronic kidney disease; G40.909 Epilepsy, unspecified, not intractable, without status epilepticus; Z99.2 Dependence on renal dialysis; I25.2 Old myocardial infarction; F43.10 Post-traumatic stress disorder, unspecified; F01.50 Vascular dementia, unspecified severity, without behavioral disturbance, psychotic disturbance, mood disturbance, and anxiety; Z86.718 Personal history of other venous thrombosis and embolism; I25.5 Ischemic cardiomyopathy; Z98.890 Other specified postprocedural states; Z88.8 Allergy status to other drugs, medicaments and biological substances; Z79.899 Other long term (current) drug therapy; Z79.4 Long term (current) use of insulin; D69.6 Thrombocytopenia, unspecified; J44.9 Chronic obstructive pulmonary disease, unspecified; Z95.1 Presence of aortocoronary bypass graft; E11.40 Type 2 diabetes mellitus with diabetic neuropathy, unspecified; R60.0 Localized edema
CPT/HCPCS: 36415; 70450; 71260; 73201; 73700; 73701; 76705; 80053; 80069; 80074; 80202; 82140; 82947; 83735; 84100; 84132; 84484; 84550; 85014; 85018; 85025; 87040; 87070; 87075; 87077; 87147; 87186; 87205; 93005; 93010; 93971; 94760; 96365-59; 96367; 96375; 96376; 97110; 97112; 97162; 99285-25; A9270; G0378; J0690; J0696; J0881; J1815; J2250; J2704; J3010; J3370; J7030; J7050; Q9967; U0004

== ENCOUNTER 2021-02-16 15:29 | Emergency (ER) | payer OTHER, MEDICARE ==
[~2021-02-16] VITALS: Ht 170.2 cm; Wt 67.1 kg
[~2021-02-16 15:29] MED LIST changes: +VISBIOME 112.51 EACH PO; +Vancomycin500 MG/100 IV
[2021-02-16 16:18] LABS: BASOPHILS ABSOLUTE AUTO 0.03 K/mm3 (0.00-0.23); BASOPHILS PERCENT AUTO 0 % (0-2); EOSINOPHILS ABSOLUTE AUTO 0.03 K/mm3 (0.00-0.68); EOSINOPHILS PERCENT AUTO 0 % (0-6); Hematocrit 31.8 % (37.0-53.0); Hemoglobin 10.3 g/dL (13.5-17.5); IMMATURE GRAN ABSOLUTE AUTO 0.05 K/mm3 (0.00-0.10); IMMATURE GRAN PERCENT AUTO 1 % (0-1); LYMPHOCYTES ABSOLUTE AUTO 0.57 K/mm3 (0.84-5.20); LYMPHOCYTES PERCENT AUTO 7 % (21-46); MONOCYTES ABSOLUTE AUTO 0.84 K/mm3 (0.16-1.47); MONOCYTES PERCENT AUTO 10 % (4-13); Mean Corpuscular HGB Conc 32.4 g/dL (31.5-36.5); Mean Corpuscular Volume 99 fL (80-100); Mean Platelet Volume 9.9 fL (9.1-12.4); NEUTROPHILS PERCENT AUTO 83 % (41-73); Platelet Count 270 K/mm3 (150-400); RDW Coefficient Variation 14.1 % (11.7-14.2); RDW Standard Deviation 49.7 fL (35.1-46.3); Red Blood Cell Count 3.22 M/mm3 (4.30-5.90); White Blood Cell Count 8.72 K/mm3 (4.00-11.30)
[2021-02-16 16:31] LABS: Albumin, Blood 2.6 g/dL (3.4-5.0); Albumin/Globulin Ratio 0.6 (0.8-1.8); Bilirubin, Total 0.7 mg/dL (0.1-1.0); Bun/Creatinine Ratio 5.3 (12.0-20.0); Calcium, Blood 8.6 mg/dL (8.5-10.1); Creatinine, Blood 6.97 mg/dL (0.60-1.20); Globulin, Blood 4.1 g/dL (2.2-4.0); Potassium, Blood 4.6 mmol/L (3.5-5.5); Total Protein, Blood 6.7 g/dL (6.4-8.2)
[2021-02-16 16:37] LABS: Magnesium, Blood 1.9 mg/dL (1.6-2.4); Phosphorus, Blood 4.4 mg/dL (2.5-4.9)
[2021-02-16 17:46] LABS: PCO2 Venous 50 mmHg (38-42); PO2 Venous 52 mmHg (38-42); pH Blood Venous 7.42 (7.34-7.37)
[2021-02-16 17:47] LABS: Base Excess Venous 8 mmol/L; Bicarbonate Venous 30.6 mmol/L (24.0-30.0)
== END 2021-02-16 17:50 | disposition home or self-care (01) ==
LOC: ER 15:29
PROVIDERS: Emergency Medicine; Physician Assistant
DX: R51.9 Headache, unspecified (principal); J90 Pleural effusion, not elsewhere classified; I13.2 Hypertensive heart and chronic kidney disease with heart failure and with stage 5 chronic kidney disease, or end stage renal disease; N18.6 End stage renal disease; I50.9 Heart failure, unspecified; E78.5 Hyperlipidemia, unspecified; I48.91 Unspecified atrial fibrillation; Z88.8 Allergy status to other drugs, medicaments and biological substances; Z91.02 Food additives allergy status; Z79.899 Other long term (current) drug therapy; Z79.01 Long term (current) use of anticoagulants; Z99.2 Dependence on renal dialysis; Z87.891 Personal history of nicotine dependence
CPT/HCPCS: 36415; 70450; 71045; 80053; 82803; 83735; 83880; 84100; 85025; 93005; 93010; 96374; 99284-25; J0780

== ENCOUNTER 2021-02-22 17:18 | Inpatient (IN) | payer OTHER, MEDICARE ==
[~2021-02-22] VITALS: Ht 170.2 cm; Wt 65.4 kg
[2021-02-22 17:40] LABS: Calcium, Ionized (POC) 1.02 mmol/L (1.10-1.46); Chloride (POC) 89 mmol/L (98-108); Creatinine (POC) 8.4 mg/dL (0.8-1.3); Glucose (ISTAT POC) 209 mg/dL (70-99); Hemoglobin (POC) 9.9 g/dL (13.5-17.5); Potassium (POC) 5.1 mmol/L (3.5-5.5); Sodium (POC) 131 mmol/L (135-148); Total CO2 (POC) 32 mmol/L (21-32)
[2021-02-22 17:46] LABS: BASOPHILS ABSOLUTE AUTO 0.02 K/mm3 (0.00-0.23); BASOPHILS PERCENT AUTO 0 % (0-2); EOSINOPHILS ABSOLUTE AUTO 0.04 K/mm3 (0.00-0.68); EOSINOPHILS PERCENT AUTO 1 % (0-6); Hematocrit 29.5 % (37.0-53.0); Hemoglobin 9.8 g/dL (13.5-17.5); IMMATURE GRAN ABSOLUTE AUTO 0.05 K/mm3 (0.00-0.10); IMMATURE GRAN PERCENT AUTO 1 % (0-1); LYMPHOCYTES ABSOLUTE AUTO 0.65 K/mm3 (0.84-5.20); LYMPHOCYTES PERCENT AUTO 10 % (21-46); MONOCYTES ABSOLUTE AUTO 0.79 K/mm3 (0.16-1.47); MONOCYTES PERCENT AUTO 12 % (4-13); Mean Corpuscular HGB 32.7 pg (26.0-34.0); Mean Corpuscular HGB Conc 33.2 g/dL (31.5-36.5); Mean Corpuscular Volume 98 fL (80-100); Mean Platelet Volume 10.2 fL (9.1-12.4); NEUTROPHILS ABSOLUTE AUTO 5.13 K/mm3 (1.96-9.15); NEUTROPHILS PERCENT AUTO 77 % (41-73); Platelet Count 177 K/mm3 (150-400); RDW Coefficient Variation 15.2 % (11.7-14.2); White Blood Cell Count 6.68 K/mm3 (4.00-11.30)
[2021-02-22 18:11] LABS: Albumin, Blood 2.6 g/dL (3.4-5.0); Albumin/Globulin Ratio 0.6 (0.8-1.8); Bilirubin, Total 0.9 mg/dL (0.1-1.0); Bun/Creatinine Ratio 6.3 (12.0-20.0); Calcium, Blood 8.8 mg/dL (8.5-10.1); Creatinine, Blood 7.56 mg/dL (0.60-1.20); Globulin, Blood 4.1 g/dL (2.2-4.0); Total Protein, Blood 6.7 g/dL (6.4-8.2)
--- NOTE | 2021-02-22 22:00 | NUR ---
PT ADMITTED TO ROOM ICU 3 FROM ED AT 2044. PT SLIDE TRANSFERRED TO BED. PT PRESENTS DEMONSTRATING SPASTIC TYPE (JERKY) MOVEMENTS. PT SOMEWHAT DISORIENTED. HAS SOME WORD SEARCHING. AT TIMES IS ABLE TO HAVE COMPLETE CONVERSATION. DR CLIFTON COMES TO ROOM TO SEE PT. CALL MADE TO PT'S - BELKIS. SHE WAS ABLE TO ASSIST IN ADMISSION. WILL REVIEW CHART AND PLAN OF CARE FOR THIS PT.
--- NOTE | 2021-02-23 | NUR ---
DR TAFOYA COMES IN TO SEE PT. ORDERS RECEIVED. DR TAFOYA TELLS PT THAT HE WILL RECEIVE DIALYSIS IN THE MORNING AROUND 9 TO 10 AM. PT ABLE TO HOLD CONVERSATION WITH .
[2021-02-23 00:04] LABS: Magnesium, Blood 2.3 mg/dL (1.6-2.4); Phosphorus, Blood 6.8 mg/dL (2.5-4.9)
--- NOTE | 2021-02-23 01:55 | NUR ---
MEDICATED PT WITH 25 MCG'S FENTANYL FOR COMPLAINT OF A "MIGRAINE" TYPE HEADACHE AND FOR COMPLAINTS OF LEG PAIN. PENDING RESULTS.
[2021-02-23 04:46] LABS: BASOPHILS ABSOLUTE AUTO 0.05 K/mm3 (0.00-0.23); BASOPHILS PERCENT AUTO 1 % (0-2); EOSINOPHILS ABSOLUTE AUTO 0.07 K/mm3 (0.00-0.68); EOSINOPHILS PERCENT AUTO 1 % (0-6); Hematocrit 27.7 % (37.0-53.0); Hemoglobin 9.1 g/dL (13.5-17.5); IMMATURE GRAN ABSOLUTE AUTO 0.03 K/mm3 (0.00-0.10); IMMATURE GRAN PERCENT AUTO 1 % (0-1); LYMPHOCYTES ABSOLUTE AUTO 0.83 K/mm3 (0.84-5.20); LYMPHOCYTES PERCENT AUTO 14 % (21-46); MONOCYTES ABSOLUTE AUTO 0.85 K/mm3 (0.16-1.47); MONOCYTES PERCENT AUTO 15 % (4-13); Mean Corpuscular HGB 32.2 pg (26.0-34.0); Mean Corpuscular HGB Conc 32.9 g/dL (31.5-36.5); Mean Corpuscular Volume 98 fL (80-100); Mean Platelet Volume 10.1 fL (9.1-12.4); NEUTROPHILS ABSOLUTE AUTO 4.05 K/mm3 (1.96-9.15); NEUTROPHILS PERCENT AUTO 69 % (41-73); Platelet Count 177 K/mm3 (150-400); RDW Coefficient Variation 15.2 % (11.7-14.2); RDW Standard Deviation 54.2 fL (35.1-46.3); Red Blood Cell Count 2.83 M/mm3 (4.30-5.90); White Blood Cell Count 5.88 K/mm3 (4.00-11.30)
[2021-02-23 05:07] LABS: Albumin, Blood 2.5 g/dL (3.4-5.0); Albumin/Globulin Ratio 0.7 (0.8-1.8); Bilirubin, Total 0.7 mg/dL (0.1-1.0); Bun/Creatinine Ratio 6.4 (12.0-20.0); Calcium, Blood 8.2 mg/dL (8.5-10.1); Creatinine, Blood 7.93 mg/dL (0.60-1.20); Globulin, Blood 3.7 g/dL (2.2-4.0); Magnesium, Blood 2.3 mg/dL (1.6-2.4); Phosphorus, Blood 6.5 mg/dL (2.5-4.9); Potassium, Blood 4.5 mmol/L (3.5-5.5); Total Protein, Blood 6.2 g/dL (6.4-8.2)
--- NOTE | 2021-02-23 06:30 | NUR ---
PT HAS BEEN MEDICATED WITH FENTANYL TWICE THIS NIGHT FOR COMPLAINT OF HEADACHE AND LEG PAIN. PT'S MENTATION HAS IMPROVED FROM ADMIT TO ROOM. IS ABLE TO ANSWER QUESTIONS. DR TAFOYA HAS COME IN TO SEE PT, ORDERS RECEIVED. PT MADE AWARE AND IS IN AGREEMENT. WILL CONTINUE TO MONITOR PT, AND WILL REPORT OFF TO ONCOMING RN.
--- NOTE | 2021-02-23 07:15 | NUR ---
Assumed care of pt at 0700. Bedside report received from Jovon GOMEZ. Pt A&O x 2. Answers questions. Follows commands. Verbalizes needs. Pleasant and cooperative with care. Lungs clear, dim in bases. SpO2 90% or greater RA. SR per monitor. BP stable. Plans for pt to have hemodialysis today. Fistula to [facility].
--- NOTE | 2021-02-23 08:14 | NUR ---
Call placed to Dr Moncada to notify that pt has 450 mL in bladder per ultrasound and unable to void. Pt states "you may want to try and in and out catheter" but then denies previous difficulty voiding or hx prostate problems. Order obtained for in and out catheteriztion. Pt tolerated well. 350 mL emptied, unable to obtain more. Will continue to closely reassess. Provider at bedside shortly afterwards. States pt okay for medical floor status with telemetry.
[2021-02-23 08:22] LABS: Source, Urine Catheter
[2021-02-23 08:32] LABS: Appearance, Urine Hazy (Clear); Bilirubin, Urine Neg (Neg); Blood, Urine 5+ (Neg); Color, Urine Brown (P-Yellow); Glucose Qualitative, Urine 3+ (Neg); Ketones, Urine 1+ (Neg); Leukocyte Esterase, Urine 1+ (Neg); Nitrite, Urine Neg (Neg); Protein, Urine 3+ (Neg); Specific Gravity, Urine 1.015 (1.003-1.022); Urobilinogen, Urine NORM (Normal)
[2021-02-23 08:53] LABS: Squamous Epithelial Cells Not Seen /hpf (Few)
[2021-02-23 08:56] LABS: Red Blood Cells, Urine 25-50 /hpf (0-2)
[2021-02-23 09:06] LABS: Bacteria Few /hpf
--- NOTE | 2021-02-23 17:27 | NUR ---
SUMMARY No acute changes t/o shift. Pt A&O x 2. Answers questions. Follows commands. Verbalizes needs. Pleasant and cooperative with care. Refused PT\OT today due to tremors, pain, and generally tired. Has not gotten OOB but repositions independently in bed. Pt on room air. SR per monitor. BP stable. Medical floor status with telemetry. Will continue to closely monitor until care handoff and bedside report with oncoming RN.
[2021-02-23 19:23] LABS: Vancomycin, Random 4.7 ug/mL
--- NOTE | 2021-02-23 21:47 | NUR ---
ASSUMED CARE AT 1900 PT IS ALERT/ORIENTED X2, HE DOES NOT KNOW TOWN OR TIME, BUT DOES FOLLOW DIRECTIONS AND CAN MAKE HIS NEED KNOWN MINIMALLY; IS ABLE TO COMMUNICATE BUT DOES STOP IN THE MIDDLE OF SENTENCES AND DOES NOT FINISH THEM AT TIMES; HE HAS NOT USED HIS CALL LIGHT APPROPRIATLY YET; MILD TREMORS NOTED. PT REPORTS 7/10 PAIN ALL OVER BODY, PRN NORCO AVAILABLE AT 2241; ACCEPTABLE PAIN LEVEL IS 6/10. AFEBRILE. SPO2 >90% ON RA. HR 78. BP 116/64. LT ARM TO BE NOTABLE MORE SWOLLEN THAN THE RIGHT, BOTH ARE THE SAME TEMPERATURE, LT ARM IS MORE TENDER THAN RIGHT. URINARY RETENTION NOTED. WOUND VAC TO LT LOWER OUT LEG NOTED AND APPEARS SEALED WITH NO LEAKS, SKIN AROUND WOUND VAC SHOWS NO SIGNS OF REDNESS. SEE SHIFT ASSESSMENT FOR FULL ASSESSMENT.
[2021-02-24 03:30] LABS: Hematocrit 30.1 % (37.0-53.0)
[2021-02-24 03:50] LABS: Albumin, Blood 2.6 g/dL (3.4-5.0); Anion Gap 5 mmol/L (6-16); Blood Urea Nitrogen 35 mg/dL (8-24); Bun/Creatinine Ratio 5.7 (12.0-20.0); CO2, Blood 34 mmol/L (21-32); Calcium, Blood 8.3 mg/dL (8.5-10.1); Chloride, Blood 95 mmol/L (98-108); Creatinine, Blood 6.19 mg/dL (0.60-1.20); Glomerular Filtration Rate 10 (60-); Glucose, Blood 108 mg/dL (70-99); Magnesium, Blood 2.2 mg/dL (1.6-2.4); Phosphorus, Blood 5.5 mg/dL (2.5-4.9); Potassium, Blood 3.7 mmol/L (3.5-5.5); Sodium, Blood 134 mmol/L (136-145)
--- NOTE | 2021-02-24 06:22 | NUR ---
END OF SHIFT SUMMARY PT SLEPT ON AND OFF ALL NIGHT. WHEN WAKING UP FROM SLEEPING PT CAN BE CONFUSED AND DISORIENTED; ONCE PT THOUGHT HE HAD TO GET OUT OF BED AND CHECK ON HIS WHO WAS UNDER THE BED; ANOTHER TIME HE THOUGHT HE WAS AT HOME; PT IS REDIRECTABLE AND CAN BE REORIENTED EASILY. AFEBRILE. SPO2 >92% ON RA. HR 70'S. BP STABLE. NO URINATION THIS SHIFT; BLADDER SCANNER AT 0500 SHOWED 46ML; DIALYSIS FINISHED YESTERDAY EVENING. WOUND VAC TO LLE IN PLACE AND SEALED. WILL REPORT TO AM RN WHEN AVAILABLE.
--- NOTE | 2021-02-24 10:00 | NUR ---
Care Assumed 0700 Pt A/O to being [facility]" or states at dialysis clinic, unable to state exact location/date/year. Having visual hallucations at time, seeing a man standing behind him. Following directions and calm/cooperative. Able to use call light. Mild tremors noted in upper and lower extrems. On RA, SPO2 > 90%. Crackles noted in bases. VSS. LT arm tender and swelling. Pt denies pain at this time. Wound VAC to LT lower leg, dressing C/D/I. Physical therapy attempted to stand patient at bedside but not succesful due to pt tremors.
--- NOTE | 2021-02-24 11:09 | NUR ---
TELEPHONE SBAR REPORT FROM [employer] LOSS PREVENTION MANAGER.
--- NOTE | 2021-02-24 13:04 | NUR ---
Transfer 1115 - Provider Visit Dr. Wright in to see pt, provider would like glucose checked, CBG 143. Pt attempting to get out of bed, sitting on side of bed and attempting to standup prior to providers arrival. Pt to stay for another night for antibiotic treatment. Pt nauseous after this. Educted on staying in bed due to risk of fall and pt not being able to stand during PT due to tremor's. Pt unable to understand. Nurse, Lb Siddiqui at [facility] to help pt back into bed. Pt transferred to medical floor [facility] Will[facility]. Report given to XOCHITL Willoughby RN. VSS. All belongings sent with pt.
[2021-02-25 05:05] LABS: Hematocrit 29.8 % (37.0-53.0); Hemoglobin 9.7 g/dL (13.5-17.5)
[2021-02-25 05:32] LABS: Albumin, Blood 2.5 g/dL (3.4-5.0); Anion Gap 8 mmol/L (6-16); Blood Urea Nitrogen 42 mg/dL (8-24); Bun/Creatinine Ratio 5.6 (12.0-20.0); CO2, Blood 32 mmol/L (21-32); Calcium, Blood 8.3 mg/dL (8.5-10.1); Chloride, Blood 94 mmol/L (98-108); Creatinine, Blood 7.45 mg/dL (0.60-1.20); Glomerular Filtration Rate 8 (60-); Glucose, Blood 123 mg/dL (70-99); Magnesium, Blood 2.3 mg/dL (1.6-2.4); Potassium, Blood 4.2 mmol/L (3.5-5.5); Sodium, Blood 134 mmol/L (136-145)
--- NOTE | 2021-02-25 05:47 | NUR ---
SUMMARY PT REMAINS CONFUSED. PT COOPERATIVE W/ CARE. PT BLADDER SCANNED AND REMAINED <200 ML. PT DISCOMFORT TX PER EMAR. PT WOUND VAC INTACT AND OPERATING. PT CURRENTLY SLEEPING AND IN NO DISTRESS. CALL LIGHT IN REACH.
[2021-02-25 12:47] LABS: Vancomycin, Random 11.9 ug/mL
[2021-02-26 04:43] LABS: Hemoglobin 10.1 g/dL (13.5-17.5)
[2021-02-26 05:02] LABS: Albumin, Blood 2.5 g/dL (3.4-5.0); Anion Gap 5 mmol/L (6-16); Blood Urea Nitrogen 38 mg/dL (8-24); Bun/Creatinine Ratio 5.9 (12.0-20.0); CO2, Blood 32 mmol/L (21-32); Calcium, Blood 7.8 mg/dL (8.5-10.1); Chloride, Blood 95 mmol/L (98-108); Creatinine, Blood 6.45 mg/dL (0.60-1.20); Glomerular Filtration Rate 9 (60-); Glucose, Blood 252 mg/dL (70-99); Phosphorus, Blood 5.5 mg/dL (2.5-4.9); Potassium, Blood 4.1 mmol/L (3.5-5.5); Sodium, Blood 132 mmol/L (136-145)
--- NOTE | 2021-02-26 06:23 | NUR ---
SUMMARY PT NOT CONFUSED PREVIOUS NOC SHIFT. PT MORE ALERT AND TALKATIVE. PT BLADDER SCANNED ORDERED W/ NO NEED TO CATH PT. PT SLEPT OFF AND ON. CALL LIGHT IN REACH AND BED ALARM ON.
[2021-02-26 15:02] LABS: Vancomycin, Random 26.7 ug/mL
--- NOTE | 2021-02-26 19:24 | NUR ---
END OF SHIFT SUMMARY: PATIENT REMAINED CONFUSED THROUGHOUT THE SHIFT. PATIENT ABLE TO ANSWER IN FULL SENTENCES. PATIENT ABLE TO MAKE JOKES WITH THE STAFF. PATIENT ABLE TO EXPRESS THAT HE KNEW HIS MIND WASN'T WORKING WELL. PATIENT UNABLE TO EVER EXPLAIN WHY HE WAS IN THE HOSPITAL, BUT WAS ABLE TO REMEMBER SOME ASPECTS OF HIS CURRENT SITUATION (FOR EXAMPLE: ABLE TO NOTICE THAT THE SWELLING IN HIS LEFT ARM HAS IMPROVED). PATIENT DENIED SHORTNESS OF BREATH OR DIFFICULTY BREATHING TODAY. NO RESPIRATORY DISTRESS NOTED AT REST. PATIENT HAD A MINIMAL APPETITE TODAY. PATIENT DENIED NAUSEA OR ABDOMINAL DISCOMFORT. PATIENT REQUESTED A HAMBURGER FOR DINNER AND WAS WORKING ON IT AT END OF SHIFT. PATIENT WAS ABLE TO VOID WITH URINAL ASSISTANCE. URINE IS THE COLOR OF [place]. PATIENT'S CAME TO VISIT THE PATIENT. SHE EXPRESSED INTEREST IN DISCUSSING THE PATIENT'S OPTIONS WITH THE HOSPITALIST AND PALLIATIVE CARE. AN APPOINTMENT HAS BEEN SET FOR TOMORROW.
[2021-02-27 05:00] LABS: Hematocrit 30.3 % (37.0-53.0); Hemoglobin 9.7 g/dL (13.5-17.5)
[2021-02-27 05:26] LABS: Albumin, Blood 2.4 g/dL (3.4-5.0); Anion Gap 6 mmol/L (6-16); Blood Urea Nitrogen 50 mg/dL (8-24); Bun/Creatinine Ratio 6.4 (12.0-20.0); CO2, Blood 31 mmol/L (21-32); Chloride, Blood 96 mmol/L (98-108); Creatinine, Blood 7.81 mg/dL (0.60-1.20); Glomerular Filtration Rate 7 (60-); Glucose, Blood 142 mg/dL (70-99); Magnesium, Blood 2.2 mg/dL (1.6-2.4); Phosphorus, Blood 6.5 mg/dL (2.5-4.9); Potassium, Blood 4.2 mmol/L (3.5-5.5); Sodium, Blood 133 mmol/L (136-145)
--- NOTE | 2021-02-27 06:02 | NUR ---
SUMARY PT C/O PAIN THROUGHOUT BACK, HIPS AND LEGS. PT TX PER EMAR W/ GOOD RELIEF. PT REMAINS CONFUSED AT TIMES. PT BLADDER SCANNED AND NO CATH WAS NEEDED. PT LEFT ARM REMAINS SWOLLEN. PT SLEPT OFF AND ON. CALL LIGHT IN REACH AND BED ALARM ON.
[2021-02-27 12:59] LABS: Vancomycin, Random 14.4 ug/mL
--- NOTE | 2021-02-27 18:38 | NUR ---
SHIFT SUMMARY PT A&O TO SELF AND SITUATION, SOME CONFUSION NOTED, PT REDIRECTABLE BY STAFF. PT HAD DIALYSIS SESSION THIS SHIFT. PT MEDICATED FOR PAIN PER EMAR. NO C/O CP, SOB, OR N&V. BLADDER SCANNED ORDERED, NO STRAIGHT NEEDED AT THIS TIME. NO ACUTE CHANGES NOTED TO PT THIS SHIFT. WOUND VAC IN PLACE, DRESSING TO C/D/I TO AA. BED AT LOWEST POSITION. CALL LIGHT WITHIN REACH.
--- NOTE | 2021-02-27 20:17 | NUR ---
IV R AC 20G SL FLUSHES WELL
--- NOTE | 2021-02-27 22:04 | NUR ---
2015 PT LYING IN BED, REPORTS L SIDE PAIN OF 9/10, GAVE PAIN MEDICATIONS, WILL EVAL FOR EFFECT. REPORTS A LITTLE SOB THAT INCREASES WITH EXERTION. PT IS ON RA AT 97%. BS WAS 149. NO OTHER APPARENT SIGNS OF DISTRESS. CALL LIGHT IS IN REACH.
--- NOTE | 2021-02-27 22:45 | NUR ---
PT LYING IN BED, EYES CLOSED, APPEARS TO BE RESTING. BREATHING IS EVEN, UNLABORED. NO APPARENT SIGNS OF DISTRESS. CALL LIGHT IS IN REACH.
--- NOTE | 2021-02-27 23:47 | NUR ---
PT LYING IN BED, EYES, CLOSED, APPEARS TO BE RESTING. BREATHING IS EVEN, UNLABORED. NO APPARENT SIGNS OF DISTRESS. CALL LIGHT IS IN REACH.
[2021-02-28] MEDS ORDERED: LIDO700A20 TOP (01:27)
[2021-02-28] MEDS ORDERED: PANT40 PO (01:32)
[2021-02-28] MEDS ORDERED: Crestor20 MG PO (01:34)
--- NOTE | 2021-02-28 02:26 | NUR ---
PT LYING IN BED, AWAKE, WATCHING TV. DENIES NEED FOR ANYTHING AT THIS TIME. NO APPARENT SIGNS OF DISTRESS. CALL LIGHT IS IN REACH. BED ALARM IS ON.
--- NOTE | 2021-02-28 04:10 | NUR ---
PT LYING IN BED, EYES CLOSED, APPEARS TO BE RESTING. BREATHING IS EVEN, UNLABORED. NO APPARENT SIGNS OF DISTRESS. CALL LIGHT IS IN REACH. BED ALARM IS ON.
--- NOTE | 2021-02-28 04:15 | NUR ---
AAO X 3-4, ON RA. PT REPORTED L SIDE PAIN, GOT PAIN MEDS AT HS. PT HAS WOUND VAC TO WOUND ON L WU, NO DRAINAGE. BS AT HS WAS 149.
--- NOTE | 2021-02-28 05:21 | NUR ---
PT LYING IN BED, EYES CLOSED, APPEARS TO BE RESTING. BREATHING IS EVEN, UNLABORED. NO APPARENT SIGNS OF DISTRESS. CALL LIGHT IS IN REACH. BED ALARM IS ON. NO OTHER CHANGES THIS SHIFT.
[2021-02-28 05:49] LABS: BASOPHILS ABSOLUTE AUTO 0.04 K/mm3 (0.00-0.23); BASOPHILS PERCENT AUTO 1 % (0-2); EOSINOPHILS ABSOLUTE AUTO 0.07 K/mm3 (0.00-0.68); EOSINOPHILS PERCENT AUTO 1 % (0-6); Hematocrit 30.9 % (37.0-53.0); IMMATURE GRAN ABSOLUTE AUTO 0.02 K/mm3 (0.00-0.10); IMMATURE GRAN PERCENT AUTO 0 % (0-1); LYMPHOCYTES PERCENT AUTO 17 % (21-46); MONOCYTES PERCENT AUTO 11 % (4-13); Mean Corpuscular HGB 32.7 pg (26.0-34.0); Mean Corpuscular HGB Conc 32.4 g/dL (31.5-36.5); Mean Corpuscular Volume 101 fL (80-100); Mean Platelet Volume 10.3 fL (9.1-12.4); NEUTROPHILS ABSOLUTE AUTO 3.75 K/mm3 (1.96-9.15); NEUTROPHILS PERCENT AUTO 70 % (41-73); Platelet Count 224 K/mm3 (150-400); RDW Coefficient Variation 15.3 % (11.7-14.2); Red Blood Cell Count 3.06 M/mm3 (4.30-5.90); White Blood Cell Count 5.38 K/mm3 (4.00-11.30)
[2021-02-28 05:55] LABS: Albumin, Blood 2.3 g/dL (3.4-5.0); Anion Gap 4 mmol/L (6-16); Blood Urea Nitrogen 33 mg/dL (8-24); Bun/Creatinine Ratio 5.7 (12.0-20.0); CO2, Blood 33 mmol/L (21-32); Chloride, Blood 98 mmol/L (98-108); Creatinine, Blood 5.74 mg/dL (0.60-1.20); Glomerular Filtration Rate 11 (60-); Glucose, Blood 67 mg/dL (70-99); Magnesium, Blood 2.2 mg/dL (1.6-2.4); Phosphorus, Blood 4.3 mg/dL (2.5-4.9); Potassium, Blood 3.9 mmol/L (3.5-5.5); Sodium, Blood 135 mmol/L (136-145)
--- NOTE | 2021-02-28 17:11 | NUR ---
DISCHARGE SUMMARY PT DISCHARGE THIS SHIFT TO HOME WITH HOME HEALTH SERVICES ORDERED. PT's FAMILY PRESENT DURING DISCHARGE. PT AND FAMILY VERBALIZED UNDERSTANDING OF DISCHARGE ORDERS. PT's WOUND VAC DRESSING CHANGES PRIOR TO DC, HOME WOUND VAC IN PLACE. IV LINE DISCONTINUED PRIOR TO D/C. NO COMPLAINTS OR CONCERNS NOTED FROM PT OR FAMILY. NO COMPLAINTS OF PAIN OR ANY DISCOMFORT PRIOR TO DISCHARGE. DISCHARGE PAPERWORK GIVEN TO PATIENT UPON DISCHARGE.
--- NOTE | 2021-03-05 01:08 | NUR ---
AFTER REVIEWING THE BEDSIDE SWALLOW EVAL DIRECTIONS, PT IS NOT ABLE TO MAINTAIN ALERTNESS AND ATTENTION FOR 15 MINUNTES, PT DOES NOT HAVE A CLEAR, STRONG VOICE AND STRONG COUGH. UNABLE TO DO SWALLOW EVAL PER THE DIRECTIONS. WILL NEED TO REEVALUATE WHEN PT ABLE TO DO THESE THINGS. I DID GIVE THE PT ONE TINY SIP OF WATER WITHOUT A STRAW, HE APPEARS TO SWALLOW IT OK WITHOUT CHOKING, HOWEVER, HE VOMITED IMMEDIATELY AFTER A SMALL AMOUNT OF WHITISH LIGHT YELLOWISH PHLEGM. PT NOT ABLE TO TOLERATE A SWALLOW EVAL AT THIS TIME.
--- NOTE | 2021-03-05 01:20 | NUR ---
REVIEWED PT'S INFORMATION FOR CURRENT ADMISSION.
== END 2021-02-28 15:42 | disposition home health service (06) | DRG 193 ==
LOC: ER 17:18 → ICUW 17:19 → ICUE 17:19 → ER 17:19 → MEDS 17:19 → ICUW 17:20 → ER 17:20 → MEDS 17:20 → ER 19:43 → ICUW 19:43 → ICUE 19:43 → ICUW 20:44 → ICUE 20:44 → MEDS 02-24 11:29 → ICUW 02-24 13:37 → MEDS 02-24 13:37 → ICUE 02-24 13:37 → MEDS 02-25 07:03
PROVIDERS: Emergency Medicine; Family Medicine; Internal Medicine Nephrology; ADMIT Internal Medicine
PROC: 5A1D70Z Performance of Urinary Filtration, Intermittent, Less than 6 Hours Per Day (ICD-10-PCS; principal; 2021-02-23)
DX: J18.9 Pneumonia, unspecified organism (principal); G92 Toxic encephalopathy; I63.9 Cerebral infarction, unspecified; N18.6 End stage renal disease; I13.2 Hypertensive heart and chronic kidney disease with heart failure and with stage 5 chronic kidney disease, or end stage renal disease; N25.81 Secondary hyperparathyroidism of renal origin; E87.1 Hypo-osmolality and hyponatremia; L02.416 Cutaneous abscess of left lower limb; E87.5 Hyperkalemia; B95.62 Methicillin resistant Staphylococcus aureus infection as the cause of diseases classified elsewhere; G40.909 Epilepsy, unspecified, not intractable, without status epilepticus; E11.22 Type 2 diabetes mellitus with diabetic chronic kidney disease; E78.5 Hyperlipidemia, unspecified; M54.09 Panniculitis affecting regions, neck and back, multiple sites in spine; D63.1 Anemia in chronic kidney disease; G89.29 Other chronic pain; F43.10 Post-traumatic stress disorder, unspecified; F01.50 Vascular dementia, unspecified severity, without behavioral disturbance, psychotic disturbance, mood disturbance, and anxiety; I25.5 Ischemic cardiomyopathy; I25.119 Atherosclerotic heart disease of native coronary artery with unspecified angina pectoris; Z88.8 Allergy status to other drugs, medicaments and biological substances; I48.0 Paroxysmal atrial fibrillation; I25.2 Old myocardial infarction; F32.9 Major depressive disorder, single episode, unspecified; N40.0 Benign prostatic hyperplasia without lower urinary tract symptoms; Z91.09 Other allergy status, other than to drugs and biological substances; Z79.899 Other long term (current) drug therapy; Z99.2 Dependence on renal dialysis; Z79.4 Long term (current) use of insulin; Z79.02 Long term (current) use of antithrombotics/antiplatelets; Z86.73 Personal history of transient ischemic attack (TIA), and cerebral infarction without residual deficits; Z86.711 Personal history of pulmonary embolism; Z95.0 Presence of cardiac pacemaker; Z98.890 Other specified postprocedural states; Z95.5 Presence of coronary angioplasty implant and graft; Z87.891 Personal history of nicotine dependence; Z91.048 Other nonmedicinal substance allergy status
CPT/HCPCS: 36415; 51701; 70450; 71045; 71046; 76770; 80047; 80053; 80069; 80202; 81001; 82140; 82947; 83605; 83735; 84100; 85014; 85018; 85025; 87040; 87086; 93005; 93010; 94760; 96365; 96375; 97110; 97162; 97166; 97530; 99285-25; A9270; G0103; J0456; J0696; J0881; J1650; J2060; J2405; J3010; J3370; J7030; J7050

== ENCOUNTER 2021-03-01 20:55 | Emergency (ER) | payer OTHER, MEDICARE ==
[~2021-03-01] VITALS: Ht 170.2 cm; Wt 70.3 kg
[2021-03-01 21:16] LABS: BASOPHILS ABSOLUTE AUTO 0.04 K/mm3 (0.00-0.23); BASOPHILS PERCENT AUTO 0 % (0-2); EOSINOPHILS ABSOLUTE AUTO 0.04 K/mm3 (0.00-0.68); EOSINOPHILS PERCENT AUTO 0 % (0-6); Hematocrit 32.6 % (37.0-53.0); Hemoglobin 10.7 g/dL (13.5-17.5); IMMATURE GRAN ABSOLUTE AUTO 0.03 K/mm3 (0.00-0.10); IMMATURE GRAN PERCENT AUTO 0 % (0-1); LYMPHOCYTES ABSOLUTE AUTO 0.79 K/mm3 (0.84-5.20); LYMPHOCYTES PERCENT AUTO 9 % (21-46); MONOCYTES ABSOLUTE AUTO 0.66 K/mm3 (0.16-1.47); MONOCYTES PERCENT AUTO 7 % (4-13); Mean Corpuscular HGB 32.7 pg (26.0-34.0); Mean Corpuscular HGB Conc 32.8 g/dL (31.5-36.5); Mean Corpuscular Volume 100 fL (80-100); Mean Platelet Volume 10.1 fL (9.1-12.4); NEUTROPHILS ABSOLUTE AUTO 7.49 K/mm3 (1.96-9.15); NEUTROPHILS PERCENT AUTO 83 % (41-73); NRBC ABSOLUTE 0.02 K/mm3 (0.00-0.02); NRBC Auto 0.2 /100 WBC (0.0-0.2); Platelet Count 238 K/mm3 (150-400); RDW Coefficient Variation 15.5 % (11.7-14.2); RDW Standard Deviation 54.9 fL (35.1-46.3); Red Blood Cell Count 3.27 M/mm3 (4.30-5.90); White Blood Cell Count 9.05 K/mm3 (4.00-11.30)
[2021-03-01 21:43] LABS: Albumin, Blood 2.7 g/dL (3.4-5.0); Albumin/Globulin Ratio 0.7 (0.8-1.8); Bilirubin, Total 0.5 mg/dL (0.1-1.0); Bun/Creatinine Ratio 6.5 (12.0-20.0); Calcium, Blood 8.5 mg/dL (8.5-10.1); Creatinine, Blood 7.73 mg/dL (0.60-1.20); Potassium, Blood 5.3 mmol/L (3.5-5.5); Total Protein, Blood 6.7 g/dL (6.4-8.2); Troponin I 0.062 ng/mL (0.000-0.040)
== END 2021-03-01 22:53 | disposition home or self-care (01) ==
LOC: ER 20:55
PROVIDERS: Emergency Medicine
DX: J18.9 Pneumonia, unspecified organism (principal); Z79.01 Long term (current) use of anticoagulants; Z79.4 Long term (current) use of insulin; Z79.02 Long term (current) use of antithrombotics/antiplatelets; Z79.899 Other long term (current) drug therapy
CPT/HCPCS: 36415; 71045; 80053; 84484; 85025; 93005; 93010; 94640; 99284-25

== ENCOUNTER 2021-03-04 13:04 | Emergency (ER) | payer OTHER, MEDICARE ==
[~2021-03-04] VITALS: Ht 170.2 cm; Wt 68.0 kg
[2021-03-04 13:15] LABS: Calcium, Ionized (POC) 0.95 mmol/L (1.10-1.46); Chloride (POC) 91 mmol/L (98-108); Creatinine (POC) 7.7 mg/dL (0.8-1.3); Glucose (ISTAT POC) 221 mg/dL (70-99); Hemoglobin (POC) 10.5 g/dL (13.5-17.5); Sodium (POC) 131 mmol/L (135-148); Total CO2 (POC) 31 mmol/L (21-32)
[2021-03-04 13:27] LABS: BASOPHILS ABSOLUTE AUTO 0.03 K/mm3 (0.00-0.23); BASOPHILS PERCENT AUTO 0 % (0-2); EOSINOPHILS ABSOLUTE AUTO 0.08 K/mm3 (0.00-0.68); EOSINOPHILS PERCENT AUTO 1 % (0-6); Hematocrit 30.9 % (37.0-53.0); IMMATURE GRAN ABSOLUTE AUTO 0.03 K/mm3 (0.00-0.10); IMMATURE GRAN PERCENT AUTO 0 % (0-1); LYMPHOCYTES ABSOLUTE AUTO 0.63 K/mm3 (0.84-5.20); LYMPHOCYTES PERCENT AUTO 8 % (21-46); MONOCYTES ABSOLUTE AUTO 0.55 K/mm3 (0.16-1.47); MONOCYTES PERCENT AUTO 7 % (4-13); Mean Corpuscular HGB 33.6 pg (26.0-34.0); Mean Corpuscular HGB Conc 32.4 g/dL (31.5-36.5); Mean Corpuscular Volume 104 fL (80-100); Mean Platelet Volume 10.4 fL (9.1-12.4); NEUTROPHILS ABSOLUTE AUTO 6.56 K/mm3 (1.96-9.15); NEUTROPHILS PERCENT AUTO 83 % (41-73); Platelet Count 195 K/mm3 (150-400); RDW Coefficient Variation 16.7 % (11.7-14.2); RDW Standard Deviation 61.1 fL (35.1-46.3); Red Blood Cell Count 2.98 M/mm3 (4.30-5.90); White Blood Cell Count 7.88 K/mm3 (4.00-11.30)
[2021-03-04 13:50] LABS: Albumin, Blood 2.7 g/dL (3.4-5.0); Albumin/Globulin Ratio 0.7 (0.8-1.8); Bilirubin, Total 0.6 mg/dL (0.1-1.0); Bun/Creatinine Ratio 6.4 (12.0-20.0); Calcium, Blood 8.3 mg/dL (8.5-10.1); Creatinine, Blood 6.45 mg/dL (0.60-1.20); Globulin, Blood 3.9 g/dL (2.2-4.0); Potassium, Blood 4.8 mmol/L (3.5-5.5); Total Protein, Blood 6.6 g/dL (6.4-8.2); Troponin I 0.018 ng/mL (0.000-0.040)
[2021-03-04] MEDS ORDERED: ALBU90OI INH (14:45)
[2021-03-04] MEDS ORDERED: ALBU2.5V5 NEB (14:46)
[2021-03-04] MEDS ORDERED: Amiodarone HCl200 MG PO (14:46)
[2021-03-04] MEDS ORDERED: ATOR40TA PO (14:48)
[2021-03-04] MEDS ORDERED: VITAMIN D325 MC3 PO (14:49)
[2021-03-04] MEDS ORDERED: CALCIUM ACETAT667 MG PO (14:49)
[2021-03-04] MEDS ORDERED: CINACALCET HCL30 M1 PO (14:50)
[2021-03-04] MEDS ORDERED: CLOP75 PO (14:50)
[2021-03-04] MEDS ORDERED: HUMULIN 70100 UNIT/3 SC (14:51)
[2021-03-04] MEDS ORDERED: Isosorbide Mono60 MG PO (14:53)
[2021-03-04] MEDS ORDERED: LAMO100 PO (14:54)
[2021-03-04] MEDS ORDERED: METO100ER PO (14:55)
[2021-03-04] MEDS ORDERED: MELA3 PO (14:55)
[2021-03-04] MEDS ORDERED: OXYC5 PO (14:57)
[2021-03-04] MEDS ORDERED: SERT50 PO (14:57)
[2021-03-04] MEDS ORDERED: XARELTO15 M1 PO (14:58)
[2021-03-04] MEDS ORDERED: TAMS.4ER PO (14:58)
[2021-03-04] MEDS ORDERED: MIRALAX17 GM PO (15:02)
[2021-03-04] MEDS ORDERED: L-ARGININE500 MG PO (15:02)
== END 2021-03-04 15:20 | disposition home or self-care (01) ==
LOC: ER 13:04
PROVIDERS: Emergency Medicine
DX: R53.1 Weakness (principal); Z79.01 Long term (current) use of anticoagulants; Z79.899 Other long term (current) drug therapy; Z88.8 Allergy status to other drugs, medicaments and biological substances; Z88.1 Allergy status to other antibiotic agents; Z79.4 Long term (current) use of insulin; Z91.030 Bee allergy status; Z87.891 Personal history of nicotine dependence
CPT/HCPCS: 71045; 80047; 80053; 84484; 85014; 85025; 93005; 93010; 99284-25; A9270

== ENCOUNTER 2021-03-04 16:00 | Observation (INO) | payer OTHER ==
[~2021-03-04] VITALS: Ht 175.3 cm; Wt 69.1 kg
[~2021-03-04 16:00] MED LIST changes: +CALCIUM ACETAT667 MG PO; +CINACALCET HCL30 M1 PO; +HUMULIN 70100 UNIT/3 SC; +METO100ER PO; +SERT50 PO; +VITAMIN D325 MC3 PO; +XARELTO15 M1 PO
[2021-03-04 16:31] LABS: PCO2 Arterial 43.6 mmHg (35-45); PO2 Arterial 68.7 mmHg (80-100); pH Blood Arterial 7.46 (7.35-7.45)
--- NOTE | 2021-03-04 19:55 | NUR ---
DIALYSIS IS PLANNED FOR 899 MORNING 03/05 AT O900 IN THE DIALYSIS TREATMENT ROOM ON SECOND FLOOR.
--- NOTE | 2021-03-05 00:11 | NUR ---
03/04/212144 PT SITTING UP A LITTLE IN BED, PT REPORTS NAUSEA, GAVE ZOFRAN, APPEARED TO HELP, HOWEVER, WHEN I ATTEMPTED TO DO A MINI BEDSIDE SWALLOW EVAL, HE SWALLOWED A SIP OF WATER OK BUT THEN THREW UP A SMALL AMOUNT OF WHITISH LIGHT YELLOWISH PHLEGM. HELP MEDS FOR NOW. PT CAME IN WITH A WOUND VAC FROM HOME TO THE [facility]. REMOVED HOME WOUND VAC AND DRESSINGS, TOOK PHOTOS, PLACED NEW DRESSINGS ON WOUND AND A HOSPITAL WOUND VAC. SEE DOCUMENTATION. TELE IS NSR AT 60. PT IS VERY WEAK. AAO TO SELF AND FAMILY. ON RA AT 98%. NONPRODUCTIVE COUGH. NO OTHER APPARENT SIGNS OF DISTRESS. CALL LIGHT IS IN REACH. BED ALARM IS ON. 2203 BLOOD SUGAR WAS 224. 03/05/21 0010 BLOOD SUGAR WAS 208, BLADDER SCAN NOT POST VOID WAS 283.
--- NOTE | 2021-03-05 01:17 | NUR ---
AFTER REVIEWING THE BEDSIDE SWALLOW EVAL DIRECTIONS, PT IS NOT ABLE TO MAINTAIN ALERTNESS AND ATTENTION FOR 15 MINUTES, PT DOES NOT HAVE A CLEAR, STRONG VOICE AND STRONG COUGH. UNABLE TO DO SWALLOW EVAL PER THE DIRECTIONS. WILL NEED TO REEVALUATE WHEN PT ABLE TO DO THESE THINGS. I DID GIVE THE PT ONE TINY SIP OF WATER WITHOUT A STRAW, HE APPEARED TO SWALLOW IT OK WITHOUT CHOKING, HOWEVER, HE VOMITED IMMEDIATELY AFTER A SMALL AMOUNT OF WHITISH LIGHT YELLOWISH PHLEGM. PT NOT ABLE TO TOLERATE A SWALLOW EVAL AT THIS TIME.
--- NOTE | 2021-03-05 01:57 | NUR ---
0000 PT LYING IN BED, APPEARS TO BE RESTING. BREATHING IS EVEN, UNLABORED. OCCASIONAL NONPRODUCTIVE COUGH. NO OTHER APPARENT SIGNS OF DISTRESS. CALL LIGHT IS IN REACH. BED ALARM IS ON.
--- NOTE | 2021-03-05 01:58 | NUR ---
PT LYING IN BED, EYES CLOSED, APPEARS TO BE RESTING. BREATHING IS EVEN, UNLABORED. NO APPARENT SIGNS OF DISTRESS. CALL LIGHT IS IN REACH. BED ALARM IS ON.
[2021-03-05 02:58] LABS: Hematocrit 31.2 % (37.0-53.0); Hemoglobin 10.3 g/dL (13.5-17.5)
--- NOTE | 2021-03-05 03:15 | NUR ---
PT LYING IN BED, AWAKE, HOLDING HIS L KNEE UP TOWARDS HIS CHEST. PT STATES HE IS OK AND DOES NOT NEED ANYTHING AT THIS TIME. I ASKED HIM WHAT HE WAS DOING WITH HIS KNEE AND HE JUST LOOKED AT ME WITHOUT ANSWERING. I ASKED HIM IF HE WAS STRETCHING HIS LEG, HE SAID YES. I POINTED OUT THE SWABS ON HIS TABLE AND LET HIM KNOW HE COULD USE THOSE TO MOISTEN HIS MOUTH WITH IF HE WANTED TO. HE SAID "I AM NOT DRINKING THAT STUFF". I LET HIM KNOW HE DIDN'T HAVE TO DRINK ANYTHING HE DIDN'T WANT TO. NO OTHER APPARENT SIGNS OF DISTRESS. CALL LIGHT IS IN REACH. BED ALARM IS ON.
[2021-03-05 03:17] LABS: Albumin, Blood 2.9 g/dL (3.4-5.0); Anion Gap 9 mmol/L (6-16); Blood Urea Nitrogen 51 mg/dL (8-24); Bun/Creatinine Ratio 6.8 (12.0-20.0); CO2, Blood 31 mmol/L (21-32); Calcium, Blood 8.6 mg/dL (8.5-10.1); Chloride, Blood 92 mmol/L (98-108); Creatinine, Blood 7.48 mg/dL (0.60-1.20); Glomerular Filtration Rate 8 (60-); Glucose, Blood 213 mg/dL (70-99); Magnesium, Blood 2.2 mg/dL (1.6-2.4); Phosphorus, Blood 6.8 mg/dL (2.5-4.9); Potassium, Blood 4.9 mmol/L (3.5-5.5); Sodium, Blood 132 mmol/L (136-145)
--- NOTE | 2021-03-05 04:41 | NUR ---
PT IS AAO X 2-3, ON RA, HAD NAUSEA, REPORTED PAIN IN EPIGASTRIC AREA BUT UNABLE TO DESCRIBE FURTHER AND FALLS BACK TO SLEEP IMMEDIATELY. TELE NSR AT 60. BLOOD SUGAR 224, 208. BLADDER SCAN WAS 283. PT GOT ZOFRAN X 1.
--- NOTE | 2021-03-05 04:50 | NUR ---
SEE 6269 NURSES NOTE, SHIFT SUMMARY CHARTED ON NURSES NOTE.
--- NOTE | 2021-03-05 06:19 | NUR ---
PT LYING IN BED, AWAKE, BLADDER SCAN DONE 288, NOT POST VOID, ATTEMPTED TO USE URINAL UNSUCCESFUL, BLOOD SUGAR 206. PT DENIES NEED FOR ANYTHING AT THIS TIME. NO APPARENT SIGNS OF DISTRESS. CALL LIGHT IS IN REACH. BED ALARM IS ON. NO OTHER CHANGES THIS SHIFT.
--- NOTE | 2021-03-05 18:14 | NUR ---
SHIFT SUMMARY PT MORE ALERT THIS AFTERNOON, AFTER DIALYSIS. PT CONTINUES TO BE VERY CONFUSED HOWEVER. PT CALLED THIS AM, WANTING TO TRANSITION TO COMFORT CARE. PT TALKED WITH PALLIATIVE CARE TODAY ABOUT THESE WISHES. PT TOLERATING PO FLUIDS WILL BE TRIALING [facility] SOFT FOOD FOR DINNER. PT HAD BM AND WAS BATHED TODAY. NO OTHER CHANGES IN ASSESSMENT AT THIS TIME. VS REVIEWED. PT RESTING IN BED, CALL LIGHT IN REACH. FOR NOW PT REMAINS FULL CODE AND FULL CARE.
--- NOTE | 2021-03-05 18:47 | NUR ---
Spoke with today she is very distraught by events leading up to this hospitalization. she stated [facility] came out and pt was having periods of apnea pt sent to ER. They asked for her to pick him up and take him to dialysis. Pt was then sent back to ER by dialysis team as to unstable. is adamant about hospice she feels he has suffered enough and even on his good days not with it enough to say what he relaly wants. He basis of advocating is very poor quality of life and she feels bad she told him she would protect him. pt able to answers ome questions but tremulous and confussed. [place] arm is swollen he appears more frail. his pps score is 30%. He is high risk for sudden .
--- NOTE | 2021-03-05 18:59 | NUR ---
pt has polst on file will get his dnr status back on chart. pt and have expressed no recissitation in past.
--- NOTE | 2021-03-06 04:14 | NUR ---
SHIFT SUMMARY ADMITTED FOR TOXIC METABOLIC ENCEPHALOPATHY. DNR CODE. DIALYSIS PT. PACEMAKER IN PLACE. DR TAFOYA IS RENAL CONSULT. TELEMETRY: NSR @ 74 BPM. FISTULA IN LEFT ARM - THIS IS SWOLLEN, PROVIDERS AWARE. HOSPITAL WOUND VAC IN PLACE ON LEFT WU. PT IS CONFUSED BUT COOPERATIVE WITH CARE. A FUTURE PLAN OF CARE WILL BE DECIDED ON FOR DISCHARGE. PT IS ON XARELTO.
[2021-03-06 04:27] LABS: Hematocrit 30.2 % (37.0-53.0); Hemoglobin 9.8 g/dL (13.5-17.5)
[2021-03-06 04:50] LABS: Albumin, Blood 2.6 g/dL (3.4-5.0); Anion Gap 8 mmol/L (6-16); Blood Urea Nitrogen 34 mg/dL (8-24); Bun/Creatinine Ratio 5.8 (12.0-20.0); CO2, Blood 31 mmol/L (21-32); Calcium, Blood 8.8 mg/dL (8.5-10.1); Chloride, Blood 95 mmol/L (98-108); Creatinine, Blood 5.87 mg/dL (0.60-1.20); Glomerular Filtration Rate 10 (60-); Glucose, Blood 142 mg/dL (70-99); Magnesium, Blood 2.1 mg/dL (1.6-2.4); Phosphorus, Blood 5.2 mg/dL (2.5-4.9); Potassium, Blood 4.5 mmol/L (3.5-5.5); Sodium, Blood 134 mmol/L (136-145)
[2021-03-06 12:30] LABS: Vancomycin, Random 22.3 ug/mL
--- NOTE | 2021-03-06 16:40 | NUR ---
SHIFT SUMMARY PT ABLE TO REPOSITION SELF IN BED. NO DIALYSIS TODAY. PT ALERTNESS CONTINUES TO IMPROVE AND PT IS ABLE TO CONVERSATE. PT VERY CONFUSED AND HALLUCINATES OCCATIONALLY. PT WATING WELL WITH A MECH SOFT DIET. NO SIGNS OF DIFFICULTY SWALLOWING T/O DAY. PT NOW TAKING MEDS WHOLE WITH WATER. NO OTHER ACUTE CHANGES IN ASSESSMENT AT THIS TIME. VS REVIEWED. PT SLEEPING IN BED AT THIS TIME. BED ALARM SET. WOUND VAC SUCTIONING WELL. CALL LIGHT IN REACH.
[2021-03-07 04:33] LABS: Hematocrit 30.3 % (37.0-53.0); Hemoglobin 10.1 g/dL (13.5-17.5)
[2021-03-07 04:53] LABS: Albumin, Blood 2.6 g/dL (3.4-5.0); Anion Gap 10 mmol/L (6-16); Blood Urea Nitrogen 44 mg/dL (8-24); Bun/Creatinine Ratio 6.2 (12.0-20.0); CO2, Blood 27 mmol/L (21-32); Calcium, Blood 8.4 mg/dL (8.5-10.1); Chloride, Blood 93 mmol/L (98-108); Creatinine, Blood 7.05 mg/dL (0.60-1.20); Glomerular Filtration Rate 8 (60-); Glucose, Blood 166 mg/dL (70-99); Magnesium, Blood 2.2 mg/dL (1.6-2.4); Phosphorus, Blood 5.7 mg/dL (2.5-4.9); Potassium, Blood 4.6 mmol/L (3.5-5.5); Sodium, Blood 130 mmol/L (136-145)
--- NOTE | 2021-03-07 06:28 | NUR ---
PT known to this RN PT changed to comfort care planning to dc home on Hospice. DTR Radha called & updated. PT medicated for rt flank pain with oxycodone 10 mg x 1 & tylenol 650 mg x 1 with helpful effect. Noble patent urine milky pink. Drinking large amts water. CO constipation at shift changed decline josé at HS stated fecal incont. Medicated for nausea x 1 with helpful effect.
--- NOTE | 2021-03-07 06:35 | NUR ---
[employer] with ESRD on dialysis recieved dialysis yesterday. Sips of water with meds taken. LT le wound vac patent. Pt's & PT considering hospice.
--- NOTE | 2021-03-07 18:07 | NUR ---
SUMMARY PT SITTING UP IN BED EATING DINNER, PT IS NOW ON COMFORT CARE, PT'S CAME IN AND SPOKE WITH DR BRASHER, [facility] PALLIATIVE CARE RN, ALLYSSA ESTHETICIAN AND MANAGER MEDICAL [facility]PA, AND NADYA WITH [facility], PLAN IS TO GO HOME TOMORROW, PT DECLINED DIALYSIS TODAY, MED PER EMAR FOR C/O PAIN, WOUND VAC REMAINS IN PLACE, NO OTHER COMPLAINTS, WILL CONTINUE TO MONITOR
--- NOTE | 2021-03-07 19:45 | NUR ---
[facility] PT [employer] [place] on hemodialysis changed to comfort care today declined dialysis per report & planning to DC home tomorrow on Hospice with [facility] assist. He has LT LE wound vac patent but no drainage. Reported brought home wound vac in reports surgery 3 wweeks ago to LLE wound. Alert talkative.
--- NOTE | 2021-03-08 03:39 | NUR ---
PT alert confused mildly. Anticipating dc home on hopice with [facility]. Poor appetite & fluid intake. Declined dialysis yesterday, on comfort measures. Wound vac patent no drainage.
--- NOTE | 2021-03-08 03:45 | NUR ---
Continues to deny needs , does state several times he is unpluggin g everything & leaving. Support offered. Bed alarm, fall risk.
--- NOTE | 2021-03-08 06:04 | NUR ---
PT denies unmet needs.
[2021-03-08] MEDS ORDERED: MORPHINE CONCENTRATE SL (08:56)
[2021-03-08] MEDS ORDERED: ATROPINE SULFATE2 M5 SL (09:00)
[2021-03-08] MEDS ORDERED: Ativan1 MG PO (09:00)
[2021-03-08] MEDS ORDERED: Ropinirole HCl0.5 MG PO (09:01)
[2021-03-08] MEDS ORDERED: TRANSDERM-SCOP1 EAC5 TD (09:02)
--- NOTE | 2021-03-08 10:11 | NUR ---
Comfort Care Visit Pt resting in bed with his eyes closed. Pt appears comfortable with no S/S of distress at this time. Reviewed chart and discharge plan. Palliative Care will remain available.
--- NOTE | 2021-03-08 11:58 | NUR ---
SUMMARY/DISCHARGE PT DISCHARGED TO HOME WITH HOSPICE, TRANSPORTATION AND OTHER ORDERS ARRANGED BY NADYA FROM [facility], PT MED PER EMAR FOR PAIN AND ANXIETY, HOSPITAL WOUND VAC REMOVED, HOME VAC REPLACED, PT [place], PT TRANSPORTED TO HOME VIA GURNEY
== END 2021-03-08 11:35 | disposition hospice, home (50) ==
LOC: ER 16:00 → MEDS 16:01
PROVIDERS: Emergency Medicine; Family Medicine; Internal Medicine Nephrology; ADMIT Internal Medicine
DX: G92 Toxic encephalopathy (principal); I13.2 Hypertensive heart and chronic kidney disease with heart failure and with stage 5 chronic kidney disease, or end stage renal disease; E11.22 Type 2 diabetes mellitus with diabetic chronic kidney disease; N18.6 End stage renal disease; I50.30 Unspecified diastolic (congestive) heart failure; I25.5 Ischemic cardiomyopathy; G40.909 Epilepsy, unspecified, not intractable, without status epilepticus; L02.416 Cutaneous abscess of left lower limb; B95.62 Methicillin resistant Staphylococcus aureus infection as the cause of diseases classified elsewhere; E78.5 Hyperlipidemia, unspecified; I25.2 Old myocardial infarction; I48.0 Paroxysmal atrial fibrillation; F01.50 Vascular dementia, unspecified severity, without behavioral disturbance, psychotic disturbance, mood disturbance, and anxiety; I69.354 Hemiplegia and hemiparesis following cerebral infarction affecting left non-dominant side; D63.1 Anemia in chronic kidney disease; N25.81 Secondary hyperparathyroidism of renal origin; R79.89 Other specified abnormal findings of blood chemistry; F33.9 Major depressive disorder, recurrent, unspecified; N40.0 Benign prostatic hyperplasia without lower urinary tract symptoms; J44.9 Chronic obstructive pulmonary disease, unspecified; G89.29 Other chronic pain; R60.0 Localized edema; E87.1 Hypo-osmolality and hyponatremia; G47.00 Insomnia, unspecified; Z86.19 Personal history of other infectious and parasitic diseases; Z87.81 Personal history of (healed) traumatic fracture; Z86.711 Personal history of pulmonary embolism; Z79.01 Long term (current) use of anticoagulants; Z88.8 Allergy status to other drugs, medicaments and biological substances; Z91.048 Other nonmedicinal substance allergy status; Z95.5 Presence of coronary angioplasty implant and graft; Z99.2 Dependence on renal dialysis; Z95.0 Presence of cardiac pacemaker; Z79.4 Long term (current) use of insulin; Z87.891 Personal history of nicotine dependence; Z74.09 Other reduced mobility; Z51.5 Encounter for palliative care; Z87.01 Personal history of pneumonia (recurrent)
CPT/HCPCS: 36415; 36600; 70450; 80069; 80202; 82330; 82803; 82947; 83735; 84484; 85014; 85018; 94760; 96365; 96372; 96375; 97110; 97162; 99285-25; A9270; G0257; G0378; J0881; J1815; J2405; J3370